=== PATIENT | female | born 1945 | race Caucasian/White ===

== ENCOUNTER 2017-01-19 21:33 | Inpatient (IN) | payer OTHER ==
[~2017-01-19] VITALS: Ht 152.4 cm; Wt 53.5 kg
[~2017-01-19 21:33] MED LIST: LISI40TA PO; METO50TA7 PO
[2017-01-19] MEDS ORDERED: SODIUM CHLORIDE 0.9% 250ML 250 ML IV STA (21:50)
[2017-01-19] MEDS ORDERED: SODIUM CHLORIDE 0.9% 1000ML 1,000 ML IV STA (21:50)
[2017-01-19] MEDS ORDERED: METOPROLOL TARTRATE 1 MG/ML VIAL IV STA (22:09)
--- NOTE | 2017-01-19 22:14 | EMERGENCY ROOM VISIT NOTE ---
ED Visit Note First contact with patient: 21:36 Patient seen by me at 2210. Patient reportedly under a lot of stress due to recent family issues did not take her medication this evening for high blood pressure may have had focal twitching and some confusion. Patient is tachycardic upon arrival as well as hypertensive. Patient has an NIH score of 0 on my examination at bedside. Current/Historical Medications Scheduled Lisinopril (Zestril), 40 MG PO noon Metoprolol Succ (Toprol Xl) (Toprol-Xl), 50 MG PO BID Allergies Coded Allergies: No Known Allergies (Verified , `, 12/07/11) Vital Signs Date Time Temp Pulse Resp B/P (MAP) Pulse Ox O2 Delivery O2 Flow Rate FiO2 01/19/17 22:01 89 Nasal Cannula 4.0 01/19/17 21:44 130 01/19/17 21:42 36.9 135 28 189/108 92 Room Air 01/19/17 21:42 92 Room Air Laboratory Results Test 01/19/17 21:50 01/19/17 21:57 Creatine Kinase MB Ratio (0-3.0) Medications Administered Medications (Trade) Dose Ordered Sig/Saul Route Start Time Stop Time Status Last Admin Dose Admin Sodium Chloride 250 ml @ 999 mls/hr Q16M STAT IV 01/19/17 21:50 01/19/17 22:05 DC 01/19/17 21:57 999 MLS/HR Sodium Chloride 1,000 ml @ 125 mls/hr Q8H STAT IV 01/19/17 21:50 01/20/17 05:49 01/19/17 21:59 125 MLS/HR Departure Information Referrals Laura Pate M.D. (PCP) Patient Instructions My [facility]
[2017-01-19 22:16] LABS: BASO % 0.1 %; BASO ABS # 0.02 K/uL (0-0.2); COMPLETE YES; EOS % 0.7 %; HEMATOCRIT 43.5 % (37-47); IG% 1.1 %; LYMPH ABS # 3.93 K/uL (1.2-3.4); MEAN CELL VOLUME 91.8 fL (80-100); MEAN CORPUSCULAR HEMOGLOBIN 33.1 pg (25-34); MEAN CORPUSCULAR HGB CONC 36.1 g/dl (32-36); MEAN PLATELET VOLUME 9.2 fL (7.4-10.4); MONO % 7.7 %; NEUT % 61.4 %; PLATELET COUNT 363 K/uL (130-400); RED BLOOD COUNT 4.74 M/uL (4.2-5.4); WHITE BLOOD COUNT 13.56 K/uL (4.8-10.8)
[2017-01-19] MEDS ORDERED: LORA-741 PO (22:29)
[2017-01-19] MEDS ORDERED: METO100T14 PO (22:29)
[2017-01-19] MEDS ORDERED: AMLO-110 PO (22:29)
[2017-01-19] MEDS ORDERED: CLR10 PO (22:29)
[2017-01-19 22:34] LABS: ALT/SGPT 27 U/L (12-78); BLOOD UREA NITROGEN 20 mg/dl (7-18); BUN/CREATININE RATIO 15.3 (10-20); CARBON DIOXIDE 22 mmol/L (21-32); CHLORIDE 88 mmol/L (98-107); GLUCOSE 188 mg/dl (70-99); MAGNESIUM 2.4 mg/dl (1.8-2.4); POTASSIUM 3.6 mmol/L (3.5-5.1); SODIUM 130 mmol/L (136-145)
[2017-01-19 22:44] LABS: ALKALINE PHOSPHATASE 76 U/L (45-117); AST/SGOT 23 U/L (15-37); CKMB/CK RATIO 5.2 (0-3.0)
--- NOTE | 2017-01-19 22:50 | DIAGNOSTIC IMAGING REPORT ---
CHEST ONE VIEW PORTABLE CLINICAL HISTORY: Altered mental status. COMPARISON STUDY: No previous studies for comparison. FINDINGS: Spinal fusion hardware is incidentally noted. A lucency projecting of the left lower hemithorax likely reflects gas within bowel. No pneumothorax or pleural effusion is present. Cardiac size is normal. Mediastinal contours are normal. A 1.3 cm nodular opacity within the left lower lung is noted. There is no lobar consolidation or evidence of pulmonary edema. There may be underlying emphysema. IMPRESSION: 1. No definite acute cardiopulmonary findings. 2. 1.3 cm nodular density projecting over the left lower lung. Nonemergent PA and shallow oblique radiographs of the chest are recommended to exclude a pulmonary nodule. 3. Lucency projecting over the left lower hemithorax/upper abdomen. This likely reflects bowel gas. Electronically signed by: Say Gary M.D. 01/19/2017 10:49 PM Dictated Date/Time: 01/19/2017 10:42 PM
--- NOTE | 2017-01-19 22:51 | DIAGNOSTIC IMAGING REPORT ---
ADDENDUM Addendum: Upon further review, note was made of an 1.7 cm sclerotic left frontal bone lesion shown on image 46 of 112. Differential considerations include a benign calvarial lesion or sclerotic metastasis. Electronically signed by: Say Gary M.D. 01/20/2017 12:07 PM Dictated Date/Time: 01/20/2017 12:[address] OF THE HEAD WITHOUT CONTRAST CLINICAL HISTORY: Altered mental status. Seizure. COMPARISON STUDY: No previous studies for comparison. CT DOSE: 537.48 mGy.cm TECHNIQUE: Helical axial images of the head were obtained without IV contrast. Automated exposure control was utilized for the study. FINDINGS: No acute intracranial hemorrhage, midline shift or mass effect is present. Brain volume is normal for age. Basilar cisterns are patent. There are no extra-axial collections. A lacunar infarct with the left caudate head is likely old. Mild white matter hypodensity suggests small vessel disease. There are no findings to suggest acute dural sinus thrombosis or acute territorial infarct. There is no calvarial fracture. IMPRESSION: No acute intracranial findings. Electronically signed by: Say Gary M.D. 01/19/2017 10:50 PM Dictated Date/Time: 01/19/2017 10:35 PM
[2017-01-19 23:04] LABS: VEN BLOOD GAS BASE EXCESS 5.2 mmol/L; VENOUS BLOOD GAS PCO2 51 mmHg (38.0-50.0); VENOUS BLOOD GAS PO2 30 mmHg
[2017-01-19 23:05] LABS: VEN BLD GAS O2 SATURATION < 60.0 %
[2017-01-19 23:12] LABS: CALCIUM 9.4 mg/dl (8.5-10.1)
--- NOTE | 2017-01-19 23:20 | EMERGENCY ROOM VISIT NOTE ---
History First contact with patient: 21:36 Chief Complaint: HYPERTENSION Stated Complaint: ALTERED MENTAL STATUS Nursing Triage Summary: ? seizure. ? 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 History of Present Illness The patient is a 71 year old female who presents to the Emergency Room with complaints of confusion episode today. Patient does not recall the events of tonight and earlier today and 2 weeks ago. Patient states she feels pale and fatigued and weak. She states she's not been eating or drinking much since her daughter was murdered 2 days ago. Patient states she also has not been sleeping. Patient denies chest pain, dyspnea, fever, chills, cough, congestion , abdominal pain, leg pain, headache or neck pain. She did not take her evening blood pressure medicines. I obtained history from the family who states today around 8:30 she stared off and was incoherent for more than 5 minutes and then was confused for 15-20 minutes. She had a similar episode earlier today at 1 PM. Both episodes were while she was sitting. No shaking episodes. 2 weeks ago she also had a similar episode. No known history of seizures. No known history of dementia. Patient does smoke heavily. No official diagnosis of COPD. EMS gave the patient a nebulizer in route to the hospital. Review of Systems See HPI for pertinent positives & negatives. A total of 10 systems reviewed and were otherwise negative. Past Medical/Surgical History Hypertension Social History Smoking Status: Heavy Tobacco Smoker Alcohol Use: none Drug Use: none Marital Status: Housing Status: lives with family Current/Historical Medications Scheduled Amlodipine (Norvasc), 5 MG PO DAILY Loratadine (Claritin), 10 MG PO DAILY Lorazepam (Ativan), 0.5 MG PO Q6H Metoprolol Tartrate (Lopressor) (Lopressor), 100 MG PO BID Allergies Coded Allergies: No Known Allergies (Verified , `, 01/19/17) Physical Exam Vital Signs Date Time Temp Pulse Resp B/P (MAP) Pulse Ox O2 Delivery O2 Flow Rate FiO2 01/19/17 22:51 100 4.0 01/19/17 22:33 104 20 173/77 92 Nasal Cannula 4.0 01/19/17 22:20 100 22 93 01/19/17 22:17 116 189/108 01/19/17 22:01 89 Nasal Cannula 4.0 01/19/17 21:44 130 01/19/17 21:42 36.9 135 28 189/108 92 Room Air 01/19/17 21:42 92 Room Air Physical Exam VITALS: Vitals are noted on the nurse's note and reviewed by myself. Vital signs hypertensive and tachycardic. GENERAL: Anxious appearing female, in no acute distress, nondiaphoretic, well- developed well-nourished. SKIN: The skin was without rashes, erythema, edema, or bruising. There is no tenting of the skin. Capillary reflex less than 2 seconds. HEAD: Normocephalic atraumatic. EARS: External auditory canals clear, tympanic membranes pearly zamora without erythema or effusion bilaterally. EYES: Pupils equal round and reactive to light and accommodation. Conjunctivae without injection, sclerae without icterus. Extraocular movements intact. NOSE: Patent, turbinates without inflammation or discharge. MOUTH: Mucous membranes are dry. Pharynx without erythema or exudate. Uvula midline. Airway patent. Tongue does not deviate. NECK: Supple without nuchal rigidity. No lymphadenopathy. No thyromegaly. Cervical spine is nontender. No JVD. HEART: Regular rate and rhythm LUNGS: Mild diffuse end expiratory wheezes, without rales or rhonchi. No dullness to percussion. No retractions or accessory muscle use. ABDOMEN: Positive bowel sounds x 4. Normal tympanic percussion. Soft, nontender, without masses or organomegaly. Teran sign negative. No guarding or rebound tenderness. MUSCULOSKELETAL: No muscle atrophy, erythema, or edema noted. NEURO: Patient was alert and oriented to person place and time. Normal sensation to light and sharp touch. No focal neurological deficits. Medical Decision & Procedures Laboratory Results 01/19/17 21:57 Red Blood Count 4.74, Mean Corpuscular Volume 91.8, Mean Corpuscular Hemoglobin 33.1, Mean Corpuscular Hemoglobin Concent 36.1, Mean Platelet Volume 9.2, Neutrophils (%) (Auto) 61.4, Lymphocytes (%) (Auto) 29.0, Monocytes (%) (Auto) 7.7, Eosinophils (%) (Auto) 0.7, Basophils (%) (Auto) 0.1, Neutrophils # (Auto) 8.31, Lymphocytes # (Auto) 3.93, Monocytes # (Auto) 1.05, Eosinophils # (Auto) 0.10, Basophils # (Auto) 0.02 01/19/17 21:57 Test 01/19/17 21:50 01/19/17 21:57 01/19/17 22:49 White Blood Count 13.56 K/uL (4.8-10.8) Red Blood Count 4.74 M/uL (4.2-5.4) Hemoglobin 15.7 g/dL (12.0-16.0) Hematocrit 43.5 % (37-47) Mean Corpuscular Volume 91.8 fL (80-100) Mean Corpuscular Hemoglobin 33.1 pg (25-34) Mean Corpuscular Hemoglobin Concent 36.1 g/dl (32-36) Platelet Count 363 K/uL (130-400) Mean Platelet Volume 9.2 fL (7.4-10.4) Neutrophils (%) (Auto) 61.4 % Lymphocytes (%) (Auto) 29.0 % Monocytes (%) (Auto) 7.7 % Eosinophils (%) (Auto) 0.7 % Basophils (%) (Auto) 0.1 % Neutrophils # (Auto) 8.31 K/uL (1.4-6.5) Lymphocytes # (Auto) 3.93 K/uL (1.2-3.4) Monocytes # (Auto) 1.05 K/uL (0.11-0.59) Eosinophils # (Auto) 0.10 K/uL (0-0.5) Basophils # (Auto) 0.02 K/uL (0-0.2) RDW Standard Deviation 43.1 fL (36.4-46.3) RDW Coefficient of Variation 12.7 % (11.5-14.5) Immature Granulocyte % (Auto) 1.1 % Immature Granulocyte # (Auto) 0.15 K/uL (0.00-0.02) Anion Gap 20.0 mmol/L (3-11) Est Creatinine Clear Calc Drug Dose 33.2 ml/min Estimated GFR () 48.1 Estimated GFR (Non- 41.5 BUN/Creatinine Ratio 15.3 (10-20) Calcium Level 9.4 mg/dl (8.5-10.1) Magnesium Level 2.4 mg/dl (1.8-2.4) Total Bilirubin 0.4 mg/dl (0.2-1) Direct Bilirubin < 0.1 mg/dl (0-0.2) Aspartate Amino Transf (AST/SGOT) 23 U/L (15-37) Alanine Aminotransferase (ALT/SGPT) 27 U/L (12-78) Alkaline Phosphatase 76 U/L (45-117) Total Creatine Kinase 95 U/L (26-192) Creatine Kinase MB 4.9 ng/ml (0.5-3.6) Creatine Kinase MB Ratio 5.2 (0-3.0) Troponin I 0.044 ng/ml (0-0.045) Total Protein 7.2 gm/dl (6.4-8.2) Albumin 3.6 gm/dl (3.4-5.0) Thyroid Stimulating Hormone (TSH) 2.280 uIu/ml (0.300-4.500) Venous Blood pH 7.40 (7.36-7.41) Venous Blood Partial Pressure CO2 51 mmHg (38.0-50.0) Venous Blood Partial Pressure O2 30 mmHg Venous Blood HCO3 31 mmol/L Venous Blood Oxygen Saturation < 60.0 % Venous Blood Base Excess 5.2 mmol/L Medications Administered Medications (Trade) Dose Ordered Sig/Saul Route Start Time Stop Time Status Last Admin Dose Admin Sodium Chloride 250 ml @ 999 mls/hr Q16M STAT IV 01/19/17 21:50 01/19/17 22:05 DC 01/19/17 21:57 999 MLS/HR Sodium Chloride 1,000 ml @ 125 mls/hr Q8H STAT IV 01/19/17 21:50 01/20/17 05:49 01/19/17 21:59 125 MLS/HR Metoprolol Tartrate (Lopressor Iv) 5 mg NOW STAT IV 01/19/17 22:09 01/19/17 22:11 DC 01/19/17 22:17 5 MG ED Course Prior records/ancillary studies reviewed and summarized above. Nursing notes reviewed. Additional history obtained from family. The patient's history was concerning for altered mental status. Differential diagnosis: Etiologies such as metabolic, infection, hypoglycemia, electrolyte abnormalities , cardiac sources, intracerebral event, toxicologic, neurologic, as well as others were entertained. Physical examination: As above. ER treatment provided: IV Lock Normal saline hydration at 125/hr with 2 50 mL bolus. Lopressor On reassessment the patients mental status improved. Diagnostics interpretation by me: ECG: Normal sinus, with sinus arrhythmia, no acute ST-T wave changes, poor baseline, rate of 116. Impression sinus tachycardia with sinus rhythm interpreted by myself repeat EKG was was done and patient had normal sinus rhythm with occasional sinus arrhythmia with no acute ST-T wave changes with rate of 95 interpreted by myself The labs revealed give troponin. Elevated anion gap. Leukocytosis Imaging studies: Head CT negative for intracranial bleed per radiology [~ rep ct add3]] CHEST ONE VIEW PORTABLE CLINICAL HISTORY: Altered mental status. COMPARISON STUDY: No previous studies for comparison. FINDINGS: Spinal fusion hardware is incidentally noted. A lucency projecting of the left lower hemithorax likely reflects gas within bowel. No pneumothorax or pleural effusion is present. Cardiac size is normal. Mediastinal contours are normal. A 1.3 cm nodular opacity within the left lower lung is noted. There is no lobar consolidation or evidence of pulmonary edema. There may be underlying emphysema. IMPRESSION: 1. No definite acute cardiopulmonary findings. 2. 1.3 cm nodular density projecting over the left lower lung. Nonemergent PA and shallow oblique radiographs of the chest are recommended to exclude a pulmonary nodule. 3. Lucency projecting over the left lower hemithorax/upper abdomen. This likely reflects bowel gas. Electronically signed by: Say Gary M.D. 01/19/2017 10:49 PM Given the above diagnostic work-up and treatment, this episode appears to be consistent with possible seizure-like activity versus acute depression from daughter being recently murdered. Further treatment will be required. Patient' s vital signs did improve after being medicated as above. She agrees to treatment plan of admission for further evaluation and workup. Case reviewed with my attending. Patient was neurovascularly and neurologically intact. Urinalysis was still pending. Patient was found to have elevated blood pressure and was referred to their family doctor for recheck and further treatment. Consultation: A consultation was placed with the [facility] hospitalist, Dr Rivera. The case was discussed and diagnostics were reviewed. The patient was evaluated in the ER for further treatment. Medical Decision as above Impression Primary Impression: Episode of confusion Additional Impression: Hypoxemia Departure Information Dispostion Being Evaluated By Hospitalist Condition FAIR Referrals Laura Pate M.D. (PCP) Patient Instructions My [facility] Problem Qualifiers
[2017-01-19] MEDS: SODIUM CHLORIDE 0.9% 1000ML 1,000 ML IV SCH (23:34)
[2017-01-19] MEDS ORDERED: LORAZEPAM 0.5 MG TAB PO STA (23:37)
[2017-01-19] MEDS ORDERED: LORAZEPAM 0.5 MG TAB PO PRN (23:45)
[2017-01-19] MEDS ORDERED: POLYETHYLENE (MIRALAX) 17 GM PACK PO PRN (23:45)
[2017-01-19] MEDS ORDERED: ONDANSETRON INJ 2 MG/ML 2 ML VIAL IV PRN (23:45)
[2017-01-19] MEDS ORDERED: MAGNESIUM HYDROXIDE SUSP 30 ML UDC PO PRN (23:45)
[2017-01-19] MEDS ORDERED: ACETAMINOPHEN 325 MG TAB PO PRN (23:45)
[2017-01-19] MEDS ORDERED: ALUMINUM/MAGNESIUM/SIMETH (MAALOX MAX) 30 ML UDC PO PRN (23:45)
[2017-01-20] VITALS (9 sets, daily range): BP systolic 156–177; BP diastolic 66–86; PULSE 68–105; TEMP 36.5–37; O2SAT 92–100; Ht 152.4 cm; Wt 53.5 kg
[2017-01-20] MEDS ORDERED: NICOTINE 21 MG/24 HR TDSY ONE (00:01)
[2017-01-20] MEDS ORDERED: IV FLUIDS COMPLETED PRN (00:30)
[2017-01-20] MEDS ORDERED: NICOTINE 21 MG/24 HR TDSY TD STA (00:31)
--- NOTE | 2017-01-20 01:08 | History and Physical ---
History & Physical Date & Time of Service: Jan 20, 2017 at 00:40 Chief Complaint: Altered Mental Status Primary Care Physician: Laura Pate M.D. History of Present Illness Source: patient, family, clinic records This is a 71 year old female with a PMH of tobacco use disorder, HTN, HLD, osteoporosis; brought in by family due to spacing out and difficulty grieving. Family states that patient's youngest daughter was recently murdered earlier this week. As per her other daughters, she has not been grieving properly, not crying or tearful; more subdued, smoking heavily and spacing out. Her family's concern is weight loss, lack of appetite and lack of emotion. Patient states she feels fine. Daughters also state that she had this spacing out episode around Mother's Day as well. Upon presentation to the ER, patient was noted to be hypoxic, with some improvement with supplemental oxygen. Social History Smoking Status: Heavy Tobacco Smoker Drug Use: none Marital Status: Immunizations History of Influenza Vaccine: Yes Influenza Vaccine Date: May 24, 2011 History of Tetanus Vaccine?: Unknown History of Pneumococcal: Yes Pneumococcal Date: May 05, 2010 History of Hepatitis B Vaccine: Unknown Allergies Coded Allergies: No Known Allergies (Verified , `, 01/19/17) Home Medications Scheduled Amlodipine (Norvasc), 5 MG PO DAILY Loratadine (Claritin), 10 MG PO DAILY Lorazepam (Ativan), 0.5 MG PO Q6H Metoprolol Tartrate (Lopressor) (Lopressor), 100 MG PO BID Review of Systems Constitutional: + weight loss, + weakness, No fever, No chills, No sweats, No fatigue Respiratory: + cough, + shortness of breath, No sputum, No wheezing, No dyspnea on exertion, No dyspnea at rest, No hemoptysis Cardiovascular: No chest pain, No orthopnea, No edema, No palpitations Abdomen: + pain (R flank pain), No nausea, No vomiting, No diarrhea, No constipation, No GI bleeding Genitourinary - Female: No dysuria, No urinary frequency, No urinary urgency, No urinary incontinence, No urinary retention, No hematuria Neurologic: + weakness, No numbness/tingling, No vertigo, No balance problems Psychiatric: + depression symptoms, + anxiety Endocrine: No fatigue, No excessive thirst, No excessive urination Hematologic / Lymphatic: No abnormal bleeding/bruising Integumentary: No rash Allergic / Immunologic: No environmental allergies, No seasonal allergies Physical Exam Vital Signs Date Time Temp Pulse Resp B/P (MAP) Pulse Ox O2 Delivery O2 Flow Rate FiO2 01/20/17 00:16 88 18 171/67 100 01/19/17 22:51 100 4.0 01/19/17 22:33 104 20 173/77 92 Nasal Cannula 4.0 01/19/17 22:20 100 22 93 01/19/17 22:17 116 189/108 01/19/17 22:01 89 Nasal Cannula 4.0 01/19/17 21:44 130 01/19/17 21:42 36.9 135 28 189/108 92 Room Air 01/19/17 21:42 92 Room Air General Appearance: no apparent distress Head: normocephalic, atraumatic Respiratory/Chest: chest non-tender, lungs clear, normal breath sounds, no respiratory distress, no accessory muscle use Cardiovascular: regular rate, rhythm, no edema, no gallop, no JVD, no murmur, normal peripheral pulses Abdomen/GI: normal bowel sounds, soft, + tenderness (tenderness at right CVA) Back: + right CVA tenderness Extremities/Musculoskelatal: normal inspection, no calf tenderness, normal capillary refill, no pedal edema, normal range of motion Neurologic/Psych: no motor/sensory deficits, alert, + pertinent finding (flat affect) Skin: normal color Diagnostics Laboratory Results Results Past 24 Hours Test 01/19/17 21:50 01/19/17 21:57 01/19/17 22:49 Range/Units White Blood Count 13.56 4.8-10.8 K/uL Red Blood Count 4.74 4.2-5.4 M/uL Hemoglobin 15.7 12.0-16.0 g/dL Hematocrit 43.5 37-47 % Mean Corpuscular Volume 91.8 80-100 fL Mean Corpuscular Hemoglobin 33.1 25-34 pg Mean Corpuscular Hemoglobin Concent 36.1 32-36 g/dl Platelet Count 363 130-400 K/uL Mean Platelet Volume 9.2 7.4-10.4 fL Neutrophils (%) (Auto) 61.4 % Lymphocytes (%) (Auto) 29.0 % Monocytes (%) (Auto) 7.7 % Eosinophils (%) (Auto) 0.7 % Basophils (%) (Auto) 0.1 % Neutrophils # (Auto) 8.31 1.4-6.5 K/uL Lymphocytes # (Auto) 3.93 1.2-3.4 K/uL Monocytes # (Auto) 1.05 0.11-0.59 K/uL Eosinophils # (Auto) 0.10 0-0.5 K/uL Basophils # (Auto) 0.02 0-0.2 K/uL RDW Standard Deviation 43.1 36.4-46.3 fL RDW Coefficient of Variation 12.7 11.5-14.5 % Immature Granulocyte % (Auto) 1.1 % Immature Granulocyte # (Auto) 0.15 0.00-0.02 K/uL Sodium Level 130 136-145 mmol/L Potassium Level 3.6 3.5-5.1 mmol/L Chloride Level 88 98-107 mmol/L Carbon Dioxide Level 22 21-32 mmol/L Anion Gap 20.0 3-11 mmol/L Blood Urea Nitrogen 20 7-18 mg/dl Creatinine 1.30 0.60-1.20 mg/dl Est Creatinine Clear Calc Drug Dose 33.2 ml/min Estimated GFR () 48.1 Estimated GFR (Non- 41.5 BUN/Creatinine Ratio 15.3 10-20 Random Glucose 188 70-99 mg/dl Calcium Level 9.4 8.5-10.1 mg/dl Magnesium Level 2.4 1.8-2.4 mg/dl Total Bilirubin 0.4 0.2-1 mg/dl Direct Bilirubin < 0.1 0-0.2 mg/dl Aspartate Amino Transf (AST/SGOT) 23 15-37 U/L Alanine Aminotransferase (ALT/SGPT) 27 12-78 U/L Alkaline Phosphatase 76 45-117 U/L Total Creatine Kinase 95 26-192 U/L Creatine Kinase MB 4.9 0.5-3.6 ng/ml Creatine Kinase MB Ratio 5.2 0-3.0 Troponin I 0.044 0-0.045 ng/ml Total Protein 7.2 6.4-8.2 gm/dl Albumin 3.6 3.4-5.0 gm/dl Thyroid Stimulating Hormone (TSH) 2.280 0.300-4.500 uIu/ml Venous Blood pH 7.40 7.36-7.41 Venous Blood Partial Pressure CO2 51 38.0-50.0 mmHg Venous Blood Partial Pressure O2 30 mmHg Venous Blood HCO3 31 mmol/L Venous Blood Oxygen Saturation < 60.0 % Venous Blood Base Excess 5.2 mmol/L Diagnostic Radiology CT OF THE HEAD WITHOUT CONTRAST CLINICAL HISTORY: Altered mental status. Seizure. COMPARISON STUDY: No previous studies for comparison. CT DOSE: 537.48 mGy.cm TECHNIQUE: Helical axial images of the head were obtained without IV contrast. Automated exposure control was utilized for the study. FINDINGS: No acute intracranial hemorrhage, midline shift or mass effect is present. Brain volume is normal for age. Basilar cisterns are patent. There are no extra-axial collections. A lacunar infarct with the left caudate head is likely old. Mild white matter hypodensity suggests small vessel disease. There are no findings to suggest acute dural sinus thrombosis or acute territorial infarct. There is no calvarial fracture. IMPRESSION: No acute intracranial findings. CHEST ONE VIEW PORTABLE CLINICAL HISTORY: Altered mental status. COMPARISON STUDY: No previous studies for comparison. FINDINGS: Spinal fusion hardware is incidentally noted. A lucency projecting of the left lower hemithorax likely reflects gas within bowel. No pneumothorax or pleural effusion is present. Cardiac size is normal. Mediastinal contours are normal. A 1.3 cm nodular opacity within the left lower lung is noted. There is no lobar consolidation or evidence of pulmonary edema. There may be underlying emphysema. IMPRESSION: 1. No definite acute cardiopulmonary findings. 2. 1.3 cm nodular density projecting over the left lower lung. Nonemergent PA and shallow oblique radiographs of the chest are recommended to exclude a pulmonary nodule. 3. Lucency projecting over the left lower hemithorax/upper abdomen. This likely reflects bowel gas. EKG NSR with PACs Impression Assessment and Plan This is a 71 year old female with a PMH of tobacco use disorder, HTN, HLD, osteoporosis presents with spacing out, and grief Grief patient presents a few days after her daughter was killed patient is having difficulty with grieving/adjusting with mood will try a trial of Ativan 0.5mg PO - titrate up as necessary as per family, she has been having "spacing out" episodes - and difficult snapping out of it will obtain EEG and monitor in tele for now, though this seems more like a mood disorder secondary to stress Head CT negative Weight Loss patient is having difficulty with weight, unintentional weight loss now she is not eating properly due to stressors will try Boost TID Acute Kidney Injury Hyponatremia likely secondary to dehydration and lack of appetite will add a regular diet as well as boost TID give IVFs and recheck labs in AM check UA and culture due to R flank tenderness and leukocytosis Left Lower Lung Nodule in the setting of Tobacco Use Disorder patient smokes about 1 PPD at baseline has been smoking excessively since the passing of her daughter CXR = 1.3 cm nodular density projecting over the left lower lung. Nonemergent PA and shallow oblique radiographs of the chest are recommended to exclude a pulmonary nodule. will repeat CXR PA/oblique in AM nicotine patch counseled on tobacco cessation HTN blood pressure elevated on admission; possibly due to missed b-ana dose continue amlodipine/metoprolol DVT ppx SCDs FULL CODE Level of Care Telemetry VTE Prophylaxis VTE Risk Assessment Done? Y/N: Yes Risk Level: Moderate
[2017-01-20 05:53] LABS: HEMATOCRIT 36.8 % (37-47); MEAN CELL VOLUME 91.8 fL (80-100); MEAN CORPUSCULAR HEMOGLOBIN 32.2 pg (25-34); MEAN CORPUSCULAR HGB CONC 35.1 g/dl (32-36); MEAN PLATELET VOLUME 8.9 fL (7.4-10.4); PLATELET COUNT 267 K/uL (130-400); RED BLOOD COUNT 4.01 M/uL (4.2-5.4); WHITE BLOOD COUNT 9.61 K/uL (4.8-10.8)
[2017-01-20 06:26] LABS: BUN/CREATININE RATIO 23.5 (10-20); CALCIUM 8.3 mg/dl (8.5-10.1); CREATININE 0.71 mg/dl (0.60-1.20)
[2017-01-20] MEDS: BOOST VANILLA PO SCH ×6 (08:00→15:54)
[2017-01-20] MEDS: METOPROLOL TARTRATE 100 MG TAB PO SCH ×2 (08:20→20:11)
[2017-01-20] MEDS: AMLODIPINE BESYLATE 5 MG TAB PO SCH (08:21)
[2017-01-20] MEDS: NICOTINE 21 MG/24 HR TDSY TD SCH (09:00)
--- NOTE | 2017-01-20 09:00 | DIAGNOSTIC IMAGING REPORT ---
PA chest including obliques(3 views) CLINICAL HISTORY: Left lower lobe pulmonary nodule COMPARISON STUDY: No previous studies for comparison. FINDINGS: The previously queried left lower lung zone pulmonary nodule was not confirmed on the current study. There is underlying pulmonary emphysema. There is subtle subpleural interstitial thickening/edema.. There are minimal right midlung zone airspace opacities, possibly inflammatory. IMPRESSION: 1. Additional images fail to confirm the presence of a left lower lobe pulmonary nodule 2. Emphysema with subtle subpleural interstitial thickening/edema 3. Subtle right midlung zone airspace opacities. This could represent a minimal pneumonia. Clinical and radiographic follow-up is recommended. Electronically signed by: Missael Finch M.D. 01/20/2017 8:59 AM Dictated Date/Time: 01/20/2017 8:51 AM
[2017-01-20] MEDS: SODIUM CHLORIDE 0.9% 1000ML 1,000 ML IV SCH (09:31)
--- NOTE | 2017-01-20 10:56 | Progress Note ---
Medicine Progress Note Date & Time of Visit: Jan 20, 2017 at 10:43. Subjective patient seen with at bedside who supplemented history per ER notes, patient was noted to have incoherent episodes yesterday, most pronounced during the evening while family was at the table per , he was awakened by family members as patient was unresponsive found the patient sitting but head was down, unresponsive to stimuli, with weak pulse after about 5 mins, patient opened her eyes, eyeballs upward, with some drooling no seizure like activity, incontinence patient then started to wake up when EMS personnel came but was confused as per , EMS got a strip which showed sinus tachycardia in the 140s patient was then brought to the ER this morning, patient is alert, oriented x 3 the last thing she remembers is her daughter offering her a banana last evening , no recollection of events since then calm, pleasant states she feels improved this morning, appetite is improved still feeling sad about her daughter's demise, but not tearful denies headache, dizziness, chest pain, dyspnea, palpitations, cough, abdominal pain , problems with urination or BM no similar episodes in the past, but admitting MD notes report that per children , patient was also having staring spells during Mothers' Day Objective Last 8 Hrs Date Time Temp Pulse Resp B/P (MAP) Pulse Ox O2 Delivery O2 Flow Rate FiO2 01/20/17 08:51 36.5 77 18 164/86 (112) 96 01/20/17 04:00 95 Nasal Cannula 2.0 01/20/17 04:00 36.7 69 21 173/83 (113) 98 Nasal Cannula 2.0 Physical Exam: General- oriented x 3, not in distress, speaks in sentences with no effort Head- atraumatic Eyes- PERRL, EOMI, anicteric ENT- oropharynx clear Neck- supple, no JVD, no adenopathy, no thyromegaly Lungs- clear to auscultation b/l Heart- regular rhythm; no murmur, normal rate Abdomen- normal bowel sounds, soft, nontender Extremities- no pretibial edema, no calf tenderness; peripheral pulses intact Neuro- alert, oriented x 3;no gross deficits Skin- warm & dry Psych- normal affect, denies suicidal ideations Laboratory Results: Last 24 Hours Test 01/19/17 21:57 01/19/17 22:49 01/20/17 05:15 White Blood Count 13.56 K/uL 9.61 K/uL Red Blood Count 4.74 M/uL 4.01 M/uL Hemoglobin 15.7 g/dL 12.9 g/dL Hematocrit 43.5 % 36.8 % Mean Corpuscular Volume 91.8 fL 91.8 fL Mean Corpuscular Hemoglobin 33.1 pg 32.2 pg Mean Corpuscular Hemoglobin Concent 36.1 g/dl 35.1 g/dl Platelet Count 363 K/uL 267 K/uL Mean Platelet Volume 9.2 fL 8.9 fL Neutrophils (%) (Auto) 61.4 % Lymphocytes (%) (Auto) 29.0 % Monocytes (%) (Auto) 7.7 % Eosinophils (%) (Auto) 0.7 % Basophils (%) (Auto) 0.1 % Neutrophils # (Auto) 8.31 K/uL Lymphocytes # (Auto) 3.93 K/uL Monocytes # (Auto) 1.05 K/uL Eosinophils # (Auto) 0.10 K/uL Basophils # (Auto) 0.02 K/uL RDW Standard Deviation 43.1 fL 43.4 fL RDW Coefficient of Variation 12.7 % 12.8 % Immature Granulocyte % (Auto) 1.1 % Immature Granulocyte # (Auto) 0.15 K/uL Sodium Level 130 mmol/L 133 mmol/L Potassium Level 3.6 mmol/L 4.0 mmol/L Chloride Level 88 mmol/L 95 mmol/L Carbon Dioxide Level 22 mmol/L 32 mmol/L Anion Gap 20.0 mmol/L 6.0 mmol/L Blood Urea Nitrogen 20 mg/dl 17 mg/dl Creatinine 1.30 mg/dl 0.71 mg/dl Est Creatinine Clear Calc Drug Dose 33.2 ml/min 53.0 ml/min Estimated GFR () 48.1 100.0 Estimated GFR (Non- 41.5 86.3 BUN/Creatinine Ratio 15.3 23.5 Random Glucose 188 mg/dl 91 mg/dl Calcium Level 9.4 mg/dl 8.3 mg/dl Magnesium Level 2.4 mg/dl Total Bilirubin 0.4 mg/dl Direct Bilirubin < 0.1 mg/dl Aspartate Amino Transf (AST/SGOT) 23 U/L Alanine Aminotransferase (ALT/SGPT) 27 U/L Alkaline Phosphatase 76 U/L Total Creatine Kinase 95 U/L Creatine Kinase MB 4.9 ng/ml Creatine Kinase MB Ratio 5.2 Troponin I 0.044 ng/ml Total Protein 7.2 gm/dl Albumin 3.6 gm/dl Thyroid Stimulating Hormone (TSH) 2.280 uIu/ml Venous Blood pH 7.40 Venous Blood Partial Pressure CO2 51 mmHg Venous Blood Partial Pressure O2 30 mmHg Venous Blood HCO3 31 mmol/L Venous Blood Oxygen Saturation < 60.0 % Venous Blood Base Excess 5.2 mmol/L Assessment & Plan This is a 71 year old female with a PMH of tobacco use disorder, HTN, HLD, osteoporosis presents with altered mental status. ALTERED MENTAL STATUS EPISODE - r/o Seizure EEG pending Neuro consulted - r/o CVA CT head: old lacunar infarct MRI Brain w/o contrast - possible component of Dehydration, Fatigue crea back to baseline, continue IV fluids - r/o Arrhythmia Telemetry monitoring GRIEF, R/O DEPRESSION - will consult Psych Weight Loss patient is having difficulty with weight, unintentional weight loss now she is not eating properly due to stressors -- Boost TID Acute Kidney Injury Hyponatremia likely secondary to dehydration and lack of appetite -- resolved -- gentle IV fluids check UA and culture due to R flank tenderness and leukocytosis Left Lower Lung Nodule in the setting of Tobacco Use Disorder r/o Pneumonia patient smokes about 1 PPD at baseline has been smoking excessively since the passing of her daughter CXR = 1.3 cm nodular density projecting over the left lower lung. Nonemergent PA and shallow oblique radiographs of the chest are recommended to exclude a pulmonary nodule. will repeat CXR PA/oblique in AM: no left lung nodule, possible RML infiltrate -- check CT chest -- nicotine patch counseled on tobacco cessation HTN blood pressure elevated on admission; possibly due to missed b-ana dose continue amlodipine/metoprolol monitor DVT ppx SCDs FULL CODE Disposition pending anticipate d/c home when medically stable Current Inpatient Medications: Current Inpatient Medications Medications (Trade) Dose Ordered Sig/Saul Route Start Time Stop Time Status Last Admin Dose Admin Sodium Chloride 1,000 ml @ 60 mls/hr [id number] IV 01/19/17 23:34 02/18/17 23:33 01/20/17 09:31 100 MLS/HR Acetaminophen (Tylenol Tab) 650 mg Q4H PRN PO 01/19/17 23:45 02/18/17 23:44 Al Hydrox/Mg Hydrox/Simethicone (Maalox Max Susp) 15 ml Q4H PRN PO 01/19/17 23:45 02/18/17 23:44 Magnesium Hydroxide (Milk Of Magnesia Susp) 30 ml Q12H PRN PO 01/19/17 23:45 02/18/17 23:44 Ondansetron HCl (Zofran Inj) 4 mg Q6H PRN IV 01/19/17 23:45 02/18/17 23:44 Polyethylene (Miralax Powder Packet) 17 gm DAILY PRN PO 01/19/17 23:45 02/18/17 23:44 Amlodipine Besylate (Norvasc Tab) 5 mg DAILY PO 01/20/17 09:00 02/19/17 08:59 01/20/17 08:21 5 MG Metoprolol Tartrate (Lopressor Tab) 100 mg BID PO 01/20/17 09:00 02/19/17 08:59 01/20/17 08:20 100 MG Lorazepam (Ativan Tab) 0.5 mg Q4 PRN PO 01/19/17 23:45 02/18/17 23:44 Nicotine (Nicoderm Cq 21MG Patch) 1 patch QAM TD 01/20/17 09:00 02/19/17 08:59 Miscellaneous (Remove Nicoderm Patch) 1 ea HS N/A 01/20/17 21:00 02/19/17 20:59 Miscellaneous (Iv Fluids Completed) 1 ea PRN PRN N/A 01/20/17 00:30 01/20/18 00:29 Enteral Nutritional Formula (Boost) 1 can TIDM PO 01/20/17 08:00 02/19/17 07:59
--- NOTE | 2017-01-20 11:41 | DIAGNOSTIC IMAGING REPORT ---
MRI OF THE BRAIN WITHOUT CONTRAST CLINICAL HISTORY: Seizure. Possible stroke. COMPARISON STUDY: Noncontrast head CT dated 01/19/2017 FINDINGS: Sagittal T1, axial diffusion, proton density and T2 weighted axial, coronal FLAIR, and axial T1-weighted images were acquired. No intra or extra-axial mass lesions are visualized Axial diffusion-weighted images reveal no evidence of acute or subacute infarction. There is no evidence of ventricular dilatation. Proton density T2-weighted and FLAIR images reveal scattered foci of increased T2 signal within the white matter, likely on a small vessel basis. There is a small lacunar infarct within the left basal ganglia. The hippocampal formations appear symmetric. There are no abnormal flow voids. IMPRESSION: 1. No acute intracranial findings 2. No evidence of acute or subacute infarction 3. No evidence of intracranial mass on this noncontrast study. Electronically signed by: Missael Finch M.D. 01/20/2017 11:39 AM Dictated Date/Time: 01/20/2017 11:37 AM
--- NOTE | 2017-01-20 12:02 | DIAGNOSTIC IMAGING REPORT ---
CT OF THE CHEST WITHOUT IV CONTRAST CLINICAL HISTORY: Confusion. Evaluate for pulmonary nodule or pneumonia. COMPARISON STUDY: Chest radiograph January 20, 2017 and January 19, 2017. CT DOSE: 263.61 mGy.cm TECHNIQUE: Axial images of the chest were obtained without IV contrast. Images were reviewed in the axial, sagittal, and coronal planes. IV contrast was not administered for this examination. FINDINGS: No enlarged axillary or mediastinal lymph nodes are present. Evaluation for hilar lymph nodes is suboptimal on this unenhanced exam but there is a possible mildly enlarged right hilar lymph node shown image 152 of 296 which measures approximately 1.7 cm. There is severe emphysema. Size of the heart is normal. There is no pericardial effusion. There is a 1.8 cm nodular opacity within the right lower lobe shown on image 163 with abrupt cut off of a segmental bronchus. There is a 3.2 x 2.3 cm irregular subpleural opacity within the right lower lobe which could reflect postobstructive pneumonia or tumor. There is no pneumothorax or pleural effusion. Minimal lingular opacity is noted with mild mucoid impaction. There are multiple old thoracic and lumbar spine compression fractures. Post surgical findings within the lumbar spine are partially imaged. Visualized portions of the upper abdomen are unremarkable on this unenhanced exam. IMPRESSION: 1. 3.2 x 2.3 cm irregular subpleural opacity within the right lower lobe which corresponds to the abnormality on prior chest radiograph. This could reflect postobstructive pneumonia although malignancy could appear similar. 1.8 cm right lower lobe nodular opacity with associated cut off of a segmental bronchus. This could reflect a central obstructing lesion and may reflect malignancy. Bronchoscopy or short-term follow-up chest CT following treatment is recommended for further evaluation. 2. Suspected mildly enlarged right hilar lymph node which may be neoplastic or reactive. 3. Severe emphysema. Electronically signed by: Say Gary M.D. 01/20/2017 12:01 PM Dictated Date/Time: 01/20/2017 11:39 AM
[2017-01-20 14:47] LABS: URINE APPEARANCE CLOUDY (CLEAR); URINE BILIRUBIN NEG (NEG); URINE COLOR YELLOW; URINE NITRITE NEG (NEG); URINE SPECIFIC GRAVITY 1.013 (1.000-1.030); UROBILINOGEN NEG (NEG)
[2017-01-20 14:49] LABS: MANUAL MICROSCOPIC REQUIRED? NO; REVIEW REQ? NO
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
[2017-01-20] MEDS ORDERED: ESCITALOPRAM OXALATE 10 MG TAB PO ONE (15:45)
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
[2017-01-20 16:31] LABS: BUN/CREATININE RATIO 16.7 (10-20); CALCIUM 8.2 mg/dl (8.5-10.1); CREATININE 0.71 mg/dl (0.60-1.20); POTASSIUM 4.1 mmol/L (3.5-5.1)
--- NOTE | 2017-01-20 18:33 | ELECTROENCEPHALOGRAPH REPORT ---
FOR: Dr. Rivera. CLINICAL DIAGNOSIS: Episodic confusion and "zoning out." ELECTROENCEPHALOGRAM DIAGNOSIS: Essentially normal during wakefulness and drowsiness. DESCRIPTION OF TRACING: This EEG was done as a bedside recording with simultaneous video analysis of patient movement and behavior. Photic stimulation was not performed. Hyperventilation was not obtained, but drowsiness is seen episodically. There were a number of muscle movement artifacts, but by enlarging, the tracing is quite interpretable and during wakefulness, there is evidence for what appears to be a background alpha rhythm in a normal range of up to 9-10 Hz in maximum frequency and of up to 30 microvolts of maximum amplitude. This is maximum in posterior head regions and bilaterally symmetrical. Polymorphic mid frequency theta activity is seen over all head regions without clear focal or regional predominance. Anterior head region maximum bilaterally symmetrical low voltage fast activity in the beta range is present. Episodically, the patient does appear drift into a drowsy state and the EEG becomes more synchronous, the background alpha rhythm slips into the theta range, there is a buildup of generalized slow wave activity but there is no focal build up, no associated spike and wave discharges or other potentially epileptogenic abnormalities seen in association with these runs of drowsiness. Fully developed stages of light sleep was never developed. At no time during the waking tracing or during a drowsy tracing is there evidence for potentially epileptogenic activity in the form of polyspike or spike wave bursts, focal sharp waves or focal spikes. INTERPRETATION: This electroencephalogram is essentially normal during wakefulness and drowsiness without evidence for focal or generalized encephalopathy and without evidence for potentially epileptogenic activity.
[2017-01-21] VITALS (9 sets, daily range): BP systolic 161–196; BP diastolic 75–92; PULSE 65–87; TEMP 36.4–37; O2SAT 73–100
[2017-01-21] MEDS: SODIUM CHLORIDE 0.9% 1000ML 1,000 ML IV SCH (03:38)
[2017-01-21] MEDS: BOOST VANILLA PO SCH ×6 (07:30→16:45)
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
[2017-01-21] MEDS: NICOTINE 21 MG/24 HR TDSY TD SCH (09:00)
[2017-01-21] MEDS ORDERED: ESCITALOPRAM OXALATE 10 MG TAB PO SCH (09:00)
[2017-01-21] MEDS: AMLODIPINE BESYLATE 5 MG TAB PO SCH (09:22)
[2017-01-21] MEDS: METOPROLOL TARTRATE 100 MG TAB PO SCH (09:22)
--- NOTE | 2017-01-21 09:39 | Progress Note ---
Medicine Progress Note Date & Time of Visit: Jan 21, 2017 at 09:27. Subjective patient seen resting in bed, at bedside states she feels improved this morning no recurrence of symptoms, although was very irritable, "nasty", yelling in her sleep, as per denies chest pain, dyspnea, palpitations, dizziness, headache, focal neuro symptoms noted to desaturate to the 70s when ambulating to the bathroom has occasional cough with white sputum denies other symptoms Objective Last 8 Hrs Date Time Temp Pulse Resp B/P (MAP) Pulse Ox O2 Delivery O2 Flow Rate FiO2 01/21/17 07:43 36.7 65 20 172/88 (116) 100 2.0 01/21/17 04:15 72 177/75 (109) 01/21/17 04:00 Nasal Cannula 2.0 01/21/17 03:18 36.4 87 20 () 97 Nasal Cannula 2.0 Physical Exam: General- oriented x 3, not in distress, speaks in sentences with no effort Eyes- EOMI, anicteric Neck- supple, no JVD Lungs- distant breath sounds but clear bilaterally, no rales/wheezes Heart- regular rhythm; no murmur, normal rate Abdomen- normal bowel sounds, soft, nontender Extremities- no pretibial edema, no calf tenderness; peripheral pulses intact Neuro- alert, oriented x 3;no gross deficits Skin- warm & dry Psych- normal affect, denies suicidal ideations Laboratory Results: Last 24 Hours Test 01/20/17 14:30 01/20/17 16:00 01/21/17 08:51 01/21/17 09:22 Urine Color YELLOW Urine Appearance CLOUDY Urine pH 8.0 Urine Specific [place] 1.013 Urine Protein NEG Urine Glucose (UA) NEG Urine Ketones NEG Urine Occult Blood NEG Urine Nitrite NEG Urine Bilirubin NEG Urine Urobilinogen NEG Urine Leukocyte Esterase TRACE Urine WBC (Auto) 1-5 /hpf Urine RBC (Auto) 0-4 /hpf Urine Hyaline Casts (Auto) 1-5 /lpf Urine Epithelial Cells (Auto) 10-20 /lpf Urine Bacteria (Auto) NEG Sodium Level 133 mmol/L Potassium Level 4.1 mmol/L Chloride Level 95 mmol/L Carbon Dioxide Level 30 mmol/L Anion Gap 8.0 mmol/L Blood Urea Nitrogen 12 mg/dl Creatinine 0.71 mg/dl Est Creatinine Clear Calc Drug Dose 53.0 ml/min Estimated GFR () 100.0 Estimated GFR (Non- 86.3 BUN/Creatinine Ratio 16.7 Random Glucose 100 mg/dl Calcium Level 8.2 mg/dl Assessment & Plan This is a 71 year old female with a PMH of tobacco use disorder, HTN, HLD, osteoporosis presents with altered mental status. ALTERED MENTAL STATUS EPISODE, POSSIBLE METABOLIC ENCEPHALOPATHY, PRESENT ON ADMISSION, Resolved - possible component of Dehydration, Fatigue crea back to baseline, given IV fluids - Seizure unlikely EEG unrevealing Neuro consulted, seizure felt to be unlikely - Acute CVA ruled out CT head and MRI brain: no new acute process; old lacunar infarct left basal ganglia Aspirin recommended per Neurology will also need Statin - r/o Arrhythmia Telemetry monitoring: unrevealing so far echo: * -- Conclusions -- * There is mild concentric left ventricular hypertrophy. * The left ventricular wall motion is normal. * The LV Ejection Fraction = 55-60%. * The right ventricle is normal in size and function. * Aortic valve sclerosis mild, without significant aortic valvular stenosis. * Mild aortic regurgitation. HYPOXIA POSSIBLE ASPIRATION PNEUMONIA CHRONIC SMOKING, POSSIBLE UNDERLYING COPD -- patient noted to be hypoxic on ambulation while admitted -- Ct chest: IMPRESSION: 1. 3.2 x 2.3 cm irregular subpleural opacity within the right lower lobe which corresponds to the abnormality on prior chest radiograph. This could reflect postobstructive pneumonia although malignancy could appear similar. 1.8 cm right lower lobe nodular opacity with associated cut off of a segmental bronchus. This Bronchoscopy or short-term follow-up chest CT following treatment is recommended for further evaluation. 2. Suspected mildly enlarged right hilar lymph node which may be neoplastic or reactive. 3. Severe emphysema. - Pulmonary consulted recommend Augmentin x 7 days for possible Aspiration Pneumonia, start Symbicort - d dimer: 690 Doppler US legs: no DVT Pulm consulted, CT angio to r/o PE not recommended at this time RIGHT LOWER LOBE NODULES in the setting of Tobacco Use Disorder patient smokes about 1 PPD at baseline has been smoking excessively since the passing of her daughter -- CT chest noted above -- will need close outpatient Pulm follow up with Dr. Caceres may need biopsy -- nicotine patch given counseled on tobacco cessation Acute Kidney Injury Hyponatremia -- likely secondary to dehydration and lack of appetite -- crea back to baseline Na 130-121 -- given IV fluids -- repeat PRP to check Na and crea on follow up with PCP GRIEF, R/O DEPRESSION - Psych consulted - Lexapro started but patient was exhibiting irritability, nightmares - Psych recommends to continue PRN Ativan for now Weight Loss patient is having difficulty with weight, unintentional weight loss now she is not eating properly due to stressors -- Boost TID ordered -- monitor as outpatient HTN BP not at goal systolic 170s increase Amlodipine to 10mg po philomena continue Metoprolol monitor as outpatient Old Lacunar Infarct, Left Basal Ganglia seen on Brain MRI start Aspirin, Statin monitor as outpatient DVT ppx SCDs Heparin SC FULL CODE Disposition d/c home today ff up with PCP next week ff up with Pulmonary Dr. Caceres in 1-2 weeks Current Inpatient Medications: Current Inpatient Medications Medications (Trade) Dose Ordered Sig/Saul Route Start Time Stop Time Status Last Admin Dose Admin Sodium Chloride 1,000 ml @ 60 mls/hr [id number] IV 01/19/17 23:34 02/18/17 23:33 01/21/17 03:38 60 MLS/HR Acetaminophen (Tylenol Tab) 650 mg Q4H PRN PO 01/19/17 23:45 02/18/17 23:44 Al Hydrox/Mg Hydrox/Simethicone (Maalox Max Susp) 15 ml Q4H PRN PO 01/19/17 23:45 02/18/17 23:44 Magnesium Hydroxide (Milk Of Magnesia Susp) 30 ml Q12H PRN PO 01/19/17 23:45 02/18/17 23:44 Ondansetron HCl (Zofran Inj) 4 mg Q6H PRN IV 01/19/17 23:45 02/18/17 23:44 Polyethylene (Miralax Powder Packet) 17 gm DAILY PRN PO 01/19/17 23:45 02/18/17 23:44 Amlodipine Besylate (Norvasc Tab) 5 mg DAILY PO 01/20/17 09:00 02/19/17 08:59 01/21/17 09:22 5 MG Metoprolol Tartrate (Lopressor Tab) 100 mg BID PO 01/20/17 09:00 02/19/17 08:59 01/21/17 09:22 100 MG Lorazepam (Ativan Tab) 0.5 mg Q4 PRN PO 01/19/17 23:45 02/18/17 23:44 Nicotine (Nicoderm Cq 21MG Patch) 1 patch QAM TD 01/20/17 09:00 02/19/17 08:59 Miscellaneous (Remove Nicoderm Patch) 1 ea HS N/A 01/20/17 21:00 02/19/17 20:59 Miscellaneous (Iv Fluids Completed) 1 ea PRN PRN N/A 01/20/17 00:30 01/20/18 00:29 Enteral Nutritional Formula (Boost) 1 can TIDM PO 01/20/17 08:00 02/19/17 07:59 Escitalopram Oxalate (Lexapro Tab) 10 mg QAM PO 01/21/17 09:00 02/20/17 08:59
[2017-01-21 10:08] LABS: CALCIUM 8.6 mg/dl (8.5-10.1)
[2017-01-21 10:11] LABS: BUN/CREATININE RATIO 19.3 (10-20); CREATININE 0.58 mg/dl (0.60-1.20)
[2017-01-21 11:24] LABS: PARTIAL THROMBOPLASTIN RATIO 1.2; PROTHROMBIN TIME (PATIENT) 10.8 SECONDS (9.0-12.0)
--- NOTE | 2017-01-21 11:26 | ECHOCARDIOGRAM REPORT ---
*NOTICE TO RECEIVING [employer] This information is strictly Confidential and protected under [place] law. [place] law prohibits you from making any further disclosure of this information unless further disclosure is expressly permitted by the written consent of the person to whom it pertains or is authorized by law. A general authorization for the release of medical or other information is not sufficient for this purpose. Hospital accepts no responsibility if the information is made available to any other person, INCLUDING THE PATIENT. Interpretation Summary * Name: FRANCI NAYLOR Study Date: 01/21/2017 09:29 AM BP: 172/88 mmHg * Patient Location: C.2T\S\E222\S\1 HR: 79 * : 1945 (M/d/yyyy) Gender: Female Height: 60 in * Age: 71 yrs Ethnicity: [place] Weight: 117 lb * Ordering Physician: Raymundo Lee * Referring Physician: Self, Referred * Performed By: Fabi Galloway RCS * * Reason For Study: ALTERED MENTAL STATUS * BSA: 1.5 m2 * -- Conclusions -- * There is mild concentric left ventricular hypertrophy. * The left ventricular wall motion is normal. * The LV Ejection Fraction = 55-60%. * The right ventricle is normal in size and function. * Aortic valve sclerosis mild, without significant aortic valvular stenosis. * Mild aortic regurgitation. Procedure Details * A complete two-dimensional transthoracic echocardiogram was performed (2D, M-mode, Doppler and color flow Doppler). Left Ventricle * The left ventricle is normal in size. * There is mild concentric left ventricular hypertrophy. * Left ventricular systolic function is normal. * Ejection Fraction = 55-60%. * The left ventricular wall motion is normal. Right Ventricle * The right ventricle is normal in size and function. * The right ventricular systolic function is normal as assessed by tricuspid annular plane systolic excursion (TAPSE) (normal >1.5 cm). Atria * The left atrial size is normal. * Right atrial size is normal. * There is no evidence of atrial septal defect, but resolution does not allow assessment for a patent foramen ovale. Mitral Valve * The mitral valve is normal. * There is no mitral valve stenosis. * Significant mitral regurgitation is absent. Tricuspid Valve * The tricuspid valve is normal. * There is no tricuspid stenosis. * Significant tricuspid regurgitation is absent. * Doppler findings do not suggest pulmonary hypertension. Aortic Valve * The aortic valve is trileaflet. * Aortic valve sclerosis mild, without significant aortic valvular stenosis. * Aortic stenosis is absent. * Mild aortic regurgitation. Pulmonic Valve * The pulmonary valve is not well seen, but the Doppler examination is normal without significant regurgitation or stenosis. Great Vessels * The aortic root and proximal ascending aorta are normal sized. Pericardium/Pleural * There is no pericardial effusion. Great Vessels * Normal inferior vena cava diameter and respiratory variation suggests normal central venous pressure. * Normal inferior vena cava size and collapsability with sniff indicates a normal right atrial pressure of 3 mmHg Left Ventricular Diastolic Function * Grade I diastolic dysfunction, (abnormal relaxation pattern). MMode 2D Measurements and Calculations IVSd 1.1 cm IVSs 1.6 cm LVIDd 3.8 cm LVIDs 2.2 cm LVPWd 1.0 cm LVPWs 1.5 cm IVS/LVPW 1.1 FS 40.8 % EDV(Teich) 61.9 ml ESV(Teich) 17.1 ml EF(Teich) 72.3 % EDV(cubed) 54.8 ml ESV(cubed) 11.4 ml EF(cubed) 79.2 % % IVS thick 41.0 % % LVPW thick 40.1 % LV mass(C)d 129.8 grams LV mass(C)dI 87.4 grams/m\S\2 LV mass(C)s 112.7 grams LV mass(C)sI 75.8 grams/m\S\2 SV(Teich) 44.7 ml SI(Teich) 30.1 ml/m\S\2 SV(cubed) 43.4 ml SI(cubed) 29.2 ml/m\S\2 Ao root diam 2.8 cm Ao root area 6.1 cm\S\2 LA dimension 3.4 cm LA/Ao 1.2 LVOT diam 2.0 cm LVOT area 3.1 cm\S\2 LVAd ap4 30.8 cm\S\2 LVLd ap4 7.9 cm EDV(MOD-sp4) 102.6 ml EDV(sp4-el) 101.8 ml LVAs ap4 17.0 cm\S\2 LVLs ap4 6.3 cm ESV(MOD-sp4) 38.9 ml ESV(sp4-el) 39.2 ml EF(MOD-sp4) 62.0 % EF(sp4-el) 61.5 % LVAd ap2 30.3 cm\S\2 LVLd ap2 7.7 cm EDV(MOD-sp2) 95.7 ml EDV(sp2-el) 100.3 ml LVAs ap2 19.3 cm\S\2 LVLs ap2 6.6 cm ESV(MOD-sp2) 47.8 ml ESV(sp2-el) 48.1 ml EF(MOD-sp2) 50.0 % EF(sp2-el) 52.0 % LVLd %diff -1.83 % EDV(MOD-bp) 99.3 ml LVLs %diff 4.9 % ESV(MOD-bp) 43.7 ml EF(MOD-bp) 56.0 % SV(MOD-sp4) 63.6 ml SI(MOD-sp4) 42.8 ml/m\S\2 SV(MOD-sp2) 47.9 ml SI(MOD-sp2) 32.2 ml/m\S\2 SV(MOD-bp) 55.6 ml SI(MOD-bp) 37.4 ml/m\S\2 SV(sp4-el) 62.6 ml SI(sp4-el) 42.1 ml/m\S\2 SV(sp2-el) 52.2 ml SI(sp2-el) 35.1 ml/m\S\2 Doppler Measurements and Calculations MV E max pao 96.0 cm/sec MV A max pao 125.6 cm/sec MV E/A 0.76 MV P1/2t max pao 98.9 cm/sec MV P1/2t 53.5 msec MVA(P1/2t) 4.1 cm\S\2 MV dec slope 541.1 cm/sec\S\2 MV dec time 0.17 sec Ao V2 max 268.4 cm/sec Ao max PG 28.8 mmHg Ao max PG (full) 26.9 mmHg Ao V2 mean 195.4 cm/sec Ao mean PG 16.6 mmHg Ao mean PG (full) 15.4 mmHg Ao V2 VTI 68.7 cm MULU(I,A) 0.71 cm\S\2 MULU(I,D) 0.71 cm\S\2 MULU(V,A) 0.79 cm\S\2 MULU(V,D) 0.79 cm\S\2 AI max pao 479.1 cm/sec AI max PG 91.8 mmHg AI dec slope 254.2 cm/sec\S\2 AI P1/2t 551.9 msec LV V1 max PG 2.0 mmHg LV V1 mean PG 1.2 mmHg LV V1 max 69.0 cm/sec LV V1 mean 53.3 cm/sec LV V1 VTI 15.9 cm SV(Ao) 416.4 ml SI(Ao) 280.1 ml/m\S\2 SV(LVOT) 48.7 ml SI(LVOT) 32.7 ml/m\S\2
[2017-01-21] MEDS ORDERED: HEPARIN SOD 5000 UNIT/0.5 ML CARP SQ SCH (14:00)
--- NOTE | 2017-01-21 14:33 | DIAGNOSTIC IMAGING REPORT ---
BILATERAL LOWER EXTREMITY VENOUS DOPPLER CLINICAL HISTORY: Elevated d-dimer. Confusion. COMPARISON STUDY: No previous studies for comparison. TECHNIQUE: Sonography of the deep venous system of the bilateral lower extremities was performed. Compression and augmentation were evaluated. FINDINGS: This exam was difficult due to suboptimal penetration. The bilateral common femoral, superficial femoral and popliteal veins were compressible. Augmentation was normal. Flow was shown within the deep calf vessels. IMPRESSION: No evidence of deep venous thrombus within the bilateral lower extremities. Electronically signed by: Say Gary M.D. 01/21/2017 2:31 PM Dictated Date/Time: 01/21/2017 2:31 PM
--- NOTE | 2017-01-21 14:38 | DIAGNOSTIC IMAGING REPORT ---
ULTRASOUND KIDNEYS AND BLADDER CLINICAL HISTORY: Right flank pain. COMPARISON STUDY: No priors. TECHNIQUE: Real-time, grayscale, and color flow sonography of the kidneys and bladder is performed. Images are reviewed in the transverse and longitudinal planes. FINDINGS: Kidneys: The kidneys demonstrate cortical atrophy and are normal in echotexture. The right kidney measures 9.2 x 3.6 x 3.2 cm and the left kidney measures 9.8 x 5.0 x 4.2 cm. There is no hydronephrosis. No shadowing renal calculi are identified. There is no sonographic evidence of contour deforming renal mass lesion. No perinephric fluid is identified. Bladder: The bladder is decompressed and grossly unremarkable. Ureteral jets were not seen. IMPRESSION: 1. The kidneys symmetric cortical atrophy and are without hydronephrosis. 2. The bladder was decompressed and grossly unremarkable. Electronically signed by: Nagi Aldana M.D. 01/21/2017 2:37 PM Dictated Date/Time: 01/21/2017 2:36 PM
--- NOTE | 2017-01-21 14:56 | Psychiatric Progress Notes ---
Psychiatric Progress Note Date of Service Jan 21, 2017. Notes ID: Patient reviewed with liaison nurse. Initial consult completed yesterday by ROSEANN Cantor, patient and had agreed to a trial of Lexapro at that time. CC: "she was yelling and nasty overnight" HPI: up and down a lot by her report with sleeping at bedside. They now do not want to proceed with SSRI trial. Reviewed that Ativan is for temporary symptom relief and that it is a controlled substance. Reviewed potential other factors that could have contributed to issues overnight like mild delirium. For example, this am she didn't believe that she was in a hospital. ROS: sleeplessness as above, denies SI/HI/cobb MSE: alert, cooperative, oriented at this time with reality based organized thoughts. Did not appear to be responding to internal stimuli. Imp: grief with baseline LUCERO Plan: d/c Lexapro, rescinding consent for trial agrees that she doesn't drive, particularly if takes Ativan family is comfortable helping to track/oversee use of Ativan and desire f/u with PCP.
[2017-01-21] MEDS ORDERED: NRV5 PO (17:43)
[2017-01-21] MEDS ORDERED: ASPEC81 PO (17:43)
[2017-01-21] MEDS ORDERED: Boost PO (17:43)
[2017-01-21] MEDS ORDERED: SYMIN INH (17:43)
[2017-01-21] MEDS ORDERED: ZCR20 PO (17:43)
[2017-01-21] MEDS ORDERED: LORA-741 PO (17:43)
[2017-01-21] MEDS ORDERED: AMOX1TAB43 PO (17:43)
[2017-01-21] MEDS ORDERED: AMLODIPINE BESYLATE 5 MG TAB PO ONE (17:45)
--- NOTE | 2017-01-21 17:49 | Discharge Instructions ---
Discharge Instructions Date of Service Jan 21, 2017. Admission Reason for Admission: Episode Of Confusion, Grieving Discharge Discharge Diagnosis / Problem: EPISODE OF ALTERED MENTAL STATUS Discharge Goals Goal(s): Diagnostic testing, Therapeutic intervention Activity Recommendations Activity Limitations: as noted below (NO HEAVY EXERTION UNTIL FOLLOW UP WITH PRIMARY CARE PHYSICIAN) Lifting Limitations: until after follow-up appointment Exercise/Sports Limitations: until after follow-up appointment Driving or Machine Use: NO DRIVING UNTIL FOLLOW UP WITH PRIMARY CARE PHYSICIAN . Instructions / Follow-Up Instructions / Follow-Up PLEASE REVIEW YOUR NEW MEDICATION LIST AND FOLLOW INSTRUCTIONS CAREFULLY. CALL PRIMARY CARE PHYSICIAN OR RETURN TO ER IMMEDIATELY IF WITH RECURRENCE OF SYMPTOMS, WEAKNESS, FEVER/CHILLS, COUGH, SHORTNESS OF BREATH, CONFUSION. ALWAYS USE OXYGEN AT 2 LITERS BY NASAL CANNULA WITH AMBULATION AND NEEDED FOR SHORTNESS OF BREATH. FOLLOW UP WITH PRIMARY CARE PHYSICIAN EARLY NEXT WEEK (OFFICE WILL CALL THE PATIENT FOR THE APPOINTMENT). FOLLOW UP WITH LUNG SPECIALIST DR. REDDING IN 1-2 WEEKS. PLEASE CALL HIS OFFICE FOR THE APPOINTMENT TEL. NO. . Current Hospital Diet Patient's current hospital diet: Regular Diet Discharge Diet Recommended Diet: AHA Diet (Heart Healthy) Pending Studies Studies pending at discharge: yes List of pending studies: REPEAT BLOOD WORK ON FOLLOW UP WITH PRIMARY CARE PHYSICIAN NEXT WEEK. Medical Emergencies . Who to Call and When: Medical Emergencies: If at any time you feel your situation is an emergency, please call 911 immediately. . Non-Emergent Contact Non-Emergency issues call your: Primary Care Provider Call Non-Emergent contact if: you have a fever, your pain is not controlled, your pain is worsening, you have any medication questions . . "Provider Documentation" section prepared by Raymundo Lee. . VTE Core Measure Inpt VTE Proph given/why not?: Unfractionated heparin SQ
--- NOTE | 2017-01-21 18:06 | Discharge Summary ---
Discharge Summary Date of Service Jan 21, 2017. Discharge Summary Admission Date: Jan 19, 2017 at 23:49 Discharge Date: Jan 21, 2017 Discharge Disposition: Home Principal Diagnosis: ALTERED MENTAL STATUS EPISODE, Resolved Secondary Diagnoses/Problems: Please refer to hospital course below. Procedures: CT OF THE CHEST WITHOUT IV CONTRAST CLINICAL HISTORY: Confusion. Evaluate for pulmonary nodule or pneumonia. COMPARISON STUDY: Chest radiograph January 20, 2017 and January 19, 2017. CT DOSE: 263.61 mGy.cm TECHNIQUE: Axial images of the chest were obtained without IV contrast. Images were reviewed in the axial, sagittal, and coronal planes. IV contrast was not administered for this examination. FINDINGS: No enlarged axillary or mediastinal lymph nodes are present. Evaluation for hilar lymph nodes is suboptimal on this unenhanced exam but there is a possible mildly enlarged right hilar lymph node shown image 152 of 296 which measures approximately 1.7 cm. There is severe emphysema. Size of the heart is normal. There is no pericardial effusion. There is a 1.8 cm nodular opacity within the right lower lobe shown on image 163 with abrupt cut off of a segmental bronchus. There is a 3.2 x 2.3 cm irregular subpleural opacity within the right lower lobe which could reflect postobstructive pneumonia or tumor. There is no pneumothorax or pleural effusion. Minimal lingular opacity is noted with mild mucoid impaction. There are multiple old thoracic and lumbar spine compression fractures. Post surgical findings within the lumbar spine are partially imaged. Visualized portions of the upper abdomen are unremarkable on this unenhanced exam. IMPRESSION: 1. 3.2 x 2.3 cm irregular subpleural opacity within the right lower lobe which corresponds to the abnormality on prior chest radiograph. This could reflect postobstructive pneumonia although malignancy could appear similar. 1.8 cm right lower lobe nodular opacity with associated cut off of a segmental bronchus. This could reflect a central obstructing lesion and may reflect malignancy. Bronchoscopy or short-term follow-up chest CT following treatment is recommended for further evaluation. 2. Suspected mildly enlarged right hilar lymph node which may be neoplastic or reactive. 3. Severe emphysema. BRAIN MRI MRI OF THE BRAIN WITHOUT CONTRAST CLINICAL HISTORY: Seizure. Possible stroke. COMPARISON STUDY: Noncontrast head CT dated 01/19/2017 FINDINGS: Sagittal T1, axial diffusion, proton density and T2 weighted axial, coronal FLAIR, and axial T1-weighted images were acquired. No intra or extra-axial mass lesions are visualized Axial diffusion-weighted images reveal no evidence of acute or subacute infarction. There is no evidence of ventricular dilatation. Proton density T2-weighted and FLAIR images reveal scattered foci of increased T2 signal within the white matter, likely on a small vessel basis. There is a small lacunar infarct within the left basal ganglia. The hippocampal formations appear symmetric. There are no abnormal flow voids. IMPRESSION: 1. No acute intracranial findings 2. No evidence of acute or subacute infarction 3. No evidence of intracranial mass on this noncontrast study. RENAL US: IMPRESSION: 1. The kidneys symmetric cortical atrophy and are without hydronephrosis. 2. The bladder was decompressed and grossly unremarkable. EEG INTERPRETATION: This electroencephalogram is essentially normal during wakefulness and drowsiness without evidence for focal or generalized encephalopathy and without evidence for potentially epileptogenic activity. Consultations: PULMONARY DR. REDDING, NEUROLOGY DR. GARZON, PSYCH DR. ARENAS Pending Studies/Follow-Up: REPEAT PRP ON FOLLOW UP WITH PCP STIVEN WEJosafat; NEEDS TO FOLLOW UP WITH PULMONARY DR. REDDING; PLEASE REFER TO HOSPITAL COURSE BELOW. Medication Reconciliation New Medications: Amlodipine Besylate (Amlodipine Besylate) 5 Mg Tab 10 MG PO DAILY for 30 Days, #60 TAB 2 Refills Amoxicillin & Pot Clavulanate (Amoxicillin/Clavulanate P) 1 Tab Tab 875 MG PO BIDM for 7 Days, #14 TAB 0 Refills Aspirin (Aspirin EC Low Dose) 81 Mg Ectab 81 MG PO QAM for 30 Days, #30 TABS 2 Refills with food Budesonide/Formoterol Fumarate (Symbicort 160-4.5 Mcg/Act) 60 Puffs/Inhaler Aero 2 PUFFS INH BID for 30 Days, #1 INHALER 2 Refills Simvastatin (Simvastatin) 20 Mg Tab 20 MG PO PM for 30 Days, #30 TAB 2 Refills [Boost] () 1 LIQD 1 CAN PO TIDM for 30 Days, #90 BTL Changed Medications: Lorazepam (Ativan) 0.5 Mg Tab 0.5 MG PO Q6H PRN for anxiety for 10 Days (Medication details modified) Continued Medications: Loratadine (Claritin) 10 Mg Tab 10 MG PO DAILY, TAB Metoprolol Tartrate (Lopressor) (Lopressor) 100 Mg Tab 100 MG PO BID, TAB Discontinued Medications: Amlodipine (Norvasc) 5 Mg Tab 5 MG PO DAILY, TAB Admission Information HPI (per Admitting provider): This is a 71 year old female with a PMH of tobacco use disorder, HTN, HLD, osteoporosis; brought in by family due to spacing out and difficulty grieving. Family states that patient's youngest daughter was recently murdered earlier this week. As per her other daughters, she has not been grieving properly, not crying or tearful; more subdued, smoking heavily and spacing out. Her family's concern is weight loss, lack of appetite and lack of emotion. Patient states she feels fine. Daughters also state that she had this spacing out episode around Mother's Day as well. Upon presentation to the ER, patient was noted to be hypoxic, with some improvement with supplemental oxygen. Physical Exam (per Admitting): General Appearance: no apparent distress Head: normocephalic, atraumatic Respiratory/Chest: chest non-tender, lungs clear, normal breath sounds, no respiratory distress, no accessory muscle use Cardiovascular: regular rate, rhythm, no edema, no gallop, no JVD, no murmur , normal peripheral pulses Abdomen/GI: normal bowel sounds, soft, + tenderness (tenderness at right CVA ) Back: + right CVA tenderness Extremities/Musculoskelatal: normal inspection, no calf tenderness, normal capillary refill, no pedal edema, normal range of motion Neurologic/Psych: no motor/sensory deficits, alert, + pertinent finding ( flat affect) Skin: normal color Hospital Course This is a 71 year old female with a PMH of tobacco use disorder, HTN, HLD, osteoporosis presents with altered mental status. ALTERED MENTAL STATUS EPISODE, POSSIBLE METABOLIC ENCEPHALOPATHY, PRESENT ON ADMISSION, Resolved - possible component of Dehydration, Fatigue crea back to baseline, given IV fluids - Seizure unlikely EEG unrevealing Neuro consulted, seizure felt to be unlikely - Acute CVA ruled out CT head and MRI brain: no new acute process; old lacunar infarct left basal ganglia Aspirin recommended per Neurology will also need Statin - r/o Arrhythmia Telemetry monitoring: unrevealing so far echo: * -- Conclusions -- * There is mild concentric left ventricular hypertrophy. * The left ventricular wall motion is normal. * The LV Ejection Fraction = 55-60%. * The right ventricle is normal in size and function. * Aortic valve sclerosis mild, without significant aortic valvular stenosis. * Mild aortic regurgitation. may need outpatient cardiac monitoring if symptoms recur HYPOXIA POSSIBLE ASPIRATION PNEUMONIA CHRONIC SMOKING, POSSIBLE UNDERLYING COPD -- patient noted to be hypoxic on ambulation while admitted -- Ct chest: IMPRESSION: 1. 3.2 x 2.3 cm irregular subpleural opacity within the right lower lobe which corresponds to the abnormality on prior chest radiograph. This could reflect postobstructive pneumonia although malignancy could appear similar. 1.8 cm right lower lobe nodular opacity with associated cut off of a segmental bronchus. This Bronchoscopy or short-term follow-up chest CT following treatment is recommended for further evaluation. 2. Suspected mildly enlarged right hilar lymph node which may be neoplastic or reactive. 3. Severe emphysema. - Pulmonary consulted- Dr. Redding recommend Augmentin x 7 days for possible Aspiration Pneumonia, started Symbicort - d dimer: 690 Doppler US legs: no DVT Pulm consulted, CT angio to r/o PE not recommended at this time RIGHT LOWER LOBE NODULES in the setting of Tobacco Use Disorder patient smokes about 1 PPD at baseline has been smoking excessively since the passing of her daughter -- CT chest noted above -- will need close outpatient Pulm follow up with Dr. Redding in 1-2 weeks may need biopsy -- nicotine patch given counseled on tobacco cessation Acute Kidney Injury Hyponatremia -- likely secondary to dehydration and lack of appetite -- crea back to baseline Na 130-121 -- given IV fluids -- repeat PRP to check Na and crea on follow up with PCP GRIEF - Psych consulted - Lexapro started but patient was exhibiting irritability, nightmares - Psych recommends to continue PRN Ativan for now Weight Loss patient is having difficulty with weight, unintentional weight loss now she is not eating properly due to stressors -- Boost TID ordered -- monitor as outpatient HTN BP not at goal systolic 170s increase Amlodipine to 10mg po philomena continue Metoprolol monitor as outpatient Old Lacunar Infarct, Left Basal Ganglia seen on Brain MRI start Aspirin, Statin monitor as outpatient ff up LFTs DVT ppx SCDs Heparin SC FULL CODE Disposition d/c home today ff up with PCP next week ff up with Pulmonary Dr. Redding in 1-2 weeks Total time spent on discharge = 60 minutes This includes examination of the patient, discharge planning, medication reconciliation, and communication with other providers. Discharge Instructions Discharge Instructions Date of Service Jan 21, 2017. Admission Reason for Admission: Episode Of Confusion, Grieving Discharge Discharge Diagnosis / Problem: EPISODE OF ALTERED MENTAL STATUS Discharge Goals Goal(s): Diagnostic testing, Therapeutic intervention Activity Recommendations Activity Limitations: as noted below (NO HEAVY EXERTION UNTIL FOLLOW UP WITH PRIMARY CARE PHYSICIAN) Lifting Limitations: until after follow-up appointment Exercise/Sports Limitations: until after follow-up appointment Driving or Machine Use: NO DRIVING UNTIL FOLLOW UP WITH PRIMARY CARE PHYSICIAN . Instructions / Follow-Up Instructions / Follow-Up PLEASE REVIEW YOUR NEW MEDICATION LIST AND FOLLOW INSTRUCTIONS CAREFULLY. CALL PRIMARY CARE PHYSICIAN OR RETURN TO ER IMMEDIATELY IF WITH RECURRENCE OF SYMPTOMS, WEAKNESS, FEVER/CHILLS, COUGH, SHORTNESS OF BREATH, CONFUSION. ALWAYS USE OXYGEN AT 2 LITERS BY NASAL CANNULA WITH AMBULATION AND NEEDED FOR SHORTNESS OF BREATH. FOLLOW UP WITH PRIMARY CARE PHYSICIAN EARLY NEXT WEEK (OFFICE WILL CALL THE PATIENT FOR THE APPOINTMENT). FOLLOW UP WITH LUNG SPECIALIST DR. REDDING IN 1-2 WEEKS. PLEASE CALL HIS OFFICE FOR THE APPOINTMENT TEL. NO. . Current Hospital Diet Patient's current hospital diet: Regular Diet Discharge Diet Recommended Diet: AHA Diet (Heart Healthy) Pending Studies Studies pending at discharge: yes List of pending studies: REPEAT BLOOD WORK ON FOLLOW UP WITH PRIMARY CARE PHYSICIAN NEXT WEEK. Medical Emergencies . Who to Call and When: Medical Emergencies: If at any time you feel your situation is an emergency, please call 911 immediately. . Non-Emergent Contact Non-Emergency issues call your: Primary Care Provider Call Non-Emergent contact if: you have a fever, your pain is not controlled, your pain is worsening, you have any medication questions . . "Provider Documentation" section prepared by Raymundo Lee. . VTE Core Measure Inpt VTE Proph given/why not?: Unfractionated heparin SQ
[2017-01-21] MEDS ORDERED: SIMVASTATIN 20 MG TAB PO SCH (21:00)
[2017-01-21] MEDS ORDERED: BUDESONIDE/FORMOTEROL FUMARATE 160/4.5 60 PUFFS/INHALER INH SCH (21:00)
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
[2017-01-22] MEDS ORDERED: AMOXICILLIN/CLAVULANATE TAB 875 MG TAB PO SCH (07:30)
[2017-01-22] MEDS ORDERED: ASPIRIN 81 MG ECTAB PO SCH (09:00)
[2017-04-15] MEDS ORDERED: NRV5 PO (09:44)
[2017-05-16] MEDS ORDERED: PANT40TA PO (13:06)
[2017-05-16] MEDS ORDERED: LORA-741 PO (13:06)
[2017-05-16] MEDS ORDERED: AMLO-110 PO (13:06)
[2017-05-16] MEDS ORDERED: NTRGSL/4 UT (13:06)
[2017-05-16] MEDS ORDERED: SYMIN160 INH (13:06)
[2017-05-16] MEDS ORDERED: FURO-85 PO (13:06)
[2017-05-16] MEDS ORDERED: TRAM-10 PO (13:06)
[2017-05-16] MEDS ORDERED: SIMV20TA2 PO (13:06)
[2017-05-16] MEDS ORDERED: ASPI81TA28 PO (13:06)
[2017-05-16] MEDS ORDERED: SERT25TA PO (13:06)
[2017-06-06] MEDS ORDERED: LCTX PO (13:22)
[2017-06-06] MEDS ORDERED: LVQ750 PO (13:22)
[2017-07-15] MEDS ORDERED: ONDA8TAB6 PO (14:46)
[2017-07-15] MEDS ORDERED: PROM25TA9 PO (14:46)
[2017-07-21] MEDS ORDERED: MIRT15TA2 PO (08:40)
[2017-07-21] MEDS ORDERED: MAGN400T6 PO (08:41)
[2017-07-21] MEDS ORDERED: [UNRECOGNIZED DRUG - CODE] (08:45)
[2017-07-21] MEDS ORDERED: POTA10CA28 PO (08:56)
== END 2017-01-21 19:11 | disposition home or self-care (01) | DRG 682 ==
LOC: EDBD 21:33 → C.EDB 21:34 → OBSVTOIN 23:36 → INTOOBSV 23:36 → C.2T 23:36 → UNDOADMOB 23:36 → OBSVTOIN 23:49 → C.2T 23:49 → ENRESERV 01-20 00:04
PROVIDERS: ADMIT Family Medicine; ATTEND Internal Medicine
DX: N17.9 Acute kidney failure, unspecified (principal); G93.41 Metabolic encephalopathy; E87.1 Hypo-osmolality and hyponatremia; J69.0 Pneumonitis due to inhalation of food and vomit; I10 Essential (primary) hypertension; F17.200 Nicotine dependence, unspecified, uncomplicated; F43.21 Adjustment disorder with depressed mood; Z63.4 Disappearance and death of family member; R09.02 Hypoxemia; E78.5 Hyperlipidemia, unspecified; M81.0 Age-related osteoporosis without current pathological fracture; E86.0 Dehydration; J44.9 Chronic obstructive pulmonary disease, unspecified; R59.9 Enlarged lymph nodes, unspecified; R91.8 Other nonspecific abnormal finding of lung field; R63.4 Abnormal weight loss; Z86.73 Personal history of transient ischemic attack (TIA), and cerebral infarction without residual deficits

== ENCOUNTER → 2017-03-09 | Outpatient (CLI) | payer OTHER ==
[~2017-03-09] MED LIST changes: +ALEN70TA2 PO; +AMLO-110 PO; +AMOX1TAB43 PO; +ASPEC81 PO; +ASPI81TA28 PO; +Boost PO; +CLR10 PO; +FLUT1INH; +FURO-85 PO; -LISI40TA PO; +LORA-741 PO; +LSN40 PO; +LSX20 PO; +METO100T14 PO; -METO50TA7 PO; +NRV5 PO; +NTRGSL/4 UT; +NTRSLP4 SL; +NUTR-238 PO; +OPTIRAY 320 IV PRN; +OXGN; +OXYC-57 PO; +PANT40TA PO; +PRT40 PO; +SERT25TA PO; +SIMV20TA2 PO; +SYMIN INH; +SYMIN160 INH; +TRAM-10 PO; +ZCR20 PO; +ZLF50 PO
--- NOTE | 2017-03-09 12:55 | DIAGNOSTIC IMAGING REPORT ---
(CHEST) THORAX WITH CT DOSE: 189.63 mGy.cm HISTORY: Abnormal CT exam R06.00 Dyspnea TECHNIQUE: Multiaxial CT images of the chest were performed following the intravenous administration of contrast. A dose lowering technique was utilized adhering to the principles of ALARA. COMPARISON: 01/20/2017 FINDINGS: Pleural-based mass lateral aspect right midlung. Current measurements are 3.1 x 2.8 cm. This is stable to slightly increased from the prior exam of the time interval is short. There is a 1.9 cm right hilar mass with additional subcarinal adenopathy. There is a tubular appearing process extending from the right hilar mass/node to a position immediately adjacent to the pleural based lesion. This measures 3.3 x 0.9 cm and again is potentially creating partial bronchial obstructive change. Pleural based nodules posterior aspect right lower lobe persists. These measure up to 1.1 cm Emphysematous changes noted bilaterally. Limited evaluation of the upper abdomen shows mild cortical scarring of the liver with mild fatty infiltration. There are postoperative changes of the thoracic spine consistent with prior laminectomy and fusion. IMPRESSION: 1. Persistent and perhaps subtle progression of a pleural-based nodular density right lower lobe . 2. This density has a soft tissue linear component extending to a potential mass lesion of the right infrahilar region currently measuring 1.9 cm. 3. Probable developing subcarinal adenopathy as well as posterior pleural-based nodularity. 4. Neoplastic processes is the diagnosis of exclusion. 5. Underlying Baseline emphysematous change. The above report was generated using voice recognition software. It may contain grammatical, syntax or spelling errors. Electronically signed by: Chandra Dorsey M.D. 03/09/2017 12:54 PM Dictated Date/Time: 03/09/2017 12:43 PM
== END | disposition home or self-care (01) ==
LOC: C.CTS 12:21
PROVIDERS: ATTEND Physician Assistant
DX: R06.00 Dyspnea, unspecified (principal)

== ENCOUNTER → 2017-03-09 | Outpatient (CLI) | payer OTHER ==
[~2017-03-09] MED LIST changes: -OPTIRAY 320 IV PRN
--- NOTE | 2017-03-10 16:20 | POLYSOMNOGRAPH REPORT ---
CLINICAL DATA: 71-year-old female with BMI of 21.3 referred by Jagdish Galloway PA-C for evaluation of possible sleep apnea. She has had witnessed apneic events and daytime somnolence. She has oxygen to wear at night. She has been depressed recently. On the evening of 03/09/2017, a home sleep apnea test was performed using a [employer] type 3 monitor. RECORDING RESULTS: Total recording time was 10 hours. The patient's monitoring time and estimated sleep time was 4.3 hours. RESPIRATORY DATA: There was no evidence of clinically significant sleep apnea seen. The EDISON was 0.7. There were 3 hypopneic episodes. The longest respiratory event was 30 seconds. OXIMETRY DATA: Transient nocturnal hypoxemia was seen. Oxygen troy was 86%. Mean saturation was 93%. Time below 89% was 1 minute. HEART RATE DATA: Heart rates ranged from 61-67 beats per minute. SNORING due: Snoring was recorded intermittently throughout the night. SPACE CONTROLLER'S COMMENTS: The patient's returned the equipment and stated that she did not really sleep at all and only kept the equipment on for just over 4 hours. IMPRESSION: No evidence of clinically significant sleep apnea/hypopnea or significant nocturnal hypoxemia on this very limited sleep study. It is unclear whether the patient slept this night. Since sleep is not monitored during a home sleep apnea test, if sleep apnea is still a consideration, an in- lab sleep study will need to be performed. RECOMMENDATIONS: Continue use of oxygen at night. Consider in-lab sleep study if clinically indicated. BENJAMIN
--- NOTE | 2017-03-16 11:21 | CODING QUERY MEDICAL NECESSITY ---
SUPPORTING DIAGNOSIS NEEDED Nilesh DALAL, A supporting diagnosis is required for the test/procedure performed on this patient in order for us to be reimbursed by the patient's insurance. Please provide a supporting diagnosis for the following test/procedure listed below next to the test name along with your signature. *If there is no additional diagnosis for this patient that would support the following test/procedure please document that below next to the test/procedure. Test(s)/Procedure(s) that require a supporting diagnosis: * ([id number]) UNATTEND SLEEP W/ RESP EFFORT DIAGNOSIS: DATE OF SERVICE: 03/09/17 Provider Signature: Date: Thank you Ebenezer Pringle Health Information Management Once completed, please kindly fax back to [phone] For questions please call [phone]
== END | disposition home or self-care (01) ==
LOC: C.NEUR 09:40
PROVIDERS: ATTEND Physician Assistant
DX: R06.00 Dyspnea, unspecified (principal); R09.02 Hypoxemia

== ENCOUNTER → 2017-03-14 | Outpatient (CLI) | payer OTHER ==
--- NOTE | 2017-03-14 13:06 | DIAGNOSTIC IMAGING REPORT ---
VIDEO SWALLOW HISTORY: Dysphagia dyspnea TECHNIQUE: Video fluoroscopic evaluation of swallowing was performed in the AP and lateral projections by the speech pathology staff. The patient is fed nectar-thick and thin liquid barium, a barium coated wafer, and barium pudding. FLUOROSCOPY TIME: 2.4 minutes. COMPARISON STUDY: None. FINDINGS: There is normal hyoid excursion and epiglottic deflection. Trace penetration with thin liquids. No evidence for maddie aspiration. Moderate esophageal dysmotility. Moderate reflux. IMPRESSION: 1. No aspiration identified. A trace amount of persistent penetration with thin liquids. Moderate esophageal dysmotility. 2. Please see the speech pathologist report for detailed findings and recommendations. The above report was generated using voice recognition software. It may contain grammatical, syntax or spelling errors. Electronically signed by: Chandra Dorsey M.D. 03/14/2017 1:04 PM Dictated Date/Time: 03/14/2017 1:03 PM
--- NOTE | 2017-03-14 13:28 | SWALLOWING EVALUATION ---
HISTORY: This 71 year old woman was referred for a video swallow study at [facility] in order to rule out aspiration and identify the safest consistencies for optimal oral intake. The patient reports she had a choking episode ~ 2 months ago when she was talking on the phone and eating a hamburger at the same time. She denies any other specific swallowing difficulties. Recent chest CT on 01/20/17 revealed a RLL lung nodule and severe emphysema. PMH is significant for heavy tobacco use, hypertension, hyperlipidemia, and osteoporosis. Current diet is regular. PROCEDURE: The patient was seen in the Radiology Department of [facility] for the [facility]. Cursory examination of the oral cavity revealed an upper denture that fit will. Missing lower dentition. Oral motor function was wnl. The patient was seated on a stool and was viewed in both the Anterior-Posterior (A-P) and Lateral planes. Volitional phonation exercises completed in the A-P plane revealed bilateral vocal fold movement and vocal intensity within functional limits. In the lateral plane, the patient was given the following boluses: 1 tsp. thin liquid barium x 2, single swallow thin liquid barium self-presented from a cup, sequential swallows of thin liquid barium self-presented from a cup, 1 tsp. nectar-thick liquid barium, single swallow nectar-thick liquid barium self-presented from a cup, 1 tsp. barium pudding, and 1 club cracker coated in barium pudding. The patient was then repositioned into the A-P plane and given the following boluses: 1 tsp. nectar thick barium and 1 tsp. barium pudding. RESULTS: Oral Stage: Lip closure was adequate. The patient was able to maintain a cohesive liquid bolus upon command without any lateral or posterior escape. Mastication was disorganized with chewing and mashing. Lingual motion for bolus transport was noted to be slow. There was retention lining the tongue and palate after the swallow. The initiation of the pharyngeal swallow was delayed and triggered when the bolus head reached the pyriforms. Pharyngeal Stage: Soft palate elevation was complete. Laryngeal elevation revealed partial superior movement of the thyroid cartilage and partial approximation of the arytenoids to the epiglottic base. Anterior hyoid excursion was partially reduced. Epiglottic deflection was complete. Laryngeal vestibular closure was incomplete, as evidenced by a narrow column of contrast being located in the vestibule at the height of the swallow. The pharyngeal stripping wave was present and complete. There was partial distention and duration of the opening to the pharyngoesophageal segment (PES). Tongue base retraction was reduced, with a trace column of contrast located between the tongue base and pharyngeal wall during the swallow. There was mild retention located along the tongue base and in the valleculae after the swallow. The patient presented with laryngeal penetration during the study. There was no aspiration of any consistency. Retention that remained in the pharynx after the swallow cleared with a second swallow that was independently generated. Esophageal stage: There was esophageal retention throughout the mid and distal esophagus with retrograde flow below the PES. A liquid wash assisted to clear some of this retention. These findings are suggestive of esophageal dysmotility and reflux. SUMMARY/RECOMMENDATIONS: This patient presents with mild jessica-pharyngeal dysphagia. She also has s/s of esophageal dysfunction. The following is recommended: 1. Regular diet and thin liquids. 2. Aspiration and GERD (reflux) precautions. Fully upright while eating and 30 minutes after meals. Head of the bed should be elevated to 30 degrees at all times to include while asleep. 3. Safe swallow strategies: Avoid foods that are dry, thick, pasty, or doughy. Rest breaks while eating. Alternate solids and liquids. 4. Follow up with PCP as needed. Consider medication management for s/s of reflux along with a consultation with a buttoner as needed with any increased discomfort while eating. A summary of the results and recommendations was discussed with the patient and immediately following the study with verbal understanding. The patient was also provided with verbal education regarding a "slippery" diet for improved comfort while eating (avoiding foods that are dry, thick, pasty, or doughy) as needed due to suspected esophageal dysfunction. She verbalized understanding to this as well. Thank you for referral of this patient. Please contact me at if any additional information is needed.
== END | disposition home or self-care (01) ==
LOC: C.RAD 10:44
PROVIDERS: ATTEND Physician Assistant
DX: R06.00 Dyspnea, unspecified (principal); R13.12 Dysphagia, oropharyngeal phase

== ENCOUNTER 2017-04-15 05:58 | Inpatient (IN) | payer OTHER ==
[~2017-04-15] VITALS: Ht 149.9 cm; Wt 47.4 kg
[2017-04-15] VITALS (13 sets, daily range): BP systolic 107–142; BP diastolic 59–88; PULSE 92–122; TEMP 36.5–36.8; O2SAT 96–99; Ht 149.9 cm; Wt 47.4 kg
[~2017-04-15 05:58] MED LIST changes: -ALEN70TA2 PO; -AMLO-110 PO; -ASPI81TA28 PO; -FLUT1INH; -FURO-85 PO; -LSN40 PO; -LSX20 PO; -NTRGSL/4 UT; -NTRSLP4 SL; -NUTR-238 PO; -OXGN; -OXYC-57 PO; -PANT40TA PO; -PRT40 PO; -SERT25TA PO; -SIMV20TA2 PO; -SYMIN160 INH; -TRAM-10 PO; -ZLF50 PO
[2017-04-15] MEDS ORDERED: NUTR-238 PO (06:16)
[2017-04-15] MEDS ORDERED: SODIUM CHLORIDE 0.9% 1000ML 1,000 ML IV STA (06:24)
[2017-04-15] MEDS ORDERED: SODIUM CHLORIDE 0.9% 500ML 500 ML IV STA (06:31)
--- NOTE | 2017-04-15 06:37 | DIAGNOSTIC IMAGING REPORT ---
CHEST ONE VIEW PORTABLE CLINICAL HISTORY: Acute change in mental status COMPARISON STUDY: 01/20/2017 FINDINGS: The cardiac and mediastinal contours remain stable. There are progressive peripheral right midlung zone opacities. There is mild right lung interstitial thickening. Underlying emphysema is suspected. There are no significant pleural effusions. Postsurgical changes are present within the spine.[ IMPRESSION: Progressive peripheral right midlung zone opacities. Mild right lung interstitial thickening. Electronically signed by: Missael Finch M.D. 04/15/2017 6:35 AM Dictated Date/Time: 04/15/2017 6:33 AM
[2017-04-15] MEDS ORDERED: VANCOMYCIN INJ 1,000 MG in SODIUM CHLORIDE 0.9% 250ML 250 ML IV STA (06:38)
[2017-04-15] MEDS ORDERED: PIPERACILLIN/TAZOBACTAM 4.5 GM/100ML D5W IV STA (06:38)
[2017-04-15 06:40] LABS: HEMATOCRIT 42.8 % (37-47); MEAN CELL VOLUME 91.5 fL (80-100); MEAN CORPUSCULAR HEMOGLOBIN 32.3 pg (25-34); MEAN CORPUSCULAR HGB CONC 35.3 g/dl (32-36); MEAN PLATELET VOLUME 9.6 fL (7.4-10.4); PLATELET COUNT 410 K/uL (130-400); RED BLOOD COUNT 4.68 M/uL (4.2-5.4); WHITE BLOOD COUNT 18.54 K/uL (4.8-10.8)
[2017-04-15] MEDS ORDERED: LEVAQUIN 750MG / 150ML D5W IV ONE (06:45)
--- NOTE | 2017-04-15 06:47 | EMERGENCY ROOM VISIT NOTE ---
History Report prepared by Jyoti: Rosa Maxwell Under the Supervision of: Dr. Mars Christine M.D. First contact with patient: 06:25 Chief Complaint: NEURO SYMPTOMS Stated Complaint: ALTERED MENTAL STATUS/NEURO SYMPTOMS History of Present Illness The patient is a 71 year old female who presents to the Emergency Room via ALS with a change in mental status that began around 1000 yesterday. Per nursing staff, the patient's noticed a change in mental status around 1000. Nursing staff reports that the patient was evaluated in the emergency department last week for the same thing. Nursing staff states that the around midnight last night the patient had seizure like activity and then had an episode of unresponsiveness. Nursing staff states that the patient has been confused. The history is limited secondary to the patient's altered mental status. Source of History: nursing staff History Limited By: AMS Onset: 1000 yesterday Position: other (global) Quality: other (change in mental status) Note: Associated Symptoms: confusion, seizure like activity Review of Systems The history is limited secondary to the patient's altered mental status. Past Medical & Surgical Medical Problems: (1) Altered mental status (2) Grieving (3) HLD (hyperlipidemia) (4) Hypertension (5) Osteoporosis (6) Pneumonia Family History No pertinent family history stated. Social History Smoking Status: Current Every Day Smoker Alcohol Use: none Drug Use: none Marital Status: Housing Status: lives with family Occupation Status: retired Current/Historical Medications Scheduled Alendronate Sodium (Fosamax), 1 TAB PO WK Amlodipine Besylate (Amlodipine Besylate), 5 MG PO DAILY Aspirin (Aspirin EC Low Dose), 81 MG PO QAM Budesonide/Formoterol Fumarate (Symbicort 160-4.5 Mcg/Act), 2 PUFFS INH BID Home O2 Therapy (Oxygen), 2 LITERS NA PRN Lisinopril (Lisinopril), 1 TAB PO DAILY Loratadine (Claritin), 10 MG PO DAILY Metoprolol Tartrate (Lopressor) (Lopressor), 100 MG PO BID Simvastatin (Simvastatin), 20 MG PO PM Scheduled PRN Lorazepam (Ativan), 0.5 MG PO Q6H PRN for anxiety Allergies Coded Allergies: No Known Allergies (Verified , `, 04/15/17) Physical Exam Vital Signs Date Time Temp Pulse Resp B/P (MAP) Pulse Ox O2 Delivery O2 Flow Rate FiO2 04/15/17 10:06 124 34 99 04/15/17 10:01 151/84 04/15/17 09:49 139 04/15/17 09:36 142 33 100 04/15/17 09:31 169/99 04/15/17 09:29 142 04/15/17 09:06 142 34 100 04/15/17 09:01 151/95 04/15/17 08:56 143 30 99 04/15/17 08:31 158/95 04/15/17 08:26 137 35 100 04/15/17 08:23 Nasal Cannula 2.5 04/15/17 08:21 174/92 04/15/17 08:07 143 30 95 Nasal Cannula 2.5 04/15/17 07:43 96 Room Air 04/15/17 07:37 136 32 93 04/15/17 07:32 174/85 04/15/17 07:25 138 23 96 04/15/17 07:03 132 24 96 04/15/17 07:02 163/93 04/15/17 06:33 128 24 179/90 98 Room Air 04/15/17 06:13 134 04/15/17 06:04 36.4 134 24 198/97 94 Room Air Physical Exam GENERAL: Patient is a healthy-appearing well-nourished female who is confused and does not appropriately answer questions. Hyperventilating HEAD: Normocephalic atraumatic EYES: Ocular movements intact pupils equal and react to light OROPHARYNX mucous membranes are moist no exudates present no erythema or edema present NECK: Supple no nuchal rigidity CHEST: Good equal expansion LUNGS: Clear and equal to auscultation CARDIAC: Normal S1 and S2 ABDOMEN: Soft nontender no guarding BACK: No CVA tenderness EXTREMITIES: No pain upon palpation normal muscle strength in all groups no clubbing cyanosis or edema NEURO: Patient is confused, does not appropriately answer questions. Medical Decision & Procedures ER Provider Diagnostic Interpretation: Radiology results as stated below per my review and radiologist interpretation: HEAD WITHOUT CONTRAST (CT) CLINICAL HISTORY: 71 years-old Female presenting with AMS. TECHNIQUE: Multidetector CT imaging of the head was performed without the use of intravenous contrast. IV contrast: None. A dose lowering technique was used consistent with the principles of ALARA (as low as reasonably achievable). COMPARISON: 01/19/2017. CT DOSE (mGy.cm): The estimated cumulative dose is 537.48 mGy.cm. 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 Ventricles and sulci normal in size. Periventricular and subcortical white matter hypoattenuation, nonspecific but likely indicative of chronic small vessel ischemic change. Old lacunar infarct in the left caudate head again noted. No mass effect or midline shift. No hemorrhage or acute territorial infarct. No extra-axial fluid collection. Paranasal sinuses and mastoid air cells clear. Calvarium intact. Sclerotic lesion in the frontal calvarium is unchanged. IMPRESSION: 1. No acute intracranial pathology. 2. Sclerotic frontal calvarial lesion unchanged from prior, possibly bone island in the absence of known malignancy. Electronically signed by: Andrews Pardo M.D. 04/15/2017 7:01 AM Dictated Date/Time: 04/15/2017 6:58 AM CHEST ONE VIEW PORTABLE CLINICAL HISTORY: Acute change in mental status COMPARISON STUDY: 01/20/2017 FINDINGS: The cardiac and mediastinal contours remain stable. There are progressive peripheral right midlung zone opacities. There is mild right lung interstitial thickening. Underlying emphysema is suspected. There are no significant pleural effusions. Postsurgical changes are present within the spine.[ IMPRESSION: Progressive peripheral right midlung zone opacities. Mild right lung interstitial thickening. Electronically signed by: Missael Finch M.D. 04/15/2017 6:35 AM Dictated Date/Time: 04/15/2017 6:33 AM Laboratory Results 04/15/17 06:23 Red Blood Count 4.68, Mean Corpuscular Volume 91.5, Mean Corpuscular Hemoglobin 32.3, Mean Corpuscular Hemoglobin Concent 35.3, Mean Platelet Volume 9.6, Neutrophils (%) (Auto) 85.2, Lymphocytes (%) (Auto) 9.2, Monocytes (%) (Auto) 5.1, Eosinophils (%) (Auto) 0.1, Basophils (%) (Auto) 0.1, Neutrophils # (Auto) 15.79, Lymphocytes # (Auto) 1.70, Monocytes # (Auto) 0.95, Eosinophils # (Auto) 0.02, Basophils # (Auto) 0.02 04/15/17 06:23 Test 04/15/17 00:00 04/15/17 06:23 04/15/17 06:29 04/15/17 06:46 Urine Color COLORLESS Urine Appearance CLEAR (CLEAR) Urine pH 7.0 (4.5-7.5) Urine Specific Williamson 1.010 (1.000-1.030) Urine Protein TRACE (NEG) Urine Glucose (UA) 1+ (NEG) Urine Ketones 1+ (NEG) Urine Occult Blood NEG (NEG) Urine Nitrite NEG (NEG) Urine Bilirubin NEG (NEG) Urine Urobilinogen NEG (NEG) Urine Leukocyte Esterase NEG (NEG) Urine RBC 0-4 /hpf (0-4) Urine WBC 1-5 /hpf (0-5) Urine Epithelial Cells 0-5 /lpf (0-5) Urine Renal Cells 0-5 /lpf (FEW) Urine Amorphous Sediment PRESENT (NONE PRSENT) Urine Bacteria 1+ (NEG) White Blood Count 18.54 K/uL (4.8-10.8) Red Blood Count 4.68 M/uL (4.2-5.4) Hemoglobin 15.1 g/dL (12.0-16.0) Hematocrit 42.8 % (37-47) Mean Corpuscular Volume 91.5 fL (80-100) Mean Corpuscular Hemoglobin 32.3 pg (25-34) Mean Corpuscular Hemoglobin Concent 35.3 g/dl (32-36) Platelet Count 410 K/uL (130-400) Mean Platelet Volume 9.6 fL (7.4-10.4) Neutrophils (%) (Auto) 85.2 % Lymphocytes (%) (Auto) 9.2 % Monocytes (%) (Auto) 5.1 % Eosinophils (%) (Auto) 0.1 % Basophils (%) (Auto) 0.1 % Neutrophils # (Auto) 15.79 K/uL (1.4-6.5) Lymphocytes # (Auto) 1.70 K/uL (1.2-3.4) Monocytes # (Auto) 0.95 K/uL (0.11-0.59) Eosinophils # (Auto) 0.02 K/uL (0-0.5) Basophils # (Auto) 0.02 K/uL (0-0.2) RDW Standard Deviation 42.9 fL (36.4-46.3) RDW Coefficient of Variation 12.9 % (11.5-14.5) Immature Granulocyte % (Auto) 0.3 % Immature Granulocyte # (Auto) 0.06 K/uL (0.00-0.02) Hypersegmented Polys 1+ Toxic Vacuolation 1+ Echinocytes 1+ Prothrombin Time 11.4 SECONDS (9.0-12.0) Prothromb Time International Ratio 1.1 (0.9-1.1) Activated Partial Thromboplast Time 23.1 SECONDS (21.0-31.0) Partial Thromboplastin Ratio 0.9 Anion Gap 17.0 mmol/L (3-11) Est Creatinine Clear Calc Drug Dose 27.5 ml/min Estimated GFR () 48.1 Estimated GFR (Non- 41.5 BUN/Creatinine Ratio 11.5 (10-20) Calcium Level 9.6 mg/dl (8.5-10.1) Total Bilirubin 0.8 mg/dl (0.2-1) Direct Bilirubin 0.2 mg/dl (0-0.2) Aspartate Amino Transf (AST/SGOT) 16 U/L (15-37) Alanine Aminotransferase (ALT/SGPT) 13 U/L (12-78) Alkaline Phosphatase 89 U/L (45-117) Total Creatine Kinase 64 U/L (26-192) Creatine Kinase MB 3.7 ng/ml (0.5-3.6) Creatine Kinase MB Ratio 5.8 (0-3.0) Troponin I 0.287 ng/ml (0-0.045) Total Protein 7.3 gm/dl (6.4-8.2) Albumin 3.7 gm/dl (3.4-5.0) Thyroid Stimulating Hormone (TSH) 1.050 uIu/ml (0.300-4.500) Free Thyroxine 1.56 ng/dl (0.80-1.60) Salicylates Level 6.6 mg/dl (2.8-20) Acetaminophen Level < 2 ug/ml (10-30) Bedside Lactic Acid Venous 9.40 mmol/L (0.90-1.70) Arterial Blood pH 7.38 (7.35-7.45) Arterial Blood Partial Pressure CO2 34 mmHg (35-46) Arterial Blood Partial Pressure O2 80 mm/Hg (80-95) Arterial Blood HCO3 19 mmol/L (19-24) Arterial Blood Oxygen Saturation 94.8 % (90-95) Arterial Blood Base Excess -5.0 mEq/L (-9-1.8) Arterial Blood Gas Delivery RA Ken Test POS (POS) Test 04/15/17 08:05 04/15/17 09:36 Bedside Glucose 191 mg/dl (70-90) Labs reviewed by ED physician. Medications Administered Medications (Trade) Dose Ordered Sig/Saul Route Start Time Stop Time Status Last Admin Dose Admin Sodium Chloride 1,000 ml @ 999 mls/hr Q1H1M STAT IV 04/15/17 06:24 04/15/17 07:24 DC 04/15/17 06:24 999 MLS/HR Sodium Chloride 500 ml @ 999 mls/hr Q31M STAT IV 04/15/17 06:31 04/15/17 07:01 DC 04/15/17 07:02 999 MLS/HR Piperacillin Sod/ Tazobactam Sod (Zosyn Iv) 4.5 gm NOW STAT IV 04/15/17 06:38 04/15/17 06:40 DC 04/15/17 07:01 4.5 GM Levofloxacin (Levaquin / D5W) 750 mg NOW ONCE IV 04/15/17 06:45 04/15/17 06:46 DC 04/15/17 07:01 750 MG Vancomycin HCl 1000 mg/Sodium Chloride 270 ml @ 125 mls/hr NOW STAT IV 04/15/17 06:38 04/15/17 08:47 DC 04/15/17 07:52 125 MLS/HR Potassium Chloride (Kcl 10 Meq / Wtr) 10 meq NOW STAT IV 04/15/17 07:08 04/15/17 07:10 DC 04/15/17 08:34 10 MEQ Potassium Chloride (Kcl 10 Meq / Wtr) 10 meq NOW STAT IV 04/15/17 07:08 04/15/17 07:10 DC 04/15/17 09:49 10 MEQ Insulin Human Regular (novoLIN-R U-100 PER UNIT) 10 units NOW STAT IV 04/15/17 08:07 04/15/17 08:08 DC 04/15/17 08:32 10 UNITS Metoprolol Tartrate (Lopressor Iv) 5 mg 0923 ONCE IV 04/15/17 09:23 04/15/17 09:42 DC 04/15/17 09:49 5 MG Sodium Chloride 1,000 ml @ 125 mls/hr Q8H IV 04/15/17 09:30 05/15/17 09:29 04/15/17 09:49 100 MLS/HR Lorazepam (Ativan Inj) 0.5 mg ONE ONCE IV 04/15/17 09:45 04/15/17 10:45 DC 04/15/17 10:49 0.5 MG ECG Indication: altered mental status Rate (beats per minute): 137 Rhythm: sinus tachycardia Findings: no acute ischemic change, no ectopy ED Course 0624: Ordered Sodium Chloride 1000 ml @ 999 mls/hr IV. 0631: Ordered Sodium Chloride 500 ml @ 999 mls/hr IV. 0634: Past medical records reviewed. The patient was evaluated in room B9. A complete history and physical examination was performed. 0638: Ordered Vancomycin HCl 1000 mg/Sodium Chloride 270 ml @ 125 mls/hr IV, Zosyn IV 4.5 gm IV. 0645: Ordered Levofloxacin 750 mg IV. 0708: Ordered potassium Chloride 10 meq IV, Potassium Chloride 10 meq IV, Potassium Chloride 40 meq PO. 0711: I discussed the patients case with [facility] Lerma. The [facility] team will evaluate the patient for further treatment. Medical Decision Differential diagnosis: Etiologies such as sepsis, UTI, pneumonia, metabolic, electrolyte abnormalities , cardiac sources, intracerebral event, toxicologic, neurologic, as well as others were entertained. This is a 71-year-old female who presents emergency department complaining of altered mental status. The patient only mumbles in response and does not make any sense. She was found to have an elevation in her lactate at 9. His sepsis workup was initiated on her and the patient was given 3 mL's per kilogram of fluid. She was started on broad-spectrum antibiotics for what appears to be pneumonia. I did discuss the case with the hospitalist service who agreed to admit the patient. The patient's potassium was repleted in the emergency department and she was given insulin. Medication Reconcilliation Current Medication List: was personally reviewed by me Blood Pressure Screening Patient's blood pressure: Elevated blood pressure Blood pressure disposition: Referred to PCP Consults Time Called: 706 Consulting Physician: Caridad Lerma Returned Call: 07 I discussed the patients case with Caridad Lerma. The [facility] team will evaluate the patient for further treatment. Impression Primary Impression: Sepsis Additional Impression: Pneumonia Critical Care I have personally spent greater than 90 minutes of critical care time in the direct management of this patient. This includes bedside care, interpretation of diagnostic studies, and testing, discussion with consultants, patient, and family members, and other required patient management activities. This 90 minutes is in excess of all separately billable procedures. Scribe Attestation The scribe's documentation has been prepared under my direction and personally reviewed by me in its entirety. I confirm that the note above accurately reflects all work, treatment, procedures, and medical decision making performed by me. Departure Information Dispostion Being Evaluated By Hospitalist Prescriptions Amlodipine Besylate (Amlodipine Besylate) 5 Mg Tab 5 MG PO DAILY for 30 Days, #30 TAB 2 Refills Prov: Belkis Jimenez M.D. 04/15/17 Referrals Laura Pate M.D. (PCP) Problem Qualifiers Primary Impression: Sepsis Sepsis type: sepsis due to unspecified organism Qualified Codes: A41.9 - Sepsis, unspecified organism Additional Impression: Pneumonia Pneumonia type: due to unspecified organism Laterality: unspecified laterality Lung location: unspecified part of lung Qualified Codes: J18.9 - Pneumonia, unspecified organism
[2017-04-15 06:54] LABS: ALLEN TEST POS (POS); ARTERIAL BLD GAS O2 SATURATION 94.8 % (90-95); ARTERIAL BLOOD GAS HCO3 19 mmol/L (19-24); ARTERIAL BLOOD GAS PO2 80 mm/Hg (80-95); ARTERIAL BLOOD GAS pH 7.38 (7.35-7.45); O2 ADMINISTRATION RA
[2017-04-15 06:54] LABS: INR 1.1 (0.9-1.1); PARTIAL THROMBOPLASTIN RATIO 0.9; PROTHROMBIN TIME (PATIENT) 11.4 SECONDS (9.0-12.0)
[2017-04-15 06:56] LABS: BUN/CREATININE RATIO 11.5 (10-20); CALCIUM 9.6 mg/dl (8.5-10.1); CREATININE 1.3 mg/dl (0.60-1.20); POTASSIUM 3.2 mmol/L (3.5-5.1)
--- NOTE | 2017-04-15 07:02 | DIAGNOSTIC IMAGING REPORT ---
HEAD WITHOUT CONTRAST (CT) CLINICAL HISTORY: 71 years-old Female presenting with AMS. TECHNIQUE: Multidetector CT imaging of the head was performed without the use of intravenous contrast. IV contrast: None. A dose lowering technique was used consistent with the principles of ALARA (as low as reasonably achievable). COMPARISON: 01/19/2017. CT DOSE (mGy.cm): The estimated cumulative dose is 537.48 mGy.cm. 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 Ventricles and sulci normal in size. Periventricular and subcortical white matter hypoattenuation, nonspecific but likely indicative of chronic small vessel ischemic change. Old lacunar infarct in the left caudate head again noted. No mass effect or midline shift. No hemorrhage or acute territorial infarct. No extra-axial fluid collection. Paranasal sinuses and mastoid air cells clear. Calvarium intact. Sclerotic lesion in the frontal calvarium is unchanged. IMPRESSION: 1. No acute intracranial pathology. 2. Sclerotic frontal calvarial lesion unchanged from prior, possibly bone island in the absence of known malignancy. Electronically signed by: Andrews Pardo M.D. 04/15/2017 7:01 AM Dictated Date/Time: 04/15/2017 6:58 AM
[2017-04-15 07:03] LABS: MANUAL MICROSCOPIC REQUIRED? YES; URINE APPEARANCE CLEAR (CLEAR); URINE BILIRUBIN NEG (NEG); URINE COLOR COLORLESS; URINE NITRITE NEG (NEG); UROBILINOGEN NEG (NEG)
[2017-04-15 07:07] LABS: REVIEW REQ? NO
[2017-04-15] MEDS ORDERED: POTASSIUM CHLORIDE 10 MEQ / 100ML WTR IV STA ×2 (07:08)
[2017-04-15] MEDS ORDERED: POTASSIUM CHLORIDE 20 MEQ/15 ML UDC PO STA (07:09)
[2017-04-15 07:22] LABS: URINE BACTERIA 1+ (NEG); URINE RBC 0-4 /hpf (0-4)
[2017-04-15 07:24] LABS: THYROID STIMULATING HORMONE 1.05 uIu/ml (0.300-4.500)
[2017-04-15 07:28] LABS: ACETAMINOPHEN < 2 ug/ml (10-30)
[2017-04-15 07:30] LABS: URINE AMORPHOUS SEDIMENT PRESENT (NONE PRSENT)
[2017-04-15 07:31] LABS: ZZURINE CULT IF INDIC CATH YES
[2017-04-15 07:43] LABS: BASO % 0.1 %; BASO ABS # 0.02 K/uL (0-0.2); COMPLETE YES; ECHINOCYTES 1+; EOS % 0.1 %; HYPERSEGMENTED POLYS 1+; IG% 0.3 %; LYMPH % 9.2 %; MONO % 5.1 %; NEUT % 85.2 %; VACUOLIZATION 1+
[2017-04-15] MEDS ORDERED: NovoLIN-R INSULIN PER UNIT CHARGE IV STA (08:07)
[2017-04-15 08:10] LABS: CKMB/CK RATIO 5.8 (0-3.0)
[2017-04-15] MEDS ORDERED: NITROGLYCERIN 0.4 MG SL PER TAB CHARGE SL PRN (09:15)
[2017-04-15] MEDS ORDERED: METOPROLOL TARTRATE 1 MG/ML VIAL IV ONE ×2 (09:23→16:16)
[2017-04-15] MEDS ORDERED: GLUCOSE 10 TABS/TUBE PO PRN (09:30)
[2017-04-15] MEDS ORDERED: GLUCOSE 40% GEL 15 GM TUBE PO PRN (09:30)
[2017-04-15] MEDS ORDERED: GLUCAGON FOR INJ 1 MG VIAL SQ PRN (09:30)
[2017-04-15] MEDS ORDERED: DEXTROSE 50% 50 ML SYR IV PRN (09:30)
[2017-04-15] MEDS ORDERED: OXGN (09:38)
[2017-04-15] MEDS ORDERED: LSN40 PO (09:42)
[2017-04-15] MEDS ORDERED: ALEN70TA2 PO (09:42)
[2017-04-15] MEDS ORDERED: NRV5 PO (09:44)
[2017-04-15] MEDS ORDERED: LORAZEPAM 2 MG/ML 1 ML VIAL IV PRN (09:45)
[2017-04-15] MEDS ORDERED: LORAZEPAM 2 MG/ML 1 ML VIAL IV ONE (09:45)
[2017-04-15] MEDS ORDERED: POTASSIUM CHLORIDE 10 MEQ / 100ML WTR IV ONE (09:47)
[2017-04-15] MEDS ORDERED: PHARMACY GLYCEMIC MGMT CONSULT PRN (09:47)
[2017-04-15] MEDS: SODIUM CHLORIDE 0.9% 1000ML 1,000 ML IV SCH ×3 (09:49→22:12)
--- NOTE | 2017-04-15 09:51 | History and Physical ---
History & Physical Date & Time of Service: Apr 15, 2017 at 09:51 Chief Complaint: Altered Mental Status/Neuro Symptoms Primary Care Physician: Laura Pate M.D. History of Present Illness Source: family (daughter), spouse, clinic records, hospital records 71 year old female with PMH of tobacco use disorder, HTN, HLD, osteoporosis, depression presents to the Emergency Room via ALS with a change in mental status that began around 1000 yesterday. Patient's youngest daughter was recently murdered back in January by the daughter . She was hospitalized at [facility] back in January for AMS, weight loss and poor appetite due to the grief for her daughter. History obtained from the and her daughter. As per them since after her daughter pt has been declined. she is very depressed, not eating, does not take her meds properly. said that about 10pm last night, pt became very confused and became unresponsive. said her pupils was dilated and she was drooling on his shirt. said that he was on the floor with her for about 45 minutes before EMS came. said that she urinated on herself. did not noticed any jerking movement. said that since after the episode last night she has been confused. said back in January she had the similar problem but after 1 hr she was back to her baseline. As per ER notes she came in the ER last week for change in mental status. Daughter said that in the last few weeks her mother has been experienced some confusion where in one occasion she tried to use the TV remote control to make a phone. Daughter said that yesterday, pt grand daughter said that pt said that she would kill herself. said that she does not know if pt is taking her medications, because pt goes to the bathroom and lock the bathroom door when taking her meds. Currently she is in the ER, and we cannot understand anything that she is saying and does not follow simple command. Past Medical/Surgical History Medical Problems: (1) HLD (hyperlipidemia) Status: Chronic (2) Hypertension Status: Chronic (3) Osteoporosis Status: Chronic Social History Smoking Status: Current Every Day Smoker Drug Use: none Marital Status: Occupational Status: retired Immunizations History of Influenza Vaccine: Yes Influenza Vaccine Date: May 24, 2011 History of Tetanus Vaccine?: Unknown History of Pneumococcal: Yes Pneumococcal Date: May 05, 2010 History of Hepatitis B Vaccine: Unknown Allergies Coded Allergies: No Known Allergies (Verified , `, 04/15/17) Home Medications Scheduled Alendronate Sodium (Fosamax), 1 TAB PO WK Amlodipine Besylate (Amlodipine Besylate), 5 MG PO DAILY Aspirin (Aspirin EC Low Dose), 81 MG PO QAM Budesonide/Formoterol Fumarate (Symbicort 160-4.5 Mcg/Act), 2 PUFFS INH BID Home O2 Therapy (Oxygen), 2 LITERS NA PRN Lisinopril (Lisinopril), 1 TAB PO DAILY Loratadine (Claritin), 10 MG PO DAILY Metoprolol Tartrate (Lopressor) (Lopressor), 100 MG PO BID Simvastatin (Simvastatin), 20 MG PO PM Scheduled PRN Lorazepam (Ativan), 0.5 MG PO Q6H PRN for anxiety Review of Systems unable to obtain complete review of system due to confusion Physical Exam Vital Signs Date Time Temp Pulse Resp B/P (MAP) Pulse Ox O2 Delivery O2 Flow Rate FiO2 04/15/17 08:23 Nasal Cannula 2.5 04/15/17 08:21 174/92 04/15/17 08:07 143 30 95 Nasal Cannula 2.5 04/15/17 07:43 96 Room Air 04/15/17 07:37 136 32 93 04/15/17 07:32 174/85 04/15/17 07:25 138 23 96 04/15/17 07:03 132 24 96 04/15/17 07:02 163/93 04/15/17 06:33 128 24 179/90 98 Room Air 04/15/17 06:13 134 04/15/17 06:04 36.4 134 24 198/97 94 Room Air General Appearance: + severe distress Head: normocephalic, atraumatic Eyes: PERRL ENT: normal ENT inspection Neck: no JVD Respiratory/Chest: normal breath sounds Cardiovascular: no JVD, + tachycardia Abdomen/GI: normal bowel sounds Back: normal inspection Extremities/Musculoskelatal: no pedal edema Neurologic/Psych: + pertinent finding (confusion, move all extremities) Skin: warm/dry, no rash Diagnostics Laboratory Results Results Past 24 Hours Test 04/15/17 00:00 04/15/17 06:15 04/15/17 06:23 04/15/17 06:29 Range/Units Urine Color COLORLESS Urine Appearance CLEAR CLEAR Urine pH 7.0 4.5-7.5 Urine Specific [place] 1.010 1.000-1.030 Urine Protein TRACE NEG Urine Glucose (UA) 1+ NEG Urine Ketones 1+ NEG Urine Occult Blood NEG NEG Urine Nitrite NEG NEG Urine Bilirubin NEG NEG Urine Urobilinogen NEG NEG Urine Leukocyte Esterase NEG NEG Urine RBC 0-4 0-4 /hpf Urine WBC 1-5 0-5 /hpf Urine Epithelial Cells 0-5 0-5 /lpf Urine Renal Cells 0-5 FEW /lpf Urine Amorphous Sediment PRESENT NONE PRSENT Urine Bacteria 1+ NEG Bedside Lactic Acid Venous 9.30 9.40 0.90-1.70 mmol/L White Blood Count 18.54 4.8-10.8 K/uL Red Blood Count 4.68 4.2-5.4 M/uL Hemoglobin 15.1 12.0-16.0 g/dL Hematocrit 42.8 37-47 % Mean Corpuscular Volume 91.5 80-100 fL Mean Corpuscular Hemoglobin 32.3 25-34 pg Mean Corpuscular Hemoglobin Concent 35.3 32-36 g/dl Platelet Count 410 130-400 K/uL Mean Platelet Volume 9.6 7.4-10.4 fL Neutrophils (%) (Auto) 85.2 % Lymphocytes (%) (Auto) 9.2 % Monocytes (%) (Auto) 5.1 % Eosinophils (%) (Auto) 0.1 % Basophils (%) (Auto) 0.1 % Neutrophils # (Auto) 15.79 1.4-6.5 K/uL Lymphocytes # (Auto) 1.70 1.2-3.4 K/uL Monocytes # (Auto) 0.95 0.11-0.59 K/uL Eosinophils # (Auto) 0.02 0-0.5 K/uL Basophils # (Auto) 0.02 0-0.2 K/uL RDW Standard Deviation 42.9 36.4-46.3 fL RDW Coefficient of Variation 12.9 11.5-14.5 % Immature Granulocyte % (Auto) 0.3 % Immature Granulocyte # (Auto) 0.06 0.00-0.02 K/uL Hypersegmented Polys 1+ Toxic Vacuolation 1+ Echinocytes 1+ Prothrombin Time 11.4 9.0-12.0 SECONDS Prothromb Time International Ratio 1.1 0.9-1.1 Activated Partial Thromboplast Time 23.1 21.0-31.0 SECONDS Partial Thromboplastin Ratio 0.9 Sodium Level 124 136-145 mmol/L Potassium Level 3.2 3.5-5.1 mmol/L Chloride Level 83 98-107 mmol/L Carbon Dioxide Level 24 21-32 mmol/L Anion Gap 17.0 3-11 mmol/L Blood Urea Nitrogen 15 7-18 mg/dl Creatinine 1.30 0.60-1.20 mg/dl Est Creatinine Clear Calc Drug Dose 27.5 ml/min Estimated GFR () 48.1 Estimated GFR (Non- 41.5 BUN/Creatinine Ratio 11.5 10-20 Random Glucose 290 70-99 mg/dl Calcium Level 9.6 8.5-10.1 mg/dl Total Bilirubin 0.8 0.2-1 mg/dl Direct Bilirubin 0.2 0-0.2 mg/dl Aspartate Amino Transf (AST/SGOT) 16 15-37 U/L Alanine Aminotransferase (ALT/SGPT) 13 12-78 U/L Alkaline Phosphatase 89 45-117 U/L Total Creatine Kinase 64 26-192 U/L Creatine Kinase MB 3.7 0.5-3.6 ng/ml Creatine Kinase MB Ratio 5.8 0-3.0 Troponin I 0.287 0-0.045 ng/ml Total Protein 7.3 6.4-8.2 gm/dl Albumin 3.7 3.4-5.0 gm/dl Thyroid Stimulating Hormone (TSH) 1.050 0.300-4.500 uIu/ml Free Thyroxine 1.56 0.80-1.60 ng/dl Salicylates Level 6.6 2.8-20 mg/dl Acetaminophen Level < 2 10-30 ug/ml Test 04/15/17 06:39 04/15/17 06:46 04/15/17 08:05 04/15/17 08:35 Range/Units Bedside Glucose 276 305 70-90 mg/dl Arterial Blood pH 7.38 7.35-7.45 Arterial Blood Partial Pressure CO2 34 35-46 mmHg Arterial Blood Partial Pressure O2 80 80-95 mm/Hg Arterial Blood HCO3 19 19-24 mmol/L Arterial Blood Oxygen Saturation 94.8 90-95 % Arterial Blood Base Excess -5.0 -9-1.8 mEq/L Arterial Blood Gas Delivery RA Ken Test POS POS Test 04/15/17 08:51 04/15/17 09:08 04/15/17 09:21 04/15/17 09:36 Range/Units Bedside Glucose 272 230 227 191 70-90 mg/dl Microbiology Results 04/15/17 Blood Culture, Received Pending 04/15/17 Blood Culture, Received Pending 04/15/17 Urine Culture, Received Pending 04/15/17 Urine Culture, Received Pending Diagnostic Radiology HEAD WITHOUT CONTRAST (CT) CLINICAL HISTORY: 71 years-old Female presenting with AMS. TECHNIQUE: Multidetector CT imaging of the head was performed without the use of intravenous contrast. IV contrast: None. A dose lowering technique was used consistent with the principles of ALARA (as low as reasonably achievable). COMPARISON: 01/19/2017. CT DOSE (mGy.cm): The estimated cumulative dose is 537.48 mGy.cm. 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 Ventricles and sulci normal in size. Periventricular and subcortical white matter hypoattenuation, nonspecific but likely indicative of chronic small vessel ischemic change. Old lacunar infarct in the left caudate head again noted. No mass effect or midline shift. No hemorrhage or acute territorial infarct. No extra-axial fluid collection. Paranasal sinuses and mastoid air cells clear. Calvarium intact. Sclerotic lesion in the frontal calvarium is unchanged. IMPRESSION: 1. No acute intracranial pathology. 2. Sclerotic frontal calvarial lesion unchanged from prior, possibly bone island in the absence of known malignancy. Electronically signed by: Andrews Pardo M.D. 04/15/2017 7:01 AM Dictated Date/Time: 04/15/2017 6:58 AM [~ rep ct add3]] CHEST ONE VIEW PORTABLE CLINICAL HISTORY: Acute change in mental status COMPARISON STUDY: 01/20/2017 FINDINGS: The cardiac and mediastinal contours remain stable. There are progressive peripheral right midlung zone opacities. There is mild right lung interstitial thickening. Underlying emphysema is suspected. There are no significant pleural effusions. Postsurgical changes are present within the spine.[ IMPRESSION: Progressive peripheral right midlung zone opacities. Mild right lung interstitial thickening. Electronically signed by: Missael Finch M.D. 04/15/2017 6:35 AM Dictated Date/Time: 04/15/2017 6:33 AM Impression Assessment and Plan Sepsis Meet sepsis criteria Present on admission with tachycardia, elevated WBC, Elevated lactate, tachypneic and altered mental status WBC on admission 18.5, POC Lactate 9.4 Received Levaquin, Zosyn and vanco in the ER Blood cx and urine cx collected in the ER Continue Vanco and Zosyn IV Continue IVF Follow lactic acid level Monitor CBC Altered Mental Status Possible related to post ictal due to Seizure vs sepsis Need to R/O CVA CT head showed No acute intracranial pathology Will get a start MRI Check EEG consult neurology Neuro check Fall and seizure precaution Elevated troponin possible related to sepsis Need to r/o ACS 1st troponin mildly elevated Repeat EKG in am will follow up 2 more set Cannot get any history of CP Will get a resting ECHO Will monitor to telemetry Elevated AG Possible related to dehydration Continue IVF monitor BMP Hyponatremia Secondary to dehydration and poor oral intake Continue IVF monitor BMP q6hr Pneumonia CXR showed Progressive peripheral right midlung zone opacities Elevated wbc and lactic acid Received IV Zosyn, Vanco and Levaquin in the ER Continue IV Zosyn and Vanco Depression Never follow with psych after discharging from the hospital back in January Suicidal thought as pper daughter Will consult psych 1 to 1 observation AGUSTIN Mostly related to dehydration Creatine 1.3 on admission Continue IVF Avoid nephrotoxic agents Monitor BMP Hypokalemia K replaced Continue monitor BMP Hyperglycemia Mostly related to sepsis Received 10 unit regular insulin Check Hba1c Started on Insulin coverage Monitor BS DVT px on heparin drip CODE STATUS FULL CODE Level of Care Telemetry Advanced Directives Existing Living Will: No Existing Power of Generation Mechanic Helper: No Resuscitation Status FULL RESUSCITATION VTE Prophylaxis VTE Risk Assessment Done? Y/N: Yes Risk Level: Moderate Given or contraindicated: Unfractionated heparin SQ
[2017-04-15] MEDS: INSULIN ASPART 100 UNITS/ML 3 ML PEN SC SCH ×3 (12:00→23:09)
[2017-04-15] MEDS ORDERED: SIMVASTATIN 20 MG TAB PO ONE (12:15)
[2017-04-15] MEDS ORDERED: LISINOPRIL 40 MG TAB PO ONE (12:15)
[2017-04-15] MEDS ORDERED: ASPIRIN 81 MG ECTAB PO ONE (12:15)
[2017-04-15] MEDS ORDERED: AMLODIPINE BESYLATE 5 MG TAB PO ONE (12:15)
[2017-04-15] MEDS ORDERED: METOPROLOL TARTRATE 100 MG TAB PO ONE (12:15)
--- NOTE | 2017-04-15 12:19 | Pharmacy Progress Note ---
Glycemic Control Intl Consult Date of Service Apr 15, 2017. Scope Glycemic Pharmacist consulted by Dr Jimenez on 04/15/17 for glycemic control and to write orders per [facility] inpatient glycemic control protocol Objective Weight (Kilograms): 50.000 Accuchecks BSG (last 24hrs): Test 04/15/17 06:23 04/15/17 06:39 04/15/17 08:35 04/15/17 08:51 Random Glucose 290 mg/dl (70-99) Bedside Glucose 276 mg/dl (70-90) 305 mg/dl (70-90) 272 mg/dl (70-90) Test 04/15/17 09:08 04/15/17 09:21 04/15/17 09:36 04/15/17 12:03 Bedside Glucose 230 mg/dl (70-90) 227 mg/dl (70-90) 191 mg/dl (70-90) Laboratory Data (last 24hrs) Test 04/15/17 06:23 04/15/17 12:03 Anion Gap 17.0 mmol/L BUN/Creatinine Ratio 11.5 Blood Urea Nitrogen 15 mg/dl Creatinine 1.30 mg/dl Potassium Level 3.2 mmol/L Sodium Level 124 mmol/L White Blood Count 18.54 K/uL Red Blood Count 4.68 M/uL Hemoglobin 15.1 g/dL Hematocrit 42.8 % Mean Corpuscular Volume 91.5 fL Mean Corpuscular Hemoglobin 32.3 pg Mean Corpuscular Hemoglobin Concent 35.3 g/dl Platelet Count 410 K/uL Mean Platelet Volume 9.6 fL Neutrophils (%) (Auto) 85.2 % Lymphocytes (%) (Auto) 9.2 % Monocytes (%) (Auto) 5.1 % Eosinophils (%) (Auto) 0.1 % Basophils (%) (Auto) 0.1 % Neutrophils # (Auto) 15.79 K/uL Lymphocytes # (Auto) 1.70 K/uL Monocytes # (Auto) 0.95 K/uL Eosinophils # (Auto) 0.02 K/uL Basophils # (Auto) 0.02 K/uL HbA1c Test 04/15/17 12:03 Recent Pertinent Medications Outpatient Anti-diabetic Regimen: * none Risk Factors for Insulin Resistance: * Infection: Empiric antibiotic therapy with Vancomycin and Zosyn Assessment & Plan ASSESSMENT: * 71 yr old female admitted to [facility] with altered mental status. Patient was hyperglycemic on admission with BSG greater than 300 mg/dL in the ER. BSG improved to 191 mg/dL after administration of 10 units regular IV insulin. * No h/o of DM. Unknown A1c - ordered for 04/16. * Insulin needs uncertain at this time. * Initiate Novolog SSI insulin with CF only since patient is NPO * Pending order for basal insulin if BSG is 180 mg/dL or greater * Pending order to start IV insulin infusion if BSG is 250 mg/dL or more x 1. * ADA & AACE recommend a goal blood sugar range 140-180 mg/dl for the majority of critically ill & non-critically ill patients. However, more stringent targets may be selected in individual cases. PLAN FOR INPATIENT GLYCEMIC CONTROL: * If BSG is 250 mg/dL or greater x 1 * Start IV insulin infusion per moderate stress protocol * In the critical care setting, continuous IV insulin infusion has been shown to be the best method for achieving glycemic targets. * Goal Range 140 - 200 mg/dl * If BSG is 180 mg/dL or greater x 1 * Initiate Lantus 10 units (0.2 unit/kg) x 1 * Correctional Insulin with NOVOLOG per scale ACHS or Q6hrs while NPO * Goal Range: Low 140 mg/dL - High 180 mg/dL * Correction Factor: 30 mg/dL/unit * Nutritional / Prandial insulin per carb ratio of 1 unit per __ grams CHO consumed * Please note that the plan above was derived based on current level of insulin resistance and hospital stress. These recommendations are appropriate for inpatient admission only. Plan of care upon discharge will need to be reassessed to avoid potential outpatient hypo/hyperglycemia. Thank you.
--- NOTE | 2017-04-15 12:20 | DIAGNOSTIC IMAGING REPORT ---
MRI OF THE BRAIN WITHOUT CONTRAST CLINICAL HISTORY: Seizure and altered mental status. COMPARISON STUDY: Head CT April 15, 2017 and MRI of the brain January 20, 2017. TECHNIQUE: Utilizing a 1.5 Dayanna magnet and dedicated coil, multiplanar, multiecho imaging of the brain was performed without IV contrast. FINDINGS: There are multiple foci of increased signal intensity within the left frontal, temporal and parietal lobes on the diffusion-weighted sequence. The majority of these are hyperintense on the ADC map and therefore likely reflect T2 shinethrough. A few foci may reflect true restricted diffusion. The coronal T2 sequences demonstrate increased multifocal cortical and subcortical edema within the left cerebral hemisphere. There is no significant mass effect. There is no hemorrhage. Ventricular system is normal. Basilar cisterns are patent. No extra-axial collections are identified. No intracranial masses identified on this unenhanced examination. IMPRESSION: Extensive multifocal cortical and subcortical signal abnormality consistent with edema within the left cerebral hemisphere. At most, minimal restricted diffusion. No significant mass effect or hemorrhage. The findings are nonspecific. Subacute infarcts could have this imaging appearance however given the clinical history, the possibility of encephalitis should be considered. Although the appearance is not classic, herpes encephalitis is within the differential. Consideration might be given to further evaluation with CSF sampling. A short-term follow-up MRI could also be obtained. Discussed with Dr. Jimenez at time of dictation. Electronically signed by: Say Gary M.D. 04/15/2017 12:18 PM Dictated Date/Time: 04/15/2017 11:47 AM
[2017-04-15 12:39] LABS: BUN/CREATININE RATIO 15.9 (10-20); CREATININE 0.95 mg/dl (0.60-1.20); ESTIMATED AVERAGE GLUCOSE 105 mg/dl; HA1C FLAG Normal (Normal); POTASSIUM 3.6 mmol/L (3.5-5.1)
[2017-04-15 12:40] LABS: CALCIUM 9.2 mg/dl (8.5-10.1)
[2017-04-15 12:42] LABS: BENZODIAZEPINE, URINE NEG (NEG); COCAINE,URINE NEG (NEG); PHENCYCLIDINE, URINE NEG (NEG)
[2017-04-15] MEDS ORDERED: PIPERACILL/TAZOBAC CONSULT ACTIVE PRN (12:45)
[2017-04-15] MEDS ORDERED: VANCOMYCIN CONSULT ACTIVE PRN (12:45)
[2017-04-15 12:46] LABS: CKMB/CK RATIO 9.2 (0-3.0)
[2017-04-15] MEDS ORDERED: HEPARIN SOD 5000 UNIT/0.5 ML CARP SQ SCH (14:00)
--- NOTE | 2017-04-15 14:39 | Pharmacy Progress Note ---
Pharmacy Abx Initial Consult Date of Service Apr 15, 2017. Pharmacy Dosing Scope Date of Consult: 04/15/17 Consultation requested by: Dr. Jimenez Pharmacy is consulted to initiate VANCOMYCIN and ZOSYN IV therapy, order appropriate labs and adjust drug dose/frequency. Subjective The patient is a 71 year old female admitted on Apr 15, 2017 at 09:10 for mental status changes, sepsis possibly from pulmonary source however encephalitis has not yet been r/o. Objective Height (Feet): 4 Height (Inches): 11.00 Weight (Kilograms): 50.000 Vital Signs (Past 12Hrs) Vital Signs Past 12 Hours Date Time Temp Pulse Resp B/P (MAP) Pulse Ox O2 Delivery O2 Flow Rate FiO2 04/15/17 12:10 36.5 120 27 134/88 (103) 99 Nasal Cannula 2.0 04/15/17 12:00 99 Nasal Cannula 2.0 04/15/17 12:00 Nasal Cannula 2.0 04/15/17 11:00 132 32 156/96 100 04/15/17 10:06 124 34 99 04/15/17 10:01 151/84 04/15/17 09:49 139 04/15/17 09:36 142 33 100 04/15/17 09:31 169/99 04/15/17 09:29 142 04/15/17 09:06 142 34 100 04/15/17 09:01 151/95 04/15/17 08:56 143 30 99 04/15/17 08:31 158/95 04/15/17 08:26 137 35 100 04/15/17 08:23 Nasal Cannula 2.5 04/15/17 08:21 174/92 04/15/17 08:07 143 30 95 Nasal Cannula 2.5 04/15/17 07:43 96 Room Air 04/15/17 07:37 136 32 93 04/15/17 07:32 174/85 04/15/17 07:25 138 23 96 04/15/17 07:03 132 24 96 04/15/17 07:02 163/93 04/15/17 06:33 128 24 179/90 98 Room Air 04/15/17 06:13 134 04/15/17 06:04 36.4 134 24 198/97 94 Room Air Lab Results (24Hrs) Laboratory Tests (24 Hours) Test 04/15/17 06:23 04/15/17 12:03 04/15/17 14:14 White Blood Count 18.54 K/uL (4.8-10.8) H Red Blood Count 4.68 M/uL (4.2-5.4) Hemoglobin 15.1 g/dL (12.0-16.0) Hematocrit 42.8 % (37-47) Mean Corpuscular Volume 91.5 fL (80-100) Mean Corpuscular Hemoglobin 32.3 pg (25-34) Mean Corpuscular Hemoglobin Concent 35.3 g/dl (32-36) Platelet Count 410 K/uL (130-400) H Mean Platelet Volume 9.6 fL (7.4-10.4) Neutrophils (%) (Auto) 85.2 % Lymphocytes (%) (Auto) 9.2 % Monocytes (%) (Auto) 5.1 % Eosinophils (%) (Auto) 0.1 % Basophils (%) (Auto) 0.1 % Neutrophils # (Auto) 15.79 K/uL (1.4-6.5) H Lymphocytes # (Auto) 1.70 K/uL (1.2-3.4) Monocytes # (Auto) 0.95 K/uL (0.11-0.59) H Eosinophils # (Auto) 0.02 K/uL (0-0.5) Basophils # (Auto) 0.02 K/uL (0-0.2) Lactic Acid Level 4.6 mmol/L (0.4-2.0) *H Total Creatine Kinase 223 U/L (26-192) H Micro Results Date/Time Source Procedure Growth Status 04/15/17 06:23 Blood Blood Culture Pending Received 04/15/17 06:15 Blood Blood Culture Pending Received 04/15/17 13:55 Cerebral Spinal Fluid Acid Fast Stain Pending Jillian Batch 04/15/17 13:55 Cerebral Spinal Fluid Mycobacterial Culture Pending Jillian Batch 04/15/17 13:55 Cerebral Spinal Fluid Fungal Culture Pending Ordered 04/15/17 13:55 Cerebral Spinal Fluid Gram Stain Pending Ordered 04/15/17 13:55 Cerebral Spinal Fluid CSF Culture Pending Ordered 04/15/17 11:50 Nasal MRSA DNA Surveillance Screen Pending Received 04/15/17 08:05 Urine,Catheterized Urine Culture Pending Received 04/15/17 00:00 Urine,Catheterized Urine Culture Pending Received Risk Factors for Resistance * Hospitalization for 48 hours or more within the past 90 days * Antimicrobial use within the last 90 days: Augmentin prescribed 01/2017 Assessment & Plan Assessment * 71 year old female admitted today with mental status changes, questionable seizure activity, sepsis from possible PNX (CAP), possible encephalitis * Patient is a current smoker * CXR report: R mid-lung opacities, mild interstitial thickening * Brain MRI report: extensive multifocal cortical and subcortical signal abnormality consistent w/ edema in L cerebral hemisphere; nonspecific finding that may represent sub-acute infarct vs encephalitis * CSF was obtained: awaiting cell counts, analysis, and culture. No HSV studies ordered yet. * Blood and Urine Cx's also obtained * Urine Legionella Ag ordered * Lactate elevated, 4.6 on last check but is trending down. Received 1500mL crystalloid in ED (30cc/kg). BP's stable. Currently sat well on 2L NC although RR's in 30's and patient is tachycardic. * Patient may have some element of AGUSTIN, SCr today 0.95, SCr was 0.71 ~2-3 months ago * MRSA nasal swab and procalcitonin also ordered as they may help with abx deescalation in the future * If CSF cell counts suggestive of bacterial meningitis rec d/c Zosyn and add Rocephin + Ampicillin IV; If herpes encephalitis suspected Acyclovir IV should be considered Plan Vancomycin IV * Loading dose: 1000 mg (20 mg/kg) IV x 1 given in ER * Maintenance dose: 750 mg IV (15 mg/kg) every 18 hours * Goal trough level for sepsis, CAP, meningitis? : 15 to 20 mcg/mL * Trough level ordered for 04/17/17 * P'kinetic estimates: half-life ~18-19 hours; Vd 0.7L/kg, Etienne 0.036 hr-1 Piperacillin/tazobactam * 4.5 g bolus administered over 30 minutes, then 4.5 g IV extended infusion every 8 hours for CrCl greater than 20 mL/min * Aggressive dosing selected due to critically ill status/BMI 35 or more/ history of cystic fibrosis. Pharmacy will continue to follow and will adjust dose/frequency as necessary. Thank you.
--- NOTE | 2017-04-15 14:48 | Progress Note ---
Progress Note Date of Service Apr 15, 2017. Progress Note ID Consult Dictated #[id number] A/P: 1. Meningoencephalitis -Continue abx, add acyclovir -Add hsv pcr -Lp pending, would place in droplet isolation -thank you
--- NOTE | 2017-04-15 15:05 | ECHOCARDIOGRAM REPORT ---
*NOTICE TO RECEIVING [employer] This information is strictly Confidential and protected under [place] law. [place] law prohibits you from making any further disclosure of this information unless further disclosure is expressly permitted by the written consent of the person to whom it pertains or is authorized by law. A general authorization for the release of medical or other information is not sufficient for this purpose. Hospital accepts no responsibility if the information is made available to any other person, INCLUDING THE PATIENT. Interpretation Summary * Name: FRANCI NAYLOR Study Date: 04/15/2017 01:39 PM BP: 156/96 mmHg * Patient Location: .MSICU\S\E108\S\1 HR: 134 * : 1945 (M/d/yyyy) Gender: Female Height: 59 in * Age: 71 yrs Ethnicity: CA Weight: 110 lb * Ordering Physician: Belkis Jimenez * Referring Physician: Self, Referred * Performed By: Diaz Ferraro RCS * * Reason For Study: Palpitations, Elevated Troponins * BSA: 1.4 m2 * -- Conclusions -- * Sinus tachycardia is present * The left ventricle is normal in size. * There is normal left ventricular wall thickness. * There is severe hypokinesis to akinesis of the mid and apical wall segment with mild expansion. The basilar segments contract normally. 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 * Ejection Fraction = 25-30%. * The aortidc valve leaflets are moderately calcified. * Moderate valvular aortic stenosis. * Mild aortic regurgitation. * There is mild to moderate mitral regurgitation. * There is moderate to severe tricuspid regurgitation. * Right ventricular systolic pressure is elevated at >60mmHg. * Normal inferior vena cava diameter and respiratory variation suggests normal central venous pressure. Procedure Details * A complete two-dimensional transthoracic echocardiogram was performed (2D, M-mode, Doppler and color flow Doppler). Left Ventricle * The left ventricle is normal in size. * There is normal left ventricular wall thickness. * Ejection Fraction = 25-30%. * There is severe hypokinesis to akinesis of the mid and apical wall segment with mild expansion. The basilar segments contract normally. 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 Right Ventricle * The right ventricle is normal in size and function. Atria * The left atrium is mildly dilated. * Right atrial size is normal. * No ASD detected; PFO is not assessed. Mitral Valve * The mitral valve leaflets appear thickened, but open well. * There is no mitral valve stenosis. * There is mild to moderate mitral regurgitation. Tricuspid Valve * The tricuspid valve anatomy is normal. * There is no tricuspid stenosis. * There is moderate to severe tricuspid regurgitation. * Right ventricular systolic pressure is elevated at >60mmHg. Aortic Valve * The aortic valve is trileaflet. * The aortidc valve leaflets are moderately calcified. * Moderate valvular aortic stenosis. * Mild aortic regurgitation. Pulmonic Valve * The pulmonic valve is not well visualized. Great Vessels * The aortic root is normal size. Pericardium/Pleural * There is no pericardial effusion. Great Vessels * Normal inferior vena cava diameter and respiratory variation suggests normal central venous pressure. Left Ventricular Diastolic Function * Diastolic dysfunction, Grade III (restrictive pattern), consistent with markedly increased left atrial pressure. MMode 2D Measurements and Calculations IVSd 0.87 cm IVSs 1.2 cm LVIDd 3.3 cm LVIDs 3.0 cm LVPWd 0.95 cm LVPWs 1.2 cm IVS/LVPW 0.91 FS 10.5 % EDV(Teich) 44.6 ml ESV(Teich) 34.1 ml EF(Teich) 23.6 % EDV(cubed) 36.4 ml ESV(cubed) 26.1 ml EF(cubed) 28.2 % % IVS thick 38.2 % % LVPW thick 27.0 % LV mass(C)d 82.8 grams LV mass(C)dI 57.9 grams/m\S\2 LV mass(C)s 108.0 grams LV mass(C)sI 75.5 grams/m\S\2 CO(Teich) 1.3 l/min CI(Teich) 0.93 l/min/m\S\2 SV(Teich) 10.5 ml SI(Teich) 7.3 ml/m\S\2 CO(cubed) 1.3 l/min CI(cubed) 0.90 l/min/m\S\2 SV(cubed) 10.3 ml SI(cubed) 7.2 ml/m\S\2 Ao root diam 2.3 cm Ao root area 4.3 cm\S\2 LA dimension 2.7 cm asc Aorta Diam 2.6 cm LA/Ao 1.2 LVOT diam 1.9 cm LVOT area 2.8 cm\S\2 LVAd ap4 27.9 cm\S\2 LVLd ap4 7.8 cm EDV(MOD-sp4) 81.0 ml LVAs ap4 22.9 cm\S\2 LVLs ap4 7.4 cm ESV(MOD-sp4) 57.0 ml EF(MOD-sp4) 29.6 % LVAd ap2 30.4 cm\S\2 LVLd ap2 8.0 cm EDV(MOD-sp2) 93.0 ml LVAs ap2 24.1 cm\S\2 LVLs ap2 7.6 cm ESV(MOD-sp2) 60.0 ml EF(MOD-sp2) 35.5 % CO(MOD-sp4) 3.0 l/min CI(MOD-sp4) 2.1 l/min/m\S\2 SV(MOD-sp4) 24.0 ml SI(MOD-sp4) 16.8 ml/m\S\2 CO(MOD-sp2) 4.2 l/min CI(MOD-sp2) 2.9 l/min/m\S\2 SV(MOD-sp2) 33.0 ml SI(MOD-sp2) 23.1 ml/m\S\2 Doppler Measurements and Calculations MV E max pao 148.8 cm/sec MV P1/2t max pao 161.1 cm/sec MV P1/2t 36.2 msec MVA(P1/2t) 6.1 cm\S\2 MV dec slope 1302.2 cm/sec\S\2 MV dec time 0.10 sec Ao V2 max 249.2 cm/sec Ao max PG 24.9 mmHg Ao max PG (full) 23.2 mmHg Ao V2 mean 172.4 cm/sec Ao mean PG 13.3 mmHg Ao mean PG (full) 12.4 mmHg Ao V2 VTI 37.9 cm MULU(I,A) 0.77 cm\S\2 MULU(I,D) 0.77 cm\S\2 MULU(V,A) 0.73 cm\S\2 MULU(V,D) 0.73 cm\S\2 AI max pao 442.3 cm/sec AI max PG 78.3 mmHg AI dec slope 622.1 cm/sec\S\2 AI P1/2t 208.2 msec LV V1 max PG 1.7 mmHg LV V1 mean PG 0.96 mmHg LV V1 max 65.6 cm/sec LV V1 mean 45.9 cm/sec LV V1 VTI 10.5 cm SV(Ao) 164.3 ml SI(Ao) 114.9 ml/m\S\2 SV(LVOT) 29.2 ml SI(LVOT) 20.4 ml/m\S\2 PA V2 max 85.5 cm/sec PA max PG 3.0 mmHg PI max pao 233.5 cm/sec PI max PG 21.8 mmHg PI dec slope 143.7 cm/sec\S\2 PI P1/2t 475.7 msec TR max pao 366.7 cm/sec
--- NOTE | 2017-04-15 15:37 | NEUROLOGY CONSULTATION ---
DATE OF CONSULTATION: 04/15/2017 DATE OF CONSULTATION: 04/15/2017 REQUESTED BY: Dr. Belkis Jimenez. HISTORY OF PRESENT ILLNESS: Radha is 71 years old, is right handed, regularly follows with [facility] in [place], has a history of tobacco use, hypertension, hyperlipidemia, osteoporosis, chronic depression and presented to the Emergency Room last night with a 48-hour history of altered mental status, culminating in the event that may or may not have been a tonic seizure. All of this has emerged in an accelerated fashion since January when the patient's daughter was murdered and may have actually started back in the fall when a grandson had any significant injury and has been characterized by progressive depression, weight loss, poor appetite. There has been no recent febrile illnesses, although the states she was on amoxicillin for a pneumonitis, but that is about the only medication she has been on recently. The event in question was preceded by some confusional episodes and the did not notice a sudden tonic posturing of both upper extremities followed by urinary incontinence but tonic clonic activity was not noted. There was no particular arching of the neck. There was no cyanosis and if anything the patient appeared to be pale and slightly diaphoretic. The EMS was called. She was found to be hypertensive. She was brought to the hospital and is now in the unit. MRI shows some possible new areas of subcortical edema in the left hemisphere, which may reflect subacute infarct, could reflect some encephalitis, but could also be the variant on a PRES picture. Lumbar puncture has been suggested and is now being ordered and infectious disease is being consulted. Other issues include elevated CPK with a high troponin, a mild hyponatremia and an elevated white count with a left shift. It appears that she may well have an underlying sepsis. At this point, her home medications include nothing that might have precipitated this. She is on Fosamax, amlodipine, aspirin, Symbicort. She is on home oxygen as needed, lisinopril, loratadine, metoprolol, simvastatin, and according to the was on some lorazepam but she has not taken this for some time. ALLERGIES: She has allergies to no known medications. PAST MEDICAL HISTORY: Pretty much as described above. PHYSICAL EXAMINATION: VITAL SIGNS: Temperature 36.4, blood pressure 198/97, pulse was 134, respirations were 24, O2 saturation 94% on room air. She was thin, poorly responsive, would make some eye contact. There were no cranial deformities. There was a mild degree of generalized rigidity. LUNGS: Described as clear. HEART: There were no cardiac murmurs. ABDOMEN: Soft. EXTREMITIES: There was no peripheral edema. Peripheral pulses were good. NEUROLOGIC: Today neurologically she is lying in bed. She will open her eyes. She seems to follow her around the room but will not cooperate with the examination other than do a light squeezing of my hand when requested and this took repeated comments. There is a little stiffness of the neck, but nothing marked. Her tone is a little up. I do not see any repetitive eye movements or motor movements of the extremities which might indicate subclinical seizure activity and again she does follow her 's movements around the room with her eyes and they appear to be conjugate. She seems to have intact visual threat. Reflexes are very difficult to evaluate as she is a little hypertonic and not cooperative but there is certainly no briskness to them. The toe signs were flexor. No Andreia's signs are seen. Strength testing could not be adequately evaluated as cooperation level is too low and I really cannot test sensation other than the fact that she seems to withdraw to noxious stimuli. I reviewed the imaging studies and laboratory studies and discussed the case with Dr. Jimenez. She is scheduled to have a lumbar puncture under fluoroscopy with the standard laboratory studies, etc. being performed. Infectious disease is seeing her now, the may have some suggestions as to what studies to order beyond the routine. She is also on multiple antibiotics and I will leave it up to infectious disease to decide whether or not they want to add acyclovir at this point. They may well, although the MRI appearance is very unusual for herpes encephalitis. In terms of the seizure activity, I am disinclined to empirically treat her with Keppra unless we see something that looks like overt seizure activity and I agree with Dr. Jimenez's philosophy to try this on as needed Ativan treatment protocol. We can always add some Keppra IV later. I will order an EEG, I do not know if it is going to get done today as we are on a holiday weekend and the photonics engineering technician may not be available. We may have to go on our clinical assumption on this one. If a question arises as to have ongoing continuous EEG abnormalities we may have to have the photonics engineering technician do a long-term monitoring hookup and Dr. Santana is on this weekend and she would be able to interpret the study. I will be back tomorrow, I will be looking on the chart by computer to see if the spinal fluid shows anything of significance. Addendum eeg mildy slow no clear cut seizure pattern no aeds at this time unless she has clear cut seizures clinically Diagnosis remains that of a nonspecific encephalopathy with an mri showing changes in the left hemisphere of uncertain significance with the differential as above ie PRES, suabacute cva encephalitis etc She is clearly septic and may even have an endocarditis LP and echo pending and ID is on board HOpefully the picture will become clearer with more time and with more diagnostic information MTDD
--- NOTE | 2017-04-15 15:44 | DIAGNOSTIC IMAGING REPORT ---
FLUOROSCOPICALLY GUIDED LUMBAR PUNCTURE CLINICAL HISTORY: Altered mental status. Possible encephalitis. PROCEDURE: The procedure, risks and benefits were discussed with the patient's given altered mental status of the patient, including the risk of spinal headache, bleeding and infection. He agreed to the procedure and informed written consent was obtained. The procedure was performed by Dr. Gary following a timeout. The right right L5-S1 interlaminar space was targeted. Skin overlying the space was prepped and draped in sterile fashion and local anesthesia was achieved with 1% lidocaine. Under intermittent fluoroscopic guidance, a 3 1/2 inch 22-gauge spinal needle was directed into the thecal sac with immediate return of cerebrospinal fluid. Fluid was initially blood-tinged but quickly cleared. Opening pressure of 25 cm of water. 8 cc of CSF was collected in 4 vials and sent to laboratory as ordered. The needle was removed. The patient tolerated the procedure well and no immediate complications were evident. IMPRESSION: 1. Fluoroscopically guided lumbar puncture with collection of 8 cc of cerebrospinal fluid sent to the laboratory for analysis. Fluid initially blood-tinged but quickly cleared. 2. Elevated opening pressure of 25 cm of water. Electronically signed by: Say Gary M.D. 04/15/2017 3:42 PM Dictated Date/Time: 04/15/2017 3:41 PM
[2017-04-15 15:54] LABS: CSF CHEMISTRY TUBE # 1
[2017-04-15 15:59] LABS: CSF TOTAL PROTEIN 75.6 mg/dl (15.0-45.0)
[2017-04-15] MEDS ORDERED: PIPERACILL/TAZOBAC IV 3.375 GM in DEXTROSE 5% 100ML 100 ML IV SCH (16:00)
[2017-04-15] MEDS ORDERED: PIPERACILL/TAZOBAC IV 4.5 GM in DEXTROSE 5% 100ML 100 ML IV SCH (16:00)
[2017-04-15 16:06] LABS: CSF LACTATE** 4.8 mmol/L (0.6-2.2)
[2017-04-15 16:36] LABS: CSF APPEARANCE CLEAR; CSF COLOR COLORLESS; CSF XANTHOCHROMIC NO XANTHOCHROMIA
[2017-04-15] MEDS: ACYCLOVIR SOD INJ 500 MG in DEXTROSE 5% 100ML 100 ML IV SCH ×2 (17:45→23:05)
[2017-04-15] MEDS: CEFTRIAXONE SOD INJ 2,000 MG in DEXTROSE 5% 50ML 50 ML IV SCH (17:45)
[2017-04-15] MEDS ORDERED: METOPROLOL TARTRATE 1 MG/ML VIAL IV SCH (18:00)
[2017-04-15] MEDS ORDERED: ASPIRIN 300 MG SUPP PR ONE (18:13)
[2017-04-15 18:25] LABS: CKMB/CK RATIO 9.1 (0-3.0)
[2017-04-15] MEDS ORDERED: HEPARIN IV LOW DOSE NO BOLUS SCH (19:45)
[2017-04-15] MEDS: METOPROLOL TARTRATE 1 MG/ML VIAL IV SCH ×2 (19:50→23:05)
[2017-04-15] MEDS: METOPROLOL TARTRATE 100 MG TAB PO SCH (20:41)
[2017-04-15] MEDS: BUDESONIDE/FORMOTEROL FUMARATE 160/4.5 60 PUFFS/INHALER INH SCH (20:45)
--- NOTE | 2017-04-15 23:04 | INFECT. DISEASE CONSULTATION ---
DATE OF CONSULTATION: 04/15/2017 REQUESTING PHYSICIAN: Dr. Jimenez. HISTORY OF PRESENT ILLNESS: This is a 71-year-old female who was admitted earlier today after she had worsening change of mental status noticed by her . He states that yesterday she was fine; however, throughout the day she became increasingly confused and began talking about her mother who has been for a number of years. She also was complaining of severe headaches. There were no fevers or chills reported at home. He awoke last night to her moaning in bed and tried to awaken her. She was nonverbal and otherwise unresponsive. He did elicit moaning with painful stimuli. He did call 911 and she was subsequently brought to the hospital. He states she was increasingly combative throughout that time. On my examination, she is unresponsive and nonverbal. However, she does appear comfortable. Her vital signs have been stable. She has been afebrile since arrival to the hospital. She did undergo a CAT scan of the head which was unremarkable; however, an MRI of the brain showed nonspecific encephalitis. She is also being followed by neurology. Lumbar puncture is pending. Blood cultures are pending. Her urine drug screen was positive for opiates. Her urinalysis was negative. Her troponins are elevated. Her white blood cell count is 18,000. She has had no recent fever or blisters. No bug bites, tick bites or rashes are known by the and son who are at the bedside and provide her history. There were no fevers or chills. Earlier this week, she was in her normal state of health. The family has been going through some emotional stress as their daughter was murdered 1 year ago. Their son who is also at the bedside was recently shot and required significant treatment for this as well. The is increasingly tearful at the bedside. She appears to be tolerating antibiotics well. I am unable to obtain any review of systems from the patient. MEDICAL HISTORY: Significant for hyperlipidemia, hypertension and osteoporosis. SOCIAL HISTORY: Significant for daily tobacco use. There is no reported history of drug or alcohol abuse; however, her urine drug screen was positive for opiates. ALLERGIES: There are no known drug allergies. FAMILY HISTORY: Noncontributory. MEDICATIONS: Include Zocor, Norvasc, Ecotrin, lisinopril, vancomycin, Symbicort, Lopressor, metoprolol, Zosyn, subcu heparin, insulin, Ativan. PHYSICAL EXAMINATION: VITAL SIGNS: She is afebrile, pulse 120, respiratory rate 27, blood pressure 134/80, oxygen saturation is 99% on 2 liters nasal cannula. GENERAL: She is unresponsive and sedated. HEART: Regular and tachycardic. I do not hear a murmur. LUNGS: Decreased bilaterally. ABDOMEN: Nondistended. There is no edema. SKIN: Without rash. There is some neck stiffness, but no moaning to tactile stimuli. LABORATORY STUDIES: CBC today reveals a white blood cell count of 18.5, hemoglobin 15.1 and platelets 410. Chemistry panel reveals sodium of 128, potassium 3.6, chloride 93, bicarbonate 23, BUN 15, creatinine is 0.9, glucose is 123. There is a gap of 13. Her lactic acid is elevated at 4.6. Troponin is positive at 1.6. CK is elevated at 223, this is increased from admission. Procalcitonin is pending. Urinalysis is unremarkable. Urine drug screen is negative except for opiates positive, acetaminophen is negative. CSF panel is pending. Legionella antigen is pending. Lyme screen is pending. Blood cultures are pending. Brain MRI done today shows multifocal signal abnormalities with edema, which are nonspecific with consideration to encephalitis. ASSESSMENT AND PLAN: Meningoencephalitis. 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 Acyclovir will be added. Herpes simplex PCR will be added to CSF. Lumbar puncture is pending at this time and we will follow the results of this. Thank you for this consultation.
--- NOTE | 2017-04-15 23:30 | Progress Note ---
Progress Note Date of Service Apr 15, 2017. Progress Note Called from Radiology that MRI showed Extensive multifocal cortical and subcortical signal abnormality consistent with edema within the left cerebral hemisphere. Need to R/O encephalitis. Radiologist agreed to get a Lumbar puncture. case also discussed with Neurology Dr. Ribeiro. ID consulted for the encephalitis started on acyclovir, rocephin and Vanco. Troponin increased to 1.6. case discussed with Cardiology Dr. Thomas. Plan to start heparin drip to start 8 hrs after there lumbar puncture. Also Lopressor to be changed to 2.5 mg IV q4hr. ECHO finding showed for stress-induced cardiomyopathy. Neurology was informed about the heparin drip and agreed to wait 8 hrs after the LP to start it. ECHO done: * Sinus tachycardia is present * The left ventricle is normal in size. * There is normal left ventricular wall thickness. * There is severe hypokinesis to akinesis of the mid and apical wall segment with mild expansion. The basilar segments contract normally. 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 * Ejection Fraction = 25-30%. * The aortidc valve leaflets are moderately calcified. * Moderate valvular aortic stenosis. * Mild aortic regurgitation. * There is mild to moderate mitral regurgitation. * There is moderate to severe tricuspid regurgitation. * Right ventricular systolic pressure is elevated at >60mmHg. * Normal inferior vena cava diameter and respiratory variation suggests normal central venous pressure. Belkis Jimenez MD
[2017-04-15] MEDS: HEPARIN 25,000 UNIT/500ML D5W 500 ML IV PRN (23:50)
[2017-04-16] VITALS (8 sets, daily range): BP systolic 106–148; BP diastolic 52–70; PULSE 72–104; TEMP 36.4–36.9; O2SAT 92–99
[2017-04-16 00:08] LABS: BLOOD UREA NITROGEN 17 mg/dl (7-18); BUN/CREATININE RATIO 22.6 (10-20); CALCIUM 8.7 mg/dl (8.5-10.1); CARBON DIOXIDE 25 mmol/L (21-32); CHLORIDE 95 mmol/L (98-107); CREATININE 0.74 mg/dl (0.60-1.20); GLUCOSE 118 mg/dl (70-99); POTASSIUM 3.8 mmol/L (3.5-5.1); SODIUM 130 mmol/L (136-145)
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
[2017-04-16] MEDS: VANCOMYCIN INJ 750 MG in SODIUM CHLORIDE 0.9% 250ML 250 ML IV SCH ×2 (02:06→20:23)
[2017-04-16 04:45] LABS: HEMATOCRIT 34.4 % (37-47); MEAN CELL VOLUME 89.8 fL (80-100); MEAN CORPUSCULAR HEMOGLOBIN 32.6 pg (25-34); MEAN CORPUSCULAR HGB CONC 36.3 g/dl (32-36); MEAN PLATELET VOLUME 9.2 fL (7.4-10.4); PLATELET COUNT 279 K/uL (130-400); RED BLOOD COUNT 3.83 M/uL (4.2-5.4)
[2017-04-16 05:02] LABS: BUN/CREATININE RATIO 21.7 (10-20); CALCIUM 8.1 mg/dl (8.5-10.1); CREATININE 0.7 mg/dl (0.60-1.20); PARTIAL THROMBOPLASTIN RATIO 1.2; POTASSIUM 3.3 mmol/L (3.5-5.1)
[2017-04-16] MEDS: METOPROLOL TARTRATE 1 MG/ML VIAL IV SCH ×6 (05:10→23:53)
[2017-04-16] MEDS: CEFTRIAXONE SOD INJ 2,000 MG in DEXTROSE 5% 50ML 50 ML IV SCH ×2 (05:11→16:06)
[2017-04-16] MEDS: INSULIN ASPART 100 UNITS/ML 3 ML PEN SC SCH ×4 (05:54→20:35)
[2017-04-16] MEDS ORDERED: HEPARIN IV BOLUS 3,000 UNIT in SYRINGE 0 ML IV ONE (06:00)
[2017-04-16] MEDS ORDERED: POTASSIUM CHLR 20 MEQ / WTR 20 MEQ in PREMIXED WATER 100 ML IV ONE (07:45)
[2017-04-16] MEDS ORDERED: ASPIRIN 300 MG SUPP PR SCH (09:00)
[2017-04-16] MEDS ORDERED: ASPIRIN 81 MG ECTAB PO SCH (09:00)
[2017-04-16] MEDS: ACYCLOVIR SOD INJ 500 MG in DEXTROSE 5% 100ML 100 ML IV SCH ×2 (09:36→16:56)
[2017-04-16] MEDS: POTASSIUM CHLR 10MEQ / WTR IV SCH ×2 (09:51→11:16)
[2017-04-16] MEDS: BUDESONIDE/FORMOTEROL FUMARATE 160/4.5 60 PUFFS/INHALER INH SCH ×2 (10:13→20:23)
[2017-04-16] MEDS: METOPROLOL TARTRATE 100 MG TAB PO SCH ×2 (10:22→20:24)
[2017-04-16] MEDS: AMLODIPINE BESYLATE 5 MG TAB PO SCH (10:22)
[2017-04-16] MEDS: LISINOPRIL 40 MG TAB PO SCH (10:22)
--- NOTE | 2017-04-16 10:52 | Progress Note ---
Medicine Progress Note Date & Time of Visit: Apr 16, 2017 at 09:57. Subjective Pt was seen and examined Lying in bed comfortable with no distress with daughter at bedside Pt feels much better today Her confusion completely resolved her mental status is back to normal she denies any symptoms such as chest pain, palpitation, dizziness, headache, abdominal pain and SOB Objective Last 8 Hrs Date Time Temp Pulse Resp B/P (MAP) Pulse Ox O2 Delivery O2 Flow Rate FiO2 04/16/17 09:53 102 137/68 (91) 04/16/17 06:58 36.8 104 16 148/70 (96) 95 Room Air 04/16/17 05:10 94 137/69 04/16/17 04:00 36.6 94 17 137/69 (91) 96 Room Air 04/16/17 04:00 Room Air 04/16/17 02:06 36.9 104 22 130/70 (90) 99 Room Air Physical Exam: General- No acute distress Head- atraumatic Eyes- PERRL, EOMI ENT- oropharynx clear Neck- supple, no JVD Lungs- Poor air entry, No wheezing Heart- Tachycardia Abdomen- normal bowel sounds, soft Extremities- no calf tenderness Neuro- alert, oriented x 3; PERRL, EOMI; no facial palsy, follow commands Skin- warm & dry Laboratory Results: Last 24 Hours Test 04/15/17 11:50 04/15/17 12:03 04/15/17 12:17 04/15/17 14:43 Urine Opiates Screen POS Urine Methadone, Qualitative NEG Urine Barbiturates NEG Urine Phencyclidine (PCP) Level NEG Ur Amphetamine/Methamphetamine NEG MDMA (Ecstasy) Screen NEG Urine Benzodiazepines Screen NEG Urine Cocaine Metabolite NEG Urine Marijuana (THC) NEG Sodium Level 128 mmol/L Potassium Level 3.6 mmol/L Chloride Level 93 mmol/L Carbon Dioxide Level 22 mmol/L Anion Gap 13.0 mmol/L Blood Urea Nitrogen 15 mg/dl Creatinine 0.95 mg/dl Est Creatinine Clear Calc Drug Dose 37.6 ml/min Estimated GFR () 70.3 Estimated GFR (Non- 60.7 BUN/Creatinine Ratio 15.9 Random Glucose 131 mg/dl Estimated Average Glucose 105 mg/dl Hemoglobin A1c 5.3 % Lactic Acid Level 4.6 mmol/L Calcium Level 9.2 mg/dl Total Creatine Kinase 223 U/L Creatine Kinase MB 20.5 ng/ml Creatine Kinase MB Ratio 9.2 Troponin I 1.690 ng/ml Bedside Glucose 123 mg/dl Procalcitonin 0.86 ng/ml Test 04/15/17 15:15 04/15/17 16:26 04/15/17 17:51 04/15/17 20:27 CSF Color COLORLESS CSF Appearance CLEAR CSF WBC 2 /uL CSF RBC 8 /uL CSF Xanthrochromic NO XANTHOCHROMIA CSF Cell Count Tube # 3 CSF Chemistry Tube # 1 CSF Glucose 100 mg/dl CSF Lactic Acid 4.8 mmol/L CSF Total Protein 75.6 mg/dl Bedside Glucose 168 mg/dl 126 mg/dl 124 mg/dl Lactic Acid Level 1.6 mmol/L Total Creatine Kinase 266 U/L Creatine Kinase MB 24.3 ng/ml Creatine Kinase MB Ratio 9.1 Troponin I 2.610 ng/ml Test 04/15/17 23:08 04/15/17 23:14 04/16/17 04:28 04/16/17 04:39 Bedside Glucose 114 mg/dl 100 mg/dl Sodium Level 130 mmol/L 129 mmol/L Potassium Level 3.8 mmol/L 3.3 mmol/L Chloride Level 95 mmol/L 97 mmol/L Carbon Dioxide Level 25 mmol/L 27 mmol/L Anion Gap 10.0 mmol/L 5.0 mmol/L Blood Urea Nitrogen 17 mg/dl 15 mg/dl Creatinine 0.74 mg/dl 0.70 mg/dl Est Creatinine Clear Calc Drug Dose 48.2 ml/min 51.0 ml/min Estimated GFR () 95.1 101.7 Estimated GFR (Non- 82.1 87.8 BUN/Creatinine Ratio 22.6 21.7 Random Glucose 118 mg/dl 109 mg/dl Calcium Level 8.7 mg/dl 8.1 mg/dl Creatine Kinase MB 24.8 ng/ml Creatine Kinase MB Ratio Troponin I 3.140 ng/ml White Blood Count 15.20 K/uL Red Blood Count 3.83 M/uL Hemoglobin 12.5 g/dL Hematocrit 34.4 % Mean Corpuscular Volume 89.8 fL Mean Corpuscular Hemoglobin 32.6 pg Mean Corpuscular Hemoglobin Concent 36.3 g/dl RDW Standard Deviation 44.2 fL RDW Coefficient of Variation 13.3 % Platelet Count 279 K/uL Mean Platelet Volume 9.2 fL Activated Partial Thromboplast Time 31.7 SECONDS Partial Thromboplastin Ratio 1.2 Total Creatine Kinase 309 U/L Date/Time Source Procedure Growth Status 04/15/17 15:15 Cerebral Spinal Fluid Acid Fast Stain Pending Received 04/15/17 15:15 Cerebral Spinal Fluid Mycobacterial Culture Pending Received 04/15/17 15:15 Cerebral Spinal Fluid Fungal Culture Pending Received 04/15/17 15:15 Cerebral Spinal Fluid Gram Stain - Final Resulted 04/15/17 15:15 Cerebral Spinal Fluid CSF Culture Pending Resulted 04/15/17 11:50 Nasal MRSA DNA Surveillance Screen - Final Specimen Negative for MRSA by DNA Probe Complete Assessment & Plan Sepsis Meet sepsis criteria Present on admission with tachycardia, elevated WBC, Elevated lactate, tachypneic and altered mental status WBC on admission 18.5, POC Lactate 9.4 Received Levaquin, Zosyn and vanco in the ER Abx changed by ID to Vanco, Rocephin And Acyclovir added to cover for encephalitis Blood cx and urine cx Pending WBC trending down procalcitonin was mildly elevated lactic acid normal Will d/c IVF Continue monitor CBC Altered Mental Status Possible related to post ictal due to Seizure vs sepsis Need to R/O CVA CT head showed No acute intracranial pathology MRI of the head showed Extensive multifocal cortical and subcortical signal abnormality consistent with edema within the left cerebral hemisphere. MRI finding showed suspicious for encephalitis case discussed yesterday with Radiology and LP done Elevated protein and glucose on CSF Doubt about bacteria etiology Waiting for CSF result to r/o Lyme, Herpes Check EEG Case discussed yesterday with neuro For now we will hold to start her on any seizure med because we don't have any clear evidence for seizure Ativan IV prn if develops any seizure Neuro check Fall and seizure precaution Elevated troponin possible related to sepsis Need to r/o ACS Troponin trending up to 3.14 started on heparin drip OK with neuro neurology to start on heparin drip case discussed with cardiology to continue medical management for now will restart her PO med since she is able to swallow now. Echo done showed: * Sinus tachycardia is present * The left ventricle is normal in size. * There is normal left ventricular wall thickness. * There is severe hypokinesis to akinesis of the mid and apical wall segment with mild expansion. The basilar segments contract normally. 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 * Ejection Fraction = 25-30%. * The aortic valve leaflets are moderately calcified. * Moderate valvular aortic stenosis. * Mild aortic regurgitation. * There is mild to moderate mitral regurgitation. * There is moderate to severe tricuspid regurgitation. * Right ventricular systolic pressure is elevated at >60mmHg. * Normal inferior vena cava diameter and respiratory variation suggests normal central venous pressure. Stress induced cardiomyopathy Has been very depressed since her daughter was murder by the On metoprolol IV Will change to PO metoprolol Will add on SSRI Psych consulted Depression she never follows with psych after she was discharged back back in January Has been having suicidal thought as per daughter continue 1 to observation Psych consulted Elevated AG Possible related to dehydration Received IVF AG closed now monitor BMP Hyponatremia Secondary to dehydration and poor oral intake Na 129 today On IVF Monitor BMP Pneumonia CXR showed Progressive peripheral right midlung zone opacities Elevated WBC and lactic acid WBC trending down, lactic acid wnl Received IV Zosyn, Vanco and Levaquin in the ER On Rocephin, Vanco Afebrile AGUSTIN Mostly related to dehydration Creatine 1.3 on admission Creatine wnl today On IVF Avoid nephrotoxic agents Monitor BMP Hypokalemia K replaced Continue monitor BMP Hyperglycemia Mostly related to sepsis Received 10 unit regular insulin in the ER Hba1c 5.3 on 04/15/17 Continue monitor BS DVT px on heparin drip CODE STATUS FULL CODE Consultants: Cardio Psych ID Neuro Current Inpatient Medications: Current Inpatient Medications Medications (Trade) Dose Ordered Sig/Saul Route Start Time Stop Time Status Last Admin Dose Admin Nitroglycerin (Nitrostat Tab) 0.4 mg UD PRN SL 04/15/17 09:15 05/15/17 09:14 Sodium Chloride 1,000 ml @ 75 mls/hr [id number] IV 04/15/17 09:30 05/15/17 09:29 04/15/17 22:12 75 MLS/HR Insulin Aspart (novoLOG ASPART) SLIDING SCALE If C... Q6 SC 04/15/17 12:00 05/15/17 11:59 Glucose (Glucose 40% Gel) 15-30 GRAMS 15 GRAMS... UD PRN PO 04/15/17 09:30 05/15/17 09:29 Glucose (Glucose Chew Tab) 4-8 Tablets 4 Tabl... UD PRN PO 04/15/17 09:30 05/15/17 09:29 Dextrose (Dextrose 50% 50ML Syringe) 25-50ML OF 50% DW IV FOR... UD PRN IV 04/15/17 09:30 05/15/17 09:29 Glucagon (Glucagon Inj) 1 mg UD PRN SQ 04/15/17 09:30 05/15/17 09:29 Miscellaneous Information (Consult Glycemic Management Pharmacy) 1 ea UD PRN N/A 04/15/17 09:47 05/15/17 09:46 Lorazepam (Ativan Inj) 2 mg ONE PRN IV 04/15/17 09:45 05/15/17 09:44 Vancomycin HCl 750 mg/Sodium Chloride 265 ml @ 125 mls/hr Q18H IV 04/16/17 02:00 04/23/17 01:59 04/16/17 02:06 125 MLS/HR Heparin Sodium (Porcine) (Heparin Sq 5000 Unit/0.5ml) 5,000 unit Q8 SQ 04/15/17 14:00 05/15/17 13:59 Future Hold Amlodipine Besylate (Norvasc Tab) 5 mg DAILY PO 04/16/17 09:00 05/16/17 08:59 Budesonide/ Formoterol Fumarate (Symbicort 160/ 4.5 Inh) 2 puffs BID INH 04/15/17 21:00 05/15/17 20:59 04/15/17 20:45 2 PUFFS Lisinopril (Zestril Tab) 40 mg DAILY PO 04/16/17 09:00 05/16/17 08:59 Metoprolol Tartrate (Lopressor Tab) 100 mg BID PO 04/15/17 21:00 05/15/17 20:59 Simvastatin (Zocor Tab) 20 mg PM PO 04/16/17 21:00 05/16/17 20:59 Miscellaneous Information (Pending Order) 1 ea Q4H N/A 04/15/17 12:00 05/15/17 11:59 Vancomycin HCl (Consult) 1 ea UD PRN N/A 04/15/17 12:45 05/15/17 12:44 Acyclovir Sodium 500 mg/Dextrose 110 ml @ 110 mls/hr Q8H IV 04/15/17 16:00 04/25/17 15:59 04/16/17 09:36 110 MLS/HR Ceftriaxone Sodium 2000 mg/ Dextrose 70 ml @ 100 mls/hr Q12H IV 04/15/17 16:00 04/25/17 15:59 04/16/17 05:11 100 MLS/HR Metoprolol Tartrate (Lopressor Iv) 2.5 mg Q4 IV 04/15/17 20:00 05/15/17 17:59 04/16/17 05:10 2.5 MG Aspirin (Aspirin Supp) 300 mg DAILY TX 04/16/17 09:00 05/16/17 08:59 Heparin Sodium/ Dextrose 500 ml @ 13 mls/hr Q24H PRN IV 04/15/17 20:15 05/15/17 20:14 04/15/17 23:50 11 MLS/HR Potassium Chloride 10 meq/ Prmx 100 ml @ 100 mls/hr Q1H IV 04/16/17 09:00 04/16/17 10:59 04/16/17 09:51 100 MLS/HR
--- NOTE | 2017-04-16 11:17 | Cardiology Follow-Up ---
Subjective Subjective Date of Service: Apr 16, 2017. Pt evaluation today including: conversation w/ patient, physical exam, chart review, lab review, review of studies, review of inpatient medication list Additional Details: Pt seen and examined, lethargic but arousable, family at bedside. Once again, family reiterated that they are not sure what meds she's been taking for the last 3 weeks. does note though that he was missing 60 tabs of lorazepam. Pt denies cp, sob, palpitations, lightheadedness or dizziness. Tele reviewed: sinus rhythm/tach with short run of SVT this AM and possible PAT. Problem List Medical Problems: (1) Episode of confusion Status: Acute (2) Hypoxemia Status: Acute (3) Pneumonia Status: Acute (4) Sepsis Status: Acute Review of Systems Respiratory: No see HPI, No cough, No sputum, No wheezing, No shortness of breath, No dyspnea on exertion, No dyspnea at rest, No hemoptysis, No problem reported Cardiac: No see HPI, No chest pain, No orthopnea, No PND, No edema, No claudication, No palpitations, No problem reported Objective Vital Signs Last Vital Signs Documentation Date Time Temp Pulse Resp B/P (MAP) Pulse Ox O2 Delivery O2 Flow Rate FiO2 04/16/17 09:53 102 137/68 (91) 04/16/17 06:58 36.8 16 95 Room Air 04/15/17 20:01 2.0 Physical Exam: General Appearance: WD/WN, no apparent distress Eyes: bilateral eyes normal inspection, bilateral eyes PERRL, bilateral eyes EOMI ENT: normal ENT inspection, hearing grossly normal, pharynx normal Neck: supple, no adenopathy, thyroid normal, no JVD, no carotid bruits, trachea midline Respiratory/Chest: chest non-tender, lungs clear, normal breath sounds, no respiratory distress, no accessory muscle use Cardiovascular: regular rate, rhythm, no edema, no JVD, + tachycardia, + gallop /S4 Abdomen: normal bowel sounds, non tender, soft, no organomegaly, no pulsatile mass Extremities: normal inspection, no pedal edema, no calf tenderness 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
[2017-04-16 12:26] LABS: PARTIAL THROMBOPLASTIN RATIO 3.3
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
[2017-04-16] MEDS: HEPARIN 25,000 UNIT/500ML D5W 500 ML IV PRN (13:15)
[2017-04-16] MEDS ORDERED: NURSING VERBAL MED ORDER ONE (15:45)
--- NOTE | 2017-04-16 16:51 | ELECTROENCEPHALOGRAPH REPORT ---
ELECTROENCEPHALOGRAM REQUESTING PHYSICIAN: Dr. Ambrose Ribeiro. CLINICAL DIAGNOSIS: Encephalopathy of uncertain cause with history suggestive of potential recent seizure of generalized type. ELECTROENCEPHALOGRAM DIAGNOSIS: Mildly diffusely abnormal EEG during apparent clinical wakefulness. DESCRIPTION OF TRACING: This EEG was done as a bedside recording in the ICU and is of reasonable technical quality. There were quite a number of movement artifacts seen, captured by video analysis of patient movements and behavior that very few of these are reflected actually on the EEG itself other than some head rolling and eye movement artifacts. There is a single burst of high amplitude activity that seems to correlate with eye blinking towards determination of the recording. No photic stimulation or hyperventilation was performed and drowsiness and light sleep are not clearly recorded. Under these conditions, there is evidence for what appears to be a normal background rhythm in the alpha range of about 9-10 Hz and of about 30 microvolts of maximum amplitude. This is maximum posterior head regions bilaterally symmetrical. Polymorphic mid to slightly lower frequency theta activity is seen over all head regions without clear focal or regional predominance. There is a tendency for some bifrontal moderate amplitude delta activity occurring throughout the recording. This is symmetrical and does not demonstrate any lateralizing features and is not associated with any clearcut, potentially epileptogenic discharges. INTERPRETATION: This electroencephalogram reveals evidence for most a mild nonspecific generalized encephalopathy with some bifrontal slowing, symmetrical type and one burst of what appears to be myelogenous activity reflective of eye blinking and eye contractures. No clear cut electroencephalographic potentially epileptogenic activity is recorded and the video analysis of patient movement and behavior does not suggest any ongoing clinical seizure activity either. The pattern is nonspecific, correlates with an encephalopathy but beyond this is of value in eliminating a lateralized process or ongoing nonconvulsive seizure activity. [facility] [place] [facility]
[2017-04-16 19:48] LABS: PARTIAL THROMBOPLASTIN RATIO 1.7
[2017-04-16] MEDS ORDERED: HEPARIN IV BOLUS 2,000 UNIT in SYRINGE 0 ML IV ONE (20:00)
[2017-04-16] MEDS: SIMVASTATIN 20 MG TAB PO SCH (20:22)
--- NOTE | 2017-04-16 21:51 | PROGRESS NOTE ---
DATE: 04/16/2017 SUBJECTIVE: Radha looks remarkably better today. She is awake, alert, oriented with the exception of the month and she misses this by one. She misses the date by 1, knows she is in [facility], knows this is 2016, but has no recall of yesterday. Her speech is clear, its contents seems to be normal. I do not picker tender on any word substitutions, ____ or issues with word finding. One can argue there is a slight right upper motor neuron facial paresis of very subtle degree. There are no field cuts, ocular movements are normal. Facial sensation is intact. There is no real drift or pronation of the right arm or left arm. Facility is actually pretty good and strength allowing for her acute illness is symmetrical and there are no significant sensory findings on cursory exam today. I reviewed the MRI films. There are some bright signals on diffusion weighted imaging in the left parietal area. Radiology felt that these may have reflected T2 shine through i.e., old lesions that are now appearing to be false positive on diffusion and there is some subcortical edema in the left hemisphere that might be due to subacute infarctions. Her CSF analysis is normal with the exception of an elevated protein, which is nonspecific, could have any one of the number of causes in this particular setting. She is on multiple antibiotics now including acyclovir for possible herpes encephalitis, although in light of her remarkable improvement and the absence of CSF pleocytosis and the atypical features on MRI, I would doubt this is a viable diagnosis and I suspect the acyclovir will be stopped by infectious disease. She has been found more importantly to have a very profound cardiomyopathy and certainly could have been throwing some emboli to her brain from this problem and is now I believe on heparin and is being followed by cardiology carefully. A repeat echo in a few days is planned. At this point, neurology is not going to recommend any anticonvulsant therapy. If she did have a seizure, it may have been due to anyone of a number of acute toxic factors including an infection, perhaps an embolic infarction and EEG is only mildly and nonspeciically normal, she has had no recurrent events and adding another medication here without need, would make a little or no sense to me. I am going to check back with her late tomorrow afternoon. The cause of all of this remains unclear. The pattern looks like a nonspecific encephalopathy, I cannot exclude an acute embolic shower to the left hemisphere, which she has emerged from with very few if any findings and certainly the concern about an infectious process directly involving a nervous system seems to be put to rest at this point, based on the CSF analysis. Obviously cultures will need to be reviewed completely to make this final exclusion. I will check [facility] tomorrow afternoon but for now have no further neurologic diagnostic or therapeutic suggestions MTDD
[2017-04-17] MEDS: ACYCLOVIR SOD INJ 500 MG in DEXTROSE 5% 100ML 100 ML IV SCH ×4 (00:01→23:46)
[2017-04-17 02:15] VITALS: BP 121/56; PULSE 78; TEMP 36.6; O2SAT 95
[2017-04-17 02:24] LABS: HEMATOCRIT 32.6 % (37-47); MEAN CELL VOLUME 90.3 fL (80-100); MEAN CORPUSCULAR HEMOGLOBIN 33.2 pg (25-34); MEAN PLATELET VOLUME 8.9 fL (7.4-10.4); PLATELET COUNT 254 K/uL (130-400); RED BLOOD COUNT 3.61 M/uL (4.2-5.4); WHITE BLOOD COUNT 10.04 K/uL (4.8-10.8)
[2017-04-17 03:08] LABS: MEAN CORPUSCULAR HGB CONC 36.8 g/dl (32-36)
[2017-04-17 03:15] LABS: BUN/CREATININE RATIO 25.1 (10-20); CALCIUM 7.9 mg/dl (8.5-10.1); CREATININE 0.63 mg/dl (0.60-1.20); MAGNESIUM 1.5 mg/dl (1.8-2.4); POTASSIUM 3.6 mmol/L (3.5-5.1)
[2017-04-17] MEDS: METOPROLOL TARTRATE 1 MG/ML VIAL IV SCH ×4 (04:00→15:41)
[2017-04-17] MEDS: CEFTRIAXONE SOD INJ 2,000 MG in DEXTROSE 5% 50ML 50 ML IV SCH ×2 (04:41→15:44)
--- NOTE | 2017-04-17 07:00 | Progress Note ---
Subjective Date of Service: Apr 17, 2017. Subjective transferred from ICU, mental state improved. csf with only 2 wbc and negative culture to date. all micro negative to date. hsv pcr pending. afebrile. wbc improved. no overnight events. Problem List Medical Problems: (1) Episode of confusion Status: Acute (2) Hypoxemia Status: Acute (3) Pneumonia Status: Acute (4) Sepsis Status: Acute Objective Vital Signs Date Time Temp Pulse Resp B/P (MAP) Pulse Ox O2 Delivery O2 Flow Rate FiO2 04/17/17 04:00 Room Air 04/17/17 04:00 90 04/17/17 02:15 36.6 78 20 121/56 (77) 95 Room Air 04/16/17 23:59 Room Air 04/16/17 23:53 77 04/16/17 22:55 36.9 77 18 141/67 (91) 98 Room Air 04/16/17 20:00 Room Air 04/16/17 20:00 83 04/16/17 19:27 36.4 78 18 122/59 (80) 92 Room Air 04/16/17 16:00 Room Air 04/16/17 15:11 36.4 83 18 107/55 (72) 94 Room Air 04/16/17 12:13 72 16 106/52 (70) 97 Room Air 04/16/17 12:00 Room Air 04/16/17 09:53 102 137/68 (91) 04/16/17 08:00 Room Air Laboratory Results Item Value Date Time Urine Culture - Preliminary Resulted 04/15/17 0805 Urine,Catheterized NO GROWTH - LESS THAN 1,000 COLONIES/... Gram Stain - Final Resulted 04/15/17 1515 Cerebral Spinal Fluid Last 24 Hours Test 04/16/17 10:12 04/16/17 11:50 04/16/17 16:35 04/16/17 19:06 Bedside Glucose 111 mg/dl 133 mg/dl Activated Partial Thromboplast Time 86.7 SECONDS 43.5 SECONDS Partial Thromboplastin Ratio 3.3 1.7 Test 04/16/17 20:30 04/17/17 02:14 Bedside Glucose 112 mg/dl White Blood Count 10.04 K/uL Red Blood Count 3.61 M/uL Hemoglobin 12.0 g/dL Hematocrit 32.6 % Mean Corpuscular Volume 90.3 fL Mean Corpuscular Hemoglobin 33.2 pg Mean Corpuscular Hemoglobin Concent 36.8 g/dl RDW Standard Deviation 45.3 fL RDW Coefficient of Variation 13.5 % Platelet Count 254 K/uL Mean Platelet Volume 8.9 fL Activated Partial Thromboplast Time 77.7 SECONDS Partial Thromboplastin Ratio 3.0 Sodium Level 127 mmol/L Potassium Level 3.6 mmol/L Chloride Level 94 mmol/L Carbon Dioxide Level 25 mmol/L Anion Gap 8.0 mmol/L Blood Urea Nitrogen 16 mg/dl Creatinine 0.63 mg/dl Est Creatinine Clear Calc Drug Dose 56.7 ml/min Estimated GFR () 105.3 Estimated GFR (Non- 90.9 BUN/Creatinine Ratio 25.1 Random Glucose 124 mg/dl Calcium Level 7.9 mg/dl Magnesium Level 1.5 mg/dl Total Creatine Kinase 133 U/L Troponin I 1.110 ng/ml Assessment and Plan (1) Altered mental status Assessment & Plan: unclear if cardiac source. meningitis appears less likely with only 2 wbc on gram stain, however, cultures pending, would continue abx for now and follow final results. cardiac workup ongoing.
[2017-04-17] MEDS: INSULIN ASPART 100 UNITS/ML 3 ML PEN SC SCH ×4 (08:07→20:35)
[2017-04-17 08:08] VITALS: BP 121/56; PULSE 93; TEMP 36.7; O2SAT 92
[2017-04-17] MEDS: ASPIRIN 81 MG ECTAB PO SCH (08:11)
[2017-04-17] MEDS: LISINOPRIL 40 MG TAB PO SCH (08:11)
[2017-04-17] MEDS: BUDESONIDE/FORMOTEROL FUMARATE 160/4.5 60 PUFFS/INHALER INH SCH ×2 (08:11→21:58)
[2017-04-17] MEDS: METOPROLOL TARTRATE 100 MG TAB PO SCH ×2 (08:11→21:58)
[2017-04-17] MEDS: AMLODIPINE BESYLATE 5 MG TAB PO SCH (08:12)
[2017-04-17] MEDS: SODIUM CHLORIDE 0.9% 1000ML 1,000 ML IV SCH (08:29)
[2017-04-17] MEDS: MAGNESIUM SULFATE 1GM / D5W 1 GM in PREMIXED IN D5W 100 ML IV SCH ×2 (09:15→10:30)
[2017-04-17 09:53] LABS: PARTIAL THROMBOPLASTIN RATIO 1.7
[2017-04-17] MEDS ORDERED: HEPARIN IV BOLUS 2,000 UNIT in SYRINGE 0 ML IV ONE (10:30)
[2017-04-17] MEDS: SERTRALINE HCL 50 MG TAB PO SCH (10:32)
[2017-04-17] MEDS: HEPARIN 25,000 UNIT/500ML D5W 500 ML IV PRN ×2 (10:33→17:46)
--- NOTE | 2017-04-17 11:34 | Cardiology Follow-Up ---
Subjective Subjective Date of Service: Apr 17, 2017. Pt evaluation today including: conversation w/ patient, physical exam, chart review, lab review, review of studies, review of inpatient medication list Additional Details: Pt seen and examined, states that she feels well. Denies cp, sob, palpitations, lightheadedness or dizziness. Confused though: unable to answer correctly the year (1915), her current location or the president of the [place] (Flako Womack). tele reviewed: sinus rhythm with occasional PVC's, no sustained arrhythmias. Problem List Medical Problems: (1) Episode of confusion Status: Acute (2) Hypoxemia Status: Acute (3) Pneumonia Status: Acute (4) Sepsis Status: Acute Review of Systems Respiratory: No see HPI, No cough, No sputum, No wheezing, No shortness of breath, No dyspnea on exertion, No dyspnea at rest, No hemoptysis, No problem reported Cardiac: No see HPI, No chest pain, No orthopnea, No PND, No edema, No claudication, No palpitations, No problem reported Objective Vital Signs Last Vital Signs Documentation Date Time Temp Pulse Resp B/P (MAP) Pulse Ox O2 Delivery O2 Flow Rate FiO2 04/17/17 08:08 36.7 93 16 121/56 (77) 92 Room Air 04/15/17 20:01 2.0 Physical Exam: General Appearance: WD/WN, no apparent distress Eyes: bilateral eyes normal inspection, bilateral eyes PERRL, bilateral eyes EOMI ENT: normal ENT inspection, hearing grossly normal, pharynx normal Neck: supple, no adenopathy, thyroid normal, no JVD, no carotid bruits, trachea midline Respiratory/Chest: chest non-tender, lungs clear, normal breath sounds, no respiratory distress, no accessory muscle use Cardiovascular: regular rate, rhythm, no edema, no JVD, + tachycardia, + gallop /S4 Abdomen: normal bowel sounds, non tender, soft, no organomegaly, no pulsatile mass Extremities: normal inspection, no pedal edema, no calf tenderness Neurologic/Psychiatric: health policy manager II-XII nml as tested, no motor/sensory deficits, alert, normal mood/affect Skin: normal color, warm/dry, no rash Lymphatic: no adenopathy Assessment and Plan 1. 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
[2017-04-17 12:06] VITALS: BP 104/51; PULSE 69; TEMP 36.6; O2SAT 94
--- NOTE | 2017-04-17 13:09 | Progress Note ---
Medicine Progress Note Date & Time of Visit: Apr 17, 2017 at 12:41. Subjective Pt was seen and examined Sitting in chair comfortable with sitter Pt said that she feels fine She did good during physical exam This morning she feels a little confused She did not know the year (1905), the president (Vu) and place ( rehab) Yesterday I spoke to her daughter and the daughter called pt on her cell and was on speaker phone They all agreed to start pt on the SSRI said that he wants to start her on any med that we feel that necessary to get her better wants to be notified if we plan to have any procedure She denies any chest pain, palpitation, dizziness and SOB Objective Last 8 Hrs Date Time Temp Pulse Resp B/P (MAP) Pulse Ox O2 Delivery O2 Flow Rate FiO2 04/17/17 12:06 36.6 69 16 104/51 (68) 94 Room Air 04/17/17 12:00 Room Air 04/17/17 08:08 36.7 93 16 121/56 (77) 92 Room Air 04/17/17 08:00 Room Air Physical Exam: General- No acute distress Head- atraumatic Eyes- PERRL, EOMI ENT- oropharynx clear Neck- supple, no JVD Lungs- Poor air entry, No wheezing Heart- Tachycardia Abdomen- normal bowel sounds, soft Extremities- no calf tenderness Neuro- alert, awake, not oriented to time (thinks 1906), place (rehab) and president ([place]); PERRL, EOMI; no facial palsy, follow commands, normal strength Skin- warm & dry Laboratory Results: Last 24 Hours Test 04/16/17 16:35 04/16/17 19:06 04/16/17 20:30 04/17/17 02:14 Bedside Glucose 133 mg/dl 112 mg/dl Activated Partial Thromboplast Time 43.5 SECONDS 77.7 SECONDS Partial Thromboplastin Ratio 1.7 3.0 White Blood Count 10.04 K/uL Red Blood Count 3.61 M/uL Hemoglobin 12.0 g/dL Hematocrit 32.6 % Mean Corpuscular Volume 90.3 fL Mean Corpuscular Hemoglobin 33.2 pg Mean Corpuscular Hemoglobin Concent 36.8 g/dl RDW Standard Deviation 45.3 fL RDW Coefficient of Variation 13.5 % Platelet Count 254 K/uL Mean Platelet Volume 8.9 fL Sodium Level 127 mmol/L Potassium Level 3.6 mmol/L Chloride Level 94 mmol/L Carbon Dioxide Level 25 mmol/L Anion Gap 8.0 mmol/L Blood Urea Nitrogen 16 mg/dl Creatinine 0.63 mg/dl Est Creatinine Clear Calc Drug Dose 56.7 ml/min Estimated GFR () 105.3 Estimated GFR (Non- 90.9 BUN/Creatinine Ratio 25.1 Random Glucose 124 mg/dl Calcium Level 7.9 mg/dl Magnesium Level 1.5 mg/dl Total Creatine Kinase 133 U/L Troponin I 1.110 ng/ml Test 04/17/17 07:30 04/17/17 09:23 04/17/17 09:53 04/17/17 10:30 Bedside Glucose 104 mg/dl Activated Partial Thromboplast Time 43.5 SECONDS Partial Thromboplastin Ratio 1.7 Urine Osmolality 753 mOms/kg Urine Random Sodium 16 mEq/L Assessment & Plan Sepsis Meet sepsis criteria Present on admission with tachycardia, elevated WBC, Elevated lactate, tachypneic and altered mental status WBC on admission 18.5, POC Lactate 9.4 Received Levaquin, Zosyn and vanco in the ER Abx changed by ID to Vanco, Rocephin And Acyclovir added to cover for encephalitis Blood cx and urine cx Pending WBC trending down procalcitonin was mildly elevated lactic acid normal Will d/c IVF Continue monitor CBC 04/17 Clinically improved Blood cx, urine cx and csf cx no growth WBC trending down to normal ID recommended to continue current abx treatment continue monitor Altered Mental Status Possible related to post ictal due to Seizure vs sepsis Need to R/O CVA CT head showed No acute intracranial pathology MRI of the head showed Extensive multifocal cortical and subcortical signal abnormality consistent with edema within the left cerebral hemisphere. MRI finding showed suspicious for encephalitis case discussed yesterday with Radiology and LP done Elevated protein and glucose on CSF Doubt about bacteria etiology Waiting for CSF result to r/o Lyme, Herpes Check EEG Case discussed yesterday with neuro For now we will hold to start her on any seizure med because we don't have any clear evidence for seizure Ativan IV prn if develops any seizure Neuro check Fall and seizure precaution 04/17 Mental status improved significantly Participate in PT/OT today and did good No seizure activity noted No focal neuro deficit Elevated troponin possible related to sepsis Need to r/o ACS Troponin trending up to 3.14 started on heparin drip OK with neuro neurology to start on heparin drip case discussed with cardiology to continue medical management for now will restart her PO med since she is able to swallow now. 04/17 Troponin trending down Asymptomatic Will d/c heparin drip in am continue aspirin PO metoprolol restarted Echo done showed: * Sinus tachycardia is present * The left ventricle is normal in size. * There is normal left ventricular wall thickness. * There is severe hypokinesis to akinesis of the mid and apical wall segment with mild expansion. The basilar segments contract normally. 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 * Ejection Fraction = 25-30%. * The aortic valve leaflets are moderately calcified. * Moderate valvular aortic stenosis. * Mild aortic regurgitation. * There is mild to moderate mitral regurgitation. * There is moderate to severe tricuspid regurgitation. * Right ventricular systolic pressure is elevated at >60mmHg. * Normal inferior vena cava diameter and respiratory variation suggests normal central venous pressure. Stress induced cardiomyopathy (Takotsubo) Has been very depressed since her daughter was murder by the On metoprolol IV Will change to PO metoprolol Will add on SSRI Psych consulted 04/17 Continue metoprolol 100mg BID Zoloft 12.5 mg given today, will increase to 25mg in am Cardiology plan to repeat the 2echo tomorrow asymptomatic Depression she never follows with psych after she was discharged back back in January Has been having suicidal thought as per daughter continue 1 to 1 observation Psych consulted 04/17 Yesterday I spoke to her daughter and the daughter called pt on her cell and was on speaker phone They all agreed to start pt on the SSRI case discussed with the psych physician contract mail carrier does not meet inpatient psych treatment Zoloft 12.5 mg started today Will need outpatient follow up with psych Elevated AG Possible related to dehydration Received IVF AG closed now monitor BMP Hyponatremia Secondary to dehydration and poor oral intake Na 127 today Restarted IVF check urine Na, osmolarity, check serum osmolarity Nephrology consul Case discussed with nephrology Dr. Woo recommended continue IVF with NS, will give lasix 20mg x1 Will monitor for sign of overload Continue Monitor BMP Pneumonia CXR showed Progressive peripheral right midlung zone opacities Elevated WBC and lactic acid WBC trending down, lactic acid wnl Received IV Zosyn, Vanco and Levaquin in the ER On Rocephin, Vanco Afebrile AGUSTIN Mostly related to dehydration Creatine 1.3 on admission Creatine wnl today On IVF Avoid nephrotoxic agents Monitor BMP Resolved Electrolytes Imbalance Mg replaced Continue monitor BMP and mg Hyperglycemia Mostly related to sepsis Received 10 unit regular insulin in the ER Hba1c 5.3 on 04/15/17 Continue monitor BS resolved DVT px on heparin drip CODE STATUS FULL CODE Consultants: Cardio Psych ID Neuro Current Inpatient Medications: Current Inpatient Medications Medications (Trade) Dose Ordered Sig/Saul Route Start Time Stop Time Status Last Admin Dose Admin Nitroglycerin (Nitrostat Tab) 0.4 mg UD PRN SL 04/15/17 09:15 05/15/17 09:14 Glucose (Glucose 40% Gel) 15-30 GRAMS 15 GRAMS... UD PRN PO 04/15/17 09:30 05/15/17 09:29 Glucose (Glucose Chew Tab) 4-8 Tablets 4 Tabl... UD PRN PO 04/15/17 09:30 05/15/17 09:29 Dextrose (Dextrose 50% 50ML Syringe) 25-50ML OF 50% DW IV FOR... UD PRN IV 04/15/17 09:30 05/15/17 09:29 Glucagon (Glucagon Inj) 1 mg UD PRN SQ 04/15/17 09:30 05/15/17 09:29 Miscellaneous Information (Consult Glycemic Management Pharmacy) 1 ea UD PRN N/A 04/15/17 09:47 05/15/17 09:46 Lorazepam (Ativan Inj) 2 mg ONE PRN IV 04/15/17 09:45 05/15/17 09:44 Vancomycin HCl 750 mg/Sodium Chloride 265 ml @ 125 mls/hr Q18H IV 04/16/17 02:00 04/23/17 01:59 04/16/17 20:23 125 MLS/HR Heparin Sodium (Porcine) (Heparin Sq 5000 Unit/0.5ml) 5,000 unit Q8 SQ 04/15/17 14:00 05/15/17 13:59 Future Hold Budesonide/ Formoterol Fumarate (Symbicort 160/ 4.5 Inh) 2 puffs BID INH 04/15/17 21:00 05/15/17 20:59 04/17/17 08:11 2 PUFFS Lisinopril (Zestril Tab) 40 mg DAILY PO 04/16/17 09:00 05/16/17 08:59 04/17/17 08:11 40 MG Metoprolol Tartrate (Lopressor Tab) 100 mg BID PO 04/15/17 21:00 05/15/17 20:59 04/17/17 08:11 100 MG Simvastatin (Zocor Tab) 20 mg PM PO 04/16/17 21:00 05/16/17 20:59 04/16/17 20:22 20 MG Vancomycin HCl (Consult) 1 ea UD PRN N/A 04/15/17 12:45 05/15/17 12:44 Acyclovir Sodium 500 mg/Dextrose 110 ml @ 110 mls/hr Q8H IV 04/15/17 16:00 04/25/17 15:59 04/17/17 08:10 110 MLS/HR Ceftriaxone Sodium 2000 mg/ Dextrose 70 ml @ 100 mls/hr Q12H IV 04/15/17 16:00 04/25/17 15:59 04/17/17 04:41 100 MLS/HR Metoprolol Tartrate (Lopressor Iv) 2.5 mg Q4 IV 04/15/17 20:00 05/15/17 17:59 04/16/17 05:10 2.5 MG Heparin Sodium/ Dextrose 500 ml @ 11 mls/hr Q24H PRN IV 04/15/17 20:15 05/15/17 20:14 04/17/17 10:33 11 MLS/HR Insulin Aspart (novoLOG ASPART) SLIDING SCALE If C... ACHS SC 04/16/17 16:15 05/16/17 16:14 Aspirin (Ecotrin Tab) 81 mg QAM PO 04/17/17 09:00 05/17/17 08:59 04/17/17 08:11 81 MG Sodium Chloride 1,000 ml @ 70 mls/hr [id number] IV 04/17/17 08:00 05/17/17 07:59 04/17/17 08:29 70 MLS/HR Sertraline HCl (Zoloft Tab) 12.5 mg QAM PO 04/17/17 09:10 05/17/17 09:09 04/17/17 10:32 12.5 MG
[2017-04-17] MEDS ORDERED: VANCOMYCIN TROUGH ONE (13:30)
[2017-04-17] MEDS: VANCOMYCIN INJ 750 MG in SODIUM CHLORIDE 0.9% 250ML 250 ML IV SCH ×2 (14:09→21:58)
[2017-04-17 14:27] LABS: BUN/CREATININE RATIO 21.4 (10-20); CALCIUM 8.2 mg/dl (8.5-10.1); CREATININE 0.71 mg/dl (0.60-1.20); POTASSIUM 3.7 mmol/L (3.5-5.1)
--- NOTE | 2017-04-17 15:34 | Psychiatric Progress Notes ---
Psychiatric Progress Note Date of Service Apr 17, 2017. Notes patient was sleeping soundly with 1-on-1 at bedside during my rounds on the med floor. Interim care reviewed and case discussed with liaison. Case discussed with Dr. Jimenez, main diagnosis at this time is stress induced cardiomyopathy and recommended treatment is an SSRI. He relates that family receptive to this indication following additional discussion last pm and was looking for recs given ?adverse reaction to 1 dose of Lexapro. Discussed trial of Zoloft 12.5 mg to start, increase in 12.5 mg increments as tolerated per medical team. Reviewed that patient would benefit from outpatient therapy and liaison would facilitate if family agrees.
--- NOTE | 2017-04-17 15:39 | Pharmacy Progress Note ---
Glycemic: Assessment & Plan Date of Service Apr 17, 2017. Assessment & Plan ASSESSMENT: * No h/o of DM. A1c of 5.3%. * The patient is currently receiving 0 units of insulin per day. BSGs ranging 104 - 133 mg/dl over the past 24hrs. * Basal insulin: None * Correctional Insulin: Novolog Correction per scale ACHS Goal Range: Low 140 mg/dL - High 180 mg/dL Correction Factor: 30 mg/dL/unit PLAN: All BSGs in range the past 48 hours with no insulin. No changes needed to inpatient regimen at this time. Pharmacy will continue to monitor patient daily and write orders per [facility] inpatient glycemic control protocol. Thanks. * Please note that the plan above was derived based on current level of insulin resistance and hospital stress. These recommendations are appropriate for inpatient admission only. Plan of care upon discharge will need to be reassessed to avoid potential outpatient hypo/hyperglycemia.
[2017-04-17 16:09] VITALS: BP 126/52; PULSE 76; TEMP 36.7; O2SAT 95
[2017-04-17 16:48] LABS: PARTIAL THROMBOPLASTIN RATIO 2.3
[2017-04-17 16:54] LABS: BUN/CREATININE RATIO 24.1 (10-20); CALCIUM 8.1 mg/dl (8.5-10.1); CREATININE 0.61 mg/dl (0.60-1.20); POTASSIUM 3.6 mmol/L (3.5-5.1)
[2017-04-17] MEDS ORDERED: NURSING VERBAL MED ORDER ONE (18:00)
[2017-04-17] MEDS ORDERED: FUROSEMIDE INJ 20 MG in SYRINGE 0 ML IV ONE ×2 (18:30→19:00)
[2017-04-17 19:55] VITALS: BP 118/50; PULSE 86; TEMP 36.7; O2SAT 96
[2017-04-17 20:15] LABS: CREATININE RANDOM URINE < 13.0 mg/dl
--- NOTE | 2017-04-17 20:36 | PROGRESS NOTE ---
DATE: 04/17/2017 SUBJECTIVE: Radha looks great today. She is more oriented. She knows she is in the hospital. She knows the year. She knows Labor Day is coming up tomorrow. She is a little off on the date and still has issues between March and April in terms of identifying the month correctly. Exam ye, there may be a very subtle right facial asymmetry, but this is a very minor. Her gait is normal. Her speech is clear. There is no aphasic tendencies. Thus far, cultures of the spinal fluid, blood, etc. are all negative. The white count is coming down. She does have the cardiomyopathy by echo. She is on heparin and I assume plans are to swing her over to Coumadin or a novel anticoagulant acting on the assumption that the event causing admission may have been due to an embolic shower from her cardiomyopathy For now, I do not think we have a diagnosis. She presented as if she was septic. The story suggests that she might have had a seizure. I am not anxious to treat her empirically with anticonvulsants as she may have had a seizure related to toxic encephalopathy of acute type and I hate to commit her fci. She does have the cardiomyopathy, has evidence that she has had some ischemic events in the [employer], some of which may have been subacute, some of which may have been more recent, some of which may well have been embolic. So, I think we will have to yield to cardiology on this one and their decision regarding Coumadin or a novel anticoagulant. I will check back with her tomorrow, but for now, I do not think that neurology is going to back out of this case unless of course she would have an unequivocally observed seizure at which point, we will have to start her on some Keppra. BENJAMIN
--- NOTE | 2017-04-17 21:56 | NEPHROLOGY CONSULTATION ---
DATE OF CONSULTATION: 04/17/2017 REASON FOR CONSULT: Hyponatremia. HISTORY OF PRESENT ILLNESS: The patient is a 71-year-old female with a past medical history of hypertension, hyperlipidemia, osteoporosis and severe depression which has been very worse for the last few months after her daughter was murdered by her son-in-law. The patient was brought to the hospital 2 days ago because of increasing confusion and at the time of admission, almost unresponsive. According to the , she was on the floor for almost 45 minutes before the EMS came in. She did have urinary incontinence, but did not notice any seizure like activity. Her oral intake of food has been very low and she has lost about 30 pounds in the last few months. Her serum sodium at the time of admission was 124 with a potassium of 3.2 and creatinine was 1.3 and BUN was 15. Since admission, she got IV fluid until yesterday and after the serum sodium went to 130. Normal saline was stopped. She had an echocardiogram which showed takotsubo cardiomyopathy with an ejection fraction of 25%. She does not appear to be in congestive heart failure at this time and in fact she is not getting any diuretics and even with that, her respiratory status is completely normal. She has had a spinal tap done as well as brain MRI done and as of now, I do not think we are seeing anything clear cut. After the IV fluid was stopped, sodium started to go down again from 130 yesterday to 127 this morning. After that, normal saline has been restarted and she is getting that at 70 mL per hour. At this time, she does not have a Hawkins catheter. Blood pressure and oxygen status is within acceptable range. PAST MEDICAL AND SURGICAL HISTORY: Hyperlipidemia, hypertension, osteoporosis. SOCIAL HISTORY: Current every day smoker. No drug use. , retired. ALLERGIES: No known drug allergies. HOME MEDICATIONS: Included Fosamax, amlodipine, aspirin, Symbicort, lisinopril, oxygen, Claritin, Lopressor, and simvastatin. REVIEW OF SYSTEMS: Obtained from the family is already listed in HPI unless stated otherwise, 14 systems reviewed and negative. PHYSICAL EXAMINATION: GENERAL: Elderly white female who appears very comfortable at the time of my examination. VITAL SIGNS: Blood pressure 104/51, 94% on room air, pulse rate 69, temperature 36.6. HEENT: Mucous membrane is moist. NECK: Supple. No jugular venous distention. ____ CARDIOVASCULAR: Regular rate and rhythm, no edema, no jugular venous distension noted. ABDOMEN: Soft, nontender. EXTREMITIES: Shows no pedal edema. LABORATORY TESTS: Reviewed in detail. Most recent lab from this morning shows a serum sodium of 127, potassium 3.6, BUN 16, creatinine 0.6. Troponin 1.10. Magnesium 1.5, calcium 7.9. Urine osmolality was 753, urine sodium 16. IMAGING DATA: Chest x-ray done 2 days ago showed some peripheral right mid lung opacities. Echocardiogram shows ejection fraction of 25% with possible takotsubo cardiomyopathy. ASSESSMENT AND PLAN: A 71-year-old female with new onset cardiomyopathy, likely related to takotsubo secondary to extreme emotional status. I have been called for hyponatremia management. 1. Hyponatremia. This is complicated and multifactorial type hyponatremia, this is not a pure case of hypovolemic hyponatremia. Her oral intake has been low, so there is definitely a significant component of the lack of solid intake causing hyponatremia. And with her ejection fraction being low her Brain natriuretic peptide level gets high and this cases natriuresis. Her urine osmolality was very elevated at 753, which is somewhat suggestive of syndrome of inappropriate antidiuretic hormone secretion, so I do not think we can categorically pin this hyponatremia as one of the clear cut causes. There is no denying serum sodium did go up with the use of normal saline and did go down after it was stopped, so I have no problem continuing the normal saline at 70 mL per hour. We do need to check the serum sodium again now and go from there. At this time, she does not appear to have any degree of congestive heart failure, so hopefully she can tolerate the IV fluid, but we do have to be careful. Depending on her serum sodium, we use even use Lasix. Lasix would counter BNP by causing free water diuresis, so combination of normal saline drip and Lasix should be able to increase the serum sodium even faster, but at 127, I do not see any major complications related with hyponatremia. Case was discussed with Dr. Jimenez, hospitalist. BENJAMIN
[2017-04-17 21:58] LABS: BUN/CREATININE RATIO 19.2 (10-20); CALCIUM 8.1 mg/dl (8.5-10.1); CREATININE 0.65 mg/dl (0.60-1.20); POTASSIUM 3.3 mmol/L (3.5-5.1)
[2017-04-17] MEDS: SIMVASTATIN 20 MG TAB PO SCH (21:58)
[2017-04-17] MEDS ORDERED: POTASSIUM CHLORIDE 10 MEQ TABCR PO STA (22:27)
[2017-04-17 22:54] LABS: MAGNESIUM 1.8 mg/dl (1.8-2.4)
[2017-04-17 23:20] VITALS: BP 118/57; PULSE 72; TEMP 36.5; O2SAT 94
[2017-04-18] VITALS (7 sets, daily range): BP systolic 118–145; BP diastolic 57–73; PULSE 76–92; TEMP 36.5–36.7; O2SAT 93–97
[2017-04-18 00:22] LABS: COD UR NEGATIVE NG/ML (CUTOFF=50); HYDROCOD UR NEGATIVE NG/ML (CUTOFF=50); HYDROMOR UR NEGATIVE NG/ML (CUTOFF=50); MORPHINE UR NEGATIVE NG/ML (CUTOFF=50); NORHYDROCODONE CONF UR NEGATIVE NG/ML (CUTOFF=50); OXYMORPH UR NEGATIVE NG/ML (CUTOFF=50)
[2017-04-18] MEDS: SODIUM CHLORIDE 0.9% 1000ML 1,000 ML IV SCH ×2 (03:52→16:24)
[2017-04-18] MEDS: CEFTRIAXONE SOD INJ 2,000 MG in DEXTROSE 5% 50ML 50 ML IV SCH ×2 (03:53→16:24)
[2017-04-18 04:37] LABS: HEMATOCRIT 32.8 % (37-47); MEAN CELL VOLUME 90.6 fL (80-100); MEAN CORPUSCULAR HEMOGLOBIN 33.1 pg (25-34); MEAN CORPUSCULAR HGB CONC 36.6 g/dl (32-36); MEAN PLATELET VOLUME 9.3 fL (7.4-10.4); PLATELET COUNT 275 K/uL (130-400); RED BLOOD COUNT 3.62 M/uL (4.2-5.4); WHITE BLOOD COUNT 8.59 K/uL (4.8-10.8)
[2017-04-18 04:45] LABS: PARTIAL THROMBOPLASTIN RATIO 1.6
[2017-04-18 05:01] LABS: CALCIUM 7.9 mg/dl (8.5-10.1); CREATININE 0.61 mg/dl (0.60-1.20); MAGNESIUM 1.8 mg/dl (1.8-2.4); POTASSIUM 3.5 mmol/L (3.5-5.1)
[2017-04-18] MEDS ORDERED: HEPARIN IV BOLUS 2,000 UNIT in SYRINGE 0 ML IV ONE (05:30)
[2017-04-18] MEDS: INSULIN ASPART 100 UNITS/ML 3 ML PEN SC SCH ×4 (07:30→20:53)
[2017-04-18] MEDS: ACYCLOVIR SOD INJ 500 MG in DEXTROSE 5% 100ML 100 ML IV SCH ×2 (08:48→16:25)
[2017-04-18] MEDS: BUDESONIDE/FORMOTEROL FUMARATE 160/4.5 60 PUFFS/INHALER INH SCH ×2 (08:49→19:46)
[2017-04-18] MEDS: ASPIRIN 81 MG ECTAB PO SCH (08:49)
[2017-04-18] MEDS: METOPROLOL TARTRATE 100 MG TAB PO SCH (08:49)
[2017-04-18] MEDS: LISINOPRIL 40 MG TAB PO SCH (08:49)
[2017-04-18] MEDS: SERTRALINE HCL 50 MG TAB PO SCH (08:50)
[2017-04-18] MEDS: VANCOMYCIN INJ 750 MG in SODIUM CHLORIDE 0.9% 250ML 250 ML IV SCH ×2 (09:52→21:39)
[2017-04-18] MEDS: FUROSEMIDE INJ 40 MG in SYRINGE 0 ML IV SCH ×2 (09:53→18:26)
[2017-04-18] MEDS ORDERED: SERTRALINE HCL 50 MG TAB PO ONE (10:00)
[2017-04-18] MEDS ORDERED: POTASSIUM CHLORIDE 10 MEQ TABCR PO STA ×2 (10:50→23:30)
--- NOTE | 2017-04-18 11:45 | PROGRESS NOTE ---
DATE: 04/18/2017 The patient seen and examined. Chart, medications, telemetry reviewed. SUBJECTIVE: The patient is awake and conversant this morning though with moderate confusion. Denies any chest pain or cardiac complaints. Telemetry reveals no arrhythmias other than sinus tachycardia. OBJECTIVE: VITAL SIGNS: Heart rate is 90, blood pressure is 131/60. NECK: Thin. There is no jugular venous distention. There is no carotid bruit. LUNGS: Clear with good aeration to both bases. CARDIOVASCULAR: Regular. There is no S3 gallop. ABDOMEN: Soft, nontender. There is no palpable hepatosplenomegaly. There is no hepatojugular reflux. EXTREMITIES: Without cyanosis or clubbing. There is no peripheral edema. LABORATORY DATA: White cell count is 8.5, hemoglobin is 12.0. Sodium is 126, potassium is 3.5, chloride is 93, bicarb is 26, BUN is 10, creatinine 0.6. IMPRESSION: A 71-year-old female presented with acute obtundation. Echocardiographic findings are consistent with Takotsubo cardiomyopathy. The patient has demonstrated improvement in mentation though still not oriented. PLAN: From cardiac standpoint, continue on telemetry. We will change metoprolol to extended release metoprolol, given LV dysfunction. Repeat echocardiogram will be ordered for a.m. to assess LV function and exclude apical thrombus. If no apical thrombus observed, anticoagulation with heparin will be discontinued. Potassium will be supplemented today.
[2017-04-18 11:50] LABS: PARTIAL THROMBOPLASTIN RATIO 2.2
--- NOTE | 2017-04-18 12:51 | PROGRESS NOTE ---
DATE: 04/18/2017 SUBJECTIVE: No new issues overnight. The patient is still eating somewhat low, but she is still drinking. She is on a fluid restriction. PHYSICAL EXAMINATION: VITAL SIGNS: Blood pressure is 138/63, sats 93% on room air, pulse rate 76, and temperature 36.6. HEENT: Mucous membranes moist. NECK: Supple. No jugular venous distention. CHEST: Bilateral clear to auscultation. CARDIOVASCULAR: Regular rate and rhythm. No JVD noted. ABDOMEN: Soft and nontender. EXTREMITIES: Trace edema. LABORATORY TESTS: From this morning show a hemoglobin of 12, platelet count of 275,000, and WBC count 8.59. Sodium 126, potassium 3.5, BUN 10, creatinine 0.6, and calcium 7.9. BNP was 20,924. ASSESSMENT AND PLAN: Hyponatremia. This is multifactorial secondary to elevated BNP in the setting of low ejection fraction causing natriuresis as well as significantly low p.o. intake of solid foods. RECOMMENDATIONS: I will check the serum sodium again around 01:00 p.m. and we will go from there. For now, I would continue with Lasix 40 mg IV b.i.d. and normal saline at 100 mL per hour. Further changes will be done depending on the labs. She will continue to have some low serum sodium because of her underlying low ejection fraction and an elevated BNP. Case was discussed with Dr. Jimenez, hospitalist. BENJAMIN
[2017-04-18 13:50] LABS: BUN/CREATININE RATIO 10.6 (10-20); CALCIUM 8.3 mg/dl (8.5-10.1); CREATININE 0.82 mg/dl (0.60-1.20); POTASSIUM 3.5 mmol/L (3.5-5.1)
--- NOTE | 2017-04-18 13:55 | Progress Note ---
Medicine Progress Note Date & Time of Visit: Apr 18, 2017 at 13:31. Subjective Pt was seen and examined Siting in chair comfortable with no distress with sitter Denies any complaints she said that she slept late last night because she was watching TV Her memory is slightly improved she still think that she is in rehab Denies any chest pain, palpitation, dizziness and SOB Objective Last 8 Hrs Date Time Temp Pulse Resp B/P (MAP) Pulse Ox O2 Delivery O2 Flow Rate FiO2 04/18/17 11:58 36.6 76 17 138/63 (88) 93 Room Air 04/18/17 08:17 36.7 92 19 131/60 (83) 93 Room Air Physical Exam: General- No acute distress Head- atraumatic Eyes- PERRL, EOMI ENT- oropharynx clear Neck- supple, no JVD Lungs- No wheezing, no crackles Heart- regular Abdomen- normal bowel sounds, soft Extremities- no calf tenderness Neuro- alert, awake, oriented to time (month and date), place (rehab) and president ([place]); PERRL, EOMI; no facial palsy, follow commands, normal strength Skin- warm & dry Laboratory Results: Last 24 Hours Test 04/17/17 13:54 04/17/17 16:20 04/17/17 16:32 04/17/17 19:39 Sodium Level 125 mmol/L 125 mmol/L Potassium Level 3.7 mmol/L 3.6 mmol/L Chloride Level 92 mmol/L 93 mmol/L Carbon Dioxide Level 26 mmol/L 25 mmol/L Anion Gap 7.0 mmol/L 7.0 mmol/L Blood Urea Nitrogen 15 mg/dl 15 mg/dl Creatinine 0.71 mg/dl 0.61 mg/dl Est Creatinine Clear Calc Drug Dose 50.3 ml/min 58.5 ml/min Estimated GFR () 100.0 106.5 Estimated GFR (Non- 86.3 91.9 BUN/Creatinine Ratio 21.4 24.1 Random Glucose 130 mg/dl 148 mg/dl Calcium Level 8.2 mg/dl 8.1 mg/dl Pro-B-Type Natriuretic Peptide 96697 pg/ml Activated Partial Thromboplast Time 61.0 SECONDS Partial Thromboplastin Ratio 2.3 Bedside Glucose 132 mg/dl Urine Osmolality 273 mOms/kg Urine Random Creatinine < 13.0 mg/dl Urine Random Sodium 102 mEq/L Test 04/17/17 20:33 04/17/17 21:21 04/18/17 04:25 04/18/17 06:26 Bedside Glucose 122 mg/dl 130 mg/dl Sodium Level 126 mmol/L 126 mmol/L Potassium Level 3.3 mmol/L 3.5 mmol/L Chloride Level 91 mmol/L 93 mmol/L Carbon Dioxide Level 27 mmol/L 26 mmol/L Anion Gap 8.0 mmol/L 7.0 mmol/L Blood Urea Nitrogen 13 mg/dl 10 mg/dl Creatinine 0.65 mg/dl 0.61 mg/dl Est Creatinine Clear Calc Drug Dose 54.9 ml/min 58.5 ml/min Estimated GFR () 104.3 106.5 Estimated GFR (Non- 90.0 91.9 BUN/Creatinine Ratio 19.2 17.0 Random Glucose 125 mg/dl 127 mg/dl Calcium Level 8.1 mg/dl 7.9 mg/dl Magnesium Level 1.8 mg/dl 1.8 mg/dl White Blood Count 8.59 K/uL Red Blood Count 3.62 M/uL Hemoglobin 12.0 g/dL Hematocrit 32.8 % Mean Corpuscular Volume 90.6 fL Mean Corpuscular Hemoglobin 33.1 pg Mean Corpuscular Hemoglobin Concent 36.6 g/dl RDW Standard Deviation 44.2 fL RDW Coefficient of Variation 13.3 % Platelet Count 275 K/uL Mean Platelet Volume 9.3 fL Activated Partial Thromboplast Time 42.6 SECONDS Partial Thromboplastin Ratio 1.6 Test 04/18/17 11:11 04/18/17 11:24 04/18/17 13:04 Bedside Glucose 141 mg/dl Activated Partial Thromboplast Time 57.4 SECONDS Partial Thromboplastin Ratio 2.2 Assessment & Plan Sepsis Meet sepsis criteria Present on admission with tachycardia, elevated WBC, Elevated lactate, tachypneic and altered mental status WBC on admission 18.5, POC Lactate 9.4 Received Levaquin, Zosyn and vanco in the ER Abx changed by ID to Vanco, Rocephin And Acyclovir added to cover for encephalitis Blood cx and urine cx Pending WBC trending down procalcitonin was mildly elevated lactic acid normal Will d/c IVF Continue monitor CBC 04/18 Blood cx, urine cx and csf cx no growth WBC trending down to normal, afebrile Will discuss to ID to deescalate abx since no growth on cx continue monitor Clinically improved significantly Altered Mental Status Possible related to post ictal due to Seizure vs sepsis Need to R/O CVA CT head showed No acute intracranial pathology MRI of the head showed Extensive multifocal cortical and subcortical signal abnormality consistent with edema within the left cerebral hemisphere. MRI finding showed suspicious for encephalitis case discussed yesterday with Radiology and LP done Elevated protein and glucose on CSF Doubt about bacteria etiology Waiting for CSF result to r/o Lyme, Herpes Check EEG Case discussed yesterday with neuro For now we will hold to start her on any seizure med because we don't have any clear evidence for seizure Ativan IV prn if develops any seizure Neuro check Fall and seizure precaution 04/18 Mental status improved significantly Continue PT/OT Continue with seizure precaution No seizure activity noted No focal neuro deficit Elevated troponin possible related to sepsis Need to r/o ACS Troponin trending up to 3.14 started on heparin drip OK with neuro neurology to start on heparin drip case discussed with cardiology to continue medical management for now will restart her PO med since she is able to swallow now. 04/18 Troponin trending down Asymptomatic continue aspirin Metoprolol changed to Toprol xl case discussed with on site coordinator Dr. Thomas that recommended to continue the heparin drip Repeat Echo tomorrow and if no thrombus seen on echo, heparin drip can be d/c Echo done showed: * Sinus tachycardia is present * The left ventricle is normal in size. * There is normal left ventricular wall thickness. * There is severe hypokinesis to akinesis of the mid and apical wall segment with mild expansion. The basilar segments contract normally. 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 * Ejection Fraction = 25-30%. * The aortic valve leaflets are moderately calcified. * Moderate valvular aortic stenosis. * Mild aortic regurgitation. * There is mild to moderate mitral regurgitation. * There is moderate to severe tricuspid regurgitation. * Right ventricular systolic pressure is elevated at >60mmHg. * Normal inferior vena cava diameter and respiratory variation suggests normal central venous pressure. Stress induced cardiomyopathy (Takotsubo) Has been very depressed since her daughter was murder by the On metoprolol IV Will change to PO metoprolol Will add on SSRI Psych consulted 04/18 metoprolol 100mg BID change to toprol xl 100mg BID Tolerated zoloft 12.5 mg that was given yesterday Zoloft increase to 25 mg daily Repeat ECHO tomorrow asymptomatic Depression she never follows with psych after she was discharged back back in January Has been having suicidal thought as per daughter continue to observation Psych consulted 04/18 Spoke to her daughter and the daughter called pt on her cell and was on speaker phone They all agreed to start pt on the SSRI case discussed with the psych physician maxillofacial prosthodontist does not meet inpatient psych treatment Zoloft 12.5 mg started yesterday Increase to 25mg today psych on board Will need outpatient follow up with psych Elevated AG Possible related to dehydration Received IVF AG closed now monitor BMP Hyponatremia Secondary to dehydration and poor oral intake Na 127 today Restarted IVF check urine Na, osmolarity, check serum osmolarity Nephrology consul Case discussed with nephrology Dr. Woo recommended continue IVF with NS, will give lasix 20mg x1 Will monitor for sign of overload Continue Monitor BMP 04/18 Na 126 today Case discussed with nephrology Dr. Woo Recommended to increase IVF with NS to 100ml/hr Lasix 40mg BID daily will monitor for sign of overload continue monitor BMP Pneumonia CXR showed Progressive peripheral right midlung zone opacities Elevated WBC and lactic acid WBC trending down, lactic acid wnl Received IV Zosyn, Vanco and Levaquin in the ER On Rocephin, Vanco Afebrile AGUSTIN Mostly related to dehydration Creatine 1.3 on admission Creatine wnl today On IVF Avoid nephrotoxic agents Monitor BMP Resolved Electrolytes Imbalance K replaced Continue monitor BMP and mg Hyperglycemia Mostly related to sepsis Received 10 unit regular insulin in the ER Hba1c 5.3 on 04/15/17 Continue monitor BS resolved DVT px on heparin drip CODE STATUS FULL CODE Consultants: Cardio Psych ID Neuro Current Inpatient Medications: Current Inpatient Medications Medications (Trade) Dose Ordered Sig/Saul Route Start Time Stop Time Status Last Admin Dose Admin Nitroglycerin (Nitrostat Tab) 0.4 mg UD PRN SL 04/15/17 09:15 05/15/17 09:14 Glucose (Glucose 40% Gel) 15-30 GRAMS 15 GRAMS... UD PRN PO 04/15/17 09:30 05/15/17 09:29 Glucose (Glucose Chew Tab) 4-8 Tablets 4 Tabl... UD PRN PO 04/15/17 09:30 05/15/17 09:29 Dextrose (Dextrose 50% 50ML Syringe) 25-50ML OF 50% DW IV FOR... UD PRN IV 04/15/17 09:30 05/15/17 09:29 Glucagon (Glucagon Inj) 1 mg UD PRN SQ 04/15/17 09:30 05/15/17 09:29 Miscellaneous Information (Consult Glycemic Management Pharmacy) 1 ea UD PRN N/A 04/15/17 09:47 05/15/17 09:46 Lorazepam (Ativan Inj) 2 mg ONE PRN IV 04/15/17 09:45 05/15/17 09:44 Heparin Sodium (Porcine) (Heparin Sq 5000 Unit/0.5ml) 5,000 unit Q8 SQ 04/15/17 14:00 05/15/17 13:59 Future Hold Budesonide/ Formoterol Fumarate (Symbicort 160/ 4.5 Inh) 2 puffs BID INH 04/15/17 21:00 05/15/17 20:59 04/18/17 08:49 2 PUFFS Lisinopril (Zestril Tab) 40 mg DAILY PO 04/16/17 09:00 05/16/17 08:59 04/18/17 08:49 40 MG Simvastatin (Zocor Tab) 20 mg PM PO 04/16/17 21:00 05/16/17 20:59 04/17/17 21:58 20 MG Vancomycin HCl (Consult) 1 ea UD PRN N/A 04/15/17 12:45 05/15/17 12:44 Acyclovir Sodium 500 mg/Dextrose 110 ml @ 110 mls/hr Q8H IV 04/15/17 16:00 04/25/17 15:59 04/18/17 08:48 110 MLS/HR Ceftriaxone Sodium 2000 mg/ Dextrose 70 ml @ 100 mls/hr Q12H IV 04/15/17 16:00 04/25/17 15:59 04/18/17 03:53 100 MLS/HR Heparin Sodium/ Dextrose 500 ml @ 12 mls/hr Q24H PRN IV 04/15/17 20:15 05/15/17 20:14 04/17/17 17:46 11 MLS/HR Insulin Aspart (novoLOG ASPART) SLIDING SCALE If C... ACHS SC 04/16/17 16:15 05/16/17 16:14 Aspirin (Ecotrin Tab) 81 mg QAM PO 04/17/17 09:00 05/17/17 08:59 04/18/17 08:49 81 MG Sodium Chloride 1,000 ml @ 70 mls/hr [id number] IV 04/17/17 08:00 05/17/17 07:59 04/18/17 03:52 70 MLS/HR Vancomycin HCl 750 mg/Sodium Chloride 265 ml @ 125 mls/hr Q12H IV 04/17/17 22:00 04/23/17 01:59 04/18/17 09:52 125 MLS/HR Furosemide 40 mg/ Syringe 4 ml @ 4 mls/min [id number] IV 04/18/17 09:00 05/18/17 08:59 04/18/17 09:53 4 MLS/MIN Sertraline HCl (Zoloft Tab) 25 mg QAM PO 04/19/17 09:00 05/19/17 08:59 Metoprolol Succinate (Toprol Xl Tab) 100 mg BID PO 04/18/17 21:00 05/18/17 20:59
--- NOTE | 2017-04-18 14:11 | Pharmacy Progress Note ---
Pharmacy Glycemic Sign Off Nt Date of Service Apr 18, 2017. Assessment & Plan ASSESSMENT: * Pharmacy was consulted by Dr Jimenez on 04/15/17 for glycemic control and to write orders per [facility] inpatient glycemic control protocol. * Patient has been requiring no insulin for adequate glycemic control * BSGs ranging 104 - 155 mg/dl * Last dose of insulin was 04/15/17 (10 units IV) administered in the ER * no h/o DM * Do not anticipate further changes in patient status that would quickly deteriorate glycemic control (i.e. patient to be NPO for upcoming procedure, steroids tapering, starting tube feedings, etc). * Please see recommendations for outpatient antidiabetic regimen below. PLAN FOR INPATIENT GLYCEMIC CONTROL: No changes needed to current regimen. * Continue NovoLog per scale ACHS/Q6hrs while NPO * Goal range = 140 180 mg/dl * CF = 30 mg/dl/unit * CR = none * A1c added to discharge instructions to be communicated to PCP. * Pharmacy is signing off of glycemic consult and will no longer be making adjustments to inpatient regimen. Please feel free to re-consult if needed. Thank you. DISCHARGE RECOMMENDATIONS: * A1c 5.3 % on 04/15/17 * No h/o of DM - therapy not needed
--- NOTE | 2017-04-18 17:22 | PROGRESS NOTE ---
DATE: 04/18/2017 SUBJECTIVE: Radha was seen today. When her is not in the room and he was not today, she is more confused and more easily distracted and according to the nursing staff will start pulling out her IVs, so there is clearly evidence for residual encephalopathy but this is less evident when the family is around to support her. No seizure like activity has been seen and the laboratory studies thus far show no evidence for an active infection at least on cultures, either in the brain or elsewhere. The clinical picture looked like sepsis, but for now we really do not have an organism to blame it on. In terms of the cardiac workup, she does have an abnormal echocardiogram with a markedly reduced ejection fraction, but cardiology is wondering if this is not a part of a stress cardiomyopathy related to her chronic reactive depression which has not been treated or followed up by psychiatry very effectively at her choice. An echo is pending tomorrow and if a laminated mural clot is seen or if there is significantresidual hypokinesis, then she will probably go on to a novel anticoagulant or Coumadin, but if no clot is seen and the hypokinesis is improved the the plan to stop the heparin and watch her. It is never going to be sure what went on here. She certainly neurologically is back to normal at least in terms of showing no significant motor or sensory deficits, but she still is confused, a little tangential and impulsive and she does have abnormal findings on the MRI suggestive of probable subacute infarctions likely due to cardiogenic source. I do not think she had a seizure, but again elements of the history suggests this. At this point, then I am going to recommend we do another EEG. I did talk to Dr. Jimenez, her attending physician about this and he has ordered it. I will check back with her tomorrow along with the results of the study. BENJAMIN
[2017-04-18] MEDS: METOPROLOL SUCC 50MG EXT REL TAB PO SCH (19:45)
[2017-04-18] MEDS: SIMVASTATIN 20 MG TAB PO SCH (19:45)
[2017-04-18] MEDS ORDERED: FUROSEMIDE INJ 40 MG in SYRINGE 0 ML IV STA (22:20)
[2017-04-18] MEDS ORDERED: SODIUM CHLORIDE 1 GM TAB PO STA (22:21)
[2017-04-18 22:54] LABS: BUN/CREATININE RATIO 11.1 (10-20); CALCIUM 8.3 mg/dl (8.5-10.1); CREATININE 0.7 mg/dl (0.60-1.20); POTASSIUM 3.3 mmol/L (3.5-5.1)
[2017-04-18] MEDS ORDERED: NURSING VERBAL MED ORDER ONE (23:30)
[2017-04-18] MEDS ORDERED: POTASSIUM CHLORIDE 10 MEQ TABCR PO SCH (23:30)
[2017-04-19] VITALS (10 sets, daily range): BP systolic 110–146; BP diastolic 51–70; PULSE 78–88; TEMP 36.4–36.7; O2SAT 95–98
[2017-04-19] MEDS: ACYCLOVIR SOD INJ 500 MG in DEXTROSE 5% 100ML 100 ML IV SCH ×2 (00:33→09:33)
[2017-04-19 02:36] LABS: BASO % 0.1 %; BASO ABS # 0.01 K/uL (0-0.2); COMPLETE YES; EOS % 0.3 %; HEMATOCRIT 33.8 % (37-47); IG% 0.2 %; LYMPH % 16.3 %; LYMPH ABS # 1.53 K/uL (1.2-3.4); MEAN CELL VOLUME 89.4 fL (80-100); MEAN CORPUSCULAR HEMOGLOBIN 31.2 pg (25-34); MEAN CORPUSCULAR HGB CONC 34.9 g/dl (32-36); MEAN PLATELET VOLUME 9.3 fL (7.4-10.4); MONO % 10.2 %; NEUT % 72.9 %; PLATELET COUNT 312 K/uL (130-400); RED BLOOD COUNT 3.78 M/uL (4.2-5.4); WHITE BLOOD COUNT 9.37 K/uL (4.8-10.8)
[2017-04-19 02:54] LABS: BUN/CREATININE RATIO 8.4 (10-20); CALCIUM 8.2 mg/dl (8.5-10.1); CREATININE 0.67 mg/dl (0.60-1.20); MAGNESIUM 1.3 mg/dl (1.8-2.4); POTASSIUM 3.4 mmol/L (3.5-5.1)
[2017-04-19 03:16] LABS: PARTIAL THROMBOPLASTIN RATIO 1.7
[2017-04-19] MEDS ORDERED: POTASSIUM CHLORIDE 10 MEQ TABCR PO STA (03:44)
[2017-04-19] MEDS: CEFTRIAXONE SOD INJ 2,000 MG in DEXTROSE 5% 50ML 50 ML IV SCH (04:03)
[2017-04-19] MEDS: MAGNESIUM SULFATE 1GM / D5W 1 GM in PREMIXED IN D5W 100 ML IV SCH ×3 (04:04→05:53)
[2017-04-19] MEDS ORDERED: HEPARIN IV BOLUS 2,000 UNIT in SYRINGE 0 ML IV STA (04:06)
[2017-04-19] MEDS ORDERED: POTASSIUM CHLORIDE 10 MEQ TABCR PO ONE (06:00)
[2017-04-19] MEDS: HEPARIN 25,000 UNIT/500ML D5W 500 ML IV PRN (06:20)
[2017-04-19] MEDS ORDERED: PERFLUTREN LIPID MICROSPHERE (DEFINITY) IV ONE (07:10)
[2017-04-19] MEDS: INSULIN ASPART 100 UNITS/ML 3 ML PEN SC SCH (07:41)
[2017-04-19] MEDS ORDERED: ACETAMINOPHEN 325 MG TAB ONE (07:46)
[2017-04-19] MEDS: ASPIRIN 81 MG ECTAB PO SCH ×2 (09:00→09:32)
[2017-04-19] MEDS ORDERED: NURSING VERBAL MED ORDER ONE (09:15)
[2017-04-19] MEDS: METOPROLOL SUCC 50MG EXT REL TAB PO SCH ×2 (09:29→20:13)
[2017-04-19] MEDS: FUROSEMIDE INJ 40 MG in SYRINGE 0 ML IV SCH ×3 (09:30→20:14)
[2017-04-19] MEDS ORDERED: ACETAMINOPHEN 325 MG TAB PO PRN ×2 (09:30→09:45)
[2017-04-19] MEDS ORDERED: VANCOMYCIN TROUGH SCH (09:30)
--- NOTE | 2017-04-19 09:30 | Nephrology Progress Note ---
Nephrology Progress Note Date of Service: Apr 19, 2017. Subjective c/o LEWIS; eating better but per still small amounts; had transient N ON; no angelo currently and up much of night Objective Date Time Temp Pulse Resp B/P (MAP) Pulse Ox O2 Delivery O2 Flow Rate FiO2 04/19/17 04:00 97 Room Air 04/19/17 03:11 36.7 87 18 132/69 (90) 95 Room Air 04/19/17 02:12 87 16 126/51 (76) 04/18/17 23:59 97 Room Air 04/18/17 22:50 36.6 92 14 145/73 (97) 97 Room Air 04/18/17 20:00 Room Air 04/18/17 18:53 36.6 92 16 143/63 (89) 97 Room Air 04/18/17 16:00 Room Air 04/18/17 15:02 36.6 77 18 130/60 (83) 95 Room Air 04/18/17 12:00 Room Air 04/18/17 11:58 36.6 76 17 138/63 (88) 93 Room Air 04/18/17 08:17 36.7 92 19 131/60 (83) 93 Room Air 04/18/17 08:00 Room Air Physical Exam: GEN: Elderly female, NAD, on RA, HEENT: Mucous membranes moist. NECK: Supple. CARDIOVASCULAR: Regular rate and rhythm PULM: kyphotic spine diminished air entry BL ABDOMEN: Soft, nontender. +BS EXTREMITIES: no edema; no c/c NEURO: oriented x 3, aburto; slight confusion at end of our interview Current Inpatient Medications Medications (Trade) Dose Ordered Sig/Saul Route Start Time Stop Time Status Last Admin Dose Admin Nitroglycerin (Nitrostat Tab) 0.4 mg UD PRN SL 04/15/17 09:15 05/15/17 09:14 Glucose (Glucose 40% Gel) 15-30 GRAMS 15 GRAMS... UD PRN PO 04/15/17 09:30 05/15/17 09:29 Glucose (Glucose Chew Tab) 4-8 Tablets 4 Tabl... UD PRN PO 04/15/17 09:30 05/15/17 09:29 Dextrose (Dextrose 50% 50ML Syringe) 25-50ML OF 50% DW IV FOR... UD PRN IV 04/15/17 09:30 101/17 09:29 Glucagon (Glucagon Inj) 1 mg UD PRN SQ 04/15/17 09:30 05/15/17 09:29 Lorazepam (Ativan Inj) 2 mg ONE PRN IV 04/15/17 09:45 05/15/17 09:44 Heparin Sodium (Porcine) (Heparin Sq 5000 Unit/0.5ml) 5,000 unit Q8 SQ 04/15/17 14:00 05/15/17 13:59 Future Hold Budesonide/ Formoterol Fumarate (Symbicort 160/ 4.5 Inh) 2 puffs BID INH 04/15/17 21:00 05/15/17 20:59 04/18/17 19:46 2 PUFFS Lisinopril (Zestril Tab) 40 mg DAILY PO 04/16/17 09:00 05/16/17 08:59 04/18/17 08:49 40 MG Simvastatin (Zocor Tab) 20 mg PM PO 04/16/17 21:00 05/16/17 20:59 04/18/17 19:45 20 MG Vancomycin HCl (Consult) 1 ea UD PRN N/A 04/15/17 12:45 05/15/17 12:44 Acyclovir Sodium 500 mg/Dextrose 110 ml @ 110 mls/hr Q8H IV 04/15/17 16:00 04/25/17 15:59 04/19/17 00:33 110 MLS/HR Ceftriaxone Sodium 2000 mg/ Dextrose 70 ml @ 100 mls/hr Q12H IV 04/15/17 16:00 04/25/17 15:59 04/19/17 04:03 100 MLS/HR Heparin Sodium/ Dextrose 500 ml @ 13 mls/hr Q24H PRN IV 04/15/17 20:15 05/15/17 20:14 04/19/17 06:20 13 MLS/HR Insulin Aspart (novoLOG ASPART) SLIDING SCALE If C... ACHS SC 04/16/17 16:15 05/16/17 16:14 Aspirin (Ecotrin Tab) 81 mg QAM PO 04/17/17 09:00 05/17/17 08:59 04/18/17 08:49 81 MG Vancomycin HCl 750 mg/Sodium Chloride 265 ml @ 125 mls/hr Q12H IV 04/17/17 22:00 04/23/17 01:59 04/18/17 21:39 125 MLS/HR Furosemide 40 mg/ Syringe 4 ml @ 4 mls/min BID17 IV 04/18/17 09:00 05/18/17 08:59 04/18/17 18:26 4 MLS/MIN Sertraline HCl (Zoloft Tab) 25 mg QAM PO 04/19/17 09:00 05/19/17 08:59 Metoprolol Succinate (Toprol Xl Tab) 100 mg BID PO 04/18/17 21:00 05/18/17 20:59 04/18/17 19:45 100 MG Last 24 Hours Test 04/18/17 11:11 04/18/17 11:24 04/18/17 13:04 04/18/17 16:11 Bedside Glucose 141 mg/dl 125 mg/dl Activated Partial Thromboplast Time 57.4 SECONDS Partial Thromboplastin Ratio 2.2 Sodium Level 124 mmol/L Potassium Level 3.5 mmol/L Chloride Level 91 mmol/L Carbon Dioxide Level 26 mmol/L Anion Gap 7.0 mmol/L Blood Urea Nitrogen 9 mg/dl Creatinine 0.82 mg/dl Est Creatinine Clear Calc Drug Dose 43.5 ml/min Estimated GFR () 84.0 Estimated GFR (Non- 72.5 BUN/Creatinine Ratio 10.6 Random Glucose 140 mg/dl Calcium Level 8.3 mg/dl Test 04/18/17 19:43 04/18/17 22:22 04/19/17 02:24 Bedside Glucose 145 mg/dl Sodium Level 126 mmol/L 126 mmol/L Potassium Level 3.3 mmol/L 3.4 mmol/L Chloride Level 89 mmol/L 89 mmol/L Carbon Dioxide Level 28 mmol/L 30 mmol/L Anion Gap 9.0 mmol/L 7.0 mmol/L Blood Urea Nitrogen 8 mg/dl 6 mg/dl Creatinine 0.70 mg/dl 0.67 mg/dl Est Creatinine Clear Calc Drug Dose 51.0 ml/min 53.3 ml/min Estimated GFR () 101.7 103.2 Estimated GFR (Non- 87.8 89.1 BUN/Creatinine Ratio 11.1 8.4 Random Glucose 129 mg/dl 127 mg/dl Calcium Level 8.3 mg/dl 8.2 mg/dl White Blood Count 9.37 K/uL Red Blood Count 3.78 M/uL Hemoglobin 11.8 g/dL Hematocrit 33.8 % Mean Corpuscular Volume 89.4 fL Mean Corpuscular Hemoglobin 31.2 pg Mean Corpuscular Hemoglobin Concent 34.9 g/dl Platelet Count 312 K/uL Mean Platelet Volume 9.3 fL Neutrophils (%) (Auto) 72.9 % Lymphocytes (%) (Auto) 16.3 % Monocytes (%) (Auto) 10.2 % Eosinophils (%) (Auto) 0.3 % Basophils (%) (Auto) 0.1 % Neutrophils # (Auto) 6.82 K/uL Lymphocytes # (Auto) 1.53 K/uL Monocytes # (Auto) 0.96 K/uL Eosinophils # (Auto) 0.03 K/uL Basophils # (Auto) 0.01 K/uL RDW Standard Deviation 42.6 fL RDW Coefficient of Variation 13.0 % Immature Granulocyte % (Auto) 0.2 % Immature Granulocyte # (Auto) 0.02 K/uL Activated Partial Thromboplast Time 44.6 SECONDS Partial Thromboplastin Ratio 1.7 Magnesium Level 1.3 mg/dl Albumin 3.1 gm/dl Assessment & Plan 71-year-old female with new onset cardiomyopathy, 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 -chronic asymptomatic hyponatremia hypotonic in setting of hypokalemia, hypomagnesemia. complicated and multifactorial, not a pure case of hypovolemic hyponatremia. Her oral intake has been low, so there is definitely a significant component of the low solute diet causing hyponatremia. Also though w / low ejection fraction and encephalopathy; unclear if also an intracranial infectious process at work >cont lasix 40 mg IV bid for now -ordered bmp for today and repeat urine studies to help guide therapy >> will f/ u -goal sNa for AM is 131 -cont strict I/O -replete mag and K po where possible > ordered standing doses -offer protein supplements which should not count toward fluid limit if taking poor po Appreciate consult; will follow with you.
[2017-04-19] MEDS: SERTRALINE HCL 50 MG TAB PO SCH (09:31)
[2017-04-19] MEDS: BUDESONIDE/FORMOTEROL FUMARATE 160/4.5 60 PUFFS/INHALER INH SCH ×2 (09:32→20:13)
[2017-04-19] MEDS: LISINOPRIL 40 MG TAB PO SCH (09:34)
[2017-04-19] MEDS ORDERED: MAGNESIUM CHLORIDE 64MG DELAYED REL TAB PO ONE (10:00)
--- NOTE | 2017-04-19 10:00 | ECHOCARDIOGRAM REPORT ---
*NOTICE TO RECEIVING [employer] This information is strictly Confidential and protected under [place] law. [place] law prohibits you from making any further disclosure of this information unless further disclosure is expressly permitted by the written consent of the person to whom it pertains or is authorized by law. A general authorization for the release of medical or other information is not sufficient for this purpose. Hospital accepts no responsibility if the information is made available to any other person, INCLUDING THE PATIENT. Interpretation Summary * Name: FRANCI NAYLOR Study Date: 04/19/2017 07:10 AM BP: 132/69 mmHg * Patient Location: C.2E\S\E206\S\1 HR: 87 * : 1945 (M/d/yyyy) Gender: Female Height: 59 in * Age: 71 yrs Ethnicity: CA Weight: 112 lb * Ordering Physician: Gene Thomas * Referring Physician: Self, Referred * Performed By: Diaz Ferraro RCS * * Reason For Study: Assess left ventricular function, Assess for Apical Thrombus * BSA: 1.4 m2 * -- Conclusions -- * Improved function at mid level of all segments. EF improved to 35-40%. Procedure Details * A two-dimensional transthoracic echocardiogram was performed. * A contrast injection of Definity was performed to improve assessment of LV function. * A contrast injection of Definity was performed to improve assessment for apical thrombus. * Contrast was injected into an intravenous site in the left arm. * One vial of Definity ultrasound contrast was diluted in normal saline to a total volume of 10 ml. A total of '2' ml of solution was administered during imaging. * Lot # [id number] of Definity utilized for procedure. * Expiration date . * The attending nurse who injected the contrast agent was Adela Hoyt RN. Left Ventricle * Ejection Fraction = 35-40%. MMode 2D Measurements and Calculations IVSd 0.90 cm IVSs 1.1 cm LVIDd 4.0 cm LVIDs 3.2 cm LVPWd 0.96 cm LVPWs 1.1 cm IVS/LVPW 0.94 FS 19.7 % EDV(Teich) 71.9 ml ESV(Teich) 42.4 ml EF(Teich) 41.0 % EDV(cubed) 66.2 ml ESV(cubed) 34.2 ml EF(cubed) 48.3 % % IVS thick 18.5 % % LVPW thick 16.2 % LV mass(C)d 116.6 grams LV mass(C)dI 80.9 grams/m\S\2 LV mass(C)s 105.0 grams LV mass(C)sI 72.9 grams/m\S\2 CO(Teich) 2.7 l/min CI(Teich) 1.8 l/min/m\S\2 SV(Teich) 29.5 ml SI(Teich) 20.4 ml/m\S\2 CO(cubed) 2.9 l/min CI(cubed) 2.0 l/min/m\S\2 SV(cubed) 32.0 ml SI(cubed) 22.2 ml/m\S\2 LVAd ap4 32.5 cm\S\2 LVLd ap4 8.3 cm EDV(MOD-sp4) 103.0 ml LVAs ap4 24.0 cm\S\2 LVLs ap4 7.6 cm ESV(MOD-sp4) 61.0 ml EF(MOD-sp4) 40.8 % LVAd ap2 31.2 cm\S\2 LVLd ap2 8.6 cm EDV(MOD-sp2) 94.0 ml LVAs ap2 25.0 cm\S\2 LVLs ap2 7.9 cm ESV(MOD-sp2) 64.0 ml EF(MOD-sp2) 31.9 % CO(MOD-sp4) 3.8 l/min CI(MOD-sp4) 2.6 l/min/m\S\2 SV(MOD-sp4) 42.0 ml SI(MOD-sp4) 29.1 ml/m\S\2 CO(MOD-sp2) 2.7 l/min CI(MOD-sp2) 1.9 l/min/m\S\2 SV(MOD-sp2) 30.0 ml SI(MOD-sp2) 20.8 ml/m\S\2
[2017-04-19 10:09] LABS: PARTIAL THROMBOPLASTIN RATIO 2.1
[2017-04-19 10:17] LABS: BUN/CREATININE RATIO 6.9 (10-20); CREATININE 0.74 mg/dl (0.60-1.20); POTASSIUM 3.9 mmol/L (3.5-5.1)
--- NOTE | 2017-04-19 10:47 | Pharmacy Progress Note ---
Pharmacy Abx Dose Short Note Date of Service Apr 19, 2017. Assessment & Plan Assessment 71 year old female receiving vancomycin/acyclovir, rocephin for treatment of sepsis/CAP/?meningitis Day # 5 of antimicrobial therapy. BC NGTD, MRSA swab negative. ID to evaluate patient. Plan Vancomycin * Trough level of 18.7 mcg/mL is therapeutic * Continue dose of 750 mg q12H * Goal trough level 15-20 mcg/mL * Trough level ordered for 04/21 @ 0930 Pharmacy will continue to follow and will adjust dose/frequency as necessary. Thank you.
[2017-04-19] MEDS: VANCOMYCIN INJ 750 MG in SODIUM CHLORIDE 0.9% 250ML 250 ML IV SCH (10:55)
[2017-04-19] MEDS ORDERED: SODIUM CHLORIDE 0.9% 1000ML 1,000 ML IV ONE (12:00)
[2017-04-19 12:12] LABS: LEGIONELLA ANTIGEN NOT DETECTED (NOT DETECTED)
--- NOTE | 2017-04-19 13:06 | Cardiology Follow-Up ---
Subjective Subjective Date of Service: Apr 19, 2017. Pt evaluation today including: conversation w/ patient, conversation w/ family , physical exam, chart review, lab review, review of studies, review of inpatient medication list Additional Details: Pt seen and examined, with family at bedside, states that she feels well. Denies cp, sob, palpitations, lightheadedness or dizziness. Tele reviewed: sinus rhythm without arrhythmia or significant ectopy. Problem List Medical Problems: (1) Episode of confusion Status: Acute (2) Hypoxemia Status: Acute (3) Pneumonia Status: Acute (4) Sepsis Status: Acute Review of Systems Respiratory: No see HPI, No cough, No sputum, No wheezing, No shortness of breath, No dyspnea on exertion, No dyspnea at rest, No hemoptysis, No problem reported Cardiac: No see HPI, No chest pain, No orthopnea, No PND, No edema, No claudication, No palpitations, No problem reported Objective Vital Signs Last Vital Signs Documentation Date Time Temp Pulse Resp B/P (MAP) Pulse Ox O2 Delivery O2 Flow Rate FiO2 04/19/17 11:10 36.4 78 137/52 (80) 95 Room Air 04/19/17 09:09 16 04/15/17 20:01 2.0 Physical Exam: General Appearance: WD/WN, no apparent distress Eyes: bilateral eyes normal inspection, bilateral eyes PERRL, bilateral eyes EOMI ENT: normal ENT inspection, hearing grossly normal, pharynx normal Neck: supple, no adenopathy, thyroid normal, no JVD, no carotid bruits, trachea midline Respiratory/Chest: chest non-tender, lungs clear, normal breath sounds, no respiratory distress, no accessory muscle use Cardiovascular: regular rate, rhythm, no edema, no JVD, + tachycardia, + gallop /S4 Abdomen: normal bowel sounds, non tender, soft, no organomegaly, no pulsatile mass Extremities: normal inspection, no pedal edema, no calf tenderness 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
--- NOTE | 2017-04-19 14:59 | Progress Note ---
Subjective Date of Service: Apr 19, 2017. Subjective Pt evaluation today including: conversation w/ patient, physical exam, chart review, lab review pt on 1:1. doing well. remains on abx, had diarrhea, c diff negative. all cultures negative, undergoing cardiac workup. no f/c. no kahn, no neck pain. csf with only 2 wbc. legionella pending. no n/v/abd pain. denies cp, sob, cough, all remaining negative. Problem List Medical Problems: (1) Episode of confusion Status: Acute (2) Hypoxemia Status: Acute (3) Pneumonia Status: Acute (4) Sepsis Status: Acute Objective Vital Signs Date Time Temp Pulse Resp B/P (MAP) Pulse Ox O2 Delivery O2 Flow Rate FiO2 04/19/17 13:26 98 Room Air 04/19/17 11:10 36.4 78 137/52 (80) 95 Room Air 04/19/17 09:09 36.7 88 16 110/62 (78) 96 Room Air 04/19/17 08:00 97 Room Air 04/19/17 04:00 97 Room Air 04/19/17 03:11 36.7 87 18 132/69 (90) 95 Room Air 04/19/17 02:12 87 16 126/51 (76) 04/18/17 23:59 97 Room Air 04/18/17 22:50 36.6 92 14 145/73 (97) 97 Room Air 04/18/17 20:00 Room Air 04/18/17 18:53 36.6 92 16 143/63 (89) 97 Room Air 04/18/17 16:00 Room Air 04/18/17 15:02 36.6 77 18 130/60 (83) 95 Room Air Physical Exam General Appearance: WD/WN, no apparent distress Eyes: normal inspection, EOMI Neck: supple Respiratory/Chest: normal breath sounds, no respiratory distress Cardiovascular: regular rate, rhythm, no edema Abdomen: non tender, soft Extremities: non-tender, no pedal edema Neurologic/Psychiatric: alert, oriented x 3 Skin: normal color, no rash Laboratory Results Item Value Date Time Blood Culture - Preliminary Resulted 04/15/17 0615 Blood NO GROWTH TO DATE. Blood Culture - Preliminary Resulted 04/15/17 0623 Blood NO GROWTH TO DATE. Gram Stain - Final Complete 04/15/17 1515 Cerebral Spinal Fluid Fungal Culture - Preliminary Resulted 04/15/17 1515 Cerebral Spinal Fluid NO YEAST OR FUNGUS ISOLATED - REPORT ... Acid Fast Stain - Final Resulted 04/15/17 1515 Cerebral Spinal Fluid C.difficile Toxin B Gene (PCR) - Final Complete 04/19/17 1249 Stool No C. difficile toxin B gene detected Urine Culture - Final Complete 04/15/17 08 Urine,Catheterized NO GROWTH - LESS THAN 1,000 COLONIES/ML Urine Legionella Antigen NOT DETECTED 04/15/17 08 Last 24 Hours Test 04/18/17 16:11 04/18/17 19:43 04/18/17 22:22 04/19/17 02:24 Bedside Glucose 125 mg/dl 145 mg/dl Sodium Level 126 mmol/L 126 mmol/L Potassium Level 3.3 mmol/L 3.4 mmol/L Chloride Level 89 mmol/L 89 mmol/L Carbon Dioxide Level 28 mmol/L 30 mmol/L Anion Gap 9.0 mmol/L 7.0 mmol/L Blood Urea Nitrogen 8 mg/dl 6 mg/dl Creatinine 0.70 mg/dl 0.67 mg/dl Est Creatinine Clear Calc Drug Dose 51.0 ml/min 53.3 ml/min Estimated GFR () 101.7 103.2 Estimated GFR (Non- 87.8 89.1 BUN/Creatinine Ratio 11.1 8.4 Random Glucose 129 mg/dl 127 mg/dl Calcium Level 8.3 mg/dl 8.2 mg/dl White Blood Count 9.37 K/uL Red Blood Count 3.78 M/uL Hemoglobin 11.8 g/dL Hematocrit 33.8 % Mean Corpuscular Volume 89.4 fL Mean Corpuscular Hemoglobin 31.2 pg Mean Corpuscular Hemoglobin Concent 34.9 g/dl Platelet Count 312 K/uL Mean Platelet Volume 9.3 fL Neutrophils (%) (Auto) 72.9 % Lymphocytes (%) (Auto) 16.3 % Monocytes (%) (Auto) 10.2 % Eosinophils (%) (Auto) 0.3 % Basophils (%) (Auto) 0.1 % Neutrophils # (Auto) 6.82 K/uL Lymphocytes # (Auto) 1.53 K/uL Monocytes # (Auto) 0.96 K/uL Eosinophils # (Auto) 0.03 K/uL Basophils # (Auto) 0.01 K/uL RDW Standard Deviation 42.6 fL RDW Coefficient of Variation 13.0 % Immature Granulocyte % (Auto) 0.2 % Immature Granulocyte # (Auto) 0.02 K/uL Activated Partial Thromboplast Time 44.6 SECONDS Partial Thromboplastin Ratio 1.7 Magnesium Level 1.3 mg/dl Albumin 3.1 gm/dl Test 04/19/17 07:26 04/19/17 09:34 04/19/17 10:50 04/19/17 11:26 Bedside Glucose 138 mg/dl 127 mg/dl Activated Partial Thromboplast Time 55.3 SECONDS Partial Thromboplastin Ratio 2.1 Sodium Level 124 mmol/L Potassium Level 3.9 mmol/L Chloride Level 87 mmol/L Carbon Dioxide Level 30 mmol/L Anion Gap 7.0 mmol/L Blood Urea Nitrogen 5 mg/dl Creatinine 0.74 mg/dl Est Creatinine Clear Calc Drug Dose 48.2 ml/min Estimated GFR () 95.1 Estimated GFR (Non- 82.1 BUN/Creatinine Ratio 6.9 Random Glucose 127 mg/dl Calcium Level 8.0 mg/dl Vancomycin Level Trough 18.7 mcg/ml Urine Osmolality 285 mOms/kg Urine Random Sodium 106 mEq/L Test 04/19/17 14:00 Assessment and Plan (1) Altered mental status Assessment & Plan: no evidence of meningitis, cultures negative, will stop abx. no new ID recs at this time
[2017-04-19 15:56] LABS: BUN/CREATININE RATIO 8.3 (10-20); CALCIUM 8.3 mg/dl (8.5-10.1); CREATININE 0.65 mg/dl (0.60-1.20); MAGNESIUM 2.1 mg/dl (1.8-2.4); POTASSIUM 3.7 mmol/L (3.5-5.1)
[2017-04-19 16:29] LABS: HSV TYPE 1 DNA Not Detected (Not Detected); HSV TYPE 1&2 DNA SOURCE CSF; HSV TYPE 2 DNA Not Detected (Not Detected); LYME DNA PCR CSF OR SYNOVIAL Not detected (Not Detected); LYME DNA SOURCE CSF
--- NOTE | 2017-04-19 16:42 | PROGRESS NOTE ---
DATE: 04/19/2017 DATE: 04/19/2017 Radha looks about the same. She still requires one-on-one, is a little tangential and digressive and has some word finding deficits today that I think have been present all along and are still fairly subtle. She knows where she is after some prompting. She knows the month. She does not know the date. She does know Labor Day was yesterday. She knows Dr. Ness came and talked to her today and knew his name and she knows that she has been diagnosed with a "broken heart" and that heparin has been stopped. Otherwise, the exam is pretty nonfocal. I do not see any facial asymmetry. There is no drift or pronation sign, tremor, tics, choreiform activity. Reflexes are generally symmetrical and toes are downgoing. Another EEG today is actually normal allowing for some muscle movement artifact early on and thee is certainly nothing to suggest potentially epileptogenic activity or significant generalized encephalopathy. Last tracing was mildly abnormal. I am going to check another MRI with and without contrast just to see if the changes described on the admission MRI have gone through some evolutionary process and now are more clearly consistent with embolic strokes or areas that could be equivalent to a reversible encephalopathy syndrome much like PRES. I will check with her tomorrow. Discharge planning is not clear. She might need some time at [facility]. I am certainly not going to treat her with anticonvulsants at this point unless we see clear evidence for clinical or electroencephalograph seizure activity and thus the latter has not been evident.
--- NOTE | 2017-04-19 16:56 | ELECTROENCEPHALOGRAPH REPORT ---
REQUESTING PHYSICIAN: Ambrose Ribeiro MD CLINICAL DIAGNOSIS: Persistent encephalopathy with a prior syncopal/seizure like event and sepsis. ELECTROENCEPHALOGRAM DIAGNOSIS: Essentially normal during wakefulness. DESCRIPTION OF TRACING: This EEG was done as a bedside recording with photic stimulation and a simultaneous video analysis of patient movement and behavior. Initially there is a lot of electrode muscle movement artifact but as the tracing proceeds, this disappears and is replaced by a normal background rhythm in the alpha range of up to 9-10 Hz of maximum frequency and 30 microvolts of maximum amplitude which is maximum in posterior head regions and bilaterally symmetrical. Polymorphic mid to lower frequency theta activity of modest voltage is seen over all head regions without clear focal or regional predominance. Anterior head region maximum bilaterally symmetrical low voltage fast activity in the beta range is present. Photic stimulation provoked some modest driving response without a photomyogenic or photoparoxysmal component. Episodically there is some buildup of slow wave activity in the bifrontal regions and in a more generalized fashion, likely corresponding to brief episodes of drowsiness. These are never sustained and light sleep is never sustained. At no time during the tracing is there evidence for a clearcut potentially epileptogenic activity in the form of polyspike or spike wave bursts, focal sharp waves or focal spikes. INTERPRETATION: This EEG is essentially normal during wakefulness without evidence for focal or generalized encephalopathy and without evidence for potentially epileptogenic activity.
--- NOTE | 2017-04-19 18:53 | Progress Note ---
Medicine Progress Note Date & Time of Visit: Apr 19, 2017 at 11:03. (Didi David PA-C) Subjective Patient seen with at bedside. Was admitted 04/15 for sepsis and AMS with possible encephalitis, elevated troponin, Takotsubo cardiomyopathy, hyponatremia , possible pneumonia. Pt reports headache this morning which resolved.Pt reports chronic cough for 2+ years attributed to lisinopril. Has minimal clear sputum production. PO intake is chronically low. Ate minimal breakfast this morning. Reports diarrhea after meals since being on antibiotics. She reports voiding a lot while on Lasix. Has struggled with depression and anxiety since the of her daughter. Was taking PRN lorazepam at home. Denies ever having suicidal ideations. Denies fever, chills, seizure like activity, numbness, weakness, speech difficulty, chest pain, abdominal pain, SOB, N/V, dysuria. noted mild confusion for past 1 month which increased with this illness. states mental status improved since admission but she she is still more confused than baseline. (Didi David PA-C) Objective Last 8 Hrs Date Time Temp Pulse Resp B/P (MAP) Pulse Ox O2 Delivery O2 Flow Rate FiO2 04/19/17 09:09 36.7 88 16 110/62 (78) 96 Room Air 04/19/17 08:00 97 Room Air 04/19/17 04:00 97 Room Air 04/19/17 03:11 36.7 87 18 132/69 (90) 95 Room Air Physical Exam: General-alert 71 year old female, sitting up in bed, at bedside Eyes-anicteric, EOMI, UMBERTO ENT-pharynx normal Neck-trachea midline Lungs-CTA bilaterally, no wheezes, crackles, rhonchi Heart-regular rate and rhythm, no murmur Abdomen-soft, nontender, normal bowel sounds Extremities- no deformity, no edema, no calf tenderness Neuro-alert, oriented to person (names correctly), off to date (states November 2016), off on location ([facility], but cannot name [facility] or [place]), knows president is temi. no focal deficit on gross examination. no facial droop. moves all extremities. gait normal when ambulating across the room. Laboratory Results: Last 24 Hours Test 04/18/17 11:11 04/18/17 11:24 04/18/17 13:04 04/18/17 16:11 Bedside Glucose 141 mg/dl 125 mg/dl Activated Partial Thromboplast Time 57.4 SECONDS Partial Thromboplastin Ratio 2.2 Sodium Level 124 mmol/L Potassium Level 3.5 mmol/L Chloride Level 91 mmol/L Carbon Dioxide Level 26 mmol/L Anion Gap 7.0 mmol/L Blood Urea Nitrogen 9 mg/dl Creatinine 0.82 mg/dl Est Creatinine Clear Calc Drug Dose 43.5 ml/min Estimated GFR () 84.0 Estimated GFR (Non- 72.5 BUN/Creatinine Ratio 10.6 Random Glucose 140 mg/dl Calcium Level 8.3 mg/dl Test 04/18/17 19:43 04/18/17 22:22 04/19/17 02:24 04/19/17 07:26 Bedside Glucose 145 mg/dl 138 mg/dl Sodium Level 126 mmol/L 126 mmol/L Potassium Level 3.3 mmol/L 3.4 mmol/L Chloride Level 89 mmol/L 89 mmol/L Carbon Dioxide Level 28 mmol/L 30 mmol/L Anion Gap 9.0 mmol/L 7.0 mmol/L Blood Urea Nitrogen 8 mg/dl 6 mg/dl Creatinine 0.70 mg/dl 0.67 mg/dl Est Creatinine Clear Calc Drug Dose 51.0 ml/min 53.3 ml/min Estimated GFR () 101.7 103.2 Estimated GFR (Non- 87.8 89.1 BUN/Creatinine Ratio 11.1 8.4 Random Glucose 129 mg/dl 127 mg/dl Calcium Level 8.3 mg/dl 8.2 mg/dl White Blood Count 9.37 K/uL Red Blood Count 3.78 M/uL Hemoglobin 11.8 g/dL Hematocrit 33.8 % Mean Corpuscular Volume 89.4 fL Mean Corpuscular Hemoglobin 31.2 pg Mean Corpuscular Hemoglobin Concent 34.9 g/dl Platelet Count 312 K/uL Mean Platelet Volume 9.3 fL Neutrophils (%) (Auto) 72.9 % Lymphocytes (%) (Auto) 16.3 % Monocytes (%) (Auto) 10.2 % Eosinophils (%) (Auto) 0.3 % Basophils (%) (Auto) 0.1 % Neutrophils # (Auto) 6.82 K/uL Lymphocytes # (Auto) 1.53 K/uL Monocytes # (Auto) 0.96 K/uL Eosinophils # (Auto) 0.03 K/uL Basophils # (Auto) 0.01 K/uL RDW Standard Deviation 42.6 fL RDW Coefficient of Variation 13.0 % Immature Granulocyte % (Auto) 0.2 % Immature Granulocyte # (Auto) 0.02 K/uL Activated Partial Thromboplast Time 44.6 SECONDS Partial Thromboplastin Ratio 1.7 Magnesium Level 1.3 mg/dl Albumin 3.1 gm/dl Test 04/19/17 09:34 Activated Partial Thromboplast Time 55.3 SECONDS Partial Thromboplastin Ratio 2.1 Sodium Level 124 mmol/L Potassium Level 3.9 mmol/L Chloride Level 87 mmol/L Carbon Dioxide Level 30 mmol/L Anion Gap 7.0 mmol/L Blood Urea Nitrogen 5 mg/dl Creatinine 0.74 mg/dl Est Creatinine Clear Calc Drug Dose 48.2 ml/min Estimated GFR () 95.1 Estimated GFR (Non- 82.1 BUN/Creatinine Ratio 6.9 Random Glucose 127 mg/dl Calcium Level 8.0 mg/dl Vancomycin Level Trough 18.7 mcg/ml (Didi David PA-C) Assessment & Plan SEPSIS- resolved Met sepsis criteria on admission (tachycardia, leukocytosis, elevated lactate, tachypnea, AMS), vitals now stable, WBC and lactate normalized, AMS still present but improved Received Levaquin, Zosyn, vancomycin in ER Possible pulmonary source? CXR showed Progressive peripheral right midlung zone opacities ID consulted, abx changed to vancomycin and Rocephin, plus acyclovir to cover for encephalitis- blood cultures- no growth to date, CSF cx negative, HSV PCR negative, urine cx negative, abx and acyclovir d/c'd by ID AMS Unclear etiology, question of post-ictal due to seizure vs. metabolic encephalopathy from sepsis, worked up for CVA CT head- no acute intracranial pathology MRI brain- Extensive multifocal cortical and subcortical signal abnormality consistent with edema within the left cerebral hemisphere MRI findings suspicious for encephalitis S/p LP- elevated protein and glucose on CSF, CSF lyme and HSV negative, CSF culture negative EEG showed mild nonspecific generalized encephalopathy, repeat EEG WNL Neurology consulted, Dr. Ribeiro ordered repeat MRI No seizure medication indicated at this time Neuro checks, fall and seizure precautions, 1:1 sitter, PT, OT ELEVATED TROPONIN, TAKOTSUBO CARDIOMYOPATHY Troponin trended up to 3.1 then down to 1.1, was on heparin drip- d/c'd today as per cardiology On aspirin and Toprol XL Echo done- Sinus tachycardia is present The left ventricle is normal in size. There is normal left ventricular wall thickness. There is severe hypokinesis to akinesis of the mid and apical wall segment with mild expansion. The basilar segments contract normally. 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 Ejection Fraction = 25-30%. The aortic valve leaflets are moderately calcified. Moderate valvular aortic stenosis. Mild aortic regurgitation. There is mild to moderate mitral regurgitation. There is moderate to severe tricuspid regurgitation. Right ventricular systolic pressure is elevated at >60mmHg. Normal inferior vena cava diameter and respiratory variation suggests normal central venous pressure. Repeat echo was limited, showed improved function at mid level of all segments, EF to 35-40% Appreciate cardiology input DEPRESSION/ ANXIETY Reports depression/ anxiety 2/2 daughter's , denies ever having suicidal ideation Psych consulted Zoloft started and titrated up to 25 mg HYPONATREMIA Multifactorial, poor PO intake, low EF contributing Na trended down today (126 yesterday ->124 today -> repeat 125) Nephrology on board, appreciate input Hawkins placed, monitor I/O's On NSS and IV Lasix as dosed by nephro Monitor PRP POOR PO INTAKE Boost supplement ordered PNEUMONIA CXR showed Progressive peripheral right midlung zone opacities Presented with sepsis with elevated WBC and lactic acid- normalized; afebrile; has chronic cough with minimal clear sputum Received IV Zosyn, Vanco and Levaquin in the ER, abx changed to Rocephin, Vanco -> abx discontinued by ID AGUSTIN Creatinine elevated to 1.3 on admission, possibly from dehydration Creat normalized Monitor renal function ELECTROLYTE IMBALANCE Resolved Continue potassium and magnesium replacement Monitor DM TYPE 2 New dx- presented with >2 BSG >200, A1c 5.3 Blood sugar may have been increased 2/2 infection Received 10 unit regular insulin in the ER BSG's normal, no further insulin required- will d/c BSG monitoring and ISS DVT PROPHYLAXIS Heparin SQ FULL CODE DISPOSITION Telemetry for tonight, likely transfer to med/ surg tomorrow Patient seen in collaboration with Dr. Norman. Please see her addendum. Consultants: Cardio Psych ID Neuro Current Inpatient Medications: Current Inpatient Medications Medications (Trade) Dose Ordered Sig/Saul Route Start Time Stop Time Status Last Admin Dose Admin Nitroglycerin (Nitrostat Tab) 0.4 mg UD PRN SL 04/15/17 09:15 05/15/17 09:14 Glucose (Glucose 40% Gel) 15-30 GRAMS 15 GRAMS... UD PRN PO 04/15/17 09:30 05/15/17 09:29 Glucose (Glucose Chew Tab) 4-8 Tablets 4 Tabl... UD PRN PO 04/15/17 09:30 05/15/17 09:29 Dextrose (Dextrose 50% 50ML Syringe) 25-50ML OF 50% DW IV FOR... UD PRN IV 04/15/17 09:30 05/15/17 09:29 Glucagon (Glucagon Inj) 1 mg UD PRN SQ 04/15/17 09:30 05/15/17 09:29 Lorazepam (Ativan Inj) 2 mg ONE PRN IV 04/15/17 09:45 05/15/17 09:44 Heparin Sodium (Porcine) (Heparin Sq 5000 Unit/0.5ml) 5,000 unit Q8 SQ 04/15/17 14:00 05/15/17 13:59 Future Hold Budesonide/ Formoterol Fumarate (Symbicort 160/ 4.5 Inh) 2 puffs BID INH 04/15/17 21:00 05/15/17 20:59 04/19/17 09:32 2 PUFFS Lisinopril (Zestril Tab) 40 mg DAILY PO 04/16/17 09:00 05/16/17 08:59 04/19/17 09:34 40 MG Simvastatin (Zocor Tab) 20 mg PM PO 04/16/17 21:00 05/16/17 20:59 04/18/17 19:45 20 MG Vancomycin HCl (Consult) 1 ea UD PRN N/A 04/15/17 12:45 05/15/17 12:44 Acyclovir Sodium 500 mg/Dextrose 110 ml @ 110 mls/hr Q8H IV 04/15/17 16:00 04/25/17 15:59 04/19/17 09:33 110 MLS/HR Ceftriaxone Sodium 2000 mg/ Dextrose 70 ml @ 100 mls/hr Q12H IV 04/15/17 16:00 04/25/17 15:59 04/19/17 04:03 100 MLS/HR Heparin Sodium/ Dextrose 500 ml @ 13 mls/hr Q24H PRN IV 04/15/17 20:15 05/15/17 20:14 04/19/17 06:20 13 MLS/HR Insulin Aspart (novoLOG ASPART) SLIDING SCALE If C... ACHS SC 04/16/17 16:15 05/16/17 16:14 Aspirin (Ecotrin Tab) 81 mg QAM PO 04/17/17 09:00 05/17/17 08:59 04/18/17 08:49 81 MG Vancomycin HCl 750 mg/Sodium Chloride 265 ml @ 125 mls/hr Q12H IV 04/17/17 22:00 04/23/17 01:59 04/18/17 21:39 125 MLS/HR Furosemide 40 mg/ Syringe 4 ml @ 4 mls/min BID17 IV 04/18/17 09:00 05/18/17 08:59 04/19/17 09:30 4 MLS/MIN Sertraline HCl (Zoloft Tab) 25 mg QAM PO 04/19/17 09:00 05/19/17 08:59 04/19/17 09:31 25 MG Metoprolol Succinate (Toprol Xl Tab) 100 mg BID PO 04/18/17 21:00 05/18/17 20:59 04/19/17 09:29 100 MG Acetaminophen (Tylenol Tab) 325 mg Q4H PRN PO 04/19/17 09:30 05/19/17 09:29 04/19/17 09:30 325 MG Potassium Chloride (Klor-Con Tab) 40 meq DAILY PO 04/20/17 09:00 05/20/17 08:59 Magnesium Chloride (Slow-Mag Tab) 64 mg BID PO 04/19/17 21:00 05/19/17 20:59 Acetaminophen (Tylenol Tab) 650 mg Q6H PRN PO 04/19/17 09:45 05/19/17 09:44 (Didi David PA-C) Ms. Mathur appears to be clinically improved today. CSF studies are negative for infection and there have been no reports of an acute cough, fevers or chills or hypoxia to suggest pneumonia so antibiotics and acyclovir have been stopped per ID team. She is intermittently disoriented to either time or place based on the provider evaluating her and demonstrates more subtle changes in cognition mention by Dr. Ribeiro. To date, seizures have not been considered the cause of her AMS. Her underlying metabolic issue, the Takotsobu's CM, is improved and the patient is able to reasonably speak about her grief over the loss of her child and the need to try to move forward. To reiterate, there have been no suicidal or homicidal ideations expressed this admission, and we greatly appreciate the mental health team's input. She is being appropriately medically managed for both her heart failure and her hyponatremia at this time. Will plan to transfer off telemetry tomorrow so as not to further disorient her overnight by moving locations. Cont to encourage PO intake and monitor mental state. Dispo uncertain at this time. DO Emerson (Mana Norman, DO)
[2017-04-19] MEDS: HEPARIN SOD 5000 UNIT/0.5 ML CARP SQ SCH (20:17)
[2017-04-19] MEDS: BOOST VANILLA PO SCH ×2 (20:22)
[2017-04-19] MEDS: SIMVASTATIN 20 MG TAB PO SCH (21:12)
[2017-04-19] MEDS: MAGNESIUM CHLORIDE 64MG DELAYED REL TAB PO SCH (21:12)
[2017-04-19 22:17] LABS: BUN/CREATININE RATIO 5.7 (10-20); CALCIUM 9.1 mg/dl (8.5-10.1); CREATININE 0.94 mg/dl (0.60-1.20); POTASSIUM 4.1 mmol/L (3.5-5.1)
--- NOTE | 2017-04-19 22:46 | DIAGNOSTIC IMAGING REPORT ---
ORBITS FOR MRI HISTORY: Pre-MRI pre-MRI screening. COMPARISON: None. FINDINGS: There are no radiopaque foreign bodies identified within the orbits. IMPRESSION: No radiopaque foreign bodies identified within the orbits. Note is made of a linear metallic foreign body possibly on the skin surface inferior/or posterior to the left ear The above report was generated using voice recognition software. It may contain grammatical, syntax or spelling errors. Electronically signed by: Chandra Dorsey M.D. 04/19/2017 10:45 PM Dictated Date/Time: 04/19/2017 10:42 PM
[2017-04-20] VITALS (8 sets, daily range): BP systolic 112–163; BP diastolic 46–76; PULSE 72–95; TEMP 36.7–37; O2SAT 93–97
[2017-04-20] MEDS: FUROSEMIDE INJ 40 MG in SYRINGE 0 ML IV SCH ×4 (00:42→13:38)
[2017-04-20 06:50] LABS: BUN/CREATININE RATIO 5.5 (10-20); CALCIUM 8.5 mg/dl (8.5-10.1); CREATININE 0.76 mg/dl (0.60-1.20); MAGNESIUM 1.8 mg/dl (1.8-2.4); POTASSIUM 2.8 mmol/L (3.5-5.1)
[2017-04-20] MEDS ORDERED: NURSING VERBAL MED ORDER ONE (08:30)
[2017-04-20] MEDS ORDERED: POTASSIUM CHLORIDE 20 MEQ TABCR PO ONE ×2 (08:30→22:15)
[2017-04-20] MEDS: BOOST VANILLA PO SCH ×4 (09:00→20:36)
[2017-04-20] MEDS: BUDESONIDE/FORMOTEROL FUMARATE 160/4.5 60 PUFFS/INHALER INH SCH ×2 (09:14→20:02)
[2017-04-20] MEDS: ASPIRIN 81 MG ECTAB PO SCH (09:16)
[2017-04-20] MEDS: METOPROLOL SUCC 50MG EXT REL TAB PO SCH ×2 (09:17→20:01)
[2017-04-20] MEDS: LISINOPRIL 40 MG TAB PO SCH (09:18)
[2017-04-20] MEDS: SERTRALINE HCL 50 MG TAB PO SCH (09:19)
[2017-04-20] MEDS: HEPARIN SOD 5000 UNIT/0.5 ML CARP SQ SCH ×2 (09:21→20:09)
[2017-04-20] MEDS: POTASSIUM CHLORIDE 20 MEQ TABCR PO SCH (09:51)
[2017-04-20] MEDS: MAGNESIUM CHLORIDE 64MG DELAYED REL TAB PO SCH ×2 (11:12→20:03)
[2017-04-20] MEDS ORDERED: GADAVIST IV PRN (11:15)
--- NOTE | 2017-04-20 12:03 | DIAGNOSTIC IMAGING REPORT ---
Brain MRI WITH AND WITHOUT CONTRAST HISTORY: encephalopathy possible embolic stroke. Altered mental status. Right-sided weakness. TECHNIQUE: Multiplanar multisequence MRI of the brain was performed both before and after the intravenous administration of contrast. COMPARISON STUDY: Brain MRI 04/15/2017. FINDINGS: Interval improvement in the scattered patchy areas of increased T2 signal within the left frontal, temporal, and parietal lobes compared to the prior study. A few punctate foci of restricted diffusion within the left precentral gyrus have also improved. The area of T2 signal abnormality primarily involving the subcortical white matter but appear to extend to the cortex. No significant mass effect or hemorrhage. 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 No new areas of signal abnormality identified within brain. No hematoma or midline shift. No abnormal enhancement. IMPRESSION: Interval improvement in the scattered patchy areas of T2 signal abnormality/edema within the left frontal, temporal, and parietal lobes compared the prior study. A few punctate foci of restricted diffusion within the left precentral gyrus have also improved. This could represent resolving subacute infarcts or encephalitis. Electronically signed by: Tashi Olivares M.D. 04/20/2017 12:01 PM Dictated Date/Time: 04/20/2017 11:53 AM
[2017-04-20 14:21] LABS: BUN/CREATININE RATIO 6.1 (10-20); CALCIUM 8.4 mg/dl (8.5-10.1); CREATININE 0.74 mg/dl (0.60-1.20); POTASSIUM 3.8 mmol/L (3.5-5.1)
[2017-04-20] MEDS ORDERED: SODIUM CHLORIDE 0.9% 500ML 500 ML IV SCH (14:45)
--- NOTE | 2017-04-20 15:10 | Progress Note ---
Subjective Date of Service: Apr 20, 2017. Subjective pt remains stable off of abx. repeat mri done today, improving. EEG negative for seizures. Cultures remain negative, afebrile. hsv pcr negative, vdrl negative, lyme csf negative. Problem List Medical Problems: (1) Episode of confusion Status: Acute (2) Hypoxemia Status: Acute (3) Pneumonia Status: Acute (4) Sepsis Status: Acute Objective Vital Signs Date Time Temp Pulse Resp B/P (MAP) Pulse Ox O2 Delivery O2 Flow Rate FiO2 04/20/17 12:00 Room Air 04/20/17 11:22 37.0 72 18 121/49 (73) 97 Room Air 04/20/17 10:30 Room Air 04/20/17 08:00 36.9 82 20 129/55 (79) 94 Room Air 04/20/17 08:00 Room Air 04/20/17 05:59 36.9 95 18 163/76 (105) 95 Room Air 04/20/17 04:00 Room Air 04/19/17 23:59 Room Air 04/19/17 23:41 36.6 85 18 124/70 (88) 97 Room Air 04/19/17 20:00 Room Air 04/19/17 19:56 36.6 84 20 146/69 (94) 96 Room Air 04/19/17 16:00 Room Air 04/19/17 15:34 36.6 85 20 115/52 (73) 95 Room Air Laboratory Results Item Value Date Time Herpes Simplex Virus I DNA (PCR) Not Detected 04/15/17 1515 Herpes Simplex Virus II DNA (PCR) Not Detected 04/15/17 1515 Body Fluid Lyme Disease DNA (PCR) Not detected 04/15/17 1515 CSF VDRL Nonreactive 04/15/17 1515 Gram Stain - Final Complete 04/15/17 1515 Cerebral Spinal Fluid Blood Culture - Preliminary Resulted 04/15/17 0623 Blood NO GROWTH TO DATE. Blood Culture - Preliminary Resulted 04/15/17 0615 Blood NO GROWTH TO DATE. C.difficile Toxin B Gene (PCR) - Final Complete 04/19/17 1249 Stool No C. difficile toxin B gene detected Last 24 Hours Test 04/19/17 20:49 04/20/17 06:11 04/20/17 06:51 04/20/17 11:14 Sodium Level 125 mmol/L 124 mmol/L Potassium Level 4.1 mmol/L 2.8 mmol/L Chloride Level 86 mmol/L 82 mmol/L Carbon Dioxide Level 31 mmol/L 33 mmol/L Anion Gap 8.0 mmol/L 9.0 mmol/L Blood Urea Nitrogen 5 mg/dl 4 mg/dl Creatinine 0.94 mg/dl 0.76 mg/dl Est Creatinine Clear Calc Drug Dose 38.0 ml/min 47.0 ml/min Estimated GFR () 71.2 92.1 Estimated GFR (Non- 61.5 79.5 BUN/Creatinine Ratio 5.7 5.5 Random Glucose 132 mg/dl 110 mg/dl Calcium Level 9.1 mg/dl 8.5 mg/dl Magnesium Level 1.8 mg/dl Bedside Glucose 126 mg/dl 111 mg/dl Test 04/20/17 13:45 Sodium Level 125 mmol/L Potassium Level 3.8 mmol/L Chloride Level 82 mmol/L Carbon Dioxide Level 35 mmol/L Anion Gap 8.0 mmol/L Blood Urea Nitrogen 5 mg/dl Creatinine 0.74 mg/dl Est Creatinine Clear Calc Drug Dose 48.2 ml/min Estimated GFR () 95.1 Estimated GFR (Non- 82.1 BUN/Creatinine Ratio 6.1 Random Glucose 117 mg/dl Calcium Level 8.4 mg/dl Assessment and Plan (1) Altered mental status Assessment & Plan: no evidence of meningitis, cultures negative, remains stable off of abx.
--- NOTE | 2017-04-20 16:48 | PROGRESS NOTE ---
DATE: 04/20/2017 DATE: 04/20/2017 Radha is going through periods of agitation and low grade confusion, is requiring 1-on-1 sitters again. Her is here and she is having some unpleasant interactions with him. He is pretty stressed out. Medically she still has some hyponatremia and this is not helping her cerebral function. 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 She also has a cardiomyopathy that is improving and is felt to be due to a "broken heart" type phenomenon, but still could have been a source of embolization even though no laminated thrombus was seen. She had some seizure like events at least described by the but the EEGs have not shown anything. There has been no recurrence and I am really reluctant to recommend any anticonvulsive therapy on her. At this junction then neurology is going to recommend at least some form of antiplatelet therapy probably dual treatment with Plavix and aspirin for several months and we can see her in followup in 6-8 weeks' time. She is going to need followed by cardiology as well and another echo but they are going to have to determine the schedule and frankly I would get psych involved to see if they have any suggestions regarding medications that could be administered here in the hospital to limit the confusional activity and the agitation. At this point I do not think we have a lot more to offer other than the suggestions above, i.e. dual antiplatelet therapy acting on the assumption that some of these events were vascular mediated and strokes for 3 months at which point then return to single aspirin therapy. She was taking 1 aspirin every 3 days on an outpatient basis. She was hardly on any antiplatelet agents anyway. BENJAMIN
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
[2017-04-20] MEDS: SIMVASTATIN 20 MG TAB PO SCH (20:05)
[2017-04-20 20:23] LABS: BUN/CREATININE RATIO 7.6 (10-20); CALCIUM 8.7 mg/dl (8.5-10.1); CREATININE 0.74 mg/dl (0.60-1.20); POTASSIUM 3.5 mmol/L (3.5-5.1)
[2017-04-21] VITALS (9 sets, daily range): BP systolic 108–140; BP diastolic 39–70; PULSE 75–83; TEMP 36.6–37.3; O2SAT 93–96
[2017-04-21 05:02] LABS: HEMATOCRIT 33.4 % (37-47); MEAN CELL VOLUME 91.5 fL (80-100); MEAN CORPUSCULAR HEMOGLOBIN 32.1 pg (25-34); MEAN PLATELET VOLUME 9.4 fL (7.4-10.4); PLATELET COUNT 289 K/uL (130-400); RED BLOOD COUNT 3.65 M/uL (4.2-5.4); WHITE BLOOD COUNT 9.27 K/uL (4.8-10.8)
[2017-04-21 05:25] LABS: BUN/CREATININE RATIO 10.9 (10-20); CALCIUM 8.3 mg/dl (8.5-10.1); CREATININE 0.69 mg/dl (0.60-1.20); MAGNESIUM 1.7 mg/dl (1.8-2.4)
[2017-04-21] MEDS ORDERED: MAGNESIUM SULFATE 1GM / D5W 1 GM in PREMIXED IN D5W 100 ML IV SCH ×2 (08:45→15:30)
[2017-04-21] MEDS: BOOST VANILLA PO SCH ×4 (09:00→20:00)
[2017-04-21] MEDS ORDERED: VANCOMYCIN TROUGH ONE (09:30)
[2017-04-21] MEDS: BUDESONIDE/FORMOTEROL FUMARATE 160/4.5 60 PUFFS/INHALER INH SCH ×2 (10:14→20:08)
[2017-04-21] MEDS: ASPIRIN 81 MG ECTAB PO SCH (10:15)
[2017-04-21] MEDS: MAGNESIUM CHLORIDE 64MG DELAYED REL TAB PO SCH ×2 (10:16→20:09)
[2017-04-21] MEDS: METOPROLOL SUCC 50MG EXT REL TAB PO SCH ×2 (10:16→20:10)
[2017-04-21] MEDS: POTASSIUM CHLORIDE 20 MEQ TABCR PO SCH (10:16)
[2017-04-21] MEDS: CLOPIDOGREL BISULFATE 75 MG TAB PO SCH (10:16)
[2017-04-21] MEDS: LISINOPRIL 40 MG TAB PO SCH (10:17)
[2017-04-21] MEDS: SERTRALINE HCL 50 MG TAB PO SCH (10:17)
[2017-04-21] MEDS: HEPARIN SOD 5000 UNIT/0.5 ML CARP SQ SCH ×2 (10:19→20:07)
[2017-04-21] MEDS ORDERED: FUROSEMIDE 40 MG TAB PO ONE (13:30)
--- NOTE | 2017-04-21 13:57 | Progress Note ---
Medicine Progress Note Date & Time of Visit: Apr 21, 2017 at 13:39. (Didi David PA-C) Subjective states her mentation is improving, but continues with intermittent confusion and agitation. She is oriented at time of my exam. States she is now coughing up white sputum instead of clear. She ate a crabcake last night but unfortunately slept through breakfast this morning. States she will eat lunch. Had 3 small loose stools yesterday but none today. Still feels anxious. She is ambulating in the room with a walker. Denies headache, weakness, numbness, CP, SOB, abdominal pain, N/V. (Didi David PA-C) Objective Last 8 Hrs Date Time Temp Pulse Resp B/P (MAP) Pulse Ox O2 Delivery O2 Flow Rate FiO2 04/21/17 12:14 36.6 80 16 108/39 (62) 95 Room Air 04/21/17 08:15 95 Room Air 04/21/17 07:03 36.8 75 16 136/60 (85) 93 Room Air Physical Exam: General-alert 71 year old female, sitting up in bed, anxious but cooperative, at bedside Eyes-anicteric, EOMI, UMBERTO ENT-hearing grossly intact, pharynx normal Neck-trachea midline Lungs-CTA bilaterally, no wheezes, crackles, rhonchi Heart-regular rate and rhythm, no murmur Extremities- no deformity, no edema, no calf tenderness Neuro-alert, anxious, oriented x 3, knows president is trump. no focal motor or sensory deficit. no facial droop or dysarthria. Laboratory Results: Last 24 Hours Test 04/20/17 13:45 04/20/17 19:44 04/21/17 04:49 04/21/17 06:53 Sodium Level 125 mmol/L 125 mmol/L 124 mmol/L Potassium Level 3.8 mmol/L 3.5 mmol/L 4.0 mmol/L Chloride Level 82 mmol/L 84 mmol/L 86 mmol/L Carbon Dioxide Level 35 mmol/L 34 mmol/L 33 mmol/L Anion Gap 8.0 mmol/L 7.0 mmol/L 5.0 mmol/L Blood Urea Nitrogen 5 mg/dl 6 mg/dl 8 mg/dl Creatinine 0.74 mg/dl 0.74 mg/dl 0.69 mg/dl Est Creatinine Clear Calc Drug Dose 48.2 ml/min 48.2 ml/min 51.7 ml/min Estimated GFR () 95.1 95.1 102.2 Estimated GFR (Non- 82.1 82.1 88.2 BUN/Creatinine Ratio 6.1 7.6 10.9 Random Glucose 117 mg/dl 116 mg/dl 100 mg/dl Calcium Level 8.4 mg/dl 8.7 mg/dl 8.3 mg/dl White Blood Count 9.27 K/uL Red Blood Count 3.65 M/uL Hemoglobin 11.7 g/dL Hematocrit 33.4 % Mean Corpuscular Volume 91.5 fL Mean Corpuscular Hemoglobin 32.1 pg Mean Corpuscular Hemoglobin Concent 35.0 g/dl RDW Standard Deviation 44.9 fL RDW Coefficient of Variation 13.5 % Platelet Count 289 K/uL Mean Platelet Volume 9.4 fL Magnesium Level 1.7 mg/dl Bedside Glucose 98 mg/dl Test 04/21/17 11:06 Bedside Glucose 151 mg/dl (Didi Davdi PA-C) Assessment & Plan SEPSIS- resolved Met sepsis criteria on admission (tachycardia, leukocytosis, elevated lactate, tachypnea, AMS), vitals now stable, WBC and lactate normalized, AMS still present but improved Received Levaquin, Zosyn, vancomycin in ER Possible pulmonary source? CXR showed Progressive peripheral right midlung zone opacities, however clinical picture not consistent with PNA (no fever, chills, productive cough) ID consulted, abx changed to vancomycin and Rocephin, plus acyclovir to cover for encephalitis- blood cultures- no growth to date, CSF cx negative, HSV PCR negative, urine cx negative, abx and acyclovir d/c'd by ID AMS Unclear etiology, ddx includes metabolic encephalopathy, PRES syndrome ( hypertensive on presentation), embolism 2/2 Takotsubo cardiomyopathy, ? seizure activity CT head- no acute intracranial pathology MRI brain- Extensive multifocal cortical and subcortical signal abnormality consistent with edema within the left cerebral hemisphere MRI findings suspicious for encephalitis, s/p LP- elevated protein and glucose on CSF, CSF lyme and HSV negative, CSF culture negative, so infectious encephalitis considered unlikely EEG showed mild nonspecific generalized encephalopathy, repeat EEG WNL Repeat MRI showed improvement in subcortical white matter areas ascribed to edema or subacute infarct Neurology consulted, Dr. Ribeiro on board, appreciate input Dual antiplatelet therapy for 3 months recommended by neuro in case events were 2/2 strokes; Plavix added No seizure medication indicated at this time Neuro checks, fall and seizure precautions, 1:1 sitter, PT, OT ELEVATED TROPONIN, TAKOTSUBO CARDIOMYOPATHY Troponin trended up to 3.1 then down to 1.1, was on heparin drip- d/c'd today as per cardiology On aspirin and Toprol XL Echo done- Sinus tachycardia is present The left ventricle is normal in size. There is normal left ventricular wall thickness. There is severe hypokinesis to akinesis of the mid and apical wall segment with mild expansion. The basilar segments contract normally. 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 Ejection Fraction = 25-30%. The aortic valve leaflets are moderately calcified. Moderate valvular aortic stenosis. Mild aortic regurgitation. There is mild to moderate mitral regurgitation. There is moderate to severe tricuspid regurgitation. Right ventricular systolic pressure is elevated at >60mmHg. Normal inferior vena cava diameter and respiratory variation suggests normal central venous pressure. Repeat echo was limited, showed improved function at mid level of all segments, EF to 35-40% Appreciate cardiology input DEPRESSION/ ANXIETY Reports depression/ anxiety 2/2 daughter's , denies ever having suicidal ideation Psych consulted Zoloft started and titrated up to 25 mg HYPONATREMIA Multifactorial, poor PO intake, low EF contributing Na 124 today Nephrology on board, appreciate input- discussed with Dr. Villanueva, will add NSS 100 mL and Lasix 40 mg PO BID (1st dose now), repeat PRP at 1800 Hawkins placed, monitor I/O's POOR PO INTAKE Improving Boost supplement ordered ? PNEUMONIA CXR showed Progressive peripheral right midlung zone opacities Presented with sepsis with elevated WBC and lactic acid- normalized; afebrile; chronic cough with minimal clear sputum, as of 04/21 now reporting white sputum Received IV Zosyn, Vanco and Levaquin in the ER, abx changed to Rocephin, Vanco -> abx discontinued by ID PULMONARY NODULES Nodules seen on CT chest 01/2017, repeat CT chest 02/2016- "1. Persistent and perhaps subtle progression of a pleural-based nodular density right lower lobe . 2. This density has a soft tissue linear component extending to a potential mass lesion of the right infrahilar region currently measuring 1.9 cm. 3. Probable developing subcarinal adenopathy as well as posterior pleural-based nodularity. 4. Neoplastic processes is the diagnosis of exclusion. 5. Underlying Baseline emphysematous change." History of smoking, if there is a neoplastic process going on it could be contributing to hyponatremia Check CT chest Consult pulmonology AGUSTIN Creatinine elevated to 1.3 on admission, possibly from dehydration Creat normalized Monitor renal function ELECTROLYTE IMBALANCES Continue potassium and magnesium replacement Monitor DM TYPE 2 New dx- presented with >2 BSG >200, A1c 5.3 Blood sugar may have been increased 2/2 infection Received 10 unit regular insulin in the ER BSG's normal, no further insulin required- will d/c BSG monitoring and ISS DVT PROPHYLAXIS Heparin SQ FULL CODE DISPOSITION Continue telemetry monitoring given ongoing electrolyte imbalances Patient seen in collaboration with Dr. Norman. Please see her addendum. Consultants: Cardio Psych ID Neuro Current Inpatient Medications: Current Inpatient Medications Medications (Trade) Dose Ordered Sig/Saul Route Start Time Stop Time Status Last Admin Dose Admin Nitroglycerin (Nitrostat Tab) 0.4 mg UD PRN SL 04/15/17 09:15 05/15/17 09:14 Glucose (Glucose 40% Gel) 15-30 GRAMS 15 GRAMS... UD PRN PO 04/15/17 09:30 05/15/17 09:29 Glucose (Glucose Chew Tab) 4-8 Tablets 4 Tabl... UD PRN PO 04/15/17 09:30 05/15/17 09:29 Dextrose (Dextrose 50% 50ML Syringe) 25-50ML OF 50% DW IV FOR... UD PRN IV 04/15/17 09:30 05/15/17 09:29 Glucagon (Glucagon Inj) 1 mg UD PRN SQ 04/15/17 09:30 05/15/17 09:29 Lorazepam (Ativan Inj) 2 mg ONE PRN IV 04/15/17 09:45 05/15/17 09:44 Budesonide/ Formoterol Fumarate (Symbicort 160/ 4.5 Inh) 2 puffs BID INH 04/15/17 21:00 05/15/17 20:59 04/21/17 10:14 2 PUFFS Simvastatin (Zocor Tab) 20 mg PM PO 04/16/17 21:00 05/16/17 20:59 04/20/17 20:05 20 MG Aspirin (Ecotrin Tab) 81 mg QAM PO 04/17/17 09:00 05/17/17 08:59 04/21/17 10:15 81 MG Sertraline HCl (Zoloft Tab) 25 mg QAM PO 04/19/17 09:00 05/19/17 08:59 04/21/17 10:17 25 MG Metoprolol Succinate (Toprol Xl Tab) 100 mg BID PO 04/18/17 21:00 05/18/17 20:59 04/21/17 10:16 100 MG Acetaminophen (Tylenol Tab) 325 mg Q4H PRN PO 04/19/17 09:30 05/19/17 09:29 04/19/17 09:30 325 MG Potassium Chloride (Klor-Con Tab) 40 meq DAILY PO 04/20/17 09:00 05/20/17 08:59 04/21/17 10:16 40 MEQ Magnesium Chloride (Slow-Mag Tab) 64 mg BID PO 04/19/17 21:00 05/19/17 20:59 04/21/17 10:16 64 MG Acetaminophen (Tylenol Tab) 650 mg Q6H PRN PO 04/19/17 09:45 05/19/17 09:44 Enteral Nutritional Formula (Boost) 1 can BID PO 04/19/17 21:00 05/19/17 20:59 Heparin Sodium (Porcine) (Heparin Sq 5000 Unit/0.5ml) 5,000 unit Q12 SQ 04/19/17 21:00 05/19/17 20:59 04/21/17 10:19 5,000 UNIT Gadobutrol (Gadavist) 5 mmol UD PRN IV 04/20/17 11:15 04/24/17 11:14 Clopidogrel Bisulfate (plAVix TAB) 75 mg QAM PO 04/21/17 09:00 05/21/17 08:59 04/21/17 10:16 75 MG Magnesium Sulfate 1 gm/Prmx 100 ml @ 200 mls/hr 0845 IV 04/21/17 08:45 04/22/17 09:14 04/21/17 10:14 200 MLS/HR Losartan Potassium (coZAAR TAB) 100 mg QAM PO 04/22/17 09:00 05/22/17 08:59 UNV Sodium Chloride 1,000 ml @ 100 mls/hr Q10H IV 04/21/17 13:30 05/21/17 13:29 UNV Furosemide (Lasix Tab) 40 mg BID PO 04/21/17 21:00 05/21/17 20:59 UNV Furosemide (Lasix Tab) 40 mg NOW ONCE PO 04/21/17 13:30 04/21/17 13:31 UNV (Didi David PA-C) ADDENDUM: Sepsis and altered mental status have resolved. Pt with acute hyponatremia and Takotsobus CM as active issues. Medically managed at this time. Appreciate Nephro assistance with Na management. Lisinopril was changed to Losartan today in light of chronic cough. Also has recent concerning pulmonary nodules for which repeat CT scan was ordered without major changes. Pulm was consulted to help with disposition on the lung nodule. Otherwise I have seen and examined the patient and agree with the assessment and plan above. DO Emerson (Mana Norman, DO)
--- NOTE | 2017-04-21 15:03 | DIAGNOSTIC IMAGING REPORT ---
(CHEST) THORAX WITHOUT CT DOSE: 237.43 mGycm HISTORY: Lung mass h/o pulmonary nodule in setting of smoking and hyponatremia TECHNIQUE: Multiaxial CT images of the chest were performed without contrast. A dose lowering technique was utilized adhering to the principles of ALARA. COMPARISON: 03/09/2017 FINDINGS: Unchanging pleural base mass mid aspect right lung. Linear soft tissue extension to the right hilar/infrahilar region appearing similar. Right hilar component measures 2.0 cm essentially unchanged in volume from the prior study. Interval development of a moderate right pleural effusion. Interval small left pleural effusion. Baseline underlying emphysematous change throughout both hemithoraces. Probable unchanging subcarinal adenopathy. Pretracheal nodes appear similar. IMPRESSION: 1. Unchanging right midlung mass with linear soft tissue extension from the right hilum laterally to the pleural based component. 2. Interval development of a right to lesser extent small left effusion. 3. Pleural-based density posteriorly on the right hemithorax is obscured in part due to the presence of the effusion on the current study. 4. A neoplastic process remains the diagnosis of exclusion. 5. Unchanging postoperative changes to the low thoracic spine. The above report was generated using voice recognition software. It may contain grammatical, syntax or spelling errors. Electronically signed by: Chandra Dorsey M.D. 04/21/2017 3:01 PM Dictated Date/Time: 04/21/2017 2:56 PM
--- NOTE | 2017-04-21 16:58 | Nephrology Progress Note ---
Nephrology Progress Note Date of Service: Apr 21, 2017. Subjective 71 yo female with siadh with sodium of 124. to start normal saline and lasix combination. last urine osm under 300. pt appears more alert however has waxing and waning mental status. no complaints at this time. pt also with broken heart syndrome with depressed ef. Objective Date Time Temp Pulse Resp B/P (MAP) Pulse Ox O2 Delivery O2 Flow Rate FiO2 04/21/17 15:13 37.3 76 20 126/58 (80) 96 Room Air 04/21/17 14:09 Room Air 04/21/17 12:14 36.6 80 16 108/39 (62) 95 Room Air 04/21/17 08:15 95 Room Air 04/21/17 07:03 36.8 75 16 136/60 (85) 93 Room Air 04/21/17 04:00 94 Room Air 2.0 04/21/17 04:00 94 Room Air 2.0 04/21/17 03:15 36.7 83 17 140/53 (82) 94 Room Air 04/20/17 23:59 94 Room Air 2.0 04/20/17 23:18 37.0 85 18 139/64 (89) 93 Room Air 04/20/17 20:00 Room Air 04/20/17 20:00 94 Room Air 2.0 04/20/17 19:17 36.7 75 18 112/46 (68) 94 Room Air Physical Exam: General-awake and follows commands, appears alert, mental status waxes and wanes Eyes-no scleral icterus ENT-mmm Neck-supple Lungs-cta Heart-rrr Abdomen-bs+ s/nt/nd Extremities-no c/c/e Neuro-waxing and waning mental status, more alert Current Inpatient Medications Medications (Trade) Dose Ordered Sig/Saul Route Start Time Stop Time Status Last Admin Dose Admin Nitroglycerin (Nitrostat Tab) 0.4 mg UD PRN SL 04/15/17 09:15 05/15/17 09:14 Glucose (Glucose 40% Gel) 15-30 GRAMS 15 GRAMS... UD PRN PO 04/15/17 09:30 05/15/17 09:29 Glucose (Glucose Chew Tab) 4-8 Tablets 4 Tabl... UD PRN PO 04/15/17 09:30 05/15/17 09:29 Dextrose (Dextrose 50% 50ML Syringe) 25-50ML OF 50% DW IV FOR... UD PRN IV 04/15/17 09:30 05/15/17 09:29 Glucagon (Glucagon Inj) 1 mg UD PRN SQ 04/15/17 09:30 05/15/17 09:29 Lorazepam (Ativan Inj) 2 mg ONE PRN IV 04/15/17 09:45 05/15/17 09:44 Budesonide/ Formoterol Fumarate (Symbicort 160/ 4.5 Inh) 2 puffs BID INH 04/15/17 21:00 05/15/17 20:59 04/21/17 10:14 2 PUFFS Simvastatin (Zocor Tab) 20 mg PM PO 04/16/17 21:00 05/16/17 20:59 04/20/17 20:05 20 MG Aspirin (Ecotrin Tab) 81 mg QAM PO 04/17/17 09:00 05/17/17 08:59 04/21/17 10:15 81 MG Sertraline HCl (Zoloft Tab) 25 mg QAM PO 04/19/17 09:00 05/19/17 08:59 04/21/17 10:17 25 MG Metoprolol Succinate (Toprol Xl Tab) 100 mg BID PO 04/18/17 21:00 05/18/17 20:59 04/21/17 10:16 100 MG Acetaminophen (Tylenol Tab) 325 mg Q4H PRN PO 04/19/17 09:30 05/19/17 09:29 04/19/17 09:30 325 MG Potassium Chloride (Klor-Con Tab) 40 meq DAILY PO 04/20/17 09:00 05/20/17 08:59 04/21/17 10:16 40 MEQ Magnesium Chloride (Slow-Mag Tab) 64 mg BID PO 04/19/17 21:00 05/19/17 20:59 04/21/17 10:16 64 MG Acetaminophen (Tylenol Tab) 650 mg Q6H PRN PO 04/19/17 09:45 05/19/17 09:44 Enteral Nutritional Formula (Boost) 1 can BID PO 04/19/17 21:00 05/19/17 20:59 Heparin Sodium (Porcine) (Heparin Sq 5000 Unit/0.5ml) 5,000 unit Q12 SQ 04/19/17 21:00 05/19/17 20:59 04/21/17 10:19 5,000 UNIT Gadobutrol (Gadavist) 5 mmol UD PRN IV 04/20/17 11:15 04/24/17 11:14 Clopidogrel Bisulfate (plAVix TAB) 75 mg QAM PO 04/21/17 09:00 05/21/17 08:59 04/21/17 10:16 75 MG Losartan Potassium (coZAAR TAB) 100 mg QAM PO 04/22/17 09:00 05/22/17 08:59 Sodium Chloride 1,000 ml @ 100 mls/hr Q10H IV 04/21/17 14:00 05/21/17 13:29 Furosemide (Lasix Tab) 40 mg BID17 PO 04/21/17 17:00 05/21/17 16:59 Last 24 Hours Test 04/20/17 19:44 04/21/17 04:49 04/21/17 06:53 04/21/17 11:06 Sodium Level 125 mmol/L 124 mmol/L Potassium Level 3.5 mmol/L 4.0 mmol/L Chloride Level 84 mmol/L 86 mmol/L Carbon Dioxide Level 34 mmol/L 33 mmol/L Anion Gap 7.0 mmol/L 5.0 mmol/L Blood Urea Nitrogen 6 mg/dl 8 mg/dl Creatinine 0.74 mg/dl 0.69 mg/dl Est Creatinine Clear Calc Drug Dose 48.2 ml/min 51.7 ml/min Estimated GFR () 95.1 102.2 Estimated GFR (Non- 82.1 88.2 BUN/Creatinine Ratio 7.6 10.9 Random Glucose 116 mg/dl 100 mg/dl Calcium Level 8.7 mg/dl 8.3 mg/dl White Blood Count 9.27 K/uL Red Blood Count 3.65 M/uL Hemoglobin 11.7 g/dL Hematocrit 33.4 % Mean Corpuscular Volume 91.5 fL Mean Corpuscular Hemoglobin 32.1 pg Mean Corpuscular Hemoglobin Concent 35.0 g/dl RDW Standard Deviation 44.9 fL RDW Coefficient of Variation 13.5 % Platelet Count 289 K/uL Mean Platelet Volume 9.4 fL Magnesium Level 1.7 mg/dl Bedside Glucose 98 mg/dl 151 mg/dl Assessment & Plan SIADH-having difficulty improving sodium levels. for now, fluid restriction, lasix, and normal saline. urine osm at last check was under 300 so should improve with current therapy. to repeat bmp at 6 pm. pt currently getting magnesium which is mixed in d5w so sodium may temporarily decrease. to start normal saline after the magnesium administration.
--- NOTE | 2017-04-21 17:03 | PROGRESS NOTE ---
DATE: 04/21/2017 SUBJECTIVE: Radha Mathur actually looks pretty good today. She is still requiring one on one supervision, but apparently has been less impulsive, and has been no unpleasant rashes reported. I don't know psychiatry has gotten by to reassess her, but they probably should before she is discharged and discharge plans are still little up in the air. She could go home. I do not think she really needs any rehabilitation and she is ambulating and has no overt hemiparesis, only has a mild speech impediment which could be partial aphasia and her orientation questions were passed with flying colors today with the exception of the actual date. At this point, the diagnosis remains unclear. I tend to favor a posterior reversible encephalopathy type pattern over emboli, but she certainly had on echocardiogram clear evidence for a significant cardiomyopathy and this could have resulted in a series of embolic events. She was also hypertensive on presentation. 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 My only suggestion would be that we treat her with dual antiplatelet therapy for about 3 months and I believe I should take a look at her in the clinic in about 6-8 weeks. I discussed these options with Annie Farr or inpatient coordinator today and I think she is goingto try to put them in place. For now, however, neurology neurologist isgoing to sign off the case with recommendations that psychiatry see her on aregular basis to help her deal with her grief reaction and a cardiology followup is planned, that she see her primary care physician obviously and then neurology see her in 6 weeks at which point we will make a judgment about how long to maintain the dual antiplatelet treatment. BENJAMIN
[2017-04-21] MEDS: SODIUM CHLORIDE 0.9% 1000ML 1,000 ML IV SCH ×2 (17:53→23:53)
[2017-04-21] MEDS: FUROSEMIDE 40 MG TAB PO SCH (18:21)
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
[2017-04-21 18:39] LABS: CALCIUM 8.4 mg/dl (8.5-10.1); CREATININE 0.85 mg/dl (0.60-1.20); MAGNESIUM 2.8 mg/dl (1.8-2.4); POTASSIUM 4.1 mmol/L (3.5-5.1)
[2017-04-21] MEDS: ACETAMINOPHEN 500 MG TAB PO SCH ×2 (18:48→23:56)
[2017-04-21] MEDS: SIMVASTATIN 20 MG TAB PO SCH (20:11)
[2017-04-22] VITALS (7 sets, daily range): BP systolic 105–209; BP diastolic 61–100; PULSE 74–118; TEMP 36.7–36.8; O2SAT 92–100
[2017-04-22] MEDS: ACETAMINOPHEN 500 MG TAB PO SCH ×4 (05:43→23:53)
[2017-04-22 07:20] LABS: BUN/CREATININE RATIO 16.9 (10-20); CALCIUM 8.1 mg/dl (8.5-10.1); CREATININE 0.7 mg/dl (0.60-1.20); MAGNESIUM 2.2 mg/dl (1.8-2.4); POTASSIUM 4.6 mmol/L (3.5-5.1)
[2017-04-22] MEDS: MAGNESIUM CHLORIDE 64MG DELAYED REL TAB PO SCH ×2 (07:56→21:00)
[2017-04-22] MEDS: BUDESONIDE/FORMOTEROL FUMARATE 160/4.5 60 PUFFS/INHALER INH SCH ×2 (07:56→20:59)
[2017-04-22] MEDS: BOOST VANILLA PO SCH ×4 (07:56→20:56)
[2017-04-22] MEDS: POTASSIUM CHLORIDE 20 MEQ TABCR PO SCH (07:57)
[2017-04-22] MEDS: SERTRALINE HCL 50 MG TAB PO SCH (07:58)
[2017-04-22] MEDS: ASPIRIN 81 MG ECTAB PO SCH (07:59)
[2017-04-22] MEDS: METOPROLOL SUCC 50MG EXT REL TAB PO SCH ×2 (07:59→21:01)
[2017-04-22] MEDS: CLOPIDOGREL BISULFATE 75 MG TAB PO SCH (07:59)
[2017-04-22] MEDS: FUROSEMIDE 40 MG TAB PO SCH (07:59)
[2017-04-22] MEDS: HEPARIN SOD 5000 UNIT/0.5 ML CARP SQ SCH ×2 (08:05→21:04)
--- NOTE | 2017-04-22 08:09 | Nephrology Progress Note ---
Nephrology Progress Note Date of Service: Apr 22, 2017. Subjective 71 yo female with siadh with sodium of 125 this morning currently on normal saline and lasix. this morning pt had episode of sob and diaphoresis, pt currently feels better and she thought it was an anxiety attack. pt on 1 liter nasal cannula for comfort. pt continues to improve mentally and is very alert today. tolerating the fluid restriction. Objective Date Time Temp Pulse Resp B/P (MAP) Pulse Ox O2 Delivery O2 Flow Rate FiO2 04/22/17 07:01 36.8 118 20 209/100 (136) 92 Room Air 184/98 (126) 04/22/17 00:00 Room Air 04/21/17 23:10 37.0 80 18 108/70 (83) 95 Room Air 04/21/17 22:00 96 Room Air 04/21/17 20:02 36.7 77 20 126/67 (86) 96 Room Air 04/21/17 17:38 Room Air 04/21/17 15:13 37.3 76 20 126/58 (80) 96 Room Air 04/21/17 14:09 Room Air 04/21/17 12:14 36.6 80 16 108/39 (62) 95 Room Air 04/21/17 08:15 95 Room Air Physical Exam: General-aaox3 Eyes-no scleral icterus ENT-mmm Neck-supple Lungs-clear Heart-regular Abdomen-bs+ s/nt/nd Extremities-no c/c/e Neuro-nonfocal except for some mild speech issues Current Inpatient Medications Medications (Trade) Dose Ordered Sig/Saul Route Start Time Stop Time Status Last Admin Dose Admin Nitroglycerin (Nitrostat Tab) 0.4 mg UD PRN SL 04/15/17 09:15 05/15/17 09:14 Glucose (Glucose 40% Gel) 15-30 GRAMS 15 GRAMS... UD PRN PO 04/15/17 09:30 05/15/17 09:29 Glucose (Glucose Chew Tab) 4-8 Tablets 4 Tabl... UD PRN PO 04/15/17 09:30 05/15/17 09:29 Dextrose (Dextrose 50% 50ML Syringe) 25-50ML OF 50% DW IV FOR... UD PRN IV 04/15/17 09:30 05/15/17 09:29 Glucagon (Glucagon Inj) 1 mg UD PRN SQ 04/15/17 09:30 05/15/17 09:29 Lorazepam (Ativan Inj) 2 mg ONE PRN IV 04/15/17 09:45 05/15/17 09:44 Budesonide/ Formoterol Fumarate (Symbicort 160/ 4.5 Inh) 2 puffs BID INH 04/15/17 21:00 05/15/17 20:59 04/21/17 20:08 2 PUFFS Simvastatin (Zocor Tab) 20 mg PM PO 04/16/17 21:00 05/16/17 20:59 04/21/17 20:11 20 MG Aspirin (Ecotrin Tab) 81 mg QAM PO 04/17/17 09:00 05/17/17 08:59 04/21/17 10:15 81 MG Sertraline HCl (Zoloft Tab) 25 mg QAM PO 04/19/17 09:00 05/19/17 08:59 04/21/17 10:17 25 MG Metoprolol Succinate (Toprol Xl Tab) 100 mg BID PO 04/18/17 21:00 05/18/17 20:59 04/21/17 20:10 100 MG Potassium Chloride (Klor-Con Tab) 40 meq DAILY PO 04/20/17 09:00 05/20/17 08:59 04/21/17 10:16 40 MEQ Magnesium Chloride (Slow-Mag Tab) 64 mg BID PO 04/19/17 21:00 05/19/17 20:59 04/21/17 20:09 64 MG Enteral Nutritional Formula (Boost) 1 can BID PO 04/19/17 21:00 05/19/17 20:59 Heparin Sodium (Porcine) (Heparin Sq 5000 Unit/0.5ml) 5,000 unit Q12 SQ 04/19/17 21:00 05/19/17 20:59 04/21/17 20:07 5,000 UNIT Gadobutrol (Gadavist) 5 mmol UD PRN IV 04/20/17 11:15 04/24/17 11:14 Clopidogrel Bisulfate (plAVix TAB) 75 mg QAM PO 04/21/17 09:00 05/21/17 08:59 04/21/17 10:16 75 MG Losartan Potassium (coZAAR TAB) 100 mg QAM PO 04/22/17 08:00 05/22/17 08:59 Sodium Chloride 1,000 ml @ 100 mls/hr Q10H IV 04/21/17 14:00 05/21/17 13:29 04/21/17 23:53 100 MLS/HR Furosemide (Lasix Tab) 40 mg BID17 PO 04/21/17 17:00 05/21/17 16:59 04/21/17 18:21 40 MG Acetaminophen (Tylenol Tab) 500 mg Q6 PO 04/21/17 18:30 05/21/17 18:29 04/21/17 18:48 500 MG Last 24 Hours Test 04/21/17 11:06 04/21/17 17:58 04/21/17 22:15 04/22/17 06:28 Bedside Glucose 151 mg/dl 119 mg/dl Sodium Level 123 mmol/L 125 mmol/L Potassium Level 4.1 mmol/L 4.6 mmol/L Chloride Level 84 mmol/L 89 mmol/L Carbon Dioxide Level 33 mmol/L 31 mmol/L Anion Gap 6.0 mmol/L 5.0 mmol/L Blood Urea Nitrogen 10 mg/dl 12 mg/dl Creatinine 0.85 mg/dl 0.70 mg/dl Est Creatinine Clear Calc Drug Dose 42.0 ml/min 51.0 ml/min Estimated GFR () 80.5 101.7 Estimated GFR (Non- 69.4 87.8 BUN/Creatinine Ratio 12.0 16.9 Random Glucose 139 mg/dl 106 mg/dl Calcium Level 8.4 mg/dl 8.1 mg/dl Magnesium Level 2.8 mg/dl 2.2 mg/dl Assessment & Plan SIADH-started on normal saline and lasix last night. sodium went from 123 to 125 this morning. would like to have a goal of a liter negative today so will increase her lasix dose today. repeat bmp again around 2pm. would like sodium levels of 130 prior to sending home although has been difficult to correct her sodium during this admission.
[2017-04-22] MEDS: LOSARTAN POTASSIUM 50 MG TAB PO SCH (08:25)
[2017-04-22] MEDS: SODIUM CHLORIDE 0.9% 1000ML 1,000 ML IV SCH ×2 (08:26→21:03)
[2017-04-22] MEDS ORDERED: FUROSEMIDE 40 MG TAB PO ONE (09:00)
--- NOTE | 2017-04-22 12:51 | Psychiatric Progress Notes ---
Psychiatric Progress Note Date of Service Apr 22, 2017. Notes ID: Patient reviewed with liaison nurse. Interim progress reviewed. Is now on 25 mg Zoloft by primary team for stress induced cardiomyopathy. CC: "I'm going day by day, I have a lot of family to support me" HPI: much improved, animated in conversation, no acute issues over night, primary team still has 1-on-1 assigned for periods of confusion ROS: patient is without complaints MSE: alert, animated, thoughts organized, denies SI/HI/cobb. Mood "better each day, we've been through alot", speech clear Imp: grief reaction, same as initial consult Plan: no indication for inpatient psychiatric admission patient still declining therapy referral but agreed to be provided a list of providers for convenience if changes mind SSRI titration per medical/PCP .
--- NOTE | 2017-04-22 13:54 | Procedure Note ---
Procedure Note Date of Service Apr 22, 2017. Procedure Note Procedures: Right sided Thoracentesis Consent: obtained via the patient and placed into the chart Pre-Procedural Dx: Right-sided pleural effusion Post-Procedural Dx: Right-sided pleural effusion Analgesia: 8cc of 1% Liquid Lidocaine Procedure: The patient was placed in an upright position and thoracic US was used to select a spot for the procedure. A spot along the posterior axillary line was marked in the 7th intercostal space. The patient was then draped and prepped in a sterile fashion. A modified Seldinger technique was then used for catheter placement. Flowing this approximately 600cc of light orange pleural fluid was removed. The patient was then cleaned and placed at a 60 degree angle in the bed were the US was used to evaluate for possible pneumothorax. The US showed a poor lung sliding but good starry night sign. EBL: none Complications: none
--- NOTE | 2017-04-22 14:26 | DIAGNOSTIC IMAGING REPORT ---
CHEST ONE VIEW PORTABLE CLINICAL HISTORY: S/P Thoracentesis COMPARISON STUDY: 04/15/2017 FINDINGS: The heart is mildly enlarged. There are line shadows paralleling the right chest wall, likely represent skinfolds. There is no definite pneumothorax.[ There is a small right pleural effusion. There are postsurgical changes present within the lumbar spine. There are improving peripheral right midlung zone airspace opacities IMPRESSION: 1. Improving peripheral right lung airspace opacities 2. Small right pleural effusion 3. No definite pneumothorax Electronically signed by: Missael Finch M.D. 04/22/2017 2:25 PM Dictated Date/Time: 04/22/2017 2:21 PM
[2017-04-22 14:42] LABS: PLEURAL FLUID TOTAL PROTEIN 1.2 g/dl
[2017-04-22 14:52] LABS: BUN/CREATININE RATIO 15.8 (10-20); CALCIUM 8.2 mg/dl (8.5-10.1); CREATININE 0.79 mg/dl (0.60-1.20); POTASSIUM 4.1 mmol/L (3.5-5.1)
[2017-04-22 16:15] LABS: PLEURAL FLUID APPEARANCE HAZY; PLEURAL FLUID COLOR YELLOW; PLEURAL FLUID MONONUC RELAT 84.9 %; PLEURAL FLUID POLYNUC 15.1 %; PLEURAL FLUID SOURCE RIGHT LUNG; PLEURAL FLUID WBC (A) 198 /uL
[2017-04-22] MEDS: FUROSEMIDE 80 MG TAB PO SCH (16:55)
--- NOTE | 2017-04-22 18:37 | Progress Note ---
Medicine Progress Note Date & Time of Visit: Apr 22, 2017 at 12:49. (Didi David PA-C) Subjective Patient seen this morning. States early this AM she had an episode of SOB with "full panic". Reports associated diaphoresis and BP in 200's systolic. States she was placed on O2 NC at her request. Her BP normalized on recheck at time AM meds were being given. States SOB and anxiety are resolved, just feels tired. There was no associated CP, LEWIS, dizziness, weakness, numbness, N/V. Ate soup last evening and a small breakfast this AM. States diarrhea resolved, last BM was formed. Reports Ross is uncomfortable. She refused PT today due to feeling tired. (Didi David PA-C) Objective Last 8 Hrs Date Time Temp Pulse Resp B/P (MAP) Pulse Ox O2 Delivery O2 Flow Rate FiO2 04/22/17 08:44 80 119/71 (87) 04/22/17 08:00 92 Nasal Cannula 1.0 04/22/17 07:58 83 120/66 (84) 04/22/17 07:01 36.8 118 20 209/100 (136) 92 Room Air 184/98 (126) Physical Exam: General-alert 71 year old female, lying in bed, no distress Eyes-anicteric, EOMI ENT-hearing grossly intact, pharynx normal Neck-trachea midline Lungs-CTA bilaterally, no wheezes, crackles, rhonchi Heart-regular rate and rhythm, no murmur Extremities- no deformity, no edema, no calf tenderness Neuro-alert, mildly anxious, oriented to person, place, month/year but not date , no focal motor or sensory deficit. no facial droop or dysarthria. Laboratory Results: Last 24 Hours Test 04/21/17 17:58 04/21/17 22:15 04/22/17 06:28 Sodium Level 123 mmol/L 125 mmol/L Potassium Level 4.1 mmol/L 4.6 mmol/L Chloride Level 84 mmol/L 89 mmol/L Carbon Dioxide Level 33 mmol/L 31 mmol/L Anion Gap 6.0 mmol/L 5.0 mmol/L Blood Urea Nitrogen 10 mg/dl 12 mg/dl Creatinine 0.85 mg/dl 0.70 mg/dl Est Creatinine Clear Calc Drug Dose 42.0 ml/min 51.0 ml/min Estimated GFR () 80.5 101.7 Estimated GFR (Non- 69.4 87.8 BUN/Creatinine Ratio 12.0 16.9 Random Glucose 139 mg/dl 106 mg/dl Calcium Level 8.4 mg/dl 8.1 mg/dl Magnesium Level 2.8 mg/dl 2.2 mg/dl Bedside Glucose 119 mg/dl (Didi David PA-C) Assessment & Plan HYPONATREMIA Multifactorial, poor PO intake, low EF contributing Na 124 today Nephro on board, appreciate assistance Lasix and NSS as dosed by nephro Hawkins placed, monitor I/O's Monitor PRP PULMONARY NODULES Nodules seen on CT chest 01/2017, repeat CT chest 02/2016- "1. Persistent and perhaps subtle progression of a pleural-based nodular density right lower lobe . 2. This density has a soft tissue linear component extending to a potential mass lesion of the right infrahilar region currently measuring 1.9 cm. 3. Probable developing subcarinal adenopathy as well as posterior pleural-based nodularity. 4. Neoplastic processes is the diagnosis of exclusion. 5. Underlying Baseline emphysematous change." History of smoking, if there is a neoplastic process going on it could be contributing to hyponatremia Check CT chest- no significant change Consult pulmonology; appreciate input S/p R thoracentesis, f/u pleural fluid pathology AMS- improving Ddx includes PRES syndrome (hypertensive on presentation), embolism 2/2 Takotsubo cardiomyopathy, metabolic encephalopathy, seizures less likely CT head- no acute intracranial pathology MRI brain- Extensive multifocal cortical and subcortical signal abnormality consistent with edema within the left cerebral hemisphere MRI findings suspicious for encephalitis, s/p LP- elevated protein and glucose on CSF, CSF lyme and HSV negative, CSF culture negative, so infectious encephalitis considered unlikely EEG showed mild nonspecific generalized encephalopathy, repeat EEG WNL Repeat MRI showed improvement in subcortical white matter areas ascribed to edema or subacute infarct Neurology consulted, appreciate input from Dr. Ribeiro Dual antiplatelet therapy for 3 months recommended by neuro in case events were 2/2 strokes; Plavix added No seizure medication indicated at this time Neuro checks, fall and seizure precautions, 1:1 sitter, PT, OT SEPSIS- resolved Met sepsis criteria on admission (tachycardia, leukocytosis, elevated lactate, tachypnea, AMS), vitals now stable, WBC and lactate normalized, AMS still present but improved Received Levaquin, Zosyn, vancomycin in ER Possible pulmonary source? CXR showed Progressive peripheral right midlung zone opacities, however clinical picture not consistent with PNA (no fever, chills, productive cough) ID consulted, abx changed to vancomycin and Rocephin, plus acyclovir to cover for encephalitis- blood cultures- no growth to date, CSF cx negative, HSV PCR negative, urine cx negative, abx and acyclovir d/c'd by ID TAKOTSUBO CARDIOMYOPATHY- stable Troponin trended up to 3.1 then down to 1.1, was on heparin drip- d/c'd by cardiology On aspirin and Toprol XL Echo done- Sinus tachycardia is present The left ventricle is normal in size. There is normal left ventricular wall thickness. There is severe hypokinesis to akinesis of the mid and apical wall segment with mild expansion. The basilar segments contract normally. 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 Ejection Fraction = 25-30%. The aortic valve leaflets are moderately calcified. Moderate valvular aortic stenosis. Mild aortic regurgitation. There is mild to moderate mitral regurgitation. There is moderate to severe tricuspid regurgitation. Right ventricular systolic pressure is elevated at >60mmHg. Normal inferior vena cava diameter and respiratory variation suggests normal central venous pressure. Repeat echo was limited, showed improved function at mid level of all segments, EF to 35-40% Appreciate cardiology input DEPRESSION/ ANXIETY Reports depression/ anxiety 2/2 daughter's , denies ever having suicidal ideation Psych consulted Zoloft started and titrated up to 25 mg POOR PO INTAKE Improving Boost supplement ordered AGUSTIN- resolved Creatinine elevated to 1.3 on admission, possibly from dehydration Monitor renal function ELECTROLYTE IMBALANCES Continue potassium and magnesium replacement Monitor DM TYPE 2 New dx- presented with >2 BSG >200, A1c 5.3 Blood sugar may have been increased 2/2 infection Received 10 unit regular insulin in the ER BSG's normal, no further insulin required- will d/c BSG monitoring and ISS DVT PROPHYLAXIS Heparin SQ FULL CODE DISPOSITION On med/ surg Needs rehab Patient seen in collaboration with Dr. Norman. Please see her addendum. Consultants: Cardio Psych ID Neuro Current Inpatient Medications: Current Inpatient Medications Medications (Trade) Dose Ordered Sig/Saul Route Start Time Stop Time Status Last Admin Dose Admin Nitroglycerin (Nitrostat Tab) 0.4 mg UD PRN SL 04/15/17 09:15 05/15/17 09:14 Glucose (Glucose 40% Gel) 15-30 GRAMS 15 GRAMS... UD PRN PO 04/15/17 09:30 05/15/17 09:29 Glucose (Glucose Chew Tab) 4-8 Tablets 4 Tabl... UD PRN PO 04/15/17 09:30 05/15/17 09:29 Dextrose (Dextrose 50% 50ML Syringe) 25-50ML OF 50% DW IV FOR... UD PRN IV 04/15/17 09:30 05/15/17 09:29 Glucagon (Glucagon Inj) 1 mg UD PRN SQ 04/15/17 09:30 05/15/17 09:29 Lorazepam (Ativan Inj) 2 mg ONE PRN IV 04/15/17 09:45 05/15/17 09:44 Budesonide/ Formoterol Fumarate (Symbicort 160/ 4.5 Inh) 2 puffs BID INH 04/15/17 21:00 05/15/17 20:59 04/22/17 07:56 2 PUFFS Simvastatin (Zocor Tab) 20 mg PM PO 04/16/17 21:00 05/16/17 20:59 04/21/17 20:11 20 MG Aspirin (Ecotrin Tab) 81 mg QAM PO 04/17/17 09:00 05/17/17 08:59 04/22/17 07:59 81 MG Sertraline HCl (Zoloft Tab) 25 mg QAM PO 04/19/17 09:00 05/19/17 08:59 04/22/17 07:58 25 MG Metoprolol Succinate (Toprol Xl Tab) 100 mg BID PO 04/18/17 21:00 05/18/17 20:59 04/22/17 07:59 100 MG Potassium Chloride (Klor-Con Tab) 40 meq DAILY PO 04/20/17 09:00 05/20/17 08:59 04/22/17 07:57 40 MEQ Magnesium Chloride (Slow-Mag Tab) 64 mg BID PO 04/19/17 21:00 05/19/17 20:59 04/22/17 07:56 64 MG Enteral Nutritional Formula (Boost) 1 can BID PO 04/19/17 21:00 05/19/17 20:59 04/22/17 07:56 1 CAN Heparin Sodium (Porcine) (Heparin Sq 5000 Unit/0.5ml) 5,000 unit Q12 SQ 04/19/17 21:00 05/19/17 20:59 04/22/17 08:05 5,000 UNIT Gadobutrol (Gadavist) 5 mmol UD PRN IV 04/20/17 11:15 04/24/17 11:14 Clopidogrel Bisulfate (plAVix TAB) 75 mg QAM PO 04/21/17 09:00 05/21/17 08:59 04/22/17 07:59 75 MG Losartan Potassium (coZAAR TAB) 100 mg QAM PO 04/22/17 08:00 05/22/17 08:59 04/22/17 08:25 100 MG Sodium Chloride 1,000 ml @ 100 mls/hr Q10H IV 04/21/17 14:00 05/21/17 13:29 04/22/17 08:26 100 MLS/HR Acetaminophen (Tylenol Tab) 500 mg Q6 PO 04/21/17 18:30 05/21/17 18:29 04/21/17 18:48 500 MG Furosemide (Lasix Tab) 80 mg BID17 PO 04/22/17 17:00 05/21/17 16:59 (Didi David, JOSEPHC) I have seen and examined the patient and agree with the assessment and plan as stated. The patient and her are now agreeable for short term rehab. Will get CM involved early tomorrow morning to place referral. Pt is clinically improved. Still working on the sodium with Lasix/IVF per Nephro recs. DO Emerson (Mana Norman, )
[2017-04-22] MEDS: SIMVASTATIN 20 MG TAB PO SCH (21:40)
[2017-04-23] VITALS (8 sets, daily range): BP systolic 83–145; BP diastolic 45–75; PULSE 68–86; TEMP 36.8–37; O2SAT 95–100
[2017-04-23] MEDS: SODIUM CHLORIDE 0.9% 1000ML 1,000 ML IV SCH ×2 (04:15→14:55)
[2017-04-23 04:35] LABS: HEMATOCRIT 30.3 % (37-47); MEAN CELL VOLUME 94.1 fL (80-100); MEAN CORPUSCULAR HEMOGLOBIN 33.5 pg (25-34); MEAN PLATELET VOLUME 9.5 fL (7.4-10.4); PLATELET COUNT 282 K/uL (130-400); RED BLOOD COUNT 3.22 M/uL (4.2-5.4); WHITE BLOOD COUNT 9.08 K/uL (4.8-10.8)
[2017-04-23 04:41] LABS: MEAN CORPUSCULAR HGB CONC 35.6 g/dl (32-36)
[2017-04-23 04:54] LABS: BUN/CREATININE RATIO 17.3 (10-20); CALCIUM 8.5 mg/dl (8.5-10.1); CREATININE 0.71 mg/dl (0.60-1.20); MAGNESIUM 1.8 mg/dl (1.8-2.4)
[2017-04-23] MEDS: ACETAMINOPHEN 500 MG TAB PO SCH ×3 (06:00→17:25)
[2017-04-23] MEDS: BOOST VANILLA PO SCH ×2 (08:00)
[2017-04-23] MEDS: BUDESONIDE/FORMOTEROL FUMARATE 160/4.5 60 PUFFS/INHALER INH SCH ×2 (08:12→21:47)
[2017-04-23] MEDS: MAGNESIUM CHLORIDE 64MG DELAYED REL TAB PO SCH (08:13)
[2017-04-23] MEDS: POTASSIUM CHLORIDE 20 MEQ TABCR PO SCH (08:13)
[2017-04-23] MEDS: SERTRALINE HCL 50 MG TAB PO SCH (08:13)
[2017-04-23] MEDS: METOPROLOL SUCC 50MG EXT REL TAB PO SCH (08:45)
[2017-04-23] MEDS: CLOPIDOGREL BISULFATE 75 MG TAB PO SCH (08:45)
[2017-04-23] MEDS: ASPIRIN 81 MG ECTAB PO SCH (08:46)
[2017-04-23] MEDS: FUROSEMIDE 80 MG TAB PO SCH ×2 (08:46→16:47)
[2017-04-23] MEDS: LOSARTAN POTASSIUM 50 MG TAB PO SCH (08:47)
[2017-04-23] MEDS: HEPARIN SOD 5000 UNIT/0.5 ML CARP SQ SCH (08:50)
--- NOTE | 2017-04-23 11:01 | Nephrology Progress Note ---
Nephrology Progress Note Date of Service: Apr 23, 2017. Subjective 71 yo female with siadh with sodium of 127 this morning currently on normal saline and lasix. pt doing well. very alert. comfortable. no sob. no complaints. despite being positive fluid balance, no indication of fluid overload. Objective Date Time Temp Pulse Resp B/P (MAP) Pulse Ox O2 Delivery O2 Flow Rate FiO2 04/23/17 08:00 96 Room Air 04/23/17 07:23 36.9 77 16 120/70 (87) 96 Room Air 04/23/17 00:16 37.0 86 18 145/75 (98) 100 2.0 04/23/17 00:00 Nasal Cannula 1.0 04/22/17 20:57 80 124/70 (88) 04/22/17 16:00 100 Nasal Cannula 1.0 04/22/17 14:47 36.7 74 18 105/61 (76) 95 2.0 Physical Exam: General-aaox3 Eyes-no scleral icterus ENT-mmm Neck-supple Lungs-cta Heart-rrr Abdomen-bs+ s/nt/nd Extremities-no c/c/e Neuro-nonfocal Current Inpatient Medications Medications (Trade) Dose Ordered Sig/Saul Route Start Time Stop Time Status Last Admin Dose Admin Nitroglycerin (Nitrostat Tab) 0.4 mg UD PRN SL 04/15/17 09:15 05/15/17 09:14 Glucose (Glucose 40% Gel) 15-30 GRAMS 15 GRAMS... UD PRN PO 04/15/17 09:30 05/15/17 09:29 Glucose (Glucose Chew Tab) 4-8 Tablets 4 Tabl... UD PRN PO 04/15/17 09:30 05/15/17 09:29 Dextrose (Dextrose 50% 50ML Syringe) 25-50ML OF 50% DW IV FOR... UD PRN IV 04/15/17 09:30 05/15/17 09:29 Glucagon (Glucagon Inj) 1 mg UD PRN SQ 04/15/17 09:30 05/15/17 09:29 Lorazepam (Ativan Inj) 2 mg ONE PRN IV 04/15/17 09:45 05/15/17 09:44 Budesonide/ Formoterol Fumarate (Symbicort 160/ 4.5 Inh) 2 puffs BID INH 04/15/17 21:00 10/1/17 20:59 04/23/17 08:12 2 PUFFS Simvastatin (Zocor Tab) 20 mg PM PO 04/16/17 21:00 05/16/17 20:59 04/22/17 21:40 20 MG Aspirin (Ecotrin Tab) 81 mg QAM PO 04/17/17 09:00 05/17/17 08:59 04/23/17 08:46 81 MG Sertraline HCl (Zoloft Tab) 25 mg QAM PO 04/19/17 09:00 05/19/17 08:59 04/23/17 08:13 25 MG Metoprolol Succinate (Toprol Xl Tab) 100 mg BID PO 04/18/17 21:00 05/18/17 20:59 04/23/17 08:45 100 MG Potassium Chloride (Klor-Con Tab) 40 meq DAILY PO 04/20/17 09:00 05/20/17 08:59 04/23/17 08:13 40 MEQ Magnesium Chloride (Slow-Mag Tab) 64 mg BID PO 04/19/17 21:00 05/19/17 20:59 04/23/17 08:13 64 MG Enteral Nutritional Formula (Boost) 1 can BID PO 04/19/17 21:00 05/19/17 20:59 04/22/17 20:56 1 CAN Heparin Sodium (Porcine) (Heparin Sq 5000 Unit/0.5ml) 5,000 unit Q12 SQ 04/19/17 21:00 05/19/17 20:59 04/23/17 08:50 5,000 UNIT Gadobutrol (Gadavist) 5 mmol UD PRN IV 04/20/17 11:15 04/24/17 11:14 Clopidogrel Bisulfate (plAVix TAB) 75 mg QAM PO 04/21/17 09:00 05/21/17 08:59 04/23/17 08:45 75 MG Losartan Potassium (coZAAR TAB) 100 mg QAM PO 04/22/17 08:00 05/22/17 08:59 04/23/17 08:47 100 MG Sodium Chloride 1,000 ml @ 100 mls/hr Q10H IV 04/21/17 14:00 05/21/17 13:29 04/23/17 04:15 100 MLS/HR Acetaminophen (Tylenol Tab) 500 mg Q6 PO 04/21/17 18:30 05/21/17 18:29 04/22/17 21:02 500 MG Furosemide (Lasix Tab) 80 mg BID17 PO 04/22/17 17:00 05/21/17 16:59 04/23/17 08:46 80 MG Last 24 Hours Test 04/22/17 14:24 04/23/17 04:19 Sodium Level 125 mmol/L 127 mmol/L Potassium Level 4.1 mmol/L 4.0 mmol/L Chloride Level 89 mmol/L 89 mmol/L Carbon Dioxide Level 30 mmol/L 33 mmol/L Anion Gap 6.0 mmol/L 5.0 mmol/L Blood Urea Nitrogen 13 mg/dl 12 mg/dl Creatinine 0.79 mg/dl 0.71 mg/dl Est Creatinine Clear Calc Drug Dose 45.2 ml/min 50.3 ml/min Estimated GFR () 87.9 100.0 Estimated GFR (Non- 75.8 86.3 BUN/Creatinine Ratio 15.8 17.3 Random Glucose 129 mg/dl 90 mg/dl Calcium Level 8.2 mg/dl 8.5 mg/dl White Blood Count 9.08 K/uL Red Blood Count 3.22 M/uL Hemoglobin 10.8 g/dL Hematocrit 30.3 % Mean Corpuscular Volume 94.1 fL Mean Corpuscular Hemoglobin 33.5 pg Mean Corpuscular Hemoglobin Concent 35.6 g/dl RDW Standard Deviation 47.7 fL RDW Coefficient of Variation 14.4 % Platelet Count 282 K/uL Mean Platelet Volume 9.5 fL Magnesium Level 1.8 mg/dl Assessment & Plan 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 pt has a positive fluid balance and trying to keep even or ideally 500 to a liter negative. pts lasix dose was appropriately increased last night. will follow sodium levels. would prefer sodium of 130 prior to sending home but clinically improving and looks good. monitor for fluid overload.
--- NOTE | 2017-04-23 12:48 | Pulmonology Progress Note ---
Pulmonary Progress Note Date of Service Apr 23, 2017. Attending Dr. Caceres Subjective Patient doing well today with no acute pulmonary complaints Objective Patient is able to sit up in bed no signs of respiratory insufficiency is not using secondary muscles for breathing origin tachypneic during conversation Vitals: I/O: +3.5 L RR: 16-18 HR: 77-86 SaO2: 96-100% FiO2: 1-2Lnc RESP: Decreased breath sounds bilaterally ABD: Soft nontender CARD: S1-S2 distant heart sounds EXT: 1+ pitting dependent edema LABS: WBC: 9K HCT: 11 PLT: 282K Na: 127 GLU: 21523 CR: 1.30---0.71 TSH: 1.050 T4: 1.56 BNP: 20,924 (04/17/17) TroponinI: 1.110--3.140--2.610---1.690---0.287 Urine: Osm: 391237 Na: 980586 Pleural fluid: PH: 7.44 LDH: 67 TPro: 1.2 GLU: 134 Amylase: 8 Cholesterol: Pending Microbiology Pleural fluid: No growth to date Stool: C diff PCR negative CSF: No growth to date Urine: No growth to date Blood: No growth to date Pathology: CSF: No malignant cells noted Pleural fluid: Results pending Echocardiogram: 04/19/2017 LV: EF= 35-40% Medications: 1. Lasix 2. Cozaar 3. Plavix 75 mg q.day 4. Heparin subcu 5000 units Q 12 5. Toprol 6. Aspirin 81 mg 7. Symbicort 160/4.52 puffs b.i.d. Assessment & Plan 71-year-old female admitted with altered mental status, hyponatremia, stress- induced cardiomyopathy and pulmonary nodules/pleural effusion: 1. Pulmonary nodules/pleural effusion: Patient is at high risk for primary lung carcinoma by her clinical history and current SIADH, CT thorax findings with pulmonary nodules as well as pleural effusions are highly suggestive of a primary lung carcinoma. We performed right-sided thoracentesis yesterday for pleural fluid evaluation if this comes back positive the patient would be considered stage IV possibly diffuse cytology is positive for small cell lung carcinoma. At this time I would continue to wait for pleural fluid cytology. If negative patient will require further evaluation with EBUS/ENB for more definitive lobe. 2. COPD: The patient does not have pulmonary function tests which would define her COPD but her clinical history suggest possible underlying COPD. Will continue Symbicort at this time. 3. Hyponatremia: The patient's serum osmolality as well as urine sodium suggest SIADH. Currently monitored in care for by Nephrology but appears to be difficult to control as patient continues to be volume positive. 4. Cardiomyopathy: Appears the patient had a stress-induced cardiomyopathy currently treated with Cozaar and metoprolol. 5. Altered mental status: Exact etiology of altered mental status is tough to determine as she had multiple comorbidities at the time of her arrival including SIADH and possible CVA/TIA. At this time the patient's mental status is improving as well as her MRI findings. The CSF fluid showed no definitive findings. The patient is being treated by Neurology with Plavix/Aspirin for possible thrombotic event. Will have to discontinue the Plavix and aspirin if we are to proceed forward with EBUS/ENB evaluation in the future. Data Medications: Current Inpatient Medications Medications (Trade) Dose Ordered Sig/Saul Route Start Time Stop Time Status Last Admin Dose Admin Nitroglycerin (Nitrostat Tab) 0.4 mg UD PRN SL 04/15/17 09:15 05/15/17 09:14 Glucose (Glucose 40% Gel) 15-30 GRAMS 15 GRAMS... UD PRN PO 04/15/17 09:30 05/15/17 09:29 Glucose (Glucose Chew Tab) 4-8 Tablets 4 Tabl... UD PRN PO 04/15/17 09:30 05/15/17 09:29 Dextrose (Dextrose 50% 50ML Syringe) 25-50ML OF 50% DW IV FOR... UD PRN IV 04/15/17 09:30 05/15/17 09:29 Glucagon (Glucagon Inj) 1 mg UD PRN SQ 04/15/17 09:30 05/15/17 09:29 Lorazepam (Ativan Inj) 2 mg ONE PRN IV 04/15/17 09:45 05/15/17 09:44 Budesonide/ Formoterol Fumarate (Symbicort 160/ 4.5 Inh) 2 puffs BID INH 04/15/17 21:00 05/15/17 20:59 04/23/17 08:12 2 PUFFS Simvastatin (Zocor Tab) 20 mg PM PO 04/16/17 21:00 05/16/17 20:59 04/22/17 21:40 20 MG Aspirin (Ecotrin Tab) 81 mg QAM PO 04/17/17 09:00 05/17/17 08:59 04/23/17 08:46 81 MG Sertraline HCl (Zoloft Tab) 25 mg QAM PO 04/19/17 09:00 05/19/17 08:59 04/23/17 08:13 25 MG Metoprolol Succinate (Toprol Xl Tab) 100 mg BID PO 04/18/17 21:00 05/18/17 20:59 04/23/17 08:45 100 MG Potassium Chloride (Klor-Con Tab) 40 meq DAILY PO 04/20/17 09:00 05/20/17 08:59 04/23/17 08:13 40 MEQ Magnesium Chloride (Slow-Mag Tab) 64 mg BID PO 04/19/17 21:00 05/19/17 20:59 04/23/17 08:13 64 MG Enteral Nutritional Formula (Boost) 1 can BID PO 04/19/17 21:00 05/19/17 20:59 04/22/17 20:56 1 CAN Heparin Sodium (Porcine) (Heparin Sq 5000 Unit/0.5ml) 5,000 unit Q12 SQ 04/19/17 21:00 05/19/17 20:59 04/23/17 08:50 5,000 UNIT Gadobutrol (Gadavist) 5 mmol UD PRN IV 04/20/17 11:15 04/24/17 11:14 Clopidogrel Bisulfate (plAVix TAB) 75 mg QAM PO 04/21/17 09:00 05/21/17 08:59 04/23/17 08:45 75 MG Losartan Potassium (coZAAR TAB) 100 mg QAM PO 04/22/17 08:00 05/22/17 08:59 04/23/17 08:47 100 MG Sodium Chloride 1,000 ml @ 100 mls/hr Q10H IV 04/21/17 14:00 05/21/17 13:29 04/23/17 04:15 100 MLS/HR Acetaminophen (Tylenol Tab) 500 mg Q6 PO 04/21/17 18:30 05/21/17 18:29 04/22/17 21:02 500 MG Furosemide (Lasix Tab) 80 mg BID17 PO 04/22/17 17:00 05/21/17 16:59 04/23/17 08:46 80 MG Vital Signs: Date Time Temp Pulse Resp B/P (MAP) Pulse Ox O2 Delivery O2 Flow Rate FiO2 04/23/17 08:00 96 Room Air 04/23/17 07:23 36.9 77 16 120/70 (87) 96 Room Air 04/23/17 00:16 37.0 86 18 145/75 (98) 100 2.0 04/23/17 00:00 Nasal Cannula 1.0 04/22/17 20:57 80 124/70 (88) 04/22/17 16:00 100 Nasal Cannula 1.0 04/22/17 14:47 36.7 74 18 105/61 (76) 95 2.0 Laboratory Results: Last 24 Hours Test 04/22/17 14:24 04/23/17 04:19 Sodium Level 125 mmol/L 127 mmol/L Potassium Level 4.1 mmol/L 4.0 mmol/L Chloride Level 89 mmol/L 89 mmol/L Carbon Dioxide Level 30 mmol/L 33 mmol/L Anion Gap 6.0 mmol/L 5.0 mmol/L Blood Urea Nitrogen 13 mg/dl 12 mg/dl Creatinine 0.79 mg/dl 0.71 mg/dl Est Creatinine Clear Calc Drug Dose 45.2 ml/min 50.3 ml/min Estimated GFR () 87.9 100.0 Estimated GFR (Non- 75.8 86.3 BUN/Creatinine Ratio 15.8 17.3 Random Glucose 129 mg/dl 90 mg/dl Calcium Level 8.2 mg/dl 8.5 mg/dl White Blood Count 9.08 K/uL Red Blood Count 3.22 M/uL Hemoglobin 10.8 g/dL Hematocrit 30.3 % Mean Corpuscular Volume 94.1 fL Mean Corpuscular Hemoglobin 33.5 pg Mean Corpuscular Hemoglobin Concent 35.6 g/dl RDW Standard Deviation 47.7 fL RDW Coefficient of Variation 14.4 % Platelet Count 282 K/uL Mean Platelet Volume 9.5 fL Magnesium Level 1.8 mg/dl
[2017-04-23] MEDS ORDERED: SODIUM CHLORIDE 0.9% 500ML 500 ML IV SCH (19:00)
[2017-04-23 19:45] LABS: HEMATOCRIT 22.2 % (37-47)
[2017-04-23] MEDS ORDERED: PANTOprazole INJ 80 MG in DEXTROSE 5% 100ML IV SCH (19:45)
[2017-04-23] MEDS ORDERED: ACETAMINOPHEN 325 MG TAB PO ONE (19:45)
--- NOTE | 2017-04-23 20:02 | Progress Note ---
Medicine Progress Note Date & Time of Visit: Apr 23, 2017 at 1100. Subjective tolerating PO doing well from a mental status standpoint no confusion overnight denies panic attack, chest pain or SOB. Objective Last 8 Hrs Date Time Temp Pulse Resp B/P (MAP) Pulse Ox O2 Delivery O2 Flow Rate FiO2 04/23/17 16:00 96 Room Air 04/23/17 15:05 36.9 68 16 83/45 (58) 95 Room Air 91/57 (68) Physical Exam: GEN: WNWD, in no acute distress, alert and appropriate, Angelo in place HEENT: NC/AT,normal sclerae, MMM CARDIO: reg rate, S1/2 heard without m/g/r LUNGS: CTA bilaterally, no crackles, rales or wheezes, good diaphragmatic excursion ABD: soft, non-tender, non-distended, no rebound or guarding, +BS EXTREMITY: RP and DP palpable 2+ bilat, no LE swelling or edema, extremities are warm and well-perfused NEURO: CN 2-12 grossly intact, mentating appropriately, no delirium MUSC: 5/5 strength throughout, no focal deficits SKIN: warm and dry Laboratory Results: 04/23/17 04:19 04/23/17 19:26 04/23/17 04:19 Test 04/15/17 00:00 04/15/17 06:23 04/15/17 06:29 04/15/17 06:46 Urine Color COLORLESS Urine Appearance CLEAR (CLEAR) Urine pH 7.0 (4.5-7.5) Urine Specific [place]ow 1.010 (1.000-1.030) Urine Protein TRACE (NEG) Urine Glucose (UA) 1+ (NEG) Urine Ketones 1+ (NEG) Urine Occult Blood NEG (NEG) Urine Nitrite NEG (NEG) Urine Bilirubin NEG (NEG) Urine Urobilinogen NEG (NEG) Urine Leukocyte Esterase NEG (NEG) Urine RBC 0-4 /hpf (0-4) Urine WBC 1-5 /hpf (0-5) Urine Epithelial Cells 0-5 /lpf (0-5) Urine Renal Cells 0-5 /lpf (FEW) Urine Amorphous Sediment PRESENT (NONE PRSENT) Urine Bacteria 1+ (NEG) Hypersegmented Polys 1+ Toxic Vacuolation 1+ Echinocytes 1+ Prothrombin Time 11.4 SECONDS (9.0-12.0) Prothromb Time International Ratio 1.1 (0.9-1.1) Total Bilirubin 0.8 mg/dl (0.2-1) Direct Bilirubin 0.2 mg/dl (0-0.2) Aspartate Amino Transf (AST/SGOT) 16 U/L (15-37) Alanine Aminotransferase (ALT/SGPT) 13 U/L (12-78) Alkaline Phosphatase 89 U/L (45-117) Total Protein 7.3 gm/dl (6.4-8.2) Thyroid Stimulating Hormone (TSH) 1.050 uIu/ml (0.300-4.500) Free Thyroxine 1.56 ng/dl (0.80-1.60) Salicylates Level 6.6 mg/dl (2.8-20) Acetaminophen Level < 2 ug/ml (10-30) Bedside Lactic Acid Venous 9.40 mmol/L (0.90-1.70) Arterial Blood pH 7.38 (7.35-7.45) Arterial Blood Partial Pressure CO2 34 mmHg (35-46) Arterial Blood Partial Pressure O2 80 mm/Hg (80-95) Arterial Blood HCO3 19 mmol/L (19-24) Arterial Blood Oxygen Saturation 94.8 % (90-95) Arterial Blood Base Excess -5.0 mEq/L (-9-1.8) Arterial Blood Gas Delivery RA Ken Test POS (POS) Test 04/15/17 08:05 04/15/17 09:10 04/15/17 11:50 04/15/17 12:03 Urine Legionella Antigen NOT DETECTED (NOT DETECTED) Lab Scanned Report Lab Referral [id number] Urine Opiates Screen POS (NEG) Urine Codeine Confirmation (GC/MS) NEGATIVE NG/ML (CUTOFF=50) Urine Morphine Confirm (GC/MS) NEGATIVE NG/ML (CUTOFF=50) Urine Hydrocodone Confirm (GC/MS) NEGATIVE NG/ML (CUTOFF=50) Urine Norhydrocodone NEGATIVE NG/ML (CUTOFF=50) Urine Noroxycodone NEGATIVE NG/ML (CUTOFF=50) Urine Oxycodone Confirm (GC/MS) NEGATIVE NG/ML (CUTOFF=50) Urine Oxymorphone Confirm (GC/MS) NEGATIVE NG/ML (CUTOFF=50) Urine Methadone, Qualitative NEG (NEG) Urine Hydromorphone Confirm (GC/MS) NEGATIVE NG/ML (CUTOFF=50) Urine Barbiturates NEG (NEG) Urine Phencyclidine (PCP) Level NEG (NEG) Ur Amphetamine/Methamphetamine NEG (NEG) MDMA (Ecstasy) Screen NEG (NEG) Urine Benzodiazepines Screen NEG (NEG) Urine Cocaine Metabolite NEG (NEG) Urine Marijuana (THC) NEG (NEG) Estimated Average Glucose 105 mg/dl Hemoglobin A1c 5.3 % (4.5-5.6) Test 04/15/17 14:43 04/15/17 15:15 04/15/17 17:51 04/15/17 23:14 Procalcitonin 0.86 ng/ml (0-0.5) Body Fluid Lyme Disease DNA (PCR) Not detected (Not Detected) CSF Color COLORLESS CSF Appearance CLEAR CSF WBC 2 /uL (0-5) CSF RBC 8 /uL (0) CSF Xanthrochromic NO XANTHOCHROMIA CSF Cell Count Tube # 3 CSF Chemistry Tube # 1 CSF Glucose 100 mg/dl (40-70) CSF Lactate Dehydrogenase 23 U/L (<=25) CSF Lactic Acid 4.8 mmol/L (0.6-2.2) CSF Total Protein 75.6 mg/dl (15.0-45.0) CSF VDRL Nonreactive (Nonreactive) Lyme Disease Specimen Source CSF Herpes Virus Source CSF Herpes Simplex Virus I DNA (PCR) Not Detected (Not Detected) Herpes Simplex Virus II DNA (PCR) Not Detected (Not Detected) Lactic Acid Level 1.6 mmol/L (0.4-2.0) Creatine Kinase MB 24.8 ng/ml (0.5-3.6) Creatine Kinase MB Ratio (0-3.0) Test 04/17/17 02:14 04/17/17 13:15 04/17/17 13:54 04/17/17 19:39 Total Creatine Kinase 133 U/L (26-192) Troponin I 1.110 ng/ml (0-0.045) Osmolality 259 mOsm/kg (280-300) Pro-B-Type Natriuretic Peptide 73441 pg/ml (0-900) Urine Random Creatinine < 13.0 mg/dl Test 04/19/17 02:24 04/19/17 09:34 04/19/17 10:50 04/21/17 22:15 Immature Granulocyte % (Auto) 0.2 % White Blood Count 9.37 K/uL (4.8-10.8) Red Blood Count 3.78 M/uL (4.2-5.4) Hemoglobin 11.8 g/dL (12.0-16.0) Hematocrit 33.8 % (37-47) Mean Corpuscular Volume 89.4 fL (80-100) Mean Corpuscular Hemoglobin 31.2 pg (25-34) Mean Corpuscular Hemoglobin Concent 34.9 g/dl (32-36) Platelet Count 312 K/uL (130-400) Mean Platelet Volume 9.3 fL (7.4-10.4) Neutrophils (%) (Auto) 72.9 % Lymphocytes (%) (Auto) 16.3 % Monocytes (%) (Auto) 10.2 % Eosinophils (%) (Auto) 0.3 % Basophils (%) (Auto) 0.1 % Neutrophils # (Auto) 6.82 K/uL (1.4-6.5) Lymphocytes # (Auto) 1.53 K/uL (1.2-3.4) Monocytes # (Auto) 0.96 K/uL (0.11-0.59) Eosinophils # (Auto) 0.03 K/uL (0-0.5) Basophils # (Auto) 0.01 K/uL (0-0.2) Immature Granulocyte # (Auto) 0.02 K/uL (0.00-0.02) Albumin 3.1 gm/dl (3.4-5.0) Activated Partial Thromboplast Time 55.3 SECONDS (21.0-31.0) Partial Thromboplastin Ratio 2.1 Vancomycin Level Trough 18.7 mcg/ml (SEE COMMENT) Urine Osmolality 285 mOms/kg (500-800) Urine Random Sodium 106 mEq/L Bedside Glucose 119 mg/dl (70-90) Test 04/22/17 00:00 04/23/17 04:19 Pleural Fluid Source RIGHT LUNG Pleural Fluid Color YELLOW Pleural Fluid Appearance HAZY Pleural Fluid WBC 198 /uL Pleural Fluid RBC < 3000 /uL Pleural Fluid pH 7.44 (7.3-7.4) Pleural Fluid Polynuclear WBCs % 15.1 % Pleural Fluid Mononuclear WBCs % 84.9 % Pleural Fluid Total Protein 1.2 g/dl Pleural Fluid LDH 67 IU Pleural Fluid Glucose 134 mg/dl Pleural Fluid Amylase 8 U/L Red Blood Count 3.22 M/uL (4.2-5.4) Mean Corpuscular Volume 94.1 fL (80-100) Mean Corpuscular Hemoglobin 33.5 pg (25-34) Mean Corpuscular Hemoglobin Concent 35.6 g/dl (32-36) RDW Standard Deviation 47.7 fL (36.4-46.3) RDW Coefficient of Variation 14.4 % (11.5-14.5) Mean Platelet Volume 9.5 fL (7.4-10.4) Anion Gap 5.0 mmol/L (3-11) Est Creatinine Clear Calc Drug Dose 50.3 ml/min Estimated GFR () 100.0 Estimated GFR (Non- 86.3 BUN/Creatinine Ratio 17.3 (10-20) Calcium Level 8.5 mg/dl (8.5-10.1) Magnesium Level 1.8 mg/dl (1.8-2.4) Date/Time Source Procedure Growth Status 04/15/17 06:23 Blood Blood Culture - Final NO GROWTH Complete 04/15/17 15:15 Cerebral Spinal Fluid Acid Fast Stain - Final Resulted 04/15/17 15:15 Cerebral Spinal Fluid Mycobacterial Culture Pending Resulted 04/15/17 11:50 Nasal MRSA DNA Surveillance Screen - Final Specimen Negative for MRSA by DNA Probe Complete 04/19/17 12:49 Stool C.difficile Toxin B Gene (PCR) - Final No C. difficile toxin B gene detected Complete 04/15/17 08:05 Urine,Catheterized Urine Culture - Final NO GROWTH - LESS THAN 1,000 COLONIES/ML Complete 04/22/17 00:00 Pleural Fluid (Thoracentesis) Right Acid Fast Stain Pending Received 04/22/17 00:00 Pleural Fluid (Thoracentesis) Right Mycobacterial Culture Pending Received Last 24 Hours Test 04/23/17 04:19 04/23/17 19:26 White Blood Count 9.08 K/uL Red Blood Count 3.22 M/uL Hemoglobin 10.8 g/dL Hematocrit 30.3 % Mean Corpuscular Volume 94.1 fL Mean Corpuscular Hemoglobin 33.5 pg Mean Corpuscular Hemoglobin Concent 35.6 g/dl RDW Standard Deviation 47.7 fL RDW Coefficient of Variation 14.4 % Platelet Count 282 K/uL Mean Platelet Volume 9.5 fL Sodium Level 127 mmol/L Potassium Level 4.0 mmol/L Chloride Level 89 mmol/L Carbon Dioxide Level 33 mmol/L Anion Gap 5.0 mmol/L Blood Urea Nitrogen 12 mg/dl Creatinine 0.71 mg/dl Est Creatinine Clear Calc Drug Dose 50.3 ml/min Estimated GFR () 100.0 Estimated GFR (Non- 86.3 BUN/Creatinine Ratio 17.3 Random Glucose 90 mg/dl Calcium Level 8.5 mg/dl Magnesium Level 1.8 mg/dl Assessment & Plan 71 yo F presents with acute encephalopathy, Takotsobu's cardiomyopathy 1. Acute hyponatremia- multifactorial 2/2 poor PO intake, low EF and poss lung malignancy. Nephro consulted. Improvement to 127 on Lasix/NSS with goal 130. angelo [address] foro accurate I/Os. 2. Pulmonary nodules-high risk for malignancy in active smoker. Pulm consulted. Thoracentesis performed 04/22 and pleural fluid for cytology looking for malignancy is pending. The patient is doing well post-procedure. 3. AMS-improved and clear today. Original encephalopathy was thought 2/2 PRES syndrome with hypertension on initial presentation vs embolic stroke vs metabolic encephalopathy. Seizure was considered less likely and there have been no seizures since admission and not on AEDs. 4. Sepsis-resolved thought possible pulmonary source, however, clinical symptoms weren't consistent with imaging findings. She has been doing well off abx for several days now. 5. Takotsubo's cardiomyopathy-daughter brutally murdered two months ago. Still has panic attacks. Improved on medical management. EF improved to 35-40 % on repeat TTE. 6. Grief reaction-psych consulted, Zoloft started. 7. Hyperglycemia-initially with hyperglycemia but A1C 5.3. DVT PROPHYLAXIS Heparin SQ FULL CODE DISPOSITION On med/ surg Needs rehab-case management to discuss options for rehab with family today. ADDENDUM: I spoke with the patient's daughter for 30 minutes and answered all her questions to her satisfaction. She mentioned that her mom had several episodes of bloody stools. This was caught in the hat and confirmed by the nurse. H/H was ordered and returned at 7.8/22 from 07/14 just this morning. All antihypertensives, diuretics and blood thinners were held (ASA, Plavix and Heparin). Orthostatics pending. PPI drip started. Two units pRBCs ordered. [place] notified of consult. Night doc aware of situation. NPO x meds/ICE chips and sips ok for comfort. DO Emerson Consultants: Cardio Psych ID Neuro Current Inpatient Medications: Current Inpatient Medications Medications (Trade) Dose Ordered Sig/Saul Route Start Time Stop Time Status Last Admin Dose Admin Nitroglycerin (Nitrostat Tab) 0.4 mg UD PRN SL 04/15/17 09:15 05/15/17 09:14 Glucose (Glucose 40% Gel) 15-30 GRAMS 15 GRAMS... UD PRN PO 04/15/17 09:30 05/15/17 09:29 Glucose (Glucose Chew Tab) 4-8 Tablets 4 Tabl... UD PRN PO 04/15/17 09:30 05/15/17 09:29 Dextrose (Dextrose 50% 50ML Syringe) 25-50ML OF 50% DW IV FOR... UD PRN IV 04/15/17 09:30 05/15/17 09:29 Glucagon (Glucagon Inj) 1 mg UD PRN SQ 04/15/17 09:30 05/15/17 09:29 Lorazepam (Ativan Inj) 2 mg ONE PRN IV 04/15/17 09:45 05/15/17 09:44 Budesonide/ Formoterol Fumarate (Symbicort 160/ 4.5 Inh) 2 puffs BID INH 04/15/17 21:00 05/15/17 20:59 04/23/17 08:12 2 PUFFS Simvastatin (Zocor Tab) 20 mg PM PO 04/16/17 21:00 05/16/17 20:59 04/22/17 21:40 20 MG Aspirin (Ecotrin Tab) 81 mg QAM PO 04/17/17 09:00 05/17/17 08:59 Future Hold 04/23/17 08:46 81 MG Sertraline HCl (Zoloft Tab) 25 mg QAM PO 04/19/17 09:00 05/19/17 08:59 04/23/17 08:13 25 MG Metoprolol Succinate (Toprol Xl Tab) 100 mg BID PO 04/18/17 21:00 05/18/17 20:59 04/23/17 08:45 100 MG Potassium Chloride (Klor-Con Tab) 40 meq DAILY PO 04/20/17 09:00 05/20/17 08:59 04/23/17 08:13 40 MEQ Magnesium Chloride (Slow-Mag Tab) 64 mg BID PO 04/19/17 21:00 05/19/17 20:59 04/23/17 08:13 64 MG Enteral Nutritional Formula (Boost) 1 can BID PO 04/19/17 21:00 05/19/17 20:59 04/22/17 20:56 1 CAN Heparin Sodium (Porcine) (Heparin Sq 5000 Unit/0.5ml) 5,000 unit Q12 SQ 04/19/17 21:00 05/19/17 20:59 Future Hold 04/23/17 08:50 5,000 UNIT Gadobutrol (Gadavist) 5 mmol UD PRN IV 04/20/17 11:15 04/24/17 11:14 Clopidogrel Bisulfate (plAVix TAB) 75 mg QAM PO 04/21/17 09:00 05/21/17 08:59 Future Hold 04/23/17 08:45 75 MG Losartan Potassium (coZAAR TAB) 100 mg QAM PO 04/22/17 08:00 05/22/17 08:59 04/23/17 08:47 100 MG Sodium Chloride 1,000 ml @ 100 mls/hr Q10H IV 04/21/17 14:00 05/21/17 13:29 04/23/17 14:55 100 MLS/HR Acetaminophen (Tylenol Tab) 500 mg Q6 PO 04/21/17 18:30 05/21/17 18:29 04/22/17 21:02 500 MG Furosemide (Lasix Tab) 80 mg BID17 PO 04/22/17 17:00 05/21/17 16:59 04/23/17 08:46 80 MG Sodium Chloride 500 ml @ 250 mls/hr Q2H IV 04/23/17 19:00 04/23/17 20:59 Pantoprazole Sodium (Protonix IV Bolus/Drip) 1 ea NOW STAT IV 04/23/17 19:21 04/23/17 19:22 UNV
[2017-04-23] MEDS ORDERED: ACETAMINOPHEN 325 MG TAB ONE (21:57)
[2017-04-23] MEDS: PANTOprazole INJ 40 MG in DEXTROSE 5% 100ML IV SCH (21:58)
[2017-04-23] MEDS: SIMVASTATIN 20 MG TAB PO SCH (22:28)
[2017-04-23] MEDS ORDERED: FUROSEMIDE INJ 20 MG in SYRINGE 0 ML IV SCH (23:30)
[2017-04-24] VITALS (13 sets, daily range): BP systolic 97–164; BP diastolic 59–84; PULSE 50–92; TEMP 36.7–37.2; O2SAT 95–96
[2017-04-24] MEDS ORDERED: ACETAMINOPHEN 500 MG TAB PO PRN
[2017-04-24] MEDS: PANTOprazole INJ 40 MG in DEXTROSE 5% 100ML IV SCH ×5 (01:25→21:50)
[2017-04-24 06:40] LABS: PROTHROMBIN TIME (PATIENT) 11.1 SECONDS (9.0-12.0)
[2017-04-24 06:53] LABS: HEMATOCRIT 34.1 % (37-47); MEAN CELL VOLUME 88.8 fL (80-100); MEAN CORPUSCULAR HEMOGLOBIN 30.7 pg (25-34); MEAN CORPUSCULAR HGB CONC 34.6 g/dl (32-36); MEAN PLATELET VOLUME 9.5 fL (7.4-10.4); PLATELET COUNT 204 K/uL (130-400); RED BLOOD COUNT 3.84 M/uL (4.2-5.4); WHITE BLOOD COUNT 9.08 K/uL (4.8-10.8)
[2017-04-24 07:05] LABS: BUN/CREATININE RATIO 31.2 (10-20); CALCIUM 8.3 mg/dl (8.5-10.1); CREATININE 0.71 mg/dl (0.60-1.20); POTASSIUM 3.9 mmol/L (3.5-5.1)
[2017-04-24] MEDS: BUDESONIDE/FORMOTEROL FUMARATE 160/4.5 60 PUFFS/INHALER INH SCH ×2 (08:18→21:51)
[2017-04-24] MEDS: SERTRALINE HCL 50 MG TAB PO SCH (08:19)
--- NOTE | 2017-04-24 11:04 | Gastrointestinal Consultation ---
Gastrointestinal Consultation Date of Consultation: Apr 24, 2017 Attending Physician: Dr. Norman Consulting Physician: Dr. Schaefer Reason for Consultation: melena History of Present Illness Patient is a 71 year old female who has been in the hospital for 10 days after presenting with altered mental status as well as cardiomyopathy, ultimately thought to have had a stroke and Takotsobu's CM. She was started on ASA 81 mg as well as Plavix. yesterday, her caregivers and daughter noted that her stool was very black. She tells me it has been like this for only 1-2 days, though her daughter thinks it was like that prior to admission for a few days. She kennedy any nausea or vomiting. No abdominal pain. No prior history of ulcer disease. She denies taking any NSAIDs at home other than ASA 81 mg sporadically when she remembered. She was noted to have a drop in her hgb from 11 to 7.8. She received blood last evening and was started on a PPI gtt. She had 1 BM so far today and it was black water per patient. BUN is mildly elevated. Past Medical/Surgical History Medical Problems: (1) Episode of confusion Status: Acute (2) Hypoxemia Status: Acute (3) Pneumonia Status: Acute (4) Sepsis Status: Acute Past Medical History: as note din HPI HTN osteoporosis Past Surgical History: as noted in admission history Family History non-contributory Social History Smoking Status: Current Every Day Smoker Alcohol Use: none Drug Use: none Marital Status: Housing Status: lives with family Occupation Status: retired Allergies Coded Allergies: Lisinopril (Verified Adverse Reaction, Mild, cough, 04/21/17) Current Medications Home Meds and Scripts Medications Dose Route/Sig Max Daily Dose Days Date Category Dose Instructions Amlodipine Besylate 5 Mg Tab 5 Mg PO DAILY 30 04/15/17 Rx Fosamax (Alendronate Sodium) 70 Mg Tab 1 Tab PO WK 28 04/15/17 Reported Lisinopril 40 Mg Tab 1 Tab PO DAILY 04/15/17 Reported Oxygen Gas 2 Liters NA PRN 04/15/17 Reported Symbicort 160-4.5 Mcg/Act (Budesonide/Formoterol Fumarate) 60 Puffs/Inhaler Aero 2 Puffs INH BID 30 01/21/17 Rx Aspirin EC Low Dose (Aspirin) 81 Mg Ectab 81 Mg PO QAM 30 01/21/17 Rx with food Simvastatin 20 Mg Tab 20 Mg PO PM 30 01/21/17 Rx Ativan (Lorazepam) 0.5 Mg Tab 0.5 Mg PO Q6H PRN 10 01/21/17 Rx Claritin (Loratadine) 10 Mg Tab 10 Mg PO DAILY 01/19/17 Reported Lopressor (Metoprolol Tartrate) 100 Mg Tab 100 Mg PO BID 01/19/17 Reported Review of Systems 12 systems reviewed and negative except as noted Physical Exam Date Time Temp Pulse Resp B/P (MAP) Pulse Ox O2 Delivery O2 Flow Rate FiO2 04/24/17 07:18 36.8 89 16 145/65 (91) 96 Room Air 04/24/17 05:15 36.7 74 16 129/68 04/24/17 04:15 36.9 16 144/84 04/24/17 03:15 36.7 87 16 145/83 04/24/17 02:45 36.8 87 18 152/70 04/24/17 02:30 36.8 89 18 126/72 04/24/17 01:00 37.0 80 18 123/70 04/24/17 00:15 Room Air 04/24/17 00:00 36.8 77 16 133/60 04/23/17 23:30 36.9 73 16 129/70 04/23/17 22:29 36.8 84 18 113/60 04/23/17 19:42 119/67 (84) 94/58 (70) 117/72 (87) 04/23/17 16:00 96 Room Air 04/23/17 15:05 36.9 68 16 83/45 (58) 95 Room Air 91/57 (68) General Appearance: WD/WN, no apparent distress Eyes: normal inspection, PERRL ENT: normal ENT inspection, hearing grossly normal, pharynx normal Neck: supple, no adenopathy, no JVD Respiratory/Chest: chest non-tender, lungs clear, normal breath sounds, no accessory muscle use Cardiovascular: regular rate, rhythm, + systolic murmur Abdomen: normal bowel sounds, non tender, soft Extremities: normal range of motion, non-tender, no calf tenderness Neurologic/Psych: no motor/sensory deficits, alert, normal mood/affect, oriented x 3 Skin: no jaundice, warm/dry, no rash, + pertinent finding (multiple eccymoses on upper and lower extremities) Laboratory Results Last 24 Hours Test 04/23/17 19:26 04/24/17 06:05 Hemoglobin 7.8 g/dL 11.8 g/dL Hematocrit 22.2 % 34.1 % White Blood Count 9.08 K/uL Red Blood Count 3.84 M/uL Mean Corpuscular Volume 88.8 fL Mean Corpuscular Hemoglobin 30.7 pg Mean Corpuscular Hemoglobin Concent 34.6 g/dl RDW Standard Deviation 50.7 fL RDW Coefficient of Variation 16.3 % Platelet Count 204 K/uL Mean Platelet Volume 9.5 fL Prothrombin Time 11.1 SECONDS Prothromb Time International Ratio 1.0 Sodium Level 133 mmol/L Potassium Level 3.9 mmol/L Chloride Level 95 mmol/L Carbon Dioxide Level 30 mmol/L Anion Gap 8.0 mmol/L Blood Urea Nitrogen 22 mg/dl Creatinine 0.71 mg/dl Est Creatinine Clear Calc Drug Dose 50.3 ml/min Estimated GFR () 100.0 Estimated GFR (Non- 86.3 BUN/Creatinine Ratio 31.2 Random Glucose 97 mg/dl Calcium Level 8.3 mg/dl Impression Patient is a 71 year old female admitted with altered mental status who has had an extensive workup. Ultimately thought to have had a CVA as well as Takotsobu CM. Started on ASA and Plavix here and mow having melena with an associated drop in her hgb. Hemodynamically stable. Suspect ulcer disease. Plan - OK to allow her to eat today. NPO after midnight tonight for EGD tomorrow. - Continue the PPI gtt. - Holding ASA and Plavix. - EGD tomorrow. - Follow H/H. Discussed with patient and her family at the bedside at length. All questions answered.
--- NOTE | 2017-04-24 11:33 | Nephrology Progress Note ---
Nephrology Progress Note Date of Service: Apr 24, 2017. Subjective 71 yo female with siadh with sodium of 133 this morning. pt with daughter and granddaughter. pt is very alert. doing well. no complaints. hg levels dropped yesterday and underwent blood transfusion. for a scope tomorrow. Objective Date Time Temp Pulse Resp B/P (MAP) Pulse Ox O2 Delivery O2 Flow Rate FiO2 04/24/17 07:18 36.8 89 16 145/65 (91) 96 Room Air 04/24/17 05:15 36.7 74 16 129/68 04/24/17 04:15 36.9 16 144/84 04/24/17 03:15 36.7 87 16 145/83 04/24/17 02:45 36.8 87 18 152/70 04/24/17 02:30 36.8 89 18 126/72 04/24/17 01:00 37.0 80 18 123/70 04/24/17 00:15 Room Air 04/24/17 00:00 36.8 77 16 133/60 04/23/17 23:30 36.9 73 16 129/70 04/23/17 22:29 36.8 84 18 113/60 04/23/17 19:42 119/67 (84) 94/58 (70) 117/72 (87) 04/23/17 16:00 96 Room Air 04/23/17 15:05 36.9 68 16 83/45 (58) 95 Room Air 91/57 (68) Physical Exam: General-aaox3 Eyes-no scleral icterus ENT-mmm Neck-supple Lungs-clear Heart-regular Abdomen-bs+ s/nt/nd Extremities-no c/c/e Neuro-nonfocal Current Inpatient Medications Medications (Trade) Dose Ordered Sig/Saul Route Start Time Stop Time Status Last Admin Dose Admin Nitroglycerin (Nitrostat Tab) 0.4 mg UD PRN SL 04/15/17 09:15 05/15/17 09:14 Glucose (Glucose 40% Gel) 15-30 GRAMS 15 GRAMS... UD PRN PO 04/15/17 09:30 05/15/17 09:29 Glucose (Glucose Chew Tab) 4-8 Tablets 4 Tabl... UD PRN PO 04/15/17 09:30 05/15/17 09:29 Dextrose (Dextrose 50% 50ML Syringe) 25-50ML OF 50% DW IV FOR... UD PRN IV 04/15/17 09:30 05/15/17 09:29 Glucagon (Glucagon Inj) 1 mg UD PRN SQ 04/15/17 09:30 05/15/17 09:29 Lorazepam (Ativan Inj) 2 mg ONE PRN IV 04/15/17 09:45 05/15/17 09:44 Budesonide/ Formoterol Fumarate (Symbicort 160/ 4.5 Inh) 2 puffs BID INH 04/15/17 21:00 05/15/17 20:59 04/24/17 08:18 2 PUFFS Simvastatin (Zocor Tab) 20 mg PM PO 04/16/17 21:00 05/16/17 20:59 04/23/17 22:28 20 MG Aspirin (Ecotrin Tab) 81 mg QAM PO 04/17/17 09:00 05/17/17 08:59 Future Hold 04/23/17 08:46 81 MG Sertraline HCl (Zoloft Tab) 25 mg QAM PO 04/19/17 09:00 05/19/17 08:59 04/24/17 08:19 25 MG Metoprolol Succinate (Toprol Xl Tab) 100 mg BID PO 04/18/17 21:00 05/18/17 20:59 Future Hold 04/23/17 08:45 100 MG Heparin Sodium (Porcine) (Heparin Sq 5000 Unit/0.5ml) 5,000 unit Q12 SQ 04/19/17 21:00 05/19/17 20:59 Future Hold 04/23/17 08:50 5,000 UNIT Clopidogrel Bisulfate (plAVix TAB) 75 mg QAM PO 04/21/17 09:00 05/21/17 08:59 Future Hold 04/23/17 08:45 75 MG Furosemide (Lasix Tab) 80 mg BID17 PO 04/22/17 17:00 05/21/17 16:59 Future Hold 04/23/17 08:46 80 MG Pantoprazole Sodium 40 mg/ Dextrose 100 ml @ 20 mls/hr Q5H IV 04/23/17 20:00 05/23/17 19:59 04/24/17 11:13 20 MLS/HR Acetaminophen (Tylenol Tab) 500 mg Q6 PRN PO 04/24/17 00:00 05/24/17 00:00 Last 24 Hours Test 04/23/17 19:26 04/24/17 06:05 Hemoglobin 7.8 g/dL 11.8 g/dL Hematocrit 22.2 % 34.1 % White Blood Count 9.08 K/uL Red Blood Count 3.84 M/uL Mean Corpuscular Volume 88.8 fL Mean Corpuscular Hemoglobin 30.7 pg Mean Corpuscular Hemoglobin Concent 34.6 g/dl RDW Standard Deviation 50.7 fL RDW Coefficient of Variation 16.3 % Platelet Count 204 K/uL Mean Platelet Volume 9.5 fL Prothrombin Time 11.1 SECONDS Prothromb Time International Ratio 1.0 Sodium Level 133 mmol/L Potassium Level 3.9 mmol/L Chloride Level 95 mmol/L Carbon Dioxide Level 30 mmol/L Anion Gap 8.0 mmol/L Blood Urea Nitrogen 22 mg/dl Creatinine 0.71 mg/dl Est Creatinine Clear Calc Drug Dose 50.3 ml/min Estimated GFR () 100.0 Estimated GFR (Non- 86.3 BUN/Creatinine Ratio 31.2 Random Glucose 97 mg/dl Calcium Level 8.3 mg/dl Date/Time Source Procedure Growth Status 04/23/17 20:00 Stool C.difficile Toxin B Gene (PCR) - Final No C. difficile toxin B gene detected Complete 04/23/17 20:00 Stool Shiga Toxin Test Pending Received 04/23/17 20:00 Stool Stool Culture Pending Received Assessment & Plan SIADH-sodium levels improved to over 130 this morning. will remove the angelo catheter. currently off normal saline and lasix. likely will need fluid restriction and daily lasix but will see what the sodium levels are tomorrow. volume status is good.
[2017-04-24] MEDS: SIMVASTATIN 20 MG TAB PO SCH (21:50)
[2017-04-25] VITALS (7 sets, daily range): BP systolic 128–168; BP diastolic 63–74; PULSE 79–100; TEMP 36.4–36.9; O2SAT 94–98
--- NOTE | 2017-04-25 00:03 | Progress Note ---
Medicine Progress Note Date & Time of Visit: Apr 24, 2017 at 11:46. Subjective tolerating PO Pt is doing well afebrile and only slightly hypotensive with continued GI bleedi bowel movements. Daughter is at the bedside. Pt is otherwise denying abdominal pain, lightheadedness Objective Last 8 Hrs Date Time Temp Pulse Resp B/P (MAP) Pulse Ox O2 Delivery O2 Flow Rate FiO2 04/24/17 07:18 36.8 89 16 145/65 (91) 96 Room Air 04/24/17 05:15 36.7 74 16 129/68 04/24/17 04:15 36.9 16 144/84 Physical Exam: GEN: WNWD, in no acute distress, alert and appropriate, Hawkins in place HEENT: NC/AT,normal sclerae, MMM CARDIO: reg rate, S1/2 heard without m/g/r LUNGS: CTA bilaterally, no crackles, rales or wheezes, good diaphragmatic excursion ABD: soft, non-tender, non-distended, no rebound or guarding, +BS EXTREMITY: RP and DP palpable 2+ bilat, no LE swelling or edema, extremities are warm and well-perfused NEURO: CN 2-12 grossly intact, mentating appropriately, no delirium MUSC: 5/5 strength throughout, no focal deficits SKIN: warm and dry Laboratory Results: 04/24/17 06:05 04/24/17 06:05 Test 04/15/17 00:00 04/15/17 06:23 04/15/17 06:29 04/15/17 06:46 Urine Color COLORLESS Urine Appearance CLEAR (CLEAR) Urine pH 7.0 (4.5-7.5) Urine Specific [place] 1.010 (1.000-1.030) Urine Protein TRACE (NEG) Urine Glucose (UA) 1+ (NEG) Urine Ketones 1+ (NEG) Urine Occult Blood NEG (NEG) Urine Nitrite NEG (NEG) Urine Bilirubin NEG (NEG) Urine Urobilinogen NEG (NEG) Urine Leukocyte Esterase NEG (NEG) Urine RBC 0-4 /hpf (0-4) Urine WBC 1-5 /hpf (0-5) Urine Epithelial Cells 0-5 /lpf (0-5) Urine Renal Cells 0-5 /lpf (FEW) Urine Amorphous Sediment PRESENT (NONE PRSENT) Urine Bacteria 1+ (NEG) Hypersegmented Polys 1+ Toxic Vacuolation 1+ Echinocytes 1+ Total Bilirubin 0.8 mg/dl (0.2-1) Direct Bilirubin 0.2 mg/dl (0-0.2) Aspartate Amino Transf (AST/SGOT) 16 U/L (15-37) Alanine Aminotransferase (ALT/SGPT) 13 U/L (12-78) Alkaline Phosphatase 89 U/L (45-117) Total Protein 7.3 gm/dl (6.4-8.2) Thyroid Stimulating Hormone (TSH) 1.050 uIu/ml (0.300-4.500) Free Thyroxine 1.56 ng/dl (0.80-1.60) Salicylates Level 6.6 mg/dl (2.8-20) Acetaminophen Level < 2 ug/ml (10-30) Bedside Lactic Acid Venous 9.40 mmol/L (0.90-1.70) Arterial Blood pH 7.38 (7.35-7.45) Arterial Blood Partial Pressure CO2 34 mmHg (35-46) Arterial Blood Partial Pressure O2 80 mm/Hg (80-95) Arterial Blood HCO3 19 mmol/L (19-24) Arterial Blood Oxygen Saturation 94.8 % (90-95) Arterial Blood Base Excess -5.0 mEq/L (-9-1.8) Arterial Blood Gas Delivery RA Ken Test POS (POS) Test 04/15/17 08:05 04/15/17 09:10 04/15/17 11:50 04/15/17 12:03 Urine Legionella Antigen NOT DETECTED (NOT DETECTED) Lab Scanned Report Lab Referral [id number] Urine Opiates Screen POS (NEG) Urine Codeine Confirmation (GC/MS) NEGATIVE NG/ML (CUTOFF=50) Urine Morphine Confirm (GC/MS) NEGATIVE NG/ML (CUTOFF=50) Urine Hydrocodone Confirm (GC/MS) NEGATIVE NG/ML (CUTOFF=50) Urine Norhydrocodone NEGATIVE NG/ML (CUTOFF=50) Urine Noroxycodone NEGATIVE NG/ML (CUTOFF=50) Urine Oxycodone Confirm (GC/MS) NEGATIVE NG/ML (CUTOFF=50) Urine Oxymorphone Confirm (GC/MS) NEGATIVE NG/ML (CUTOFF=50) Urine Methadone, Qualitative NEG (NEG) Urine Hydromorphone Confirm (GC/MS) NEGATIVE NG/ML (CUTOFF=50) Urine Barbiturates NEG (NEG) Urine Phencyclidine (PCP) Level NEG (NEG) Ur Amphetamine/Methamphetamine NEG (NEG) MDMA (Ecstasy) Screen NEG (NEG) Urine Benzodiazepines Screen NEG (NEG) Urine Cocaine Metabolite NEG (NEG) Urine Marijuana (THC) NEG (NEG) Estimated Average Glucose 105 mg/dl Hemoglobin A1c 5.3 % (4.5-5.6) Test 04/15/17 14:43 04/15/17 15:15 04/15/17 17:51 04/15/17 23:14 Procalcitonin 0.86 ng/ml (0-0.5) Body Fluid Lyme Disease DNA (PCR) Not detected (Not Detected) CSF Color COLORLESS CSF Appearance CLEAR CSF WBC 2 /uL (0-5) CSF RBC 8 /uL (0) CSF Xanthrochromic NO XANTHOCHROMIA CSF Cell Count Tube # 3 CSF Chemistry Tube # 1 CSF Glucose 100 mg/dl (40-70) CSF Lactate Dehydrogenase 23 U/L (<=25) CSF Lactic Acid 4.8 mmol/L (0.6-2.2) CSF Total Protein 75.6 mg/dl (15.0-45.0) CSF VDRL Nonreactive (Nonreactive) Lyme Disease Specimen Source CSF Herpes Virus Source CSF Herpes Simplex Virus I DNA (PCR) Not Detected (Not Detected) Herpes Simplex Virus II DNA (PCR) Not Detected (Not Detected) Lactic Acid Level 1.6 mmol/L (0.4-2.0) Creatine Kinase MB 24.8 ng/ml (0.5-3.6) Creatine Kinase MB Ratio (0-3.0) Test 04/17/17 02:14 04/17/17 13:15 04/17/17 13:54 04/17/17 19:39 Total Creatine Kinase 133 U/L (26-192) Troponin I 1.110 ng/ml (0-0.045) Osmolality 259 mOsm/kg (280-300) Pro-B-Type Natriuretic Peptide 15569 pg/ml (0-900) Urine Random Creatinine < 13.0 mg/dl Test 04/19/17 02:24 04/19/17 09:34 04/19/17 10:50 04/21/17 22:15 Immature Granulocyte % (Auto) 0.2 % White Blood Count 9.37 K/uL (4.8-10.8) Red Blood Count 3.78 M/uL (4.2-5.4) Hemoglobin 11.8 g/dL (12.0-16.0) Hematocrit 33.8 % (37-47) Mean Corpuscular Volume 89.4 fL (80-100) Mean Corpuscular Hemoglobin 31.2 pg (25-34) Mean Corpuscular Hemoglobin Concent 34.9 g/dl (32-36) Platelet Count 312 K/uL (130-400) Mean Platelet Volume 9.3 fL (7.4-10.4) Neutrophils (%) (Auto) 72.9 % Lymphocytes (%) (Auto) 16.3 % Monocytes (%) (Auto) 10.2 % Eosinophils (%) (Auto) 0.3 % Basophils (%) (Auto) 0.1 % Neutrophils # (Auto) 6.82 K/uL (1.4-6.5) Lymphocytes # (Auto) 1.53 K/uL (1.2-3.4) Monocytes # (Auto) 0.96 K/uL (0.11-0.59) Eosinophils # (Auto) 0.03 K/uL (0-0.5) Basophils # (Auto) 0.01 K/uL (0-0.2) Immature Granulocyte # (Auto) 0.02 K/uL (0.00-0.02) Albumin 3.1 gm/dl (3.4-5.0) Activated Partial Thromboplast Time 55.3 SECONDS (21.0-31.0) Partial Thromboplastin Ratio 2.1 Vancomycin Level Trough 18.7 mcg/ml (SEE COMMENT) Urine Osmolality 285 mOms/kg (500-800) Urine Random Sodium 106 mEq/L Bedside Glucose 119 mg/dl (70-90) Test 04/22/17 00:00 04/23/17 04:19 04/24/17 06:05 Pleural Fluid Source RIGHT LUNG Pleural Fluid Color YELLOW Pleural Fluid Appearance HAZY Pleural Fluid WBC 198 /uL Pleural Fluid RBC < 3000 /uL Pleural Fluid pH 7.44 (7.3-7.4) Pleural Fluid Polynuclear WBCs % 15.1 % Pleural Fluid Mononuclear WBCs % 84.9 % Pleural Fluid Total Protein 1.2 g/dl Pleural Fluid LDH 67 IU Pleural Fluid Glucose 134 mg/dl Pleural Fluid Amylase 8 U/L Magnesium Level 1.8 mg/dl (1.8-2.4) Red Blood Count 3.84 M/uL (4.2-5.4) Mean Corpuscular Volume 88.8 fL (80-100) Mean Corpuscular Hemoglobin 30.7 pg (25-34) Mean Corpuscular Hemoglobin Concent 34.6 g/dl (32-36) RDW Standard Deviation 50.7 fL (36.4-46.3) RDW Coefficient of Variation 16.3 % (11.5-14.5) Mean Platelet Volume 9.5 fL (7.4-10.4) Prothrombin Time 11.1 SECONDS (9.0-12.0) Prothromb Time International Ratio 1.0 (0.9-1.1) Anion Gap 8.0 mmol/L (3-11) Est Creatinine Clear Calc Drug Dose 50.3 ml/min Estimated GFR () 100.0 Estimated GFR (Non- 86.3 BUN/Creatinine Ratio 31.2 (10-20) Calcium Level 8.3 mg/dl (8.5-10.1) Date/Time Source Procedure Growth Status 04/15/17 06:23 Blood Blood Culture - Final NO GROWTH Complete 04/15/17 15:15 Cerebral Spinal Fluid Acid Fast Stain - Final Resulted 04/15/17 15:15 Cerebral Spinal Fluid Mycobacterial Culture - Preliminary NO ACID-FAST BACILLI ISOLATED - REPOR... Resulted 04/15/17 11:50 Nasal MRSA DNA Surveillance Screen - Final Specimen Negative for MRSA by DNA Probe Complete 04/23/17 20:00 Stool C.difficile Toxin B Gene (PCR) - Final No C. difficile toxin B gene detected Complete 04/15/17 08:05 Urine,Catheterized Urine Culture - Final NO GROWTH - LESS THAN 1,000 COLONIES/ML Complete 04/22/17 00:00 Pleural Fluid (Thoracentesis) Right Acid Fast Stain - Final Resulted 04/22/17 00:00 Pleural Fluid (Thoracentesis) Right Mycobacterial Culture Pending Resulted Last 24 Hours Test 04/23/17 19:26 04/24/17 06:05 Hemoglobin 7.8 g/dL 11.8 g/dL Hematocrit 22.2 % 34.1 % White Blood Count 9.08 K/uL Red Blood Count 3.84 M/uL Mean Corpuscular Volume 88.8 fL Mean Corpuscular Hemoglobin 30.7 pg Mean Corpuscular Hemoglobin Concent 34.6 g/dl RDW Standard Deviation 50.7 fL RDW Coefficient of Variation 16.3 % Platelet Count 204 K/uL Mean Platelet Volume 9.5 fL Prothrombin Time 11.1 SECONDS Prothromb Time International Ratio 1.0 Sodium Level 133 mmol/L Potassium Level 3.9 mmol/L Chloride Level 95 mmol/L Carbon Dioxide Level 30 mmol/L Anion Gap 8.0 mmol/L Blood Urea Nitrogen 22 mg/dl Creatinine 0.71 mg/dl Est Creatinine Clear Calc Drug Dose 50.3 ml/min Estimated GFR () 100.0 Estimated GFR (Non- 86.3 BUN/Creatinine Ratio 31.2 Random Glucose 97 mg/dl Calcium Level 8.3 mg/dl Date/Time Source Procedure Growth Status 04/23/17 20:00 Stool C.difficile Toxin B Gene (PCR) - Final No C. difficile toxin B gene detected Complete 04/23/17 20:00 Stool Shiga Toxin Test Pending Received 04/23/17 20:00 Stool Stool Culture Pending Received Assessment & Plan 71 yo F presents with acute encephalopathy, Takotsobu's cardiomyopathy 1. Acute hyponatremia- multifactorial 2/2 poor PO intake, low EF and poss lung malignancy. Resolved to 133 since yesterday. Nephro consulted. Improvement from 127 to 133 after blood transfusion. Hawkins removed. Recs per Neprho 2. Pulmonary nodules-high risk for malignancy in active smoker. Pulm consulted. Thoracentesis performed 04/22 and pleural fluid for cytology looking for malignancy is pending. The patient is doing well post-procedure. 3. AMS-improved and clear today. Original encephalopathy was thought 2/2 PRES syndrome with hypertension on initial presentation vs embolic stroke vs metabolic encephalopathy. Seizure was considered less likely and there have been no seizures since admission and not on AEDs. ASA and Plavix have been held in setting of acute GI bleed. 4. Sepsis-resolved thought possible pulmonary source, however, clinical symptoms weren't consistent with imaging findings. She has been doing well off abx for several days now. 5. Takotsubo's cardiomyopathy-daughter brutally murdered two months ago. Still has panic attacks. Improved on medical management. EF improved to 35-40 % on repeat TTE. 6. Grief reaction-psych consulted, Zoloft started. 7. Hyperglycemia-initially with hyperglycemia but A1C 5.3. DVT PROPHYLAXIS: contraindicated in setting of active bleeding. FULL CODE DISPOSITION On med/ surg Needs rehab-case management to discuss options for rehab with family today. [facility] Consultants: Cardio Psych ID Neuro Current Inpatient Medications: Current Inpatient Medications Medications (Trade) Dose Ordered Sig/Saul Route Start Time Stop Time Status Last Admin Dose Admin Nitroglycerin (Nitrostat Tab) 0.4 mg UD PRN SL 04/15/17 09:15 05/15/17 09:14 Glucose (Glucose 40% Gel) 15-30 GRAMS 15 GRAMS... UD PRN PO 04/15/17 09:30 05/15/17 09:29 Glucose (Glucose Chew Tab) 4-8 Tablets 4 Tabl... UD PRN PO 04/15/17 09:30 05/15/17 09:29 Dextrose (Dextrose 50% 50ML Syringe) 25-50ML OF 50% DW IV FOR... UD PRN IV 04/15/17 09:30 05/15/17 09:29 Glucagon (Glucagon Inj) 1 mg UD PRN SQ 04/15/17 09:30 05/15/17 09:29 Lorazepam (Ativan Inj) 2 mg ONE PRN IV 04/15/17 09:45 05/15/17 09:44 Budesonide/ Formoterol Fumarate (Symbicort 160/ 4.5 Inh) 2 puffs BID INH 04/15/17 21:00 05/15/17 20:59 04/24/17 08:18 2 PUFFS Simvastatin (Zocor Tab) 20 mg PM PO 04/16/17 21:00 05/16/17 20:59 04/23/17 22:28 20 MG Aspirin (Ecotrin Tab) 81 mg QAM PO 04/17/17 09:00 05/17/17 08:59 Future Hold 04/23/17 08:46 81 MG Sertraline HCl (Zoloft Tab) 25 mg QAM PO 04/19/17 09:00 05/19/17 08:59 04/24/17 08:19 25 MG Metoprolol Succinate (Toprol Xl Tab) 100 mg BID PO 04/18/17 21:00 05/18/17 20:59 Future Hold 04/23/17 08:45 100 MG Heparin Sodium (Porcine) (Heparin Sq 5000 Unit/0.5ml) 5,000 unit Q12 SQ 04/19/17 21:00 05/19/17 20:59 Future Hold 04/23/17 08:50 5,000 UNIT Clopidogrel Bisulfate (plAVix TAB) 75 mg QAM PO 04/21/17 09:00 05/21/17 08:59 Future Hold 04/23/17 08:45 75 MG Furosemide (Lasix Tab) 80 mg BID17 PO 04/22/17 17:00 05/21/17 16:59 Future Hold 04/23/17 08:46 80 MG Pantoprazole Sodium 40 mg/ Dextrose 100 ml @ 20 mls/hr Q5H IV 04/23/17 20:00 05/23/17 19:59 04/24/17 11:13 20 MLS/HR Acetaminophen (Tylenol Tab) 500 mg Q6 PRN PO 04/24/17 00:00 05/24/17 00:00
[2017-04-25] MEDS: PANTOprazole INJ 40 MG in DEXTROSE 5% 100ML IV SCH ×3 (01:53→11:38)
[2017-04-25 06:09] LABS: HEMATOCRIT 30.5 % (37-47); MEAN CELL VOLUME 88.9 fL (80-100); MEAN CORPUSCULAR HEMOGLOBIN 32.1 pg (25-34); MEAN CORPUSCULAR HGB CONC 36.1 g/dl (32-36); PLATELET COUNT 228 K/uL (130-400); RED BLOOD COUNT 3.43 M/uL (4.2-5.4); WHITE BLOOD COUNT 9.61 K/uL (4.8-10.8)
[2017-04-25 06:41] LABS: BUN/CREATININE RATIO 31.8 (10-20); CALCIUM 8.6 mg/dl (8.5-10.1); CREATININE 0.71 mg/dl (0.60-1.20); POTASSIUM 3.9 mmol/L (3.5-5.1)
[2017-04-25] MEDS: SERTRALINE HCL 50 MG TAB PO SCH (08:00)
[2017-04-25] MEDS: BUDESONIDE/FORMOTEROL FUMARATE 160/4.5 60 PUFFS/INHALER INH SCH ×2 (08:21→20:07)
--- NOTE | 2017-04-25 09:58 | Psychiatric Progress Notes ---
Psychiatric Progress Note Date of Service Apr 25, 2017. Notes Patient reviewed with liaison nurse. Interim progress reviewed. Remains on 25 mg Zoloft by primary team for stress induced cardiomyopathy. Hyponatremia has been an issue throughout stay, worsened in last few days but not rebounding, would hold any titration of Zoloft as mood appears significantly improved in past week and SSRIs can contribute to hyponatremia. .
--- NOTE | 2017-04-25 10:08 | Endo History and Physical ---
History & Physical Date of Service: Apr 25, 2017. Chief Complaint: Referring Physician: Dr. Norman History of Present Illness Patient admitted with a CM and recent CVA with melena and a drop in hb/hct, for EGD today Past Surgical History Hx Cardiac Surgery: Yes (LEFT CAROTID ) Hx Abdominal Surgery: No Hx Post-Op Nausea and Vomiting: No Hx Cancer Surgery: No Hx Thoracic Surgery: Yes (LUMBAR FX) Hx Orthopedic: No Hx Urinary Tract Surgery: No Social History Smoking Status: Current Every Day Smoker Hx Substance Use: Yes Hx Alcohol Use: No Allergies Coded Allergies: Lisinopril (Verified Adverse Reaction, Mild, cough, 04/21/17) Current Medications Reported Home Medications Medications Dose Route/Sig Max Daily Dose Days Date Category Dose Instructions Amlodipine Besylate 5 Mg Tab 5 Mg PO DAILY 30 04/15/17 Rx Fosamax (Alendronate Sodium) 70 Mg Tab 1 Tab PO WK 28 04/15/17 Reported Lisinopril 40 Mg Tab 1 Tab PO DAILY 04/15/17 Reported Oxygen Gas 2 Liters NA PRN 04/15/17 Reported Symbicort 160-4.5 Mcg/Act (Budesonide/Formoterol Fumarate) 60 Puffs/Inhaler Aero 2 Puffs INH BID 30 01/21/17 Rx Aspirin EC Low Dose (Aspirin) 81 Mg Ectab 81 Mg PO QAM 30 01/21/17 Rx with food Simvastatin 20 Mg Tab 20 Mg PO PM 30 01/21/17 Rx Ativan (Lorazepam) 0.5 Mg Tab 0.5 Mg PO Q6H PRN 10 01/21/17 Rx Claritin (Loratadine) 10 Mg Tab 10 Mg PO DAILY 01/19/17 Reported Lopressor (Metoprolol Tartrate) 100 Mg Tab 100 Mg PO BID 01/19/17 Reported Vital Signs Weight (Kilograms): 47.400 Height (Feet): 4 Height (Inches): 11.00 Date Time Temp Pulse Resp B/P (MAP) Pulse Ox O2 Delivery O2 Flow Rate FiO2 04/25/17 09:58 37 85 18 130/50 (76) 97 Room Air 04/25/17 07:12 36.8 93 18 168/71 (103) 98 04/25/17 00:05 Room Air 04/24/17 23:28 37.0 50 16 122/59 (80) 95 Room Air 04/24/17 16:00 96 Room Air 04/24/17 15:15 96 04/24/17 14:58 37.2 92 16 97/60 (72) 95 Room Air Physical Exam General Appearance: no apparent distress Respiratory/Chest: Auscultation: deminished air movement Cardiovascular: Heart Auscultation: II/ SHAQUILLE Abdomen: Inspection & Palpation: soft Assessment and Plan EGD for evaluation of melena. We have discussed the risks to include bleeding, infection, perforation, cardiac / pulmonary and recurrent CVA.
[2017-04-25] MEDS ORDERED: LIDOCAINE HCL 2% 2 ML VIAL (20MG/ML) ONE (10:15)
[2017-04-25] MEDS ORDERED: MIDAZOLAM HCL 1 MG/ML 2ML VIAL ONE (10:15)
[2017-04-25] MEDS ORDERED: ONDANSETRON INJ 2 MG/ML 2 ML VIAL ONE (10:16)
[2017-04-25] MEDS ORDERED: PROPOFOL IV EMULSION 10 MG/ML 20 ML VIAL IV ONE (10:16)
[2017-04-25] MEDS ORDERED: ETOMIDATE 2 MG/ML 20 ML VIAL IV ONE (10:34)
--- NOTE | 2017-04-25 10:55 | GI REPORT ---
Procedure Date: 04/25/2017 10:07 AM Procedure: Upper GI endoscopy Indications: Melena Medicines: Monitored Anesthesia Care Complications: No immediate complications. Estimated blood loss: Minimal. Estimated Blood Loss: Estimated blood loss: none. Procedure: Pre-Anesthesia Assessment: - Prior to the procedure, a History and Physical was performed, and patient medications, allergies and sensitivities were reviewed. The patient's tolerance of previous anesthesia was reviewed. - The risks and benefits of the procedure and the sedation options and risks were discussed with the patient. All questions were answered and informed consent was obtained. - Patient identification and proposed procedure were verified prior to the procedure by the physician, the nurse and the ui software engineer. The procedure was verified in the pre-procedure area in the procedure room. - Pre-procedure physical examination revealed no contraindications to sedation. - ASA Grade Assessment: IV - A patient with severe systemic disease that is a constant threat to life. - After reviewing the risks and benefits, the patient was deemed in satisfactory condition to undergo the procedure. - The anesthesia plan was to use monitored anesthesia care (MAC). - Immediately prior to administration of medications, the patient was re-assessed for adequacy to receive sedatives. - The heart rate, respiratory rate, oxygen saturations, blood pressure, adequacy of pulmonary ventilation, and response to care were monitored throughout the procedure. - The physical status of the patient was re-assessed after the procedure. After obtaining informed consent, the endoscope was passed under direct vision. Throughout the procedure, the patient's blood pressure, pulse, and oxygen saturations were monitored continuously. The On-site loaner was introduced through the mouth, and advanced to the third part of duodenum. The upper GI endoscopy was accomplished without difficulty. The patient tolerated the procedure well. Findings: The examined esophagus was normal. The Z-line was regular and was found 37 cm from the incisors. Diffuse moderate inflammation characterized by congestion (edema), erythema and granularity was found in the entire examined stomach. Biopsies were taken with a cold forceps for histology. Estimated blood loss was minimal. Two non-obstructing non-bleeding cratered duodenal ulcers with no stigmata of bleeding were found in the duodenal bulb, some contact bleeding was noted around the ulcerations (endoscope trauma). The largest lesion was 15 mm in largest dimension. The 2nd part of the duodenum and 3rd part of the duodenum were normal. Impression: - Normal esophagus. - Z-line regular, 37 cm from the incisors. - Chronic gastritis. Biopsied. - Multiple non-obstructing non-bleeding duodenal ulcers with no stigmata of bleeding. - Normal 2nd part of the duodenum and 3rd part of the duodenum. Recommendation: - Return patient to [facility] for ongoing care. - Use Prilosec (omeprazole) 40 mg PO BID for 6 weeks. Then continue Omeprazole 40 mg per day indefinitly. - Would hold bisphonate for 8 weeks - May use baby aspirin, otherwise would hold any other NSAIDS. - Repeat the upper endoscopy in 3 months for surveillance. Mohini Coon D.O. Mohini Coon, DO 04/25/2017 10:55:00 AM This report has been signed electronically. Note Initiated On: 04/25/2017 10:07 AM I attest to the content of the Intraoperative Record and orders documented therein, exceptions below
--- NOTE | 2017-04-25 11:10 | Progress Note ---
Progress Note Date of Service Apr 25, 2017. Progress Note The patient underwent an upper endoscopy today for evaluation of melena and a drop in her hemoglobin and hematocrit. Findings Diffuse gastritis 2 duodenal ulcers both clean based Impression: Patient with melena related to 2 clean-based duodenal ulcers. Recommendations Omeprazole 40 mg twice daily for 6 weeks then 40 mg 1 time daily definitely Biopsies pending from the stomach Hold bisphosphonate for at least 8 weeks May continue baby aspirin but hold any other nonsteroidals Advance diet as tolerated today Please call with any questions or concerns
--- NOTE | 2017-04-25 11:16 | Anesthesiology Progress Note ---
Anesthesia Post Op Note Date & Time Apr 25, 2017 at 11:16 Vital Signs Pain Intensity: 0 Vital Signs Past 12 Hours Date Time Temp Pulse Resp B/P (MAP) Pulse Ox O2 Delivery O2 Flow Rate FiO2 04/25/17 11:00 94 16 133/50 (77) 100 Room Air 04/25/17 09:58 37 85 18 130/50 (76) 97 Room Air 04/25/17 07:12 36.8 93 18 168/71 (103) 98 04/25/17 00:05 Room Air 04/24/17 23:28 37.0 50 16 122/59 (80) 95 Room Air Notes Mental Status: alert / awake / arousable, participated in evaluation Pt Amnestic to Procedure: Yes Nausea / Vomiting: adequately controlled Pain: adequately controlled Airway Patency, RR, SpO2: stable & adequate BP & HR: stable & adequate Hydration State: stable & adequate Anesthetic Complications: no major complications apparent
--- NOTE | 2017-04-25 13:40 | Progress Note ---
Medicine Progress Note Date & Time of Visit: Apr 25, 2017 at 13:09. Subjective EGD this am-two nonbleeding duodenal ulcers were seen no further bloody BMs. she is asymptomatic. family states she has been up and moving around and questions the need for rehab discussed case with Nephro and per recs below Objective Last 8 Hrs Date Time Temp Pulse Resp B/P (MAP) Pulse Ox O2 Delivery O2 Flow Rate FiO2 04/25/17 12:00 36.8 94 20 130/74 (92) 04/25/17 11:40 36.4 100 22 147/74 (98) 94 Room Air 04/25/17 11:29 84 16 142/56 (84) 96 Room Air 04/25/17 11:15 94 16 129/53 (78) 94 Room Air 04/25/17 11:00 94 16 133/50 (77) 100 Room Air 04/25/17 09:58 37 85 18 130/50 (76) 97 Room Air 04/25/17 08:00 98 Room Air 04/25/17 07:12 36.8 93 18 168/71 (103) 98 Physical Exam: GEN: WNWD, in no acute distress, alert and appropriate HEENT: NC/AT,normal sclerae, MMM CARDIO: reg rate, S1/2 heard without m/g/r LUNGS: CTA bilaterally, no crackles, rales or wheezes, good diaphragmatic excursion ABD: soft, non-tender, non-distended, no rebound or guarding, +BS EXTREMITY: RP and DP palpable 2+ bilat, no LE swelling or edema, extremities are warm and well-perfused NEURO: CN 2-12 grossly intact, mentating appropriately, no delirium MUSC: 5/5 strength throughout, no focal deficits SKIN: warm and dry Laboratory Results: 04/25/17 05:37 04/25/17 05:37 Test 04/15/17 00:00 04/15/17 06:23 04/15/17 06:29 04/15/17 06:46 Urine Color COLORLESS Urine Appearance CLEAR (CLEAR) Urine pH 7.0 (4.5-7.5) Urine Specific [place] 1.010 (1.000-1.030) Urine Protein TRACE (NEG) Urine Glucose (UA) 1+ (NEG) Urine Ketones 1+ (NEG) Urine Occult Blood NEG (NEG) Urine Nitrite NEG (NEG) Urine Bilirubin NEG (NEG) Urine Urobilinogen NEG (NEG) Urine Leukocyte Esterase NEG (NEG) Urine RBC 0-4 /hpf (0-4) Urine WBC 1-5 /hpf (0-5) Urine Epithelial Cells 0-5 /lpf (0-5) Urine Renal Cells 0-5 /lpf (FEW) Urine Amorphous Sediment PRESENT (NONE PRSENT) Urine Bacteria 1+ (NEG) Hypersegmented Polys 1+ Toxic Vacuolation 1+ Echinocytes 1+ Total Bilirubin 0.8 mg/dl (0.2-1) Direct Bilirubin 0.2 mg/dl (0-0.2) Aspartate Amino Transf (AST/SGOT) 16 U/L (15-37) Alanine Aminotransferase (ALT/SGPT) 13 U/L (12-78) Alkaline Phosphatase 89 U/L (45-117) Total Protein 7.3 gm/dl (6.4-8.2) Thyroid Stimulating Hormone (TSH) 1.050 uIu/ml (0.300-4.500) Free Thyroxine 1.56 ng/dl (0.80-1.60) Salicylates Level 6.6 mg/dl (2.8-20) Acetaminophen Level < 2 ug/ml (10-30) Bedside Lactic Acid Venous 9.40 mmol/L (0.90-1.70) Arterial Blood pH 7.38 (7.35-7.45) Arterial Blood Partial Pressure CO2 34 mmHg (35-46) Arterial Blood Partial Pressure O2 80 mm/Hg (80-95) Arterial Blood HCO3 19 mmol/L (19-24) Arterial Blood Oxygen Saturation 94.8 % (90-95) Arterial Blood Base Excess -5.0 mEq/L (-9-1.8) Arterial Blood Gas Delivery RA Ken Test POS (POS) Test 04/15/17 08:05 04/15/17 09:10 04/15/17 11:50 04/15/17 12:03 Urine Legionella Antigen NOT DETECTED (NOT DETECTED) Lab Scanned Report Lab Referral [id number] Urine Opiates Screen POS (NEG) Urine Codeine Confirmation (GC/MS) NEGATIVE NG/ML (CUTOFF=50) Urine Morphine Confirm (GC/MS) NEGATIVE NG/ML (CUTOFF=50) Urine Hydrocodone Confirm (GC/MS) NEGATIVE NG/ML (CUTOFF=50) Urine Norhydrocodone NEGATIVE NG/ML (CUTOFF=50) Urine Noroxycodone NEGATIVE NG/ML (CUTOFF=50) Urine Oxycodone Confirm (GC/MS) NEGATIVE NG/ML (CUTOFF=50) Urine Oxymorphone Confirm (GC/MS) NEGATIVE NG/ML (CUTOFF=50) Urine Methadone, Qualitative NEG (NEG) Urine Hydromorphone Confirm (GC/MS) NEGATIVE NG/ML (CUTOFF=50) Urine Barbiturates NEG (NEG) Urine Phencyclidine (PCP) Level NEG (NEG) Ur Amphetamine/Methamphetamine NEG (NEG) MDMA (Ecstasy) Screen NEG (NEG) Urine Benzodiazepines Screen NEG (NEG) Urine Cocaine Metabolite NEG (NEG) Urine Marijuana (THC) NEG (NEG) Estimated Average Glucose 105 mg/dl Hemoglobin A1c 5.3 % (4.5-5.6) Test 04/15/17 14:43 04/15/17 15:15 04/15/17 17:51 04/15/17 23:14 Procalcitonin 0.86 ng/ml (0-0.5) Body Fluid Lyme Disease DNA (PCR) Not detected (Not Detected) CSF Color COLORLESS CSF Appearance CLEAR CSF WBC 2 /uL (0-5) CSF RBC 8 /uL (0) CSF Xanthrochromic NO XANTHOCHROMIA CSF Cell Count Tube # 3 CSF Chemistry Tube # 1 CSF Glucose 100 mg/dl (40-70) CSF Lactate Dehydrogenase 23 U/L (<=25) CSF Lactic Acid 4.8 mmol/L (0.6-2.2) CSF Total Protein 75.6 mg/dl (15.0-45.0) CSF VDRL Nonreactive (Nonreactive) Lyme Disease Specimen Source CSF Herpes Virus Source CSF Herpes Simplex Virus I DNA (PCR) Not Detected (Not Detected) Herpes Simplex Virus II DNA (PCR) Not Detected (Not Detected) Lactic Acid Level 1.6 mmol/L (0.4-2.0) Creatine Kinase MB 24.8 ng/ml (0.5-3.6) Creatine Kinase MB Ratio (0-3.0) Test 04/17/17 02:14 04/17/17 13:15 04/17/17 13:54 04/17/17 19:39 Total Creatine Kinase 133 U/L (26-192) Troponin I 1.110 ng/ml (0-0.045) Osmolality 259 mOsm/kg (280-300) Pro-B-Type Natriuretic Peptide 69801 pg/ml (0-900) Urine Random Creatinine < 13.0 mg/dl Test 04/19/17 02:24 04/19/17 09:34 04/19/17 10:50 04/21/17 22:15 Immature Granulocyte % (Auto) 0.2 % White Blood Count 9.37 K/uL (4.8-10.8) Red Blood Count 3.78 M/uL (4.2-5.4) Hemoglobin 11.8 g/dL (12.0-16.0) Hematocrit 33.8 % (37-47) Mean Corpuscular Volume 89.4 fL (80-100) Mean Corpuscular Hemoglobin 31.2 pg (25-34) Mean Corpuscular Hemoglobin Concent 34.9 g/dl (32-36) Platelet Count 312 K/uL (130-400) Mean Platelet Volume 9.3 fL (7.4-10.4) Neutrophils (%) (Auto) 72.9 % Lymphocytes (%) (Auto) 16.3 % Monocytes (%) (Auto) 10.2 % Eosinophils (%) (Auto) 0.3 % Basophils (%) (Auto) 0.1 % Neutrophils # (Auto) 6.82 K/uL (1.4-6.5) Lymphocytes # (Auto) 1.53 K/uL (1.2-3.4) Monocytes # (Auto) 0.96 K/uL (0.11-0.59) Eosinophils # (Auto) 0.03 K/uL (0-0.5) Basophils # (Auto) 0.01 K/uL (0-0.2) Immature Granulocyte # (Auto) 0.02 K/uL (0.00-0.02) Albumin 3.1 gm/dl (3.4-5.0) Activated Partial Thromboplast Time 55.3 SECONDS (21.0-31.0) Partial Thromboplastin Ratio 2.1 Vancomycin Level Trough 18.7 mcg/ml (SEE COMMENT) Urine Osmolality 285 mOms/kg (500-800) Urine Random Sodium 106 mEq/L Bedside Glucose 119 mg/dl (70-90) Test 04/22/17 00:00 04/23/17 04:19 04/24/17 06:05 04/25/17 05:37 Pleural Fluid Source RIGHT LUNG Pleural Fluid Color YELLOW Pleural Fluid Appearance HAZY Pleural Fluid WBC 198 /uL Pleural Fluid RBC < 3000 /uL Pleural Fluid pH 7.44 (7.3-7.4) Pleural Fluid Polynuclear WBCs % 15.1 % Pleural Fluid Mononuclear WBCs % 84.9 % Pleural Fluid Total Protein 1.2 g/dl Pleural Fluid LDH 67 IU Pleural Fluid Glucose 134 mg/dl Pleural Fluid Amylase 8 U/L Magnesium Level 1.8 mg/dl (1.8-2.4) Prothrombin Time 11.1 SECONDS (9.0-12.0) Prothromb Time International Ratio 1.0 (0.9-1.1) Red Blood Count 3.43 M/uL (4.2-5.4) Mean Corpuscular Volume 88.9 fL (80-100) Mean Corpuscular Hemoglobin 32.1 pg (25-34) Mean Corpuscular Hemoglobin Concent 36.1 g/dl (32-36) RDW Standard Deviation 54.5 fL (36.4-46.3) RDW Coefficient of Variation 17.6 % (11.5-14.5) Mean Platelet Volume 9.0 fL (7.4-10.4) Anion Gap 6.0 mmol/L (3-11) Est Creatinine Clear Calc Drug Dose 50.3 ml/min Estimated GFR () 100.0 Estimated GFR (Non- 86.3 BUN/Creatinine Ratio 31.8 (10-20) Calcium Level 8.6 mg/dl (8.5-10.1) Date/Time Source Procedure Growth Status 04/15/17 06:23 Blood Blood Culture - Final NO GROWTH Complete 04/15/17 15:15 Cerebral Spinal Fluid Acid Fast Stain - Final Resulted 04/15/17 15:15 Cerebral Spinal Fluid Mycobacterial Culture - Preliminary NO ACID-FAST BACILLI ISOLATED - REPOR... Resulted 04/15/17 11:50 Nasal MRSA DNA Surveillance Screen - Final Specimen Negative for MRSA by DNA Probe Complete 04/23/17 20:00 Stool C.difficile Toxin B Gene (PCR) - Final No C. difficile toxin B gene detected Complete 04/15/17 08:05 Urine,Catheterized Urine Culture - Final NO GROWTH - LESS THAN 1,000 COLONIES/ML Complete 04/22/17 00:00 Pleural Fluid (Thoracentesis) Right Acid Fast Stain - Final Resulted 04/22/17 00:00 Pleural Fluid (Thoracentesis) Right Mycobacterial Culture Pending Resulted Last 24 Hours Test 04/25/17 05:37 White Blood Count 9.61 K/uL Red Blood Count 3.43 M/uL Hemoglobin 11.0 g/dL Hematocrit 30.5 % Mean Corpuscular Volume 88.9 fL Mean Corpuscular Hemoglobin 32.1 pg Mean Corpuscular Hemoglobin Concent 36.1 g/dl RDW Standard Deviation 54.5 fL RDW Coefficient of Variation 17.6 % Platelet Count 228 K/uL Mean Platelet Volume 9.0 fL Sodium Level 133 mmol/L Potassium Level 3.9 mmol/L Chloride Level 94 mmol/L Carbon Dioxide Level 33 mmol/L Anion Gap 6.0 mmol/L Blood Urea Nitrogen 23 mg/dl Creatinine 0.71 mg/dl Est Creatinine Clear Calc Drug Dose 50.3 ml/min Estimated GFR () 100.0 Estimated GFR (Non- 86.3 BUN/Creatinine Ratio 31.8 Random Glucose 95 mg/dl Calcium Level 8.6 mg/dl Assessment & Plan 71 yo F presents with acute encephalopathy, Takotsobu's cardiomyopathy 1. UGIB 2/2 non bleeding duodenal ulcers found on EGD this morning. She is doing well without further rop in her H/H. Will move forward on Protonix BID x 6 weeks, then Omeprazole 40mg PO daily indefinitely per GI recs. Soft mechanical diet ordered to be advanced as tolerated. 2. Acute hyponatremia- multifactorial 2/2 poor PO intake, low EF and poss lung malignancy. Improved and off Lasix and IVf, but will need to remain on 1.5L fluid restriction. Per Nephro will start small dose daily Lasix. When she leaves, she will need a repeat PRP and urine osmolality within one week of discharge. She will also need to be seen by Nephrology in 4-6 weeks. 3. Pulmonary nodules-high risk for malignancy in active smoker. Pulm consulted. Thoracentesis performed 04/22 and pleural fluid for cytology looking for malignancy is pending. The patient is doing well post-procedure. 4. AMS-resolved and family agrees that she is doing well. Original encephalopathy was thought 2/2 PRES syndrome with hypertension on initial presentation vs embolic stroke vs metabolic encephalopathy. Seizure was considered less likely and there have been no seizures since admission and not on AEDs. ASA and Plavix have been held in setting of acute GI bleed. Moving forward we will use ASA 81mg because of the GI bleed on Plavix. Heparin for DVT prophylaxis was also held. 5. Sepsis-resolved thought possible pulmonary source, however, clinical symptoms weren't consistent with imaging findings. She has been doing well off abx for several days now. 6. Takotsubo's cardiomyopathy-daughter brutally murdered two months ago. Still has panic attacks. Improved on medical management. EF improved to 35-40 % on repeat TTE. Cont medical management. 7. Grief reaction-psych consulted, Zoloft started an she is doing well on this. Will need outpatient follow-up for titration in a few weeks. 8. Hyperglycemia-initially with hyperglycemia but A1C 5.3. Will need close monitoring as outpatient. DVT PROPHYLAXIS: contraindicated in setting of active bleeding and fresh duodenal ulcers. FULL CODE DISPOSITION On med/ surg Needs rehab-case management involved. She is medically stable for discharge when ready to leave. Of note, family is questioning the need for rehab with every passing day because of her improvement in activity level. This will require updated, evolving PT recs the longer she stays. aMna Norman DO [facility] Hospitalist Consultants: Cardio Psych ID Neuro Current Inpatient Medications: Current Inpatient Medications Medications (Trade) Dose Ordered Sig/Saul Route Start Time Stop Time Status Last Admin Dose Admin Nitroglycerin (Nitrostat Tab) 0.4 mg UD PRN SL 04/15/17 09:15 05/15/17 09:14 Glucose (Glucose 40% Gel) 15-30 GRAMS 15 GRAMS... UD PRN PO 04/15/17 09:30 05/15/17 09:29 Glucose (Glucose Chew Tab) 4-8 Tablets 4 Tabl... UD PRN PO 04/15/17 09:30 05/15/17 09:29 Dextrose (Dextrose 50% 50ML Syringe) 25-50ML OF 50% DW IV FOR... UD PRN IV 04/15/17 09:30 05/15/17 09:29 Glucagon (Glucagon Inj) 1 mg UD PRN SQ 04/15/17 09:30 05/15/17 09:29 Lorazepam (Ativan Inj) 2 mg ONE PRN IV 04/15/17 09:45 05/15/17 09:44 Budesonide/ Formoterol Fumarate (Symbicort 160/ 4.5 Inh) 2 puffs BID INH 04/15/17 21:00 05/15/17 20:59 04/25/17 08:21 2 PUFFS Simvastatin (Zocor Tab) 20 mg PM PO 04/16/17 21:00 05/16/17 20:59 04/24/17 21:50 20 MG Aspirin (Ecotrin Tab) 81 mg QAM PO 04/17/17 09:00 05/17/17 08:59 Future Hold 04/23/17 08:46 81 MG Sertraline HCl (Zoloft Tab) 25 mg QAM PO 04/19/17 09:00 05/19/17 08:59 04/24/17 08:19 25 MG Metoprolol Succinate (Toprol Xl Tab) 100 mg BID PO 04/18/17 21:00 05/18/17 20:59 Future Hold 04/23/17 08:45 100 MG Heparin Sodium (Porcine) (Heparin Sq 5000 Unit/0.5ml) 5,000 unit Q12 SQ 04/19/17 21:00 05/19/17 20:59 Future Hold 04/23/17 08:50 5,000 UNIT Clopidogrel Bisulfate (plAVix TAB) 75 mg QAM PO 04/21/17 09:00 05/21/17 08:59 Future Hold 04/23/17 08:45 75 MG Furosemide (Lasix Tab) 80 mg BID17 PO 04/22/17 17:00 05/21/17 16:59 Future Hold 04/23/17 08:46 80 MG Pantoprazole Sodium 40 mg/ Dextrose 100 ml @ 20 mls/hr Q5H IV 04/23/17 20:00 05/23/17 19:59 04/25/17 11:38 20 MLS/HR Acetaminophen (Tylenol Tab) 500 mg Q6 PRN PO 04/24/17 00:00 05/24/17 00:00
--- NOTE | 2017-04-25 15:59 | Pulmonology Progress Note ---
Pulmonary Progress Note Date of Service Apr 25, 2017. Attending Dr. Hawkins Subjective Patient seen and examined. She has no complaints at the time. She denies any cough, chest pain or shortness of breath. She had EGD this morning. Objective VS reviewed. Gen: AAOx3, NAD, speaking in full sentences, no use of accessory muscles of respiration CVS: S1, S2, RRR Lungs: decrease breath sounds bilaterally, barrel chest Abd: soft/NT/ND/BS+ Ext: trace edema bilateral lower extremities, no clubbing, no cyanosis. Labs reviewed, medications reviewed, and imaging viewed by me. CXR 04/22/2017- IMPRESSION: 1. Improving peripheral right lung airspace opacities 2. Small right pleural effusion 3. No definite pneumothorax CTA 04/21/2017 1. Unchanging right midlung mass with linear soft tissue extension from the right hilum laterally to the pleural based component. 2. Interval development of a right to lesser extent small left effusion. 3. Pleural-based density posteriorly on the right hemithorax is obscured in part due to the presence of the effusion on the current study. 4. A neoplastic process remains the diagnosis of exclusion. 5. Unchanging postoperative changes to the low thoracic spine. TSH: 1.050 T4: 1.56 BNP: 20,924 (04/17/17) Troponin I: 1.110--3.140--2.610---1.690---0.287 Urine: Osm: 273-->285 Na: 102-->106 Pleural fluid: PH: 7.44 LDH: 67 TPro: 1.2 GLU: 134 Amylase: 8 Cholesterol: Pending Microbiology Pleural fluid: No growth to date Stool: C diff PCR negative CSF: No growth to date Urine: No growth to date Blood: No growth to date Pathology: CSF: No malignant cells noted Pleural fluid: Results pending Echocardiogram: 04/19/2017 LV: EF= 35-40% Assessment & Plan 71-year-old female admitted with altered mental status, hyponatremia, stress- induced cardiomyopathy and pulmonary nodules/pleural effusion: Pulmonary nodules/pleural effusion: COPD: Hyponatremia Cardiomyopathy Altered mental status Patient is status post right sided thoracentesis. Upon review of CT images, patient has not just highly suggestive of lung cancer with underlying emphysematous changes. 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 Currently still waiting pathology and cytology of the fluid. If negative patient will require further evaluation with EBUS/ENB for more definitive diagnoses. We will discuss further discuss holding dual antiplatelet therapy at that time. Continue Symbicort and DuoNeb nebulizers. Her mental status appears to be improving. She is currently being followed by nephrology who is currently managing SIADH. Sodium today 133. CSF fluid was nondiagnostic for meningitis or encephalitis. Neurology is following for possible thrombotic event and she is currently on aspirin and Plavix. Patient also had elevated troponins and is currently being treated for a stress- induced cardiomyopathy myopathy with Cozaar and metoprolol. Data Medications: Current Inpatient Medications Medications (Trade) Dose Ordered Sig/Saul Route Start Time Stop Time Status Last Admin Dose Admin Nitroglycerin (Nitrostat Tab) 0.4 mg UD PRN SL 04/15/17 09:15 05/15/17 09:14 Glucose (Glucose 40% Gel) 15-30 GRAMS 15 GRAMS... UD PRN PO 04/15/17 09:30 05/15/17 09:29 Glucose (Glucose Chew Tab) 4-8 Tablets 4 Tabl... UD PRN PO 04/15/17 09:30 05/15/17 09:29 Dextrose (Dextrose 50% 50ML Syringe) 25-50ML OF 50% DW IV FOR... UD PRN IV 04/15/17 09:30 05/15/17 09:29 Glucagon (Glucagon Inj) 1 mg UD PRN SQ 04/15/17 09:30 05/15/17 09:29 Lorazepam (Ativan Inj) 2 mg ONE PRN IV 04/15/17 09:45 05/15/17 09:44 Budesonide/ Formoterol Fumarate (Symbicort 160/ 4.5 Inh) 2 puffs BID INH 04/15/17 21:00 05/15/17 20:59 04/25/17 08:21 2 PUFFS Simvastatin (Zocor Tab) 20 mg PM PO 04/16/17 21:00 05/16/17 20:59 04/24/17 21:50 20 MG Aspirin (Ecotrin Tab) 81 mg QAM PO 04/17/17 09:00 05/17/17 08:59 Future hold 04/23/17 08:46 81 MG Sertraline HCl (Zoloft Tab) 25 mg QAM PO 04/19/17 09:00 05/19/17 08:59 04/24/17 08:19 25 MG Metoprolol Succinate (Toprol Xl Tab) 100 mg BID PO 04/18/17 21:00 05/18/17 20:59 Future hold 04/23/17 08:45 100 MG Acetaminophen (Tylenol Tab) 500 mg Q6 PRN PO 04/24/17 00:00 05/24/17 00:00 Pantoprazole Sodium (Protonix Tab) 40 mg BID PO 04/25/17 20:00 05/25/17 19:59 Furosemide (Lasix Tab) 20 mg QAM PO 04/26/17 08:00 05/26/17 07:59 I & O: 24-Hour Column 04/26/17 08:00 Intake Total 123 ml Balance 123 ml Vital Signs: Date Time Temp Pulse Resp B/P (MAP) Pulse Ox O2 Delivery O2 Flow Rate FiO2 04/25/17 14:55 36.9 79 18 159/63 (95) 96 Room Air 04/25/17 12:00 36.8 94 20 130/74 (92) 04/25/17 11:40 36.4 100 22 147/74 (98) 94 Room Air 04/25/17 11:29 84 16 142/56 (84) 96 Room Air 04/25/17 11:15 94 16 129/53 (78) 94 Room Air 04/25/17 11:00 94 16 133/50 (77) 100 Room Air 04/25/17 09:58 37 85 18 130/50 (76) 97 Room Air 04/25/17 08:00 98 Room Air 04/25/17 07:12 36.8 93 18 168/71 (103) 98 04/25/17 00:05 Room Air 04/24/17 23:28 37.0 50 16 122/59 (80) 95 Room Air 04/24/17 16:00 96 Room Air Laboratory Results: Last 24 Hours Test 04/25/17 05:37 White Blood Count 9.61 K/uL Red Blood Count 3.43 M/uL Hemoglobin 11.0 g/dL Hematocrit 30.5 % Mean Corpuscular Volume 88.9 fL Mean Corpuscular Hemoglobin 32.1 pg Mean Corpuscular Hemoglobin Concent 36.1 g/dl RDW Standard Deviation 54.5 fL RDW Coefficient of Variation 17.6 % Platelet Count 228 K/uL Mean Platelet Volume 9.0 fL Sodium Level 133 mmol/L Potassium Level 3.9 mmol/L Chloride Level 94 mmol/L Carbon Dioxide Level 33 mmol/L Anion Gap 6.0 mmol/L Blood Urea Nitrogen 23 mg/dl Creatinine 0.71 mg/dl Est Creatinine Clear Calc Drug Dose 50.3 ml/min Estimated GFR () 100.0 Estimated GFR (Non- 86.3 BUN/Creatinine Ratio 31.8 Random Glucose 95 mg/dl Calcium Level 8.6 mg/dl
[2017-04-25] MEDS: METOPROLOL SUCC 50MG EXT REL TAB PO SCH (20:07)
[2017-04-25] MEDS: PANTOprazole SOD 40 MG TAB PO SCH (20:07)
[2017-04-25] MEDS: SIMVASTATIN 20 MG TAB PO SCH (20:07)
[2017-04-26 00:09] VITALS: BP 116/53; PULSE 83; TEMP 36.9; O2SAT 93
[2017-04-26 07:15] LABS: BUN/CREATININE RATIO 33.9 (10-20); CALCIUM 8.9 mg/dl (8.5-10.1); CREATININE 0.69 mg/dl (0.60-1.20); POTASSIUM 4.6 mmol/L (3.5-5.1)
[2017-04-26 07:25] VITALS: BP 144/71; PULSE 89; TEMP 37; O2SAT 96
[2017-04-26] MEDS: SERTRALINE HCL 50 MG TAB PO SCH ×2 (08:00→08:29)
[2017-04-26] MEDS ORDERED: FUROSEMIDE 20 MG TAB PO SCH (08:00)
[2017-04-26] MEDS: PANTOprazole SOD 40 MG TAB PO SCH (08:28)
[2017-04-26] MEDS: ASPIRIN 81 MG ECTAB PO SCH (08:28)
[2017-04-26] MEDS: METOPROLOL SUCC 50MG EXT REL TAB PO SCH (08:29)
[2017-04-26] MEDS: BUDESONIDE/FORMOTEROL FUMARATE 160/4.5 60 PUFFS/INHALER INH SCH (08:31)
--- NOTE | 2017-04-26 09:18 | Gastroenterology Progress Note ---
Progress Note Date of Service: Apr 26, 2017 Subjective Pt evaluation today including: conversation w/ patient, conversation w/ family , physical exam pt was seen and evaluated, chart reviewed. No acute events overnight. EGD yesterday with evidence of duodenal ulcers, non bleeding. It on PPI BID. Is tolerating diet without any abdominal pain, nausea or emesis. Has had a BM since EGD which was brown in color. No further evidence of melena and no BRBPR. EGD 04/25/17: Normal esophagus.Z-line regular, 37 cm from the incisors.Chronic gastritis. Biopsied.Multiple non-obstructing non-bleeding duodenal ulcers with no stigmata of bleeding. Normal 2nd part of the duodenum and 3rd part of the duodenum. Review of Systems Constitutional: No fever, No chills Respiratory: No cough, No shortness of breath Cardiac: No chest pain, No edema Abdomen: No pain, No nausea, No vomiting, No diarrhea, No constipation, No GI bleeding Medications Current Inpatient Medications Medications (Trade) Dose Ordered Sig/Saul Route Start Time Stop Time Status Last Admin Dose Admin Nitroglycerin (Nitrostat Tab) 0.4 mg UD PRN SL 04/15/17 09:15 05/15/17 09:14 Glucose (Glucose 40% Gel) 15-30 GRAMS 15 GRAMS... UD PRN PO 04/15/17 09:30 05/15/17 09:29 Glucose (Glucose Chew Tab) 4-8 Tablets 4 Tabl... UD PRN PO 04/15/17 09:30 05/15/17 09:29 Dextrose (Dextrose 50% 50ML Syringe) 25-50ML OF 50% DW IV FOR... UD PRN IV 04/15/17 09:30 05/15/17 09:29 Glucagon (Glucagon Inj) 1 mg UD PRN SQ 04/15/17 09:30 05/15/17 09:29 Lorazepam (Ativan Inj) 2 mg ONE PRN IV 04/15/17 09:45 05/15/17 09:44 Budesonide/ Formoterol Fumarate (Symbicort 160/ 4.5 Inh) 2 puffs BID INH 04/15/17 21:00 05/15/17 20:59 04/26/17 08:31 2 PUFFS Simvastatin (Zocor Tab) 20 mg PM PO 04/16/17 21:00 05/16/17 20:59 04/25/17 20:07 20 MG Aspirin (Ecotrin Tab) 81 mg QAM PO 04/17/17 09:00 05/17/17 08:59 Future hold 04/26/17 08:28 81 MG Sertraline HCl (Zoloft Tab) 25 mg QAM PO 04/19/17 09:00 05/19/17 08:59 04/26/17 08:00 25 MG Metoprolol Succinate (Toprol Xl Tab) 100 mg BID PO 04/18/17 21:00 05/18/17 20:59 Future hold 04/26/17 08:29 100 MG Acetaminophen (Tylenol Tab) 500 mg Q6 PRN PO 04/24/17 00:00 05/24/17 00:00 Pantoprazole Sodium (Protonix Tab) 40 mg BID PO 04/25/17 20:00 05/25/17 19:59 04/26/17 08:28 40 MG Furosemide (Lasix Tab) 20 mg QAM PO 04/26/17 08:00 05/26/17 07:59 04/26/17 08:29 20 MG Objective Vital Signs Date Time Temp Pulse Resp B/P (MAP) Pulse Ox O2 Delivery O2 Flow Rate FiO2 04/26/17 07:25 37.0 89 18 144/71 (95) 96 Room Air 04/26/17 00:09 36.9 83 16 116/53 (74) 93 Room Air 04/26/17 00:01 Room Air 04/25/17 20:08 100 128/63 (84) 04/25/17 20:00 Room Air 04/25/17 16:30 98 Room Air 04/25/17 14:55 36.9 79 18 159/63 (95) 96 Room Air 04/25/17 12:00 36.8 94 20 130/74 (92) 04/25/17 11:40 36.4 100 22 147/74 (98) 94 Room Air 04/25/17 11:29 84 16 142/56 (84) 96 Room Air 04/25/17 11:15 94 16 129/53 (78) 94 Room Air 04/25/17 11:00 94 16 133/50 (77) 100 Room Air 04/25/17 09:58 37 85 18 130/50 (76) 97 Room Air Physical Exam General Appearance: no apparent distress Eyes: PERRL ENT: hearing grossly normal Neck: supple Respiratory/Chest: lungs clear Cardiovascular: regular rate, rhythm Abdomen: normal bowel sounds, non tender, soft Neurologic/Psych: alert, normal mood/affect, oriented x 3 Skin: normal color, no jaundice Laboratory Results Last 24 Hours Test 04/26/17 06:21 Sodium Level 133 mmol/L Potassium Level 4.6 mmol/L Chloride Level 97 mmol/L Carbon Dioxide Level 33 mmol/L Anion Gap 3.0 mmol/L Blood Urea Nitrogen 23 mg/dl Creatinine 0.69 mg/dl Est Creatinine Clear Calc Drug Dose 51.7 ml/min Estimated GFR () 102.2 Estimated GFR (Non- 88.2 BUN/Creatinine Ratio 33.9 Random Glucose 88 mg/dl Calcium Level 8.9 mg/dl Assessment and Plan Ms. Mathur is a 71 YOF admitted with altered mental status who has had an extensive workup, ultimately thought to have had a CVA as well as Takotsobu CM and was started on ASA and Plavix here. Now having melena with an associated drop in her hgb. Hemodynamically stable. EGD with evidence of chronic gastritis and duodenal ulcers, biopsies pending, perhaps related to bisphosphonate use. - PPI 40mg BID x 6 weeks. - PPI 40 mg per day indefinitely. - Hold bisphosphonate for 8 weeks - May use baby aspirin, hold NSAIDS. - Repeat the upper endoscopy in 3 months for surveillance. No GI contraindication to discharge, GI to sign off. Please call with questions or concerns. I saw and evaluated the patient. She denies having any abdominal discomfort today. She was found to have a large gastric duodenal ulcer during yesterday's upper endoscopy. Recommendations Protonix 40 mg twice daily for 6 weeks then 1 time daily thereafter Repeat upper endoscopy in 3 months Please call with any questions or concerns
[2017-04-26 14:54] VITALS: BP 147/70; PULSE 75; TEMP 36.8; O2SAT 96
--- NOTE | 2017-04-26 15:20 | Pulmonology Progress Note ---
Pulmonary Progress Note Date of Service Apr 26, 2017. Attending Dr. Hawkins Subjective Patient seen and examined today. She states that she feels fine and is ready to be discharged. She denies any cough, chest pain or shortness of breath. I explained to her that results of thoracentesis are suggestive of malignancy, but she needed further work up for definitive diagnosis. She expressed full understanding. Objective VS reviewed. Gen: AAOx3, NAD, speaking in full sentences, no use of accessory muscles of respiration CVS: S1, S2, RRR Lungs: decrease breath sounds bilaterally, barrel chest Abd: soft/NT/ND/BS+ Ext: trace edema bilateral lower extremities, no clubbing, no cyanosis. Labs reviewed, medications reviewed, and imaging viewed by me. CXR 04/22/2017- IMPRESSION: 1. Improving peripheral right lung airspace opacities 2. Small right pleural effusion 3. No definite pneumothorax CTA 04/21/2017 1. Unchanging right midlung mass with linear soft tissue extension from the right hilum laterally to the pleural based component. 2. Interval development of a right to lesser extent small left effusion. 3. Pleural-based density posteriorly on the right hemithorax is obscured in part due to the presence of the effusion on the current study. 4. A neoplastic process remains the diagnosis of exclusion. 5. Unchanging postoperative changes to the low thoracic spine. TSH: 1.050 T4: 1.56 BNP: 20,924 (04/17/17) Troponin I: 1.110--3.140--2.610---1.690---0.287 Urine: Osm: 273-->285 Na: 102-->106 Pleural fluid: PH: 7.44 LDH: 67 TPro: 1.2 GLU: 134 Amylase: 8 Cholesterol: Pending Microbiology Pleural fluid: No growth to date Stool: C diff PCR negative CSF: No growth to date Urine: No growth to date Blood: No growth to date Pathology: CSF: No malignant cells noted Pleural fluid: atypical epithelial cells are suspicious for metastatic small cell carcinoma. Echocardiogram: 04/19/2017 LV: EF= 35-40% Assessment & Plan 71-year-old female admitted with altered mental status, hyponatremia, stress- induced cardiomyopathy and pulmonary nodules/pleural effusion: Pulmonary nodules/pleural effusion: COPD Pleural mass Hyponatremia Cardiomyopathy Altered mental status Patient is status post right sided thoracentesis. Upon review of CT images, patient has not just highly suggestive of lung cancer with underlying emphysematous changes. 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 Pathology of the fluid shows atypical epithelial cells are suspicious for metastatic small cell carcinoma. I spoke to pathologist, who said more tissue is needed for definitive diagnosis with EBUS/ENB. We will further discuss holding antiplatelet therapy at that time. Continue Symbicort and DuoNeb nebulizers. Please have her follow up with Dr. Caceres as an outpatient within the next 5 -10 days to schedule bronchoscopy. Data Medications: Current Inpatient Medications Medications (Trade) Dose Ordered Sig/Saul Route Start Time Stop Time Status Last Admin Dose Admin Nitroglycerin (Nitrostat Tab) 0.4 mg UD PRN SL 04/15/17 09:15 05/15/17 09:14 Glucose (Glucose 40% Gel) 15-30 GRAMS 15 GRAMS... UD PRN PO 04/15/17 09:30 05/15/17 09:29 Glucose (Glucose Chew Tab) 4-8 Tablets 4 Tabl... UD PRN PO 04/15/17 09:30 05/15/17 09:29 Dextrose (Dextrose 50% 50ML Syringe) 25-50ML OF 50% DW IV FOR... UD PRN IV 04/15/17 09:30 05/15/17 09:29 Glucagon (Glucagon Inj) 1 mg UD PRN SQ 04/15/17 09:30 05/15/17 09:29 Lorazepam (Ativan Inj) 2 mg ONE PRN IV 04/15/17 09:45 05/15/17 09:44 Budesonide/ Formoterol Fumarate (Symbicort 160/ 4.5 Inh) 2 puffs BID INH 04/15/17 21:00 05/15/17 20:59 04/26/17 08:31 2 PUFFS Simvastatin (Zocor Tab) 20 mg PM PO 04/16/17 21:00 05/16/17 20:59 04/25/17 20:07 20 MG Aspirin (Ecotrin Tab) 81 mg QAM PO 04/17/17 09:00 05/17/17 08:59 Future hold 04/26/17 08:28 81 MG Sertraline HCl (Zoloft Tab) 25 mg QAM PO 04/19/17 09:00 05/19/17 08:59 04/26/17 08:00 25 MG Metoprolol Succinate (Toprol Xl Tab) 100 mg BID PO 04/18/17 21:00 05/18/17 20:59 Future hold 04/26/17 08:29 100 MG Acetaminophen (Tylenol Tab) 500 mg Q6 PRN PO 04/24/17 00:00 05/24/17 00:00 Pantoprazole Sodium (Protonix Tab) 40 mg BID PO 04/25/17 20:00 05/25/17 19:59 04/26/17 08:28 40 MG Furosemide (Lasix Tab) 20 mg QAM PO 04/26/17 08:00 05/26/17 07:59 04/26/17 08:29 20 MG Vital Signs: Date Time Temp Pulse Resp B/P (MAP) Pulse Ox O2 Delivery O2 Flow Rate FiO2 04/26/17 14:54 36.8 75 18 147/70 (95) 96 Room Air 04/26/17 08:00 Room Air 04/26/17 07:25 37.0 89 18 144/71 (95) 96 Room Air 04/26/17 00:09 36.9 83 16 116/53 (74) 93 Room Air 04/26/17 00:01 Room Air 04/25/17 20:08 100 128/63 (84) 04/25/17 20:00 Room Air 04/25/17 16:30 98 Room Air Laboratory Results: Last 24 Hours Test 04/26/17 06:21 Sodium Level 133 mmol/L Potassium Level 4.6 mmol/L Chloride Level 97 mmol/L Carbon Dioxide Level 33 mmol/L Anion Gap 3.0 mmol/L Blood Urea Nitrogen 23 mg/dl Creatinine 0.69 mg/dl Est Creatinine Clear Calc Drug Dose 51.7 ml/min Estimated GFR () 102.2 Estimated GFR (Non- 88.2 BUN/Creatinine Ratio 33.9 Random Glucose 88 mg/dl Calcium Level 8.9 mg/dl
--- NOTE | 2017-04-26 15:52 | Progress Note ---
Internal Med Progress Note Date of Service: Apr 26, 2017. Provider Documentation: SUBJECTIVE: The patient was seen and examined Feels a lot better and wants to be discharged Denies any symptoms OBJECTIVE: Vital Signs-as noted below Exam: General-No distress at rest Eyes-normal ENT-normal Neck-supple Lungs-decreased breath sound at the bases Heart-Regular,no murmur appreciated Abdomen-Benign,no masses,bowel sound present Extremities-trace edema bilaterally Neuro-AAOx3 Lab data as noted below. ASSESSMENT & PLAN: 71 yo F presents with acute encephalopathy, Takotsubo's cardiomyopathy Acute Blood Loss Anemia Secondary to UGIB from non bleeding duodenal ulcers found on EGD . Received 2 units of PRBC and Hb is maintained Appreciate GI input Protonix BID x 6 weeks, then Omeprazole 40mg PO daily indefinitely per GI recs. Soft mechanical diet ordered to be advanced as tolerated. EGD in 3 months Acute hyponatremia- Likely secondary to SIADH and complicated by Poor PO intake, low EF and poss lung malignancy. Improved with Lasix and NS Will need 1500 mls of fluid restriction on discharge Appreciate nephrology input and follow up as an OP in 6 weeks Pulmonary nodules-high risk for malignancy in active smoker. Pulm consulted. Thoracentesis performed 04/22 Pathology of the fluid shows atypical epithelial cells are suspicious for metastatic small cell carcinoma Will need OP Follow up with Dr Caceres in 5-10 days with repeat Bronchoscopy AMS-resolved and family agrees that she is doing well. Original encephalopathy was thought 2/2 PRES syndrome with hypertension on initial presentation vs embolic stroke vs metabolic encephalopathy. Seizure was considered less likely and there have been no seizures since admission and not on AEDs. ASA and Plavix were on hold Sepsis-resolved thought possible pulmonary source, however, clinical symptoms weren't consistent with imaging findings. She has been doing well off abx for several days now. Takotsubo's cardiomyopathy-daughter brutally murdered two months ago. Still has panic attacks. Improved on medical management. EF improved to 35-40% on repeat TTE. Cont medical management. Continue with Lasix,BB,Statin and Aspirin Grief reaction-psych consulted, Zoloft started an she is doing well on this. Will need outpatient follow-up for titration in a few weeks. Hyperglycemia-initially with hyperglycemia but A1C 5.3. Will need close monitoring as outpatient. DVT PROPHYLAXIS: contraindicated in setting of active bleeding and fresh duodenal ulcers. FULL CODE DISPOSITION Discharged to [facility] Vital Signs: Date Time Temp Pulse Resp B/P (MAP) Pulse Ox O2 Delivery O2 Flow Rate FiO2 04/26/17 14:54 36.8 75 18 147/70 (95) 96 Room Air 04/26/17 08:00 Room Air 04/26/17 07:25 37.0 89 18 144/71 (95) 96 Room Air 04/26/17 00:09 36.9 83 16 116/53 (74) 93 Room Air 04/26/17 00:01 Room Air 04/25/17 20:08 100 128/63 (84) 04/25/17 20:00 Room Air 04/25/17 16:30 98 Room Air Lab Results: Results Past 24 Hours Test 04/26/17 06:21 Range/Units Sodium Level 133 136-145 mmol/L Potassium Level 4.6 3.5-5.1 mmol/L Chloride Level 97 98-107 mmol/L Carbon Dioxide Level 33 21-32 mmol/L Anion Gap 3.0 3-11 mmol/L Blood Urea Nitrogen 23 7-18 mg/dl Creatinine 0.69 0.60-1.20 mg/dl Est Creatinine Clear Calc Drug Dose 51.7 ml/min Estimated GFR () 102.2 Estimated GFR (Non- 88.2 BUN/Creatinine Ratio 33.9 10-20 Random Glucose 88 70-99 mg/dl Calcium Level 8.9 8.5-10.1 mg/dl
[2017-04-26] MEDS ORDERED: ZLF50 PO (16:05)
[2017-04-26] MEDS ORDERED: PRT40 PO (16:05)
[2017-04-26] MEDS ORDERED: NTRSLP4 SL (16:05)
[2017-04-26] MEDS ORDERED: LORA-741 PO (16:05)
[2017-04-26] MEDS ORDERED: LSX20 PO (16:05)
--- NOTE | 2017-04-26 16:12 | Discharge Instructions ---
Discharge Instructions Date of Service Apr 26, 2017. Admission Reason for Admission: Altered Mental Status/Neuro Symptoms Discharge Discharge Diagnosis / Problem: Acute UGI bleed,Altered Mental status-improved, Hyponatremia,Lung nodule Discharge Goals Goal(s): Prevent Disease Progression Activity Recommendations Activity Level: Assistance Required Therapies: Physical Therapy, Occupational Therapy . Additional Information Patient informed of condition: Yes Advance Directives: No DNR: No Level of Care: Skilled Communicable Disease: No Prognosis: Stable Oxygen at (LPM): 2 lites/min as directed [place] Catheter: No Instructions / Follow-Up Instructions / Follow-Up Will need Follow up with PCP in 1 week,Dr Caceres(Pulmonary ) in 5-10 days, Dr Villanueva (Nephrology) in 4-6 weeks,Cardiology in 3-4 weeks,Psychiatry in 6-8 weeks and GI for EGD in 3 months Current Hospital Diet Patient's current hospital diet: AHA Diet (Heart Healthy) Discharge Diet Recommended Diet: AHA Diet (Heart Healthy), Low Sodium Diet (2gm Na) Fluid Restriction: 1500 ml (6 cups) Procedures Procedures Performed: EGD with Bx Pending Studies Studies pending at discharge: no Laboratory Results Hemoglobin A1c Test 04/15/17 12:03 Range/Units Estimated Average Glucose 105 mg/dl Hemoglobin A1c 5.3 4.5-5.6 % Medical Emergencies . Who to Call and When: Medical Emergencies: If at any time you feel your situation is an emergency, please call 911 immediately. . Non-Emergent Contact Non-Emergency issues call your: Primary Care Provider . Past History Medical & Surgical History: (1) Lung nodule (2) Hyponatremia (3) UGI bleed (4) Altered mental status (5) Hypertension (6) Grieving (7) Osteoporosis . "Provider Documentation" section prepared by Suzie Greenberg. . Core Measure Problem Core Measures: None
[2017-04-26 16:56] VITALS: BP 147/70; PULSE 75; TEMP 36.8; O2SAT 96
--- NOTE | 2017-04-27 08:47 | Discharge Summary ---
Discharge Summary Date of Service Apr 27, 2017. Discharge Summary Admission Date: Apr 15, 2017 at 09:10 Discharge Date: Apr 26, 2017 Discharge Disposition: half-way facility Principal Diagnosis: Acute UGI bleed,Altered Mental status-improved,Hyponatremia,Lung nodule Secondary Diagnoses/Problems: Please see H&P and Hospital Progress note Consultations: Cardio, Psych, ID, Neuro, Nephrology, Pulmonary Medication Reconciliation New Medications: Furosemide (Furosemide) 20 Mg Tab 20 MG PO QAM for 30 Days, #30 TAB Nitroglycerin (Nitrostat) 0.4 Mg/1 Tab Subl 0.4 MG SL UD PRN for Chest Pain for 30 Days, #25 Pantoprazole (Pantoprazole Sodium) 40 Mg Tab 40 MG PO BID for 30 Days, #60 TAB BID for 6 weeks and then QD to continue Sertraline HCl (Sertraline HCl) 50 Mg Tab 25 MG PO QAM for 30 Days, #30 TAB Continued Medications: Alendronate Sodium (Fosamax) 70 Mg Tab 1 TAB PO WK for 28 Days, #4 TAB 11 Refills Amlodipine Besylate (Amlodipine Besylate) 5 Mg Tab 5 MG PO DAILY for 30 Days, #30 TAB 2 Refills Aspirin (Aspirin EC Low Dose) 81 Mg Ectab 81 MG PO QAM for 30 Days, #30 TABS 2 Refills with food Budesonide/Formoterol Fumarate (Symbicort 160-4.5 Mcg/Act) 60 Puffs/Inhaler Aero 2 PUFFS INH BID for 30 Days, #1 INHALER 2 Refills Home O2 Therapy (Oxygen) Gas 2 LITERS NA PRN Lisinopril (Lisinopril) 40 Mg Tab 1 TAB PO DAILY Loratadine (Claritin) 10 Mg Tab 10 MG PO DAILY, TAB Lorazepam (Ativan) 0.5 Mg Tab 0.5 MG PO Q6H PRN for anxiety for 10 Days, #20 (This prescription has been renewed) Metoprolol Tartrate (Lopressor) (Lopressor) 100 Mg Tab 100 MG PO BID, TAB Simvastatin (Simvastatin) 20 Mg Tab 20 MG PO PM for 30 Days, #30 TAB 2 Refills Admission Information HPI (per Admitting provider): 71 year old female with PMH of tobacco use disorder, HTN, HLD, osteoporosis, depression presents to the Emergency Room via ALS with a change in mental status that began around 1000 yesterday. Patient's youngest daughter was recently murdered back in January by the daughter . She was hospitalized at [facility] back in January for AMS, weight loss and poor appetite due to the grief for her daughter. History obtained from the and her daughter. As per them since after her daughter pt has been declined. she is very depressed, not eating, does not take her meds properly. said that about 10pm last night, pt became very confused and became unresponsive. said her pupils was dilated and she was drooling on his shirt. said that he was on the floor with her for about 45 minutes before EMS came. said that she urinated on herself. did not noticed any jerking movement. said that since after the episode last night she has been confused. said back in January she had the similar problem but after 1 hr she was back to her baseline. As per ER notes she came in the ER last week for change in mental status. Daughter said that in the last few weeks her mother has been experienced some confusion where in one occasion she tried to use the TV remote control to make a phone. Daughter said that yesterday, pt grand daughter said that pt said that she would kill herself. said that she does not know if pt is taking her medications, because pt goes to the bathroom and lock the bathroom door when taking her meds. Currently she is in the ER, and we cannot understand anything that she is saying and does not follow simple command. Past Medical/Surgical History Medical Problems: (1) HLD (hyperlipidemia) Status: Chronic (2) Hypertension Status: Chronic (3) Osteoporosis Status: Chronic Social History Smoking Status: Current Every Day Smoker Drug Use: none Marital Status: Occupational Status: retired Immunizations History of Influenza Vaccine: Yes Influenza Vaccine Date: May 24, 2011 History of Tetanus Vaccine?: Unknown History of Pneumococcal: Yes Pneumococcal Date: May 05, 2010 History of Hepatitis B Vaccine: Unknown Allergies Coded Allergies: No Known Allergies (Verified , `, 04/15/17) Home Medications Scheduled Alendronate Sodium (Fosamax), 1 TAB PO WK Amlodipine Besylate (Amlodipine Besylate), 5 MG PO DAILY Aspirin (Aspirin EC Low Dose), 81 MG PO QAM Budesonide/Formoterol Fumarate (Symbicort 160-4.5 Mcg/Act), 2 PUFFS INH BID Home O2 Therapy (Oxygen), 2 LITERS NA PRN Lisinopril (Lisinopril), 1 TAB PO DAILY Loratadine (Claritin), 10 MG PO DAILY Metoprolol Tartrate (Lopressor) (Lopressor), 100 MG PO BID Simvastatin (Simvastatin), 20 MG PO PM Scheduled PRN Lorazepam (Ativan), 0.5 MG PO Q6H PRN for anxiety Review of Systems unable to obtain complete review of system due to confusion Physical Exam Vital Signs Date Time Temp Pulse Resp B/P (MAP) Pulse Ox O2 Delivery O2 Flow Rate FiO2 04/15/17 08:23 Nasal Cannula 2.5 04/15/17 08:21 174/92 04/15/17 08:07 143 30 95 Nasal Cannula 2.5 04/15/17 07:43 96 Room Air 04/15/17 07:37 136 32 93 04/15/17 07:32 174/85 04/15/17 07:25 138 23 96 04/15/17 07:03 132 24 96 04/15/17 07:02 163/93 04/15/17 06:33 128 24 179/90 98 Room Air 04/15/17 06:13 134 04/15/17 06:04 36.4 134 24 198/97 94 Room Air General Appearance: + severe distress Head: normocephalic, atraumatic Eyes: PERRL ENT: normal ENT inspection Neck: no JVD Respiratory/Chest: normal breath sounds Cardiovascular: no JVD, + tachycardia Abdomen/GI: normal bowel sounds Back: normal inspection Extremities/Musculoskelatal: no pedal edema Neurologic/Psych: + pertinent finding (confusion, move all extremities) Skin: warm/dry, no rash Diagnostics Laboratory Results Results Past 24 Hours Test 04/15/17 00:00 04/15/17 06:15 04/15/17 06:23 04/15/17 06:29 Range/Units Urine Color COLORLESS Urine Appearance CLEAR CLEAR Urine pH 7.0 4.5-7.5 Urine Specific [place] 1.010 1.000-1.030 Urine Protein TRACE NEG Urine Glucose (UA) 1+ NEG Urine Ketones 1+ NEG Urine Occult Blood NEG NEG Urine Nitrite NEG NEG Urine Bilirubin NEG NEG Urine Urobilinogen NEG NEG Urine Leukocyte Esterase NEG NEG Urine RBC 0-4 0-4 /hpf Urine WBC 1-5 0-5 /hpf Urine Epithelial Cells 0-5 0-5 /lpf Urine Renal Cells 0-5 FEW /lpf Urine Amorphous Sediment PRESENT NONE PRSENT Urine Bacteria 1+ NEG Bedside Lactic Acid Venous 9.30 9.40 0.90-1.70 mmol/L White Blood Count 18.54 4.8-10.8 K/uL Red Blood Count 4.68 4.2-5.4 M/uL Hemoglobin 15.1 12.0-16.0 g/dL Hematocrit 42.8 37-47 % Mean Corpuscular Volume 91.5 80-100 fL Mean Corpuscular Hemoglobin 32.3 25-34 pg Mean Corpuscular Hemoglobin Concent 35.3 32-36 g/dl Platelet Count 410 130-400 K/uL Mean Platelet Volume 9.6 7.4-10.4 fL Neutrophils (%) (Auto) 85.2 % Lymphocytes (%) (Auto) 9.2 % Monocytes (%) (Auto) 5.1 % Eosinophils (%) (Auto) 0.1 % Basophils (%) (Auto) 0.1 % Neutrophils # (Auto) 15.79 1.4-6.5 K/uL Lymphocytes # (Auto) 1.70 1.2-3.4 K/uL Monocytes # (Auto) 0.95 0.11-0.59 K/uL Eosinophils # (Auto) 0.02 0-0.5 K/uL Basophils # (Auto) 0.02 0-0.2 K/uL RDW Standard Deviation 42.9 36.4-46.3 fL RDW Coefficient of Variation 12.9 11.5-14.5 % Immature Granulocyte % (Auto) 0.3 % Immature Granulocyte # (Auto) 0.06 0.00-0.02 K/uL Hypersegmented Polys 1+ Toxic Vacuolation 1+ Echinocytes 1+ Prothrombin Time 11.4 9.0-12.0 SECONDS Prothromb Time International Ratio 1.1 0.9-1.1 Activated Partial Thromboplast Time 23.1 21.0-31.0 SECONDS Partial Thromboplastin Ratio 0.9 Sodium Level 124 136-145 mmol/L Potassium Level 3.2 3.5-5.1 mmol/L Chloride Level 83 98-107 mmol/L Carbon Dioxide Level 24 21-32 mmol/L Anion Gap 17.0 3-11 mmol/L Blood Urea Nitrogen 15 7-18 mg/dl Creatinine 1.30 0.60-1.20 mg/dl Est Creatinine Clear Calc Drug Dose 27.5 ml/min Estimated GFR () 48.1 Estimated GFR (Non- 41.5 BUN/Creatinine Ratio 11.5 10-20 Random Glucose 290 70-99 mg/dl Calcium Level 9.6 8.5-10.1 mg/dl Total Bilirubin 0.8 0.2-1 mg/dl Direct Bilirubin 0.2 0-0.2 mg/dl Aspartate Amino Transf (AST/SGOT) 16 15-37 U/L Alanine Aminotransferase (ALT/SGPT) 13 12-78 U/L Alkaline Phosphatase 89 45-117 U/L Total Creatine Kinase 64 26-192 U/L Creatine Kinase MB 3.7 0.5-3.6 ng/ml Creatine Kinase MB Ratio 5.8 0-3.0 Troponin I 0.287 0-0.045 ng/ml Total Protein 7.3 6.4-8.2 gm/dl Albumin 3.7 3.4-5.0 gm/dl Thyroid Stimulating Hormone (TSH) 1.050 0.300-4.500 uIu/ml Free Thyroxine 1.56 0.80-1.60 ng/dl Salicylates Level 6.6 2.8-20 mg/dl Acetaminophen Level < 2 10-30 ug/ml Test 04/15/17 06:39 04/15/17 06:46 04/15/17 08:05 04/15/17 08:35 Range/Units Bedside Glucose 276 305 70-90 mg/dl Arterial Blood pH 7.38 7.35-7.45 Arterial Blood Partial Pressure CO2 34 35-46 mmHg Arterial Blood Partial Pressure O2 80 80-95 mm/Hg Arterial Blood HCO3 19 19-24 mmol/L Arterial Blood Oxygen Saturation 94.8 90-95 % Arterial Blood Base Excess -5.0 -9-1.8 mEq/L Arterial Blood Gas Delivery RA Ken Test POS POS Test 04/15/17 08:51 04/15/17 09:08 04/15/17 09:21 04/15/17 09:36 Range/Units Bedside Glucose 272 230 227 191 70-90 mg/dl Microbiology Results 04/15/17 Blood Culture, Received Pending 04/15/17 Blood Culture, Received Pending 04/15/17 Urine Culture, Received Pending 04/15/17 Urine Culture, Received Pending Diagnostic Radiology HEAD WITHOUT CONTRAST (CT) CLINICAL HISTORY: 71 years-old Female presenting with AMS. TECHNIQUE: Multidetector CT imaging of the head was performed without the use of intravenous contrast. IV contrast: None. A dose lowering technique was used consistent with the principles of ALARA (as low as reasonably achievable). COMPARISON: 01/19/2017. CT DOSE (mGy.cm): The estimated cumulative dose is 537.48 mGy.cm. FINDINGS: Kitchen Designer topogram: Unremarkable. Ventricles and sulci normal in size. Periventricular and subcortical white matter hypoattenuation, nonspecific but likely indicative of chronic small vessel ischemic change. Old lacunar infarct in the left caudate head again noted. No mass effect or midline shift. No hemorrhage or acute territorial infarct. No extra-axial fluid collection. Paranasal sinuses and mastoid air cells clear. Calvarium intact. Sclerotic lesion in the frontal calvarium is unchanged. IMPRESSION: 1. No acute intracranial pathology. 2. Sclerotic frontal calvarial lesion unchanged from prior, possibly bone island in the absence of known malignancy. Electronically signed by: Andrews Pardo M.D. 04/15/2017 7:01 AM Dictated Date/Time: 04/15/2017 6:58 AM ] CHEST ONE VIEW PORTABLE CLINICAL HISTORY: Acute change in mental status COMPARISON STUDY: 01/20/2017 FINDINGS: The cardiac and mediastinal contours remain stable. There are progressive peripheral right midlung zone opacities. There is mild right lung interstitial thickening. Underlying emphysema is suspected. There are no significant pleural effusions. Postsurgical changes are present within the spine.[ IMPRESSION: Progressive peripheral right midlung zone opacities. Mild right lung interstitial thickening. Electronically signed by: Missael Finch M.D. 04/15/2017 6:35 AM Dictated Date/Time: 04/15/2017 6:33 AM Impression Assessment and Plan Sepsis Meet sepsis criteria Present on admission with tachycardia, elevated WBC, Elevated lactate, tachypneic and altered mental status WBC on admission 18.5, POC Lactate 9.4 Received Levaquin, Zosyn and vanco in the ER Blood cx and urine cx collected in the ER Continue Vanco and Zosyn IV Continue IVF Follow lactic acid level Monitor CBC Altered Mental Status Possible related to post ictal due to Seizure vs sepsis Need to R/O CVA CT head showed No acute intracranial pathology Will get a start MRI Check EEG consult neurology Neuro check Fall and seizure precaution Elevated troponin possible related to sepsis Need to r/o ACS 1st troponin mildly elevated Repeat EKG in am will follow up 2 more set Cannot get any history of CP Will get a resting ECHO Will monitor to telemetry Elevated AG Possible related to dehydration Continue IVF monitor BMP Hyponatremia Secondary to dehydration and poor oral intake Continue IVF monitor BMP q6hr Pneumonia CXR showed Progressive peripheral right midlung zone opacities Elevated wbc and lactic acid Received IV Zosyn, Vanco and Levaquin in the ER Continue IV Zosyn and Vanco Depression Never follow with psych after discharging from the hospital back in January Suicidal thought as pper daughter Will consult psych 1 to 1 observation AGUSTIN Mostly related to dehydration Creatine 1.3 on admission Continue IVF Avoid nephrotoxic agents Monitor BMP Hypokalemia K replaced Continue monitor BMP Hyperglycemia Mostly related to sepsis Received 10 unit regular insulin Check Hba1c Started on Insulin coverage Monitor BS DVT px on heparin drip CODE STATUS FULL CODE Level of Care Telemetry Advanced Directives Existing Living Will: No Existing Power of Macroeconomics Professor: No Resuscitation Status FULL RESUSCITATION VTE Prophylaxis VTE Risk Assessment Done? Y/N: Yes Risk Level: Moderate Given or contraindicated: Unfractionated heparin SQ <Electronically signed by Belkis Jimenez M.D.> Physical Exam (per Admitting): General Appearance: + severe distress Head: normocephalic, atraumatic Eyes: PERRL ENT: normal ENT inspection Neck: no JVD Respiratory/Chest: normal breath sounds Cardiovascular: no JVD, + tachycardia Abdomen/GI: normal bowel sounds Back: normal inspection Extremities/Musculoskelatal: no pedal edema Neurologic/Psych: + pertinent finding (confusion, move all extremities) Skin: warm/dry, no rash Hospital Course 71 yo F presents with acute encephalopathy, Takotsubo's cardiomyopathy Acute Blood Loss Anemia Secondary to UGIB from non bleeding duodenal ulcers found on EGD . Received 2 units of PRBC and Hb is maintained Appreciate GI input Protonix BID x 6 weeks, then Omeprazole 40mg PO daily indefinitely per GI recs. Soft mechanical diet ordered to be advanced as tolerated. EGD in 3 months Acute hyponatremia- Likely secondary to SIADH and complicated by Poor PO intake, low EF and poss lung malignancy. Improved with Lasix and NS Will need 1500 mls of fluid restriction on discharge Appreciate nephrology input and follow up as an OP in 6 weeks Pulmonary nodules-high risk for malignancy in active smoker. Pulm consulted. Thoracentesis performed 04/22 Pathology of the fluid shows atypical epithelial cells are suspicious for metastatic small cell carcinoma Will need OP Follow up with Dr Caceres in 5-10 days with repeat Bronchoscopy AMS-resolved and family agrees that she is doing well. Original encephalopathy was thought 2/2 PRES syndrome with hypertension on initial presentation vs embolic stroke vs metabolic encephalopathy. Seizure was considered less likely and there have been no seizures since admission and not on AEDs. ASA and Plavix were on hold Sepsis-resolved thought possible pulmonary source, however, clinical symptoms weren't consistent with imaging findings. She has been doing well off abx for several days now. Takotsubo's cardiomyopathy-daughter brutally murdered two months ago. Still has panic attacks. Improved on medical management. EF improved to 35-40% on repeat TTE. Cont medical management. Continue with Lasix,BB,Statin and Aspirin Grief reaction-psych consulted, Zoloft started an she is doing well on this. Will need outpatient follow-up for titration in a few weeks. Hyperglycemia-initially with hyperglycemia but A1C 5.3. Will need close monitoring as outpatient. DVT PROPHYLAXIS: contraindicated in setting of active bleeding and fresh duodenal ulcers. FULL CODE DISPOSITION Discharged to [facility] Total time spent on discharge = 35 minutes This includes examination of the patient, discharge planning, medication reconciliation, and communication with other providers. Discharge Instructions Date of Service Apr 26, 2017. Admission Reason for Admission: Altered Mental Status/Neuro Symptoms Discharge Discharge Diagnosis / Problem: Acute UGI bleed,Altered Mental status-improved, Hyponatremia,Lung nodule Discharge Goals Goal(s): Prevent Disease Progression Activity Recommendations Activity Level: Assistance Required Therapies: Physical Therapy, Occupational Therapy . Additional Information Patient informed of condition: Yes Advance Directives: No DNR: No Level of Care: Skilled Communicable Disease: No Prognosis: Stable Oxygen at (LPM): 2 lites/min as directed Hawkins Catheter: No Instructions / Follow-Up Instructions / Follow-Up Will need Follow up with PCP in 1 week,Dr Caceres(Pulmonary ) in 5-10 days, Dr Villanueva (Nephrology) in 4-6 weeks,Cardiology in 3-4 weeks,Psychiatry in 6-8 weeks and GI for EGD in 3 months Current Hospital Diet Patient's current hospital diet: AHA Diet (Heart Healthy) Discharge Diet Recommended Diet: AHA Diet (Heart Healthy), Low Sodium Diet (2gm Na) Fluid Restriction: 1500 ml (6 cups) Procedures Procedures Performed: EGD with Bx Pending Studies Studies pending at discharge: no Laboratory Results Hemoglobin A1c Test 04/15/17 12:03 Range/Units Estimated Average Glucose 105 mg/dl Hemoglobin A1c 5.3 4.5-5.6 % Medical Emergencies . Who to Call and When: Medical Emergencies: If at any time you feel your situation is an emergency, please call 911 immediately. . Non-Emergent Contact Non-Emergency issues call your: Primary Care Provider . Past History Medical & Surgical History: (1) Lung nodule (2) Hyponatremia (3) UGI bleed (4) Altered mental status (5) Hypertension (6) Grieving (7) Osteoporosis . "Provider Documentation" section prepared by Suzie Greenberg. . Core Measure Problem Core Measures: None <Electronically signed by Suzie Greenberg M.D.> Additional Copies To Laura Pate M.D.
[2017-05-16] MEDS ORDERED: LORA-741 PO (13:06)
[2017-05-16] MEDS ORDERED: ASPI81TA28 PO (13:06)
[2017-05-16] MEDS ORDERED: TRAM-10 PO (13:06)
[2017-05-16] MEDS ORDERED: AMLO-110 PO (13:06)
[2017-05-16] MEDS ORDERED: SERT25TA PO (13:06)
[2017-05-16] MEDS ORDERED: SYMIN160 INH (13:06)
[2017-05-16] MEDS ORDERED: SIMV20TA2 PO (13:06)
[2017-05-16] MEDS ORDERED: FURO-85 PO (13:06)
[2017-05-16] MEDS ORDERED: PANT40TA PO (13:06)
[2017-05-16] MEDS ORDERED: NTRGSL/4 UT (13:06)
== END 2017-04-26 19:00 | DRG 871 ==
LOC: EDBD 05:58 → C.EDB 05:59 → C.MSICU 09:10 → ENRESERV 10:11 → C.2E 04-16 02:53 → ENRESERV 04-21 19:18 → C.4E 04-21 19:49
PROVIDERS: ADMIT Internal Medicine; ATTEND Hospitalist
PROC: 009U3ZX Drainage of Spinal Canal, Percutaneous Approach, Diagnostic (ICD-10-PCS; 2017-04-15)
PROC: 0W993ZX Drainage of Right Pleural Cavity, Percutaneous Approach, Diagnostic (ICD-10-PCS; 2017-04-22)
PROC: 0DB68ZX Excision of Stomach, Via Natural or Artificial Opening Endoscopic, Diagnostic (ICD-10-PCS; principal; 2017-04-25 09:48)
DX: A41.9 Sepsis, unspecified organism (principal); J18.9 Pneumonia, unspecified organism; E22.2 Syndrome of inappropriate secretion of antidiuretic hormone; C34.91 Malignant neoplasm of unspecified part of right bronchus or lung; N17.9 Acute kidney failure, unspecified; K26.4 Chronic or unspecified duodenal ulcer with hemorrhage; I51.81 Takotsubo syndrome; G93.6 Cerebral edema; G93.40 Encephalopathy, unspecified; E78.5 Hyperlipidemia, unspecified; M81.0 Age-related osteoporosis without current pathological fracture; F17.200 Nicotine dependence, unspecified, uncomplicated; K29.50 Unspecified chronic gastritis without bleeding; F32.9 Major depressive disorder, single episode, unspecified; E86.0 Dehydration; R65.20 Severe sepsis without septic shock; E87.6 Hypokalemia; F43.20 Adjustment disorder, unspecified; J43.9 Emphysema, unspecified; R73.9 Hyperglycemia, unspecified; E83.42 Hypomagnesemia

== ENCOUNTER 2017-05-09 07:33 | Day surgery (SDC) | payer OTHER ==
[~2017-05-09] VITALS: Ht 151.1 cm; Wt 50.4 kg
[~2017-05-09 07:33] MED LIST changes: +ALEN70TA2 PO; -AMOX1TAB43 PO; -Boost PO; +LSN40 PO; +LSX20 PO; +NTRSLP4 SL; +OXGN; +PRT40 PO; +ZLF50 PO
--- NOTE | 2017-05-09 07:47 | History and Physical ---
History & Physical Date May 09, 2017. Chief Complaint Possible SCLCa requires more tissue History of Present Illness The patient is a 71 year old female with cells suggestive of SCLCa based of a thoracentesis requires more tissue: 71-year-old female with newly diagnosed small cell lung carcinoma based off pleural fluid which has minimal cellularity requiring increased histologic analysis. Patient presents today for EBUS/ENB analysis. Active Problems 1. Allergic rhinitis due to pollen 2. Carotid artery stenosis 3. Dyslipidemia 4. Dyspnea 5. Hypertension 6. Hypoxia 7. Prediabetes 8. Senile osteoporosis 9. Weight loss Social History History of tobacco use Current Meds Megestrol Acetate 20 MG Oral Tablet; TAKE 1 TABLET DAILY; AmLODIPine Besylate 5 MG Oral Tablet; take 1 tablet by mouth once daily; Aspir-81 81 MG Oral Tablet Delayed Release; TAKE 1 TABLET DAILY; Lisinopril 40 MG Oral Tablet; Take 1 tablet daily; Lopressor 100 MG Oral Tablet; TAKE 1 TABLET TWICE DAILY; LORazepam 0.5 MG Oral Tablet; Metoprolol Tartrate 100 MG Oral Tablet; Norvasc 5 MG Oral Tablet; TAKE 1 TABLET DAILY DIRECTED; Oxygen; 2LPM Simvastatin 20 MG Oral Tablet; Symbicort 160-4.5 MCG/ACT Inhalation Aerosol; TraMADol HCl - 50 MG Oral Tablet; TAKE 1 OR 2 TABLETS EVERY 8 HOURS Zocor 20 MG Oral Tablet; TAKE 1 TABLET DAILY; Allergies 1. Dyazide CAPS 2. LORazepam TABS Past Medical/Surgical History Medical Problems: (1) Altered mental status (2) Grieving (3) HLD (hyperlipidemia) (4) Hypertension (5) Hyponatremia (6) Lung nodule (7) Osteoporosis (8) Pneumonia (9) UGI bleed Additional History Hepatic Disease: No Endocrine Disorder: Yes (Dyslipidemia ) Kidney Disease: No Hypertension: No Heart Disease: No Bleeding Tendencies: No Infectious Diseases: No Allergies Coded Allergies: Lisinopril (Verified Adverse Reaction, Mild, cough, 04/21/17) Home Medications Scheduled Alendronate Sodium (Fosamax), 1 TAB PO WK Amlodipine Besylate (Amlodipine Besylate), 5 MG PO DAILY Aspirin (Aspirin EC Low Dose), 81 MG PO QAM Budesonide/Formoterol Fumarate (Symbicort 160-4.5 Mcg/Act), 2 PUFFS INH BID Furosemide (Furosemide), 20 MG PO QAM Home O2 Therapy (Oxygen), 2 LITERS NA PRN Lisinopril (Lisinopril), 1 TAB PO DAILY Loratadine (Claritin), 10 MG PO DAILY Metoprolol Tartrate (Lopressor) (Lopressor), 100 MG PO BID Pantoprazole (Pantoprazole Sodium), 40 MG PO BID Sertraline HCl (Sertraline HCl), 25 MG PO QAM Simvastatin (Simvastatin), 20 MG PO PM Scheduled PRN Lorazepam (Ativan), 0.5 MG PO Q6H PRN for anxiety Nitroglycerin (Nitrostat), 0.4 MG SL UD PRN for Chest Pain Physical Examination Skin: warm/dry, no rash Eyes: normal inspection, EOMI, sclerae normal ENT: normal ENT inspection, pharynx normal Head: normocephalic, atraumatic Neck: supple, no adenopathy, trachea midline Respiratory/Chest: lungs clear, normal breath sounds, no respiratory distress Cardiovascular: regular rate, rhythm, no edema, no murmur Abdomen / GI: normal bowel sounds, non tender Back: normal inspection Extremities: normal inspection, normal range of motion Neurologic/Psych: no motor/sensory deficits, alert, normal reflexes, oriented x 3 Diagnosis Possible SCLCa ASA Classification: ASA Class IV Plan of Treatment Patient to under go EBUS/ENB for evaluation/histology for definitive diagnosis of lung ca based of pleural fluid suggesting SCLCa
[2017-05-09] MEDS ORDERED: EpHEDrine SULFATE INJ 50 MG/ML AMP IV PRN (08:15)
[2017-05-09] MEDS ORDERED: ATROPINE SULFATE 0.1 MG/ML 5ML SYR IV PRN (08:15)
[2017-05-09] MEDS ORDERED: ONDANSETRON INJ 2 MG/ML 2 ML VIAL IV PRN (08:15)
[2017-05-09] MEDS ORDERED: FENTANYL CITRATE INJ 50 MCG/1 ML 2 ML VIAL IV PRN (08:15)
[2017-05-09] MEDS ORDERED: FLUT1INH (08:29)
[2017-05-09 08:30] VITALS: BP 160/48; PULSE 59; TEMP 36.8; O2SAT 95; Ht 151.1 cm; Wt 50.4 kg
[2017-05-09] MEDS ORDERED: ROCURONIUM BROMIDE 10 MG/ML 5 ML VIAL IV ONE (08:37)
[2017-05-09] MEDS ORDERED: PROPOFOL IV EMULSION 10 MG/ML 20 ML VIAL IV ONE (08:37)
[2017-05-09] MEDS ORDERED: DEXAMETHASONE SOD INJ 4 MG/ML VIAL ONE (08:37)
[2017-05-09] MEDS ORDERED: FENTANYL CITRATE INJ 50 MCG/1 ML 2 ML VIAL ONE (08:37)
[2017-05-09] MEDS ORDERED: LIDOCAINE HCL 2% 2 ML VIAL (20MG/ML) ONE (08:37)
[2017-05-09] MEDS ORDERED: ONDANSETRON INJ 2 MG/ML 2 ML VIAL ONE (08:37)
--- NOTE | 2017-05-09 09:39 | History & Physical Bridge Note ---
H&P Re-Evaluation Bridge Note: I have examined the patient, reviewed the History & Physical and in the interval since the performance of the History & Physical I have noted the following changes of clinical significance: No changes noted
[2017-05-09] MEDS ORDERED: NEOSTIGMINE METHYLSULFATE 5 MG/5 ML SYR ONE (10:43)
[2017-05-09] MEDS ORDERED: GLYCOPYRROLATE INJ 0.2 MG/ML VIAL ONE (10:43)
--- NOTE | 2017-05-09 10:47 | Bronchoscopy Procedure Note ---
Bronchoscopy Procedure Note Procedure: Flexible-Bronchoscopy, EBUS, Tbbx, GETA Consent: Obtained through the patient placed into the chart Pre-Procedural Dx: Small cell lung carcinoma Post-Procedural Dx: Small cell lung carcinoma Analgesia: GETA Sedation: GETA Procedure: The Olympus video bronchoscope and EBUS scope were used for this procedure Initially the flexible bronchoscope was used for evaluation of the airways. The ET tube was notably cm above the level of the kevin. Trachea: Visualized portion of the trachea was anatomically within normal limits Kevin: Anatomically within normal limits Right bronchial tree: Right mainstem bronchus: Anatomically within normal limits Right upper lobe: Anatomically within normal limits Bronchus intermedius: Anatomically within normal limits Right middle lobe: 5 mm into the subsegment there was a notable bowl intrabronchial lesion on the inferior lateral aspect Right lower lobe: 5 mm into the subsegment and there was a notable intrabronchial lesion on the medial inferior aspect to the takeoff of the basal pyramids Findings: No significant findings noted Left bronchial tree: Left mainstem bronchus: Anatomically within normal limits Left upper lobe: Anatomically within normal limits Lingula: Anatomically within normal limits Left lower lobe: Anatomically within normal limits Findings: No significant findings noted EBUS/ANNEL: Right lower lobe intra-bronchial lesion EBL: None Complications: None Follow-up: [facility]
--- NOTE | 2017-05-09 10:50 | Discharge Instructions ---
Discharge Instructions Date of Service May 09, 2017. Admission Reason for Admission: Lung Nodule Discharge Discharge Diagnosis / Problem: possible small cell lung carcinoma final pathological report pending. Discharge Goals Goal(s): Diagnostic testing Activity Recommendations Activity Limitations: resume your previous activity . Instructions / Follow-Up Instructions / Follow-Up Follow-up in the [facility] pulmonary clinic Current Hospital Diet Patient's current hospital diet: Discharge Diet Recommended Diet: Regular Diet Procedures Procedures Performed: Flexible Bronchoscopy, Endobronchial Ultrasound, Transbronchial Fine Needle Aspiration Pending Studies Studies pending at discharge: no Laboratory Results Hemoglobin A1c Test 04/15/17 12:03 Range/Units Estimated Average Glucose 105 mg/dl Hemoglobin A1c 5.3 4.5-5.6 % Medical Emergencies . Who to Call and When: Medical Emergencies: If at any time you feel your situation is an emergency, please call 911 immediately. . Non-Emergent Contact Non-Emergency issues call your: Appointment Specialist . . "Provider Documentation" section prepared by Anselmo Caceres. . VTE Core Measure Inpt VTE Proph given/why not?: Treatment not indicated
--- NOTE | 2017-05-09 10:59 | Anesthesiology Progress Note ---
Anesthesia Post Op Note Date & Time May 09, 2017 at 10:59 Vital Signs Pain Intensity: 0 Vital Signs Past 12 Hours Date Time Temp Pulse Resp B/P (MAP) Pulse Ox O2 Delivery O2 Flow Rate FiO2 05/09/17 08:30 36.8 59 18 160/48 (85) 95 Room Air Notes Mental Status: alert / awake / arousable, participated in evaluation Pt Amnestic to Procedure: Yes Nausea / Vomiting: adequately controlled Pain: adequately controlled Airway Patency, RR, SpO2: stable & adequate BP & HR: stable & adequate Hydration State: stable & adequate Anesthetic Complications: no major complications apparent
[2017-05-09] MEDS ORDERED: METOPROLOL TARTRATE 1 MG/ML VIAL ONE (11:03)
[2017-05-09 11:40] VITALS: BP 143/54; PULSE 69; TEMP 37.1; O2SAT 94
[2017-05-09 12:10] VITALS: BP 148/57; PULSE 69; TEMP 36.7; O2SAT 94
[2017-05-16] MEDS ORDERED: SIMV20TA2 PO (13:06)
[2017-05-16] MEDS ORDERED: ASPI81TA28 PO (13:06)
[2017-05-16] MEDS ORDERED: AMLO-110 PO (13:06)
[2017-05-16] MEDS ORDERED: NTRGSL/4 UT (13:06)
[2017-05-16] MEDS ORDERED: LORA-741 PO (13:06)
[2017-05-16] MEDS ORDERED: PANT40TA PO (13:06)
[2017-05-16] MEDS ORDERED: SERT25TA PO (13:06)
[2017-05-16] MEDS ORDERED: TRAM-10 PO (13:06)
[2017-05-16] MEDS ORDERED: SYMIN160 INH (13:06)
[2017-05-16] MEDS ORDERED: FURO-85 PO (13:06)
== END 2017-05-09 12:35 | disposition home or self-care (01) ==
LOC: C.ACU 07:33
PROVIDERS: ATTEND Internal Medicine Critical Care Medicine
DX: C34.31 Malignant neoplasm of lower lobe, right bronchus or lung (principal); E78.5 Hyperlipidemia, unspecified; I10 Essential (primary) hypertension; M81.0 Age-related osteoporosis without current pathological fracture; Z79.82 Long term (current) use of aspirin; Z99.81 Dependence on supplemental oxygen; Z87.01 Personal history of pneumonia (recurrent)

== ENCOUNTER 2017-05-17 06:26 | Day surgery (SDC) | payer OTHER ==
[2017-05-16 13:07] VITALS: BMI 21.0
[~2017-05-17] VITALS: Ht 149.9 cm; Wt 48.6 kg
[~2017-05-17 06:26] MED LIST changes: -ALEN70TA2 PO; +AMLO-110 PO; -ASPEC81 PO; +ASPI81TA28 PO; +CLINDAMYCIN 600 MG/54 ML D5W IV SCH; -CLR10 PO; +FURO-85 PO; -LSX20 PO; -NRV5 PO; +NTRGSL/4 UT; -NTRSLP4 SL; +PANT40TA PO; -PRT40 PO; +SERT25TA PO; +SIMV20TA2 PO; +SODIUM CHLORIDE 0.9% 1000ML 1,000 ML IV SCH; -SYMIN INH; +SYMIN160 INH; +TRAM-10 PO; -ZCR20 PO; -ZLF50 PO
[2017-05-17 06:55] VITALS: BP 141/47; PULSE 67; TEMP 37.2; O2SAT 97; Ht 149.9 cm; Wt 48.6 kg
[2017-05-17] MEDS ORDERED: MIDAZOLAM HCL 1 MG/ML 2ML VIAL ONE (08:18)
[2017-05-17] MEDS ORDERED: FENTANYL CITRATE INJ 50 MCG/1 ML 2 ML VIAL ONE (08:19)
[2017-05-17] MEDS ORDERED: ONDANSETRON INJ 2 MG/ML 2 ML VIAL ONE (08:24)
[2017-05-17] MEDS ORDERED: PROPOFOL IV EMULSION 10 MG/ML 20 ML VIAL IV ONE (08:24)
[2017-05-17] MEDS ORDERED: PHENYLEPHRINE 100MCG/ML 5ML SYR IV PRN (08:30)
[2017-05-17] MEDS ORDERED: MEPERIDINE HCL 25 MG/ML CARP IV PRN (08:30)
[2017-05-17] MEDS ORDERED: HYDROmorphone INJ 2 MG/ML SYR/VIAL IV PRN (08:30)
[2017-05-17] MEDS ORDERED: ONDANSETRON INJ 2 MG/ML 2 ML VIAL IV PRN ×2 (08:30→10:15)
[2017-05-17] MEDS ORDERED: FLUMAZENIL 0.1 MG/1 ML 10 ML VIAL IV PRN (08:30)
[2017-05-17] MEDS ORDERED: ATROPINE SULFATE 0.1 MG/ML 5ML SYR IV PRN (08:30)
[2017-05-17] MEDS ORDERED: LABETALOL HCL IV 5 MG/ML 20ML IV PRN (08:30)
[2017-05-17] MEDS ORDERED: NALOXONE HCL 0.4 MG/1 ML VIAL/CARP IV PRN (08:30)
[2017-05-17] MEDS ORDERED: FENTANYL CITRATE INJ 50 MCG/1 ML 2 ML VIAL IV PRN (08:30)
[2017-05-17] MEDS ORDERED: EpHEDrine SULFATE INJ 50 MG/ML AMP IV PRN (08:30)
--- NOTE | 2017-05-17 08:50 | History & Physical Bridge Note ---
H&P Re-Evaluation Bridge Note: I have examined the patient, reviewed the History & Physical and in the interval since the performance of the History & Physical I have noted the following changes of clinical significance: the port is placed on right side chest wall.
[2017-05-17] MEDS ORDERED: LIDOCAINE HCL 1% 20 ML VIAL ONE (08:52)
[2017-05-17] MEDS ORDERED: BACITRACIN OINT 15 GM TUBE ONE (08:52)
[2017-05-17] MEDS ORDERED: BUPIVACAINE 0.5 % 5 MG/1 ML MPF 30ML VIAL ONE (08:52)
--- NOTE | 2017-05-17 09:36 | Anesthesiology Progress Note ---
Anesthesia Post Op Note Date & Time May 17, 2017 at 09:35 Vital Signs Pain Intensity: 0 Vital Signs Past 12 Hours Date Time Temp Pulse Resp B/P (MAP) Pulse Ox O2 Delivery O2 Flow Rate FiO2 05/17/17 06:55 37.2 67 18 141/47 (78) 97 Room Air Notes Mental Status: alert / awake / arousable, participated in evaluation Pt Amnestic to Procedure: Yes Nausea / Vomiting: adequately controlled Pain: adequately controlled Airway Patency, RR, SpO2: stable & adequate, see Notes BP & HR: stable & adequate Hydration State: stable & adequate Anesthetic Complications: no major complications apparent The patient was given a Duoneb in the PACU to treat her wheezing. She feels better now.
[2017-05-17] MEDS ORDERED: OXYC-57 PO (10:08)
--- NOTE | 2017-05-17 10:14 | Discharge Instructions ---
Discharge Instructions Date of Service May 17, 2017. Admission Reason for Admission: Lung Cancer Discharge Discharge Diagnosis / Problem: same Discharge Goals Goal(s): Decrease discomfort, Improve function Activity Recommendations Activity Limitations: as noted below No heavy lifting with right arm over 10 pounds for 1 week No repetitive movements or raising right arm above head for 1 week No submerging incisions underwater for 2 weeks (no bathing, swimming, or hot tubs) No driving while taking narcotic pain medication . Instructions / Follow-Up Instructions / Follow-Up You may shower in 3 days, sponge bath and wash hair in meantime. Try to keep dressings as dry as possible Remove dressings and leave steri strips on incision for 7 days or until they need to access your port. The steri strips may fall off on their own that is okay, you do not need to replace them Follow-up with Dr. Frank in 1 week, please call office at [phone] if you do not already have an appointment Current Hospital Diet Patient's current hospital diet: Discharge Diet Recommended Diet: Regular Diet Procedures Procedures Performed: Insertion of infusaport, right internal jugular. Pending Studies Studies pending at discharge: no Laboratory Results Hemoglobin A1c Test 04/15/17 12:03 Range/Units Estimated Average Glucose 105 mg/dl Hemoglobin A1c 5.3 4.5-5.6 % Medical Emergencies . Who to Call and When: Medical Emergencies: If at any time you feel your situation is an emergency, please call 911 immediately. . Non-Emergent Contact Non-Emergency issues call your: Surgeon Call Non-Emergent contact if: you have a fever, temperature is above 101.5, your pain is not controlled, your pain is worsening, wound has increased drainage, wound has increased redness, wound has increased pain . "Provider Documentation" section prepared by Alecia Moon. . VTE Core Measure Inpt VTE Proph given/why not?: SCD's [place] Drug Monitoring Program Search Results: patient reviewed within database, no issues identified
[2017-05-17] MEDS ORDERED: OXYCODONE/ACETAMINOPHEN 5-325 TAB PO PRN (10:15)
[2017-05-17] MEDS ORDERED: ACETAMINOPHEN 650 MG SUPP PR PRN (10:15)
--- NOTE | 2017-05-17 10:28 | [facility] Post Operative Brief Note ---
Immediate Operative Summary Operative Date May 17, 2017. Pre-Operative Diagnosis Need for port placement for chemotherapy. Post-Operative Diagnosis Same as preop. Procedure(s) Performed Insertion of infusaport, right internal jugular vein. Surgeon Dr. Frank High Pressure Operator Surgeon(s) Geovanny Moon, PAC Estimated Blood Loss 10 ml Findings patent right jugular vein Fluids (cc crystalloids) 600ml Specimens None. Drains none Anesthesia sedation + local Complication(s) None Disposition Recovery Room / PACU
--- NOTE | 2017-05-17 10:38 | Anesthesiology Progress Note ---
Anesthesia Post Op Note Date & Time May 17, 2017 at 10:38 Vital Signs Pain Intensity: 0 Vital Signs Past 12 Hours Date Time Temp Pulse Resp B/P (MAP) Pulse Ox O2 Delivery O2 Flow Rate FiO2 05/17/17 10:25 73 16 115/64 100 Room Air 05/17/17 10:17 36.5 73 16 144/58 100 Oxymask 10 05/17/17 06:55 37.2 67 18 141/47 (78) 97 Room Air Notes Mental Status: alert / awake / arousable, participated in evaluation Pt Amnestic to Procedure: Yes Nausea / Vomiting: adequately controlled Pain: adequately controlled Airway Patency, RR, SpO2: stable & adequate BP & HR: stable & adequate Hydration State: stable & adequate Anesthetic Complications: no major complications apparent
[2017-05-17 10:42] VITALS: BP 134/63; PULSE 70; TEMP 36.8; O2SAT 96
--- NOTE | 2017-05-17 10:49 | DIAGNOSTIC IMAGING REPORT ---
CHEST ONE VIEW PORTABLE HISTORY: s/p placement of Right IJ a-port catheter COMPARISON: Chest 04/22/2017. FINDINGS: Interval placement of right jugular Port-A-Cath which terminates at the brachiocephalic/SVC junction. No pneumothorax. The heart remains borderline enlarged. Diffuse interstitial thickening, right greater the left persists. Trace right pleural effusion, unchanged. Right midlung zone masslike density persists. IMPRESSION: 1. Right internal jugular Port-A-Cath terminates at the brachiocephalic/SVC junction. No pneumothorax. 2. No change in the diffuse interstitial thickening and right midlung zone masslike opacity. Electronically signed by: Tashi Olivares M.D. 05/17/2017 10:48 AM Dictated Date/Time: 05/17/2017 10:44 AM
[2017-05-17 11:43] VITALS: BP 144/64; O2SAT 95
--- NOTE | 2017-05-17 13:08 | OPERATIVE REPORT ---
DATE OF OPERATION: 05/17/2017 PREOPERATIVE DIAGNOSIS: Lung cancer. POSTOPERATIVE DIAGNOSIS: Same. PROCEDURE: Insertion [id number]-P-[id number] on the right internal jugular vein. SURGEON: Eva Frank MD. CUSTOMER RESPONSE REPRESENTATIVE: [place]. ANESTHESIA: Conscious sedation plus local. ESTIMATED BLOOD LOSS: About 10 mL. IV FLUIDS: 600 mL. FINDINGS: Patent right internal jugular vein. COMPLICATIONS: None. INDICATIONS FOR THE PROCEDURE: This is a 71-year-old female who required to do the [id number] for chemotherapy for her new diagnosis lung cancer. I did talk to the patient and patient's family member about benefit and risk, alternate procedure. I indicated the risks may include but not limited such as bleeding, infection, dysfunction catheter, blood clot, injury to the vessel, injury to the lung. They understand and the patient signed informed consent and I answered all questions. DETAILS OF PROCEDURE: We brought the patient to the OR, put the patient in the Trendelenburg position. The patient received SCD on bilateral legs to prevent DVT and also the patient received 600 mg of clindamycin IV for prophylactic antibiotic. The patient received conscious sedation by the anesthesiology. The patient's right side of the neck and upper chest was properly draped in routine sterile fashion. After a timeout, I injected local anesthesia on the right side of the neck and on the right upper chest wall by using 1% lidocaine mixed with 0.5% Marcaine. Then, I made about a 0.5 cm incision on the right side of the neck. Then, I used ultrasound guide for right internal trocar vein and we used needle to puncture the right inguinal jugular vein and easy blood return and I passed the wire through the needle, removed the needle. Then, I used fluoro to confirm the catheter located in SVC superior vena cava, then I made about 3 cm incision on the right upper chest wall, created a pouch for the port. Hemostasis obtained. Then, I passed the catheter through the chest wall incision to the neck and then we passed a sheet through the wire into the right internal jugular vein, removes the dilator with a wire and then we passed [id number] through the sheath. The sheath is removed. Then, I used again to confirm the tip of the catheter located junction between the SVC to right atrium. Then, we sized the catheter, connected the catheter to the port and then using 2-0 Prolene to fix the port on the right sided chest wall at 3 points. Hemostasis obtained. Using 2-0 Vicryl, closed subcutaneous layer continuous running used 4-0 Vicryl, closed the skin continuous running. Then, we put the dressing on and the patient tolerated the procedure well. All the instruments, needle and sponge count correct x2 at the end of case. The patient transferred to recovery room in stable condition. After the procedure, I did talk to the patient and family member about the OR finding and procedure we did, they understand. Also, I gave them the postop care instruction, they understand. I attest to the content of the Intraoperative Record and any orders documented therein. Any exception s are noted below.
[2017-05-18] MEDS ORDERED: CLINDAMYCIN 600 MG/54 ML D5W IV ONE (06:00)
== END 2017-05-17 11:55 | disposition home or self-care (01) ==
LOC: C.ACU 06:26
PROVIDERS: ATTEND Surgery
DX: C34.90 Malignant neoplasm of unspecified part of unspecified bronchus or lung (principal); I25.10 Atherosclerotic heart disease of native coronary artery without angina pectoris; I10 Essential (primary) hypertension; J44.9 Chronic obstructive pulmonary disease, unspecified; E11.9 Type 2 diabetes mellitus without complications; M19.90 Unspecified osteoarthritis, unspecified site; G47.33 Obstructive sleep apnea (adult) (pediatric); E78.5 Hyperlipidemia, unspecified; F17.200 Nicotine dependence, unspecified, uncomplicated; Z86.73 Personal history of transient ischemic attack (TIA), and cerebral infarction without residual deficits; Z98.890 Other specified postprocedural states; Z79.82 Long term (current) use of aspirin; Z83.3 Family history of diabetes mellitus; Z82.49 Family history of ischemic heart disease and other diseases of the circulatory system; Z83.49 Family history of other endocrine, nutritional and metabolic diseases

== ENCOUNTER → 2017-05-20 | Outpatient (CLI) | payer OTHER ==
[~2017-05-20] MED LIST changes: -CLINDAMYCIN 600 MG/54 ML D5W IV SCH; +OXYC-57 PO; -SODIUM CHLORIDE 0.9% 1000ML 1,000 ML IV SCH
[2017-05-20 15:32] LABS: BLOOD UREA NITROGEN 15 mg/dl (7-18); BUN/CREATININE RATIO 19.2 (10-20); CALCIUM 9.5 mg/dl (8.5-10.1); CARBON DIOXIDE 28 mmol/L (21-32); CHLORIDE 91 mmol/L (98-107); CREATININE 0.76 mg/dl (0.60-1.20); GLUCOSE 103 mg/dl (70-99); POTASSIUM 4.2 mmol/L (3.5-5.1); SODIUM 128 mmol/L (136-145)
== END | disposition home or self-care (01) ==
LOC: C.LAB 13:20
PROVIDERS: ATTEND Family Medicine
DX: E87.1 Hypo-osmolality and hyponatremia (principal)

== ENCOUNTER 2017-06-03 19:39 | Inpatient (IN) | payer OTHER ==
[~2017-06-03] VITALS: Ht 149.9 cm; Wt 47.6 kg
--- NOTE | 2017-06-03 21:00 | DIAGNOSTIC IMAGING REPORT ---
CHEST 2 VIEWS ROUTINE CLINICAL HISTORY: Fever. Patient on chemotherapy. COMPARISON STUDY: 05/17/2017 FINDINGS: The heart is at the upper limits of normal in size. The chest has an emphysematous configuration. There is a right-sided A-Port catheter present. There are postsurgical changes present within the upper lumbar spine. There are improving airspace opacities within the right mid to lower lung zone. There are developing left basilar airspace opacities. There is minor blunting of the posterior costophrenic angles. There is a lower thoracic compression deformity.[ IMPRESSION: 1. Improving right middle lower lung zone interstitial airspace opacities 2. Developing left lower lobe airspace opacities, pneumonia versus atelectasis. 3. Trace bilateral pleural effusions Electronically signed by: Missael Finch M.D. 06/03/2017 8:58 PM Dictated Date/Time: 06/03/2017 8:57 PM
[2017-06-03 21:01] LABS: INR 1.1 (0.9-1.1); PARTIAL THROMBOPLASTIN RATIO 1.3; PROTHROMBIN TIME (PATIENT) 11.4 SECONDS (9.0-12.0)
[2017-06-03 21:16] LABS: BUN/CREATININE RATIO 22.7 (10-20); CREATININE 1.11 mg/dl (0.60-1.20); POTASSIUM 3.6 mmol/L (3.5-5.1)
[2017-06-03] MEDS ORDERED: LEVAQUIN 750MG / 150ML D5W IV STA (21:16)
[2017-06-03 21:19] LABS: ALB/GLOB RATIO 0.6 (0.9-2)
[2017-06-03] MEDS ORDERED: OXYC-57 PO (21:28)
[2017-06-03 23:05] LABS: MAGNESIUM 1.4 mg/dl (1.8-2.4)
[2017-06-03 23:16] LABS: HEMATOCRIT 32.2 % (37-47); MEAN CORPUSCULAR HEMOGLOBIN 31.9 pg (25-34); MEAN CORPUSCULAR HGB CONC 35.1 g/dl (32-36); MEAN PLATELET VOLUME 9.4 fL (7.4-10.4); PLATELET COUNT 138 K/uL (130-400); RED BLOOD COUNT 3.54 M/uL (4.2-5.4); WHITE BLOOD COUNT 1.17 K/uL (4.8-10.8)
[2017-06-03 23:23] LABS: BASO % 1.7 %; BASO ABS # 0.02 K/uL (0-0.2); COMPLETE YES; EOS % 2.6 %; LYMPH % 78.6 %; LYMPH ABS # 0.92 K/uL (1.2-3.4); MONO % 14.5 %; NEUT % 2.6 %
[2017-06-04] VITALS (8 sets, daily range): BP systolic 79–131; BP diastolic 48–78; PULSE 64–120; TEMP 36.8–37.3; O2SAT 91–95; BMI 20.2
[2017-06-04] MEDS ORDERED: HYDROmorphone INJ 0.5 MG/0.5 ML SYR IV PRN (00:45)
[2017-06-04] MEDS ORDERED: LORAZEPAM 0.5 MG TAB PO PRN (00:45)
[2017-06-04] MEDS ORDERED: OXYCODONE/ACETAMINOPHEN 5-325 TAB PO PRN (00:45)
[2017-06-04] MEDS ORDERED: ALBUT/IPRATROP 3MG/0.5MG NEB 3 ML VIAL INH PRN (00:45)
[2017-06-04] MEDS ORDERED: ONDANSETRON INJ 2 MG/ML 2 ML VIAL IV PRN (00:45)
[2017-06-04] MEDS ORDERED: ACETAMINOPHEN 325 MG TAB PO PRN (00:45)
[2017-06-04] MEDS: MAGNESIUM SULFATE 1GM / D5W 1 GM in PREMIXED IN D5W 100 ML IV SCH ×2 (02:22→03:52)
[2017-06-04 06:43] LABS: HEMATOCRIT 29.6 % (37-47); MEAN CELL VOLUME 90.8 fL (80-100); MEAN CORPUSCULAR HEMOGLOBIN 32.5 pg (25-34); MEAN CORPUSCULAR HGB CONC 35.8 g/dl (32-36); MEAN PLATELET VOLUME 9.1 fL (7.4-10.4); PLATELET COUNT 131 K/uL (130-400); RED BLOOD COUNT 3.26 M/uL (4.2-5.4); WHITE BLOOD COUNT 1.18 K/uL (4.8-10.8)
[2017-06-04 06:53] LABS: BUN/CREATININE RATIO 21.8 (10-20); CALCIUM 8.4 mg/dl (8.5-10.1); CREATININE 0.83 mg/dl (0.60-1.20); MAGNESIUM 2.5 mg/dl (1.8-2.4); POTASSIUM 3.2 mmol/L (3.5-5.1)
--- NOTE | 2017-06-04 06:54 | HISTORY & PHYSICAL EXAMINATION ---
DATE OF ADMISSION: 06/03/2017 PRIMARY CARE PHYSICIAN: Dr. Ordonez. CHIEF COMPLAINT: Cough. HISTORY OF PRESENT ILLNESS: History obtained from the patient, daughter, records. Medical history significant for small cell lung cancer, currently on chemotherapy, past tobacco abuse, history of chronic systolic heart failure, nonischemic cardiomyopathy, EF of 25-30%, chronic anemia (baseline hemoglobin of 11), SIADH, history of peripheral vascular disease. Recent confinement last 04/2017 for UGIB. Patient found to have nonbleeding duodenal ulcers. Patient discharged on PPI. Patient noted to be hyponatremic - attributed to SIADH. Discharged on fluid restriction and diuretic therapy. Patient also found to have pulmonary nodules. 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 Upon discharge from the hospital, patient had outpatient bronchoscopy 2016 which showed endobronchial lesion in the right middle and lower lobes. Pathology consistent with small cell lung cancer. Patient referred to [facility] Oncology last week of April. Chemotherapy started last week. Last few days, the patient noted increase in usual cough symptoms, junky, chest pain with coughing. No unusual shortness of breath. Denies aspiration. Was started on azithromycin by PCP. No response. Low-grade fever at home, Tylenol given. Patient sent to the Emergency Room as per oncologist recommendation. Patient given Levaquin in the ER for pneumonia. MEDICAL HISTORY: As above. SURGERIES: She has had dental surgery, cholecystectomy, carotid endarterectomy, back surgery, gynecologic procedures. HOME MEDICATIONS: Include lisinopril, Lopressor, Nitrostat, Percocet, Protonix, Zoloft, Zocor, Ultram. ALLERGIES: LISINOPRIL, PENICILLIN. FAMILY HISTORY: Diabetes, heart disease, thyroid disease, hypertension. PERSONAL AND SOCIAL HISTORY: Past tobacco abuse. No chronic intake of alcohol abuse. Retired [employer]. REVIEW OF SYSTEMS: As per HPI, all other ROS negative. PHYSICAL EXAMINATION: VITAL SIGNS: Blood pressure noted to be 113/50, pulse rate 70, RR 18, temperature 37.5, sats 90 on room air. GENERAL: Noted to be comfortable, no respiratory distress. SKIN: Pallor, warm. HEENT: Pale palpebral conjuctivae. No ptosis. Dry buccal mucosa. Healed scar on the forehead. NECK: No JVD. Supple neck. No tenderness in the neck. CHEST: Decreased breath sounds. No tenderness. HEART: Regular rate and rhythm, diminished S1 and S2. ABDOMEN: Some distention, nontender. EXTREMITIES: No edema. No tenderness. No gross deformity. NEUROLOGIC: Coherent. No gross focality. LABORATORY DATA: Hemoglobin was noted to be 11.3, hematocrit 33.2, white cell count 1.17, platelets 138. Sodium 131, potassium 3.6, chloride 93, CO2 of 30, BUN 25, creatinine 1.1, glucose 130. Lactic acid 1.29. Chest x-ray showed trace bilateral pleural effusions, developing left lower lobe airspace opacity. ASSESSMENT: 1. Healthcare-associated pneumonia, no overt sepsis. History of small cell lung cancer, ongoing chemotherapy. 2. Past tobacco abuse. 3. Chronic systolic heart failure, nonischemic cardiomyopathy patient euvolemic. 4. Hyponatremia, syndrome of inappropriate antidiuretic hormone secretion. Stable 5. PVD sp surgery PLAN: F Levaquin Continue fluid restriction, continue diuretic therapy, Maintain sodium between 129-133 as per Nephrology recommendations. PT/OT eval. DVT prophylaxis, SCDs RE recent GI bleed. Full code. MTDD
[2017-06-04 07:46] LABS: BASO ABS # 0.02 K/uL (0-0.2); BASOPHIL % 1.8 %; COMPLETE YES; EOSINOPHIL % 1.8 %; LARGE GRANULAR LYMPH ABSOLUTE 0.38 K/uL; LARGE GRANULAR LYMPHOCYTE % 32.5 %; LYMPHOCYTE % 50.8 %; NEUTROPHILS % 2.6 %
[2017-06-04] MEDS ORDERED: LEVOFLOXACIN CONSULT ACTIVE PRN (08:00)
[2017-06-04] MEDS ORDERED: POTASSIUM CHLORIDE 10 MEQ TABCR PO SCH (08:00)
[2017-06-04] MEDS: BUDESONIDE/FORMOTEROL FUMARATE 160/4.5 60 PUFFS/INHALER INH SCH ×2 (08:34→19:41)
[2017-06-04] MEDS: PANTOprazole SOD 40 MG TAB PO SCH ×2 (08:38→19:43)
[2017-06-04] MEDS: SERTRALINE HCL 50 MG TAB PO SCH (08:38)
[2017-06-04] MEDS: LISINOPRIL 40 MG TAB PO SCH ×2 (08:38→10:28)
[2017-06-04] MEDS: FUROSEMIDE 20 MG TAB PO SCH ×2 (08:39→10:29)
[2017-06-04] MEDS: METOPROLOL TARTRATE 100 MG TAB PO SCH ×3 (08:39→19:43)
[2017-06-04] MEDS: AMLODIPINE BESYLATE 5 MG TAB PO SCH ×2 (08:39→10:29)
[2017-06-04] MEDS: ASPIRIN 81 MG ECTAB PO SCH (08:39)
[2017-06-04] MEDS ORDERED: POTASSIUM CHLORIDE 10 MEQ TABCR PO STA (09:02)
[2017-06-04] MEDS ORDERED: NURSING DECISION MEDICATION ORDER SCH (09:15)
[2017-06-04] MEDS: NSS + 20MEQ KCL 1000ML 1,000 ML IV SCH ×2 (10:30→19:33)
[2017-06-04] MEDS: POTASSIUM CHLORIDE PWD 20 MEQ PACK PO ONE ×2 (10:30→10:38)
[2017-06-04] MEDS ORDERED: NURSING VERBAL MED ORDER ONE (10:45)
--- NOTE | 2017-06-04 12:33 | Progress Note ---
Internal Med Progress Note Date of Service: Jun 04, 2017. Provider Documentation: SUBJECTIVE: The patient was seen and examined Admitted with cough,fever and weakness Noted to have Pneumonia Clinically better today OBJECTIVE: Vital Signs-as noted below Exam: General-Minimal distress at rest Eyes-normal ENT-normal Neck-supple Lungs-Decreased breath sound bilaterally with Crackles left LL Heart-Regular,no murmur appreciated Abdomen-Benign,no masses,bowel sound present Extremities-No edema Neuro-AAOx3 Lab data as noted below. ASSESSMENT & PLAN: Healthcare-associated pneumonia, no overt sepsis. Left Lower Lobe Started onm Levaquin Blood cultures taken Cautious amount of IVF Clinically better History of small cell lung cancer, ongoing chemotherapy. Has been getting Cisplatin and Etoposide every 21 days Received lat dose on 05/23/17 Past tobacco abuse. No acute issue Chronic systolic heart failure, nonischemic cardiomyopathy, the patient euvolemic. Will get minimal amount of IVF Hyponatremia, syndrome of inappropriate antidiuretic hormone secretion. Sodium 131 today Will continue Fluid restriction DVT prophylaxis, SCDs, regarding recent GI bleed. Full code. DISPOSITION PT/OT evaluation Likely discharge in a day or two Vital Signs: Date Time Temp Pulse Resp B/P (MAP) Pulse Ox O2 Delivery O2 Flow Rate FiO2 06/04/17 11:20 37.0 85 18 106/68 (81) 93 Room Air 06/04/17 10:27 64 120/78 (92) 06/04/17 08:36 100 104/64 (77) 06/04/17 08:35 120 79/48 (58) 06/04/17 08:35 Room Air 06/04/17 07:05 37.3 84 18 95/57 (70) 91 Room Air 06/04/17 01:24 36.8 79 18 115/69 95 Room Air 06/04/17 00:32 74 18 123/52 95 Room Air 06/03/17 21:50 73 18 113/53 93 Room Air 06/03/17 20:15 93 Room Air 06/03/17 20:14 79 06/03/17 19:42 37.5 95 20 121/59 88 Room Air Lab Results: Results Past 24 Hours Test 06/03/17 20:15 06/03/17 20:26 06/04/17 06:07 06/04/17 08:37 Range/Units White Blood Count 1.17 1.18 4.8-10.8 K/uL Red Blood Count 3.54 3.26 4.2-5.4 M/uL Hemoglobin 11.3 10.6 12.0-16.0 g/dL Hematocrit 32.2 29.6 37-47 % Mean Corpuscular Volume 91.0 90.8 80-100 fL Mean Corpuscular Hemoglobin 31.9 32.5 25-34 pg Mean Corpuscular Hemoglobin Concent 35.1 35.8 32-36 g/dl Platelet Count 138 131 130-400 K/uL Mean Platelet Volume 9.4 9.1 7.4-10.4 fL Neutrophils (%) (Auto) 2.6 % Lymphocytes (%) (Auto) 78.6 % Monocytes (%) (Auto) 14.5 % Eosinophils (%) (Auto) 2.6 % Basophils (%) (Auto) 1.7 % Neutrophils # (Auto) 0.03 1.4-6.5 K/uL Lymphocytes # (Auto) 0.92 1.2-3.4 K/uL Monocytes # (Auto) 0.17 0.11-0.59 K/uL Eosinophils # (Auto) 0.03 0-0.5 K/uL Basophils # (Auto) 0.02 0-0.2 K/uL RDW Standard Deviation 45.1 44.5 36.4-46.3 fL RDW Coefficient of Variation 13.5 13.4 11.5-14.5 % Immature Granulocyte % (Auto) 0.0 % Immature Granulocyte # (Auto) 0.00 0.00-0.02 K/uL Prothrombin Time 11.4 9.0-12.0 SECONDS Prothromb Time International Ratio 1.1 0.9-1.1 Activated Partial Thromboplast Time 33.0 21.0-31.0 SECONDS Partial Thromboplastin Ratio 1.3 Sodium Level 131 131 136-145 mmol/L Potassium Level 3.6 3.2 3.5-5.1 mmol/L Chloride Level 93 92 98-107 mmol/L Carbon Dioxide Level 30 31 21-32 mmol/L Anion Gap 8.0 8.0 3-11 mmol/L Blood Urea Nitrogen 25 18 7-18 mg/dl Creatinine 1.11 0.83 0.60-1.20 mg/dl Est Creatinine Clear Calc Drug Dose 32.2 43.0 ml/min Estimated GFR () 58.3 82.8 Estimated GFR (Non- 50.3 71.4 BUN/Creatinine Ratio 22.7 21.8 10-20 Random Glucose 130 110 70-99 mg/dl Calcium Level 9.0 8.4 8.5-10.1 mg/dl Magnesium Level 1.4 2.5 1.8-2.4 mg/dl Total Bilirubin 0.5 0.2-1 mg/dl Aspartate Amino Transf (AST/SGOT) 18 15-37 U/L Alanine Aminotransferase (ALT/SGPT) 26 12-78 U/L Alkaline Phosphatase 91 45-117 U/L Troponin I < 0.015 0-0.045 ng/ml Total Protein 6.7 6.4-8.2 gm/dl Albumin 2.6 3.4-5.0 gm/dl Globulin 4.1 2.5-4.0 gm/dl Albumin/Globulin Ratio 0.6 0.9-2 Bedside Lactic Acid Venous 1.29 0.90-1.70 mmol/L Neutrophils % (Manual) 2.6 % Lymphocytes % (Manual) 50.8 % Monocytes % (Manual) 10.5 % Eosinophils % (Manual) 1.8 % Basophils % (Manual) 1.8 % Neutrophils # (Manual) 0.03 1.4-6.5 K/uL Total Absolute Neutrophils 0.03 1.4-6.5 K/uL Lymphocytes # (Manual) 0.60 1.2-3.4 K/uL Total Absolute Lymphocytes 0.98 1.2-3.4 K/uL Monocytes # (Manual) 0.12 0.11-0.59 K/uL Eosinophils # (Manual) 0.02 0-0.5 K/uL Basophils # (Manual) 0.02 0-0.2 K/uL Percent Large Granular Lymphocytes 32.5 % Absolute Large Granular Lymphocytes 0.38 K/uL Red Blood Cell Morphology Unremarkable Bedside Glucose 110 70-90 mg/dl Microbiology Results 06/03/17 Blood Culture, Received Pending 06/03/17 Blood Culture, Received Pending
[2017-06-04] MEDS: POTASSIUM CHLORIDE 10 MEQ TABCR PO SCH (14:06)
--- NOTE | 2017-06-04 14:20 | EMERGENCY ROOM VISIT NOTE ---
History Report prepared by Jyoti: Sandra Terry Under the Supervision of: Dr. Anselmo Pike M.D. First contact with patient: 20:18 Chief Complaint: FEVER Stated Complaint: CHILLS/SHAKES, SWEATS, FEVER 101.4, COUGH, CHEST History of Present Illness The patient is a 71 year old female who presents to the Emergency Room with complaints of a fever that started this morning. The temperature was 101. The patient has also has a productive cough that the sputum was yellow/green sputum and is now more white in appearance. The patient has lung cancer and had undergone 3 days of chemotherapy. The patient is on 21 day cycles of chemotherapy and had 5 more cycles remaining. She denies any vomiting, nausea or shortness of breath. She notes some chest discomfort when coughing. The patient was previously on a Zithromax 5 day pack which she finished on the . Source of History: patient Onset: this morning Position: other (generalized) Symptom Intensity: 10 1F Quality: other (fever) Modifying Factors (Relieving): other (none) Associated Symptoms: + cough, + chest pain (only with cough), No SOB, No nausea, No vomiting Review of Systems See HPI for pertinent positives & negatives. A total of 10 systems reviewed and were otherwise negative. Past Medical & Surgical Medical Problems: (1) Altered mental status (2) Grieving (3) HCAP (healthcare-associated pneumonia) (4) HLD (hyperlipidemia) (5) Hypertension (6) Hyponatremia (7) Lung nodule (8) Osteoporosis (9) Pneumonia (10) UGI bleed Family History no pertinent family history stated. Social History Smoking Status: Former Smoker Alcohol Use: none Drug Use: none Marital Status: Housing Status: lives with family Occupation Status: retired Current/Historical Medications Scheduled Amlodipine (Norvasc), 5 MG PO QAM Aspirin (Aspirin Ec), 81 MG PO QAM Budesonide/Formoterol Fumarate (Symbicort 160/4.5 Inhaler ), 2 PUFFS INH BID Furosemide (Lasix), 20 MG PO QAM Home O2 Therapy (Oxygen), 2 LITERS NA PRN Lisinopril (Lisinopril), 1 TAB PO QAM Metoprolol Tartrate (Lopressor) (Lopressor), 100 MG PO BID Nitroglycerin (Nitrostat), 0.4 MG UT PRN Pantoprazole (Protonix), 40 MG PO BID Sertraline (Zoloft), 25 MG PO QAM Simvastatin (Zocor), 20 MG PO QPM Scheduled PRN Lorazepam (Ativan), 0.5 MG PO Q6H PRN for Anxiety Oxycodone/Acetaminophen 5MG/325MG (Percocet 5MG/325MG), 1 TABLET PO Q6H PRN for Pain Tramadol (Ultram), 50 MG PO Q8H PRN for Pain Allergies Coded Allergies: Penicillins (Verified Allergy, Mild, UNSURE, 06/03/17) Lisinopril (Verified Adverse Reaction, Mild, cough, 06/03/17) Physical Exam Vital Signs Date Time Temp Pulse Resp B/P (MAP) Pulse Ox O2 Delivery O2 Flow Rate FiO2 06/03/17 21:50 73 18 113/53 93 Room Air 06/03/17 20:15 93 Room Air 06/03/17 20:14 79 06/03/17 19:42 37.5 95 20 121/59 88 Room Air Physical Exam Constitutional: Vital signs reviewed. Eyes: Pupils are equal round reactive to light. Conjunctiva are noninjected. ENT: Pharynx is clear without erythema or exudate. Mucous membranes are moist. Neck supple without meningeal signs. Respiratory: Clear to auscultation bilaterally. Breath sounds are equal bilaterally. Cardiovascular: Regular rate and rhythm. No rubs or gallops. GI: Soft, nondistended and nontender. Bowel sounds are present. Musculoskeletal: Port in right anterior chest without signs of infection. No peripheral edema. No lower extremity tenderness. Integumentary: No cyanosis. Neurological: The patient is awake and alert. No focal deficits. Psychiatric: Normal affect. Medical Decision & Procedures ER Provider Diagnostic Interpretation: Radiology results as stated below per my review and the radiologist's interpretation: CHEST 2 VIEWS ROUTINE FINDINGS: The heart is at the upper limits of normal in size. The chest has an emphysematous configuration. There is a right-sided A-Port catheter present. There are postsurgical changes present within the upper lumbar spine. There are improving airspace opacities within the right mid to lower lung zone. There are developing left basilar airspace opacities. There is minor blunting of the posterior costophrenic angles. There is a lower thoracic compression deformity.[ IMPRESSION: 1. Improving right middle lower lung zone interstitial airspace opacities 2. Developing left lower lobe airspace opacities, pneumonia versus atelectasis. 3. Trace bilateral pleural effusions Electronically signed by: Missael Finch M.D. Laboratory Results Test 06/03/17 20:15 06/03/17 20:26 Immature Granulocyte % (Auto) 0.0 % White Blood Count 1.17 K/uL (4.8-10.8) Red Blood Count 3.54 M/uL (4.2-5.4) Hemoglobin 11.3 g/dL (12.0-16.0) Hematocrit 32.2 % (37-47) Mean Corpuscular Volume 91.0 fL (80-100) Mean Corpuscular Hemoglobin 31.9 pg (25-34) Mean Corpuscular Hemoglobin Concent 35.1 g/dl (32-36) Platelet Count 138 K/uL (130-400) Mean Platelet Volume 9.4 fL (7.4-10.4) Neutrophils (%) (Auto) 2.6 % Lymphocytes (%) (Auto) 78.6 % Monocytes (%) (Auto) 14.5 % Eosinophils (%) (Auto) 2.6 % Basophils (%) (Auto) 1.7 % Neutrophils # (Auto) 0.03 K/uL (1.4-6.5) Lymphocytes # (Auto) 0.92 K/uL (1.2-3.4) Monocytes # (Auto) 0.17 K/uL (0.11-0.59) Eosinophils # (Auto) 0.03 K/uL (0-0.5) Basophils # (Auto) 0.02 K/uL (0-0.2) Immature Granulocyte # (Auto) 0.00 K/uL (0.00-0.02) Prothrombin Time 11.4 SECONDS (9.0-12.0) Prothromb Time International Ratio 1.1 (0.9-1.1) Activated Partial Thromboplast Time 33.0 SECONDS (21.0-31.0) Partial Thromboplastin Ratio 1.3 Total Bilirubin 0.5 mg/dl (0.2-1) Aspartate Amino Transf (AST/SGOT) 18 U/L (15-37) Alanine Aminotransferase (ALT/SGPT) 26 U/L (12-78) Alkaline Phosphatase 91 U/L (45-117) Troponin I < 0.015 ng/ml (0-0.045) Total Protein 6.7 gm/dl (6.4-8.2) Albumin 2.6 gm/dl (3.4-5.0) Globulin 4.1 gm/dl (2.5-4.0) Albumin/Globulin Ratio 0.6 (0.9-2) Bedside Lactic Acid Venous 1.29 mmol/L (0.90-1.70) Laboratory results as reviewed by me. Medications Administered Medications (Trade) Dose Ordered Sig/Saul Route Start Time Stop Time Status Last Admin Dose Admin Levofloxacin (Levaquin / D5W) 750 mg NOW STAT IV 06/03/17 21:16 06/03/17 21:17 DC 06/03/17 21:44 750 MG ECG Indication: chest pain Rate (beats per minute): 74 Rhythm: normal sinus Findings: T-wave inversion (1 AVL and V2-V6), no ectopy Comparison ECG Date: 04/19/17 Change: no significant change ED Course 2021: The patient was evaluated in room C7. A complete history and physical exam was performed. 2118: I did discuss the chest x-ray results with the patient and her daughter. She was ordered IV Levaquin. 2157: I spoke with Dr. Xiong of [facility]. We discussed the patient and her results. The patient will be further evaluated by him. Medical Decision This is a 71-year-old female presents with a fever. Differential diagnosis includes neutropenia, SIRS, sepsis, pneumonia, UTI, bacteremia. I did perform a limited focused review of portions of the patient's old chart on the electronic medical record. The patient had a bronchoscopy in April which showed a right lower lobe intrabronchial lesion which was positive for malignant cells. I did evaluate the patient as noted above. IV access was established. The patient was placed on a continuous surveillance monitor. Her initial O2 saturation was 88% on room air but in the room her O2 saturation is 93%. She is not short of breath currently. I did order and personally review the patient's 12-lead EKG and chest x-ray as described above. Her chest x-ray does demonstrate a left -sided pneumonia. I did order and review the patient's blood work as noted in the electronic medical record. I did treat the patient with Levaquin IV. I did discuss the test results with the patient. I did discuss case with the hospitalist and catalytic case operator. Medication Reconcilliation Current Medication List: was personally reviewed by me Blood Pressure Screening Patient's blood pressure: Normal blood pressure Consults Time Called: 2149 Consulting Physician: Dr. Tyrese Mclean Returned Call: [phone] Xiong of [facility]. We discussed the patient and her results. The patient will be further evaluated by him. Impression Primary Impression: Left lower lobe pneumonia Additional Impression: Neutropenia Scribe Attestation The scribe's documentation has been prepared under my direct and personally reviewed by me in its entirety. I confirm that the note above accurately reflects all work, treatment, procedures, and medical decision making performed by me. Departure Information Dispostion Being Evaluated By Hospitalist Referrals Manohar Ordonez D.OAntonio (PCP) Patient Instructions My [facility] Problem Qualifiers Primary Impression: Left lower lobe pneumonia Pneumonia type: due to unspecified organism Qualified Codes: J18.1 - Lobar pneumonia, unspecified organism Additional Impression: Neutropenia Neutropenia type: secondary to cancer chemotherapy Qualified Codes: D70.1 - Agranulocytosis secondary to cancer chemotherapy; T45.1X5A - Adverse effect of antineoplastic and immunosuppressive drugs, initial encounter
[2017-06-04] MEDS: BOOST VANILLA PUDDING CUP PO SCH (19:37)
[2017-06-04] MEDS: SIMVASTATIN 20 MG TAB PO SCH (19:43)
[2017-06-05] VITALS (9 sets, daily range): BP systolic 97–147; BP diastolic 59–80; PULSE 65–91; TEMP 36.7–37.5; O2SAT 92–98; BMI 20.7
[2017-06-05] MEDS: TRAMADOL HCL 50 MG TAB PO PRN ×2 (04:28→20:57)
[2017-06-05] MEDS: NSS + 20MEQ KCL 1000ML 1,000 ML IV SCH (05:15)
[2017-06-05 06:28] LABS: BUN/CREATININE RATIO 21.9 (10-20); CALCIUM 8.3 mg/dl (8.5-10.1); CREATININE 0.65 mg/dl (0.60-1.20); POTASSIUM 4.5 mmol/L (3.5-5.1)
[2017-06-05 06:37] LABS: HEMATOCRIT 30.1 % (37-47); MEAN CELL VOLUME 91.2 fL (80-100); MEAN CORPUSCULAR HEMOGLOBIN 30.9 pg (25-34); MEAN CORPUSCULAR HGB CONC 33.9 g/dl (32-36); MEAN PLATELET VOLUME 9.2 fL (7.4-10.4); PLATELET COUNT 181 K/uL (130-400); WHITE BLOOD COUNT 1.63 K/uL (4.8-10.8)
[2017-06-05 06:42] LABS: BASO % 1.2 %; BASO ABS # 0.02 K/uL (0-0.2); COMPLETE YES; DOHLE BODIES 1+; EOS % 4.9 %; LYMPH % 63.2 %; LYMPH ABS # 1.03 K/uL (1.2-3.4); NEUT % 11.7 %
[2017-06-05] MEDS ORDERED: POTASSIUM CHLORIDE PWD 20 MEQ PACK PO SCH (08:00)
[2017-06-05] MEDS: POTASSIUM CHLORIDE 10 MEQ TABCR PO SCH (09:00)
[2017-06-05] MEDS: PANTOprazole SOD 40 MG TAB PO SCH ×2 (09:01→20:55)
[2017-06-05] MEDS: METOPROLOL TARTRATE 100 MG TAB PO SCH ×2 (09:01→20:55)
[2017-06-05] MEDS: SERTRALINE HCL 50 MG TAB PO SCH (09:02)
[2017-06-05] MEDS: ASPIRIN 81 MG ECTAB PO SCH (09:02)
[2017-06-05] MEDS: LISINOPRIL 40 MG TAB PO SCH (09:03)
[2017-06-05] MEDS: BUDESONIDE/FORMOTEROL FUMARATE 160/4.5 60 PUFFS/INHALER INH SCH ×2 (09:03→20:54)
[2017-06-05] MEDS: AMLODIPINE BESYLATE 5 MG TAB PO SCH (09:03)
[2017-06-05] MEDS: FUROSEMIDE 20 MG TAB PO SCH (09:03)
[2017-06-05] MEDS: BOOST VANILLA PUDDING CUP PO SCH ×2 (09:04→20:00)
--- NOTE | 2017-06-05 11:30 | Progress Note ---
Internal Med Progress Note Date of Service: Jun 05, 2017. Provider Documentation: SUBJECTIVE: The patient was seen and examined Admitted with cough,fever and weakness Noted to have Pneumonia Clinically a lot better today Cough and anxiety are better OBJECTIVE: Vital Signs-as noted below Exam: General-Minimal distress at rest Eyes-normal ENT-normal Neck-supple Lungs-Decreased breath sound bilaterally with Crackles left LL Heart-Regular,no murmur appreciated Abdomen-Benign,no masses,bowel sound present Extremities-No edema Neuro-AAOx3 Lab data as noted below. ASSESSMENT & PLAN: Healthcare-associated pneumonia, no overt sepsis. Left Lower Lobe Started on Levaquin Blood cultures -negative Cautious amount of IVF Clinically better No more cough and SOB is better History of small cell lung cancer, ongoing chemotherapy. Has been getting Cisplatin and Etoposide every 21 days Received lat dose on 05/23/17 Pancytopenia S/P Chemo Counts are improving Past tobacco abuse. No acute issue Chronic systolic heart failure, nonischemic cardiomyopathy, the patient euvolemic. Will get minimal amount of IVF No signs of Failure Hyponatremia, syndrome of inappropriate antidiuretic hormone secretion. Sodium 131 today Will continue Fluid restriction Normalized DVT prophylaxis, SCDs, regarding recent GI bleed. Full code. DISPOSITION PT/OT evaluation Likely discharge in a day or two Vital Signs: Date Time Temp Pulse Resp B/P (MAP) Pulse Ox O2 Delivery O2 Flow Rate FiO2 06/05/17 11:15 36.7 65 16 114/67 (83) 92 06/05/17 09:00 Room Air 06/05/17 07:06 36.8 79 16 100/60 (73) 95 Room Air 06/05/17 04:14 36.9 70 18 127/65 (85) 94 Room Air 06/05/17 00:20 36.9 66 18 119/59 (79) 98 Room Air 06/05/17 00:00 95 Room Air 06/04/17 19:40 37.2 90 131/69 (89) Room Air 06/04/17 16:00 Room Air 06/04/17 15:39 37.3 76 16 115/67 (83) 94 Lab Results: Results Past 24 Hours Test 06/05/17 05:27 Range/Units White Blood Count 1.63 4.8-10.8 K/uL Red Blood Count 3.30 4.2-5.4 M/uL Hemoglobin 10.2 12.0-16.0 g/dL Hematocrit 30.1 37-47 % Mean Corpuscular Volume 91.2 80-100 fL Mean Corpuscular Hemoglobin 30.9 25-34 pg Mean Corpuscular Hemoglobin Concent 33.9 32-36 g/dl Platelet Count 181 130-400 K/uL Mean Platelet Volume 9.2 7.4-10.4 fL Neutrophils (%) (Auto) 11.7 % Lymphocytes (%) (Auto) 63.2 % Monocytes (%) (Auto) 19.0 % Eosinophils (%) (Auto) 4.9 % Basophils (%) (Auto) 1.2 % Neutrophils # (Auto) 0.19 1.4-6.5 K/uL Lymphocytes # (Auto) 1.03 1.2-3.4 K/uL Monocytes # (Auto) 0.31 0.11-0.59 K/uL Eosinophils # (Auto) 0.08 0-0.5 K/uL Basophils # (Auto) 0.02 0-0.2 K/uL RDW Standard Deviation 45.2 36.4-46.3 fL RDW Coefficient of Variation 13.6 11.5-14.5 % Immature Granulocyte % (Auto) 0.0 % Immature Granulocyte # (Auto) 0.00 0.00-0.02 K/uL Dohle Bodies 1+ Sodium Level 135 136-145 mmol/L Potassium Level 4.5 3.5-5.1 mmol/L Chloride Level 101 98-107 mmol/L Carbon Dioxide Level 26 21-32 mmol/L Anion Gap 8.0 3-11 mmol/L Blood Urea Nitrogen 14 7-18 mg/dl Creatinine 0.65 0.60-1.20 mg/dl Est Creatinine Clear Calc Drug Dose 55.0 ml/min Estimated GFR () 104.3 Estimated GFR (Non- 90.0 BUN/Creatinine Ratio 21.9 10-20 Random Glucose 95 70-99 mg/dl Calcium Level 8.3 8.5-10.1 mg/dl
[2017-06-05] MEDS: SIMVASTATIN 20 MG TAB PO SCH (20:55)
[2017-06-05] MEDS ORDERED: LEVOFLOXACIN 750 MG TAB PO SCH (21:00)
[2017-06-06] VITALS: O2SAT 95
[2017-06-06 03:46] VITALS: BP 114/69; PULSE 78; TEMP 37.1; O2SAT 91
[2017-06-06 06:03] LABS: MEAN CELL VOLUME 91.7 fL (80-100); MEAN CORPUSCULAR HEMOGLOBIN 32.5 pg (25-34); MEAN CORPUSCULAR HGB CONC 35.5 g/dl (32-36); PLATELET COUNT 250 K/uL (130-400); RED BLOOD COUNT 3.38 M/uL (4.2-5.4); WHITE BLOOD COUNT 2.75 K/uL (4.8-10.8)
[2017-06-06 06:24] LABS: CALCIUM 8.7 mg/dl (8.5-10.1); CREATININE 0.87 mg/dl (0.60-1.20); POTASSIUM 4.5 mmol/L (3.5-5.1)
[2017-06-06 06:50] LABS: BASO % 0.4 %; BASO ABS # 0.01 K/uL (0-0.2); COMPLETE YES; DOHLE BODIES 1+; EOS % 2.9 %; IG% 0.7 %; LARGE PLATELETS 1+; LYMPH % 54.2 %; LYMPH ABS # 1.49 K/uL (1.2-3.4); MONO % 21.5 %; NEUT % 20.3 %
[2017-06-06 06:55] VITALS: BP 113/67; PULSE 110; TEMP 36.7; O2SAT 92; Ht 149.9 cm; Wt 47.6 kg
--- NOTE | 2017-06-06 07:26 | Clinical Documentation Query ---
CLINICAL DOCUMENTATION QUERY 71-y/o female who presents with hx of lung CA s/p chemo with fever 2/2 pneumonia. She has had a recent 15% loss in BW in last 4 months. In your clinical opinion is this patient being managed for: ( ) Severe Malnutrition (+) Moderate Malnutrition ( ) Not Agree ( ) Other explanation of clinical findings (Please Explain) ( ) Unable to determine (Please Define) ( ) Need to Discuss Secondary to Malignancy and Chemotherapy The medical record reflects the following clinical findings, treatment, and risk factors. Clinical Indicators: As above. RD consult: "Pt lost 8.2 kg since 01/2017 (15% wt loss in 4 mos = significant) BMI 20.2 (low for older adult)." RBC 3.54, Hgb 11.3, Hct 32.2, Albumin 2.6, K+ 3.2 Treatment: RD consult, PM snacks, boost pudding TID, Risk Factors: Age, underlying cancer and recent acute illnesses of sepsis 04/15 and current pneumonia. Please clarify and document your clinical opinion in the progress notes and discharge summary. Terms such as "probable", "suspected", "likely", "questionable", "possible", or "still to be ruled out" are acceptable. IF IN AGREEMENT, YOU MUST DOCUMENT ABOVE DIAGNOSTIC STATEMENT IN DAILY PROGRESS NOTES AND DISCHARGE SUMMARY. This document is not part of the patient's record. Malnutrition Characteristics (2 of 6) in Acute Illness/Injury CHARACTERISTICS MODERATE MALNUTRITION SEVERE MALNUTRITION ENERGY INTAKE <75% of estimated energyrequirement for >7 days <50% of estimated energyrequirement for >5 days WEIGHT LOSS 1-2%/1 week 5%/1 month 7.5%/3 months >1-2%/1 week >5%/1 month >7.5%/3 months BODY FAT*loss of SQ fat from the orbits,triceps, or fat overlying the ribs MILD MODERATE MUSCLE MASS*muscle wasting at the temples,clavicles, shoulders, interosseousspaces,scapula, thigh, calf MILD MODERATE FLUID ACCUMULATION*localized or generalized edemaof the extremities, vulva, scrotumweight loss may be masked byedema MILD MODERATE-SEVERE ASSISTANT ADMINISTRATOR STRENGTH N/A measurably decreased perthe device's standards Malnutrition Characteristics (2 of 6) in Chronic Illness CHARACTERISTICS MODERATE MALNUTRITION SEVERE MALNUTRITION ENERGY INTAKE <75% of estimated energyrequirement for >1 month <75% of estimated energyrequirement for >1 month WEIGHT LOSS 5%/1 month 7.5%/3 months 10%/6 months 20%/1 year > 5%/1 month >7.5%/3 months >10%/6 months >20%/1 year BODY FAT*loss of SQ fat from the orbits,triceps, or fat overlying the ribs MILD SEVERE MUSCLE MASS*muscle wasting at the temples,clavicles, shoulders, interosseousspaces,scapula, thigh, calf MILD SEVERE FLUID ACCUMULATION*localized or generalized edemaof the extremities, vulva, scrotumweight loss may be masked byedema MILD SEVERE ASSISTANT ADMINISTRATOR STRENGTH N/A measurably decreased perthe device's standards Thank You, Александр Bee RN [phone]
[2017-06-06] MEDS: BOOST VANILLA PUDDING CUP PO SCH (08:00)
[2017-06-06] MEDS: ASPIRIN 81 MG ECTAB PO SCH (08:15)
[2017-06-06] MEDS: BUDESONIDE/FORMOTEROL FUMARATE 160/4.5 60 PUFFS/INHALER INH SCH (08:15)
[2017-06-06] MEDS: POTASSIUM CHLORIDE 10 MEQ TABCR PO SCH (08:16)
[2017-06-06] MEDS: FUROSEMIDE 20 MG TAB PO SCH (08:17)
[2017-06-06] MEDS: METOPROLOL TARTRATE 100 MG TAB PO SCH (08:17)
[2017-06-06] MEDS: AMLODIPINE BESYLATE 5 MG TAB PO SCH (08:18)
[2017-06-06] MEDS: LISINOPRIL 40 MG TAB PO SCH (08:19)
[2017-06-06] MEDS: TRAMADOL HCL 50 MG TAB PO PRN (08:20)
[2017-06-06] MEDS: PANTOprazole SOD 40 MG TAB PO SCH (09:15)
[2017-06-06] MEDS: SERTRALINE HCL 50 MG TAB PO SCH (09:16)
--- NOTE | 2017-06-06 10:27 | DIAGNOSTIC IMAGING REPORT ---
CHEST 2 VIEWS ROUTINE CLINICAL HISTORY: pneumonia pneumonitis COMPARISON STUDY: 06/03/2017 FINDINGS: Slightly progressive left hilar infiltrate. Trace bilateral pleural effusions. Central catheter remains in superior vena cava. Postoperative changes thoracolumbar spine considered stable. IMPRESSION: Mildly progressive left basilar parenchymal infiltrate. Small bilateral pleural effusions. Mild prominence pulmonary vasculature. The above report was generated using voice recognition software. It may contain grammatical, syntax or spelling errors. Electronically signed by: Chandra Dorsey M.D. 06/06/2017 10:26 AM Dictated Date/Time: 06/06/2017 10:24 AM
[2017-06-06 11:46] VITALS: BP 122/66; PULSE 95; O2SAT 91
--- NOTE | 2017-06-06 13:18 | Progress Note ---
Internal Med Progress Note Date of Service: Jun 06, 2017. Provider Documentation: SUBJECTIVE: The patient was seen and examined Admitted with cough,fever and weakness Noted to have Pneumonia Clinically a lot better Denies any symptoms Wants to go home OBJECTIVE: Vital Signs-as noted below Exam: General-Minimal distress at rest Eyes-normal ENT-normal Neck-supple Lungs-Decreased breath sound bilaterally with Crackles left LL Heart-Regular,no murmur appreciated Abdomen-Benign,no masses,bowel sound present Extremities-No edema Neuro-AAOx3 Lab data as noted below. ASSESSMENT & PLAN: Healthcare-associated pneumonia, no overt sepsis. Left Lower Lobe Started on Levaquin Blood cultures -negative Cautious amount of IVF Clinically better No more cough and SOB is better CXR in not any worse Clinically improved Discharge home on oral antibiotic History of small cell lung cancer, ongoing chemotherapy. Has been getting Cisplatin and Etoposide every 21 days Received lat dose on 05/23/17 Keep OP Oncology appointment Pancytopenia S/P Chemo Counts are improving Past tobacco abuse. No acute issue Chronic systolic heart failure, nonischemic cardiomyopathy, the patient euvolemic. Will get minimal amount of IVF No signs of Failure Hyponatremia, syndrome of inappropriate antidiuretic hormone secretion. Sodium 131 today Will continue Fluid restriction Normalized Advised fluid restriction DVT prophylaxis, SCDs, regarding recent GI bleed. Full code. DISPOSITION PT/OT evaluation Discharged today Vital Signs: Date Time Temp Pulse Resp B/P (MAP) Pulse Ox O2 Delivery O2 Flow Rate FiO2 06/06/17 11:46 95 18 122/66 (84) 91 Room Air 06/06/17 08:00 Room Air 06/06/17 06:55 36.7 110 16 113/67 (82) 92 Room Air 06/06/17 03:46 37.1 78 18 114/69 (84) 91 Room Air 06/06/17 00:00 95 Room Air 06/05/17 23:53 37.5 80 16 114/67 (83) 95 Room Air 06/05/17 20:00 95 Room Air 06/05/17 19:23 36.9 91 18 147/80 (102) 92 Room Air 06/05/17 16:00 Room Air 06/05/17 15:50 36.9 76 18 97/62 (74) 92 Room Air Lab Results: Results Past 24 Hours Test 06/06/17 05:33 Range/Units White Blood Count 2.75 4.8-10.8 K/uL Red Blood Count 3.38 4.2-5.4 M/uL Hemoglobin 11.0 12.0-16.0 g/dL Hematocrit 31.0 37-47 % Mean Corpuscular Volume 91.7 80-100 fL Mean Corpuscular Hemoglobin 32.5 25-34 pg Mean Corpuscular Hemoglobin Concent 35.5 32-36 g/dl Platelet Count 250 130-400 K/uL Mean Platelet Volume 9.0 7.4-10.4 fL Neutrophils (%) (Auto) 20.3 % Lymphocytes (%) (Auto) 54.2 % Monocytes (%) (Auto) 21.5 % Eosinophils (%) (Auto) 2.9 % Basophils (%) (Auto) 0.4 % Neutrophils # (Auto) 0.56 1.4-6.5 K/uL Lymphocytes # (Auto) 1.49 1.2-3.4 K/uL Monocytes # (Auto) 0.59 0.11-0.59 K/uL Eosinophils # (Auto) 0.08 0-0.5 K/uL Basophils # (Auto) 0.01 0-0.2 K/uL RDW Standard Deviation 46.0 36.4-46.3 fL RDW Coefficient of Variation 13.9 11.5-14.5 % Immature Granulocyte % (Auto) 0.7 % Immature Granulocyte # (Auto) 0.02 0.00-0.02 K/uL Dohle Bodies 1+ Large Platelets 1+ Sodium Level 131 136-145 mmol/L Potassium Level 4.5 3.5-5.1 mmol/L Chloride Level 97 98-107 mmol/L Carbon Dioxide Level 27 21-32 mmol/L Anion Gap 7.0 3-11 mmol/L Blood Urea Nitrogen 17 7-18 mg/dl Creatinine 0.87 0.60-1.20 mg/dl Est Creatinine Clear Calc Drug Dose 41.1 ml/min Estimated GFR () 78.2 Estimated GFR (Non- 67.5 BUN/Creatinine Ratio 19.0 10-20 Random Glucose 99 70-99 mg/dl Calcium Level 8.7 8.5-10.1 mg/dl
[2017-06-06] MEDS ORDERED: LVQ750 PO (13:22)
[2017-06-06] MEDS ORDERED: LCTX PO (13:22)
--- NOTE | 2017-06-06 13:24 | Discharge Instructions ---
Discharge Instructions Date of Service Jun 06, 2017. Admission Reason for Admission: HCAP Discharge Discharge Diagnosis / Problem: Pneumonia,Pancytopenia-improved Discharge Goals Goal(s): Prevent Disease Progression Activity Recommendations Activity Limitations: resume your previous activity . Instructions / Follow-Up Instructions / Follow-Up Dr Ahumada on 06/08/17 at 3:45PM.Pl keep appointment with your Oncologist Current Hospital Diet Patient's current hospital diet: Low Sodium Diet (2gm Na) Discharge Diet Recommended Diet: AHA Diet (Heart Healthy), Low Sodium Diet (2gm Na) Fluid Restriction: 1500 ml (6 cups) Pending Studies Studies pending at discharge: no Laboratory Results Hemoglobin A1c Test 04/15/17 12:03 Range/Units Estimated Average Glucose 105 mg/dl Hemoglobin A1c 5.3 4.5-5.6 % Medical Emergencies . Who to Call and When: Medical Emergencies: If at any time you feel your situation is an emergency, please call 911 immediately. . Non-Emergent Contact Non-Emergency issues call your: Primary Care Provider . Past History Medical & Surgical History: (1) Pneumonia (2) Altered mental status (3) Hyponatremia (4) Lung nodule (5) Neutropenia (6) Left lower lobe pneumonia (7) Osteoporosis . "Provider Documentation" section prepared by Suzie Greenberg. . VTE Core Measure Inpt VTE Proph given/why not?: SCD's
--- NOTE | 2017-06-06 15:14 | Discharge Summary ---
Discharge Summary Date of Service Jun 06, 2017. Discharge Summary Admission Date: Jun 03, 2017 at 23:51 Discharge Date: Jun 06, 2017 Discharge Disposition: Home with services Principal Diagnosis: Pneumonia,Pancytopenia-improved Secondary Diagnoses/Problems: Please see H&P and Hospital progress note Medication Reconciliation New Medications: Lactobacillus Acidophilus (Lactinex) Tab 2 TAB PO BID, #30 TAB Levofloxacin (Levofloxacin) 750 Mg Tab 750 MG PO Q2D@2100 for 8 Days, #4 TAB Continued Medications: Amlodipine (Norvasc) 5 Mg Tab 5 MG PO QAM, TAB Aspirin (Aspirin Ec) 81 Mg Tab 81 MG PO QAM Budesonide/Formoterol Fumarate (Symbicort 160/4.5 Inhaler ) Aero 2 PUFFS INH BID, INHALER Furosemide (Lasix) 20 Mg Tab 20 MG PO QAM, TAB Home O2 Therapy (Oxygen) Gas 2 LITERS NA PRN Lisinopril (Lisinopril) 40 Mg Tab 1 TAB PO QAM HAS A COUGH WITH MED Lorazepam (Ativan) 0.5 Mg Tab 0.5 MG PO Q6H PRN for Anxiety, TAB Metoprolol Tartrate (Lopressor) (Lopressor) 100 Mg Tab 100 MG PO BID, TAB Nitroglycerin (Nitrostat) 0.4 Mg Tab 0.4 MG UT PRN, BTL Oxycodone/Acetaminophen 5MG/325MG (Percocet 5MG/325MG) Tab 1 TABLET PO Q6H PRN for Pain, TAB PAIN Pantoprazole (Protonix) 40 Mg Tab 40 MG PO BID, TAB Sertraline (Zoloft) 25 Mg Tab 25 MG PO QAM, TAB Simvastatin (Zocor) 20 Mg Tab 20 MG PO QPM, TAB Tramadol (Ultram) 50 Mg Tab 50 MG PO Q8H PRN for Pain, TAB Admission Information HPI (per Admitting provider): DATE OF ADMISSION: 06/03/2017 PRIMARY CARE PHYSICIAN: Dr. Ordonez. CHIEF COMPLAINT: Cough. HISTORY OF PRESENT ILLNESS: History obtained from the patient, daughter, records. Medical history significant for small cell lung cancer, currently on chemotherapy, past tobacco abuse, history of chronic systolic heart failure, nonischemic cardiomyopathy, EF of 25-30%, chronic anemia (baseline hemoglobin of 11), SIADH, history of peripheral vascular disease. Recent confinement last 04/2017 for UGIB. Patient found to have nonbleeding duodenal ulcers. Patient discharged on PPI. Patient noted to be hyponatremic - attributed to SIADH. Discharged on fluid restriction and diuretic therapy. Patient also found to have pulmonary nodules. 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 Upon discharge from the hospital, patient had outpatient bronchoscopy 2016 which showed endobronchial lesion in the right middle and lower lobes. Pathology consistent with small cell lung cancer. Patient referred to [facility] [place] Oncology last week of April. Chemotherapy started last week. Last few days, the patient noted increase in usual cough symptoms, junky, chest pain with coughing. No unusual shortness of breath. Denies aspiration. Was started on azithromycin by PCP. No response. Low-grade fever at home, Tylenol given. Patient sent to the Emergency Room as per oncologist recommendation. Patient given Levaquin in the ER for pneumonia. MEDICAL HISTORY: As above. SURGERIES: She has had dental surgery, cholecystectomy, carotid endarterectomy, back surgery, gynecologic procedures. HOME MEDICATIONS: Include lisinopril, Lopressor, Nitrostat, Percocet, Protonix, Zoloft, Zocor, Ultram. ALLERGIES: LISINOPRIL, PENICILLIN. FAMILY HISTORY: Diabetes, heart disease, thyroid disease, hypertension. PERSONAL AND SOCIAL HISTORY: Past tobacco abuse. No chronic intake of alcohol abuse. Retired [employer]. REVIEW OF SYSTEMS: As per HPI, all other ROS negative. PHYSICAL EXAMINATION: VITAL SIGNS: Blood pressure noted to be 113/50, pulse rate 70, RR 18, temperature 37.5, sats 90 on room air. GENERAL: Noted to be comfortable, no respiratory distress. SKIN: Pallor, warm. HEENT: Pale palpebral conjuctivae. No ptosis. Dry buccal mucosa. Healed scar on the forehead. NECK: No JVD. Supple neck. No tenderness in the neck. CHEST: Decreased breath sounds. No tenderness. HEART: Regular rate and rhythm, diminished S1 and S2. ABDOMEN: Some distention, nontender. EXTREMITIES: No edema. No tenderness. No gross deformity. NEUROLOGIC: Coherent. No gross focality. LABORATORY DATA: Hemoglobin was noted to be 11.3, hematocrit 33.2, white cell count 1.17, platelets 138. Sodium 131, potassium 3.6, chloride 93, CO2 of 30, BUN 25, creatinine 1.1, glucose 130. Lactic acid 1.29. Chest x-ray showed trace bilateral pleural effusions, developing left lower lobe airspace opacity. ASSESSMENT: 1. Healthcare-associated pneumonia, no overt sepsis. History of small cell lung cancer, ongoing chemotherapy. 2. Past tobacco abuse. 3. Chronic systolic heart failure, nonischemic cardiomyopathy patient euvolemic. 4. Hyponatremia, syndrome of inappropriate antidiuretic hormone secretion. Stable 5. PVD sp surgery PLAN: GMF Levaquin Continue fluid restriction, continue diuretic therapy, Maintain sodium between 129-133 as per Nephrology recommendations. PT/OT eval. DVT prophylaxis, SCDs RE recent GI bleed. Full code. Hospital Course Healthcare-associated pneumonia, no overt sepsis. Left Lower Lobe Started on Levaquin Blood cultures -negative Cautious amount of IVF Clinically better No more cough and SOB is better CXR in not any worse Clinically improved Discharge home on oral antibiotic History of small cell lung cancer, ongoing chemotherapy. Has been getting Cisplatin and Etoposide every 21 days Received lat dose on 05/23/17 Keep OP Oncology appointment Pancytopenia S/P Chemo Counts are improving Past tobacco abuse. No acute issue Chronic systolic heart failure, nonischemic cardiomyopathy, the patient euvolemic. Will get minimal amount of IVF No signs of Failure Hyponatremia, syndrome of inappropriate antidiuretic hormone secretion. Sodium 131 today Will continue Fluid restriction Normalized Advised fluid restriction DVT prophylaxis, SCDs, regarding recent GI bleed. Full code. DISPOSITION PT/OT evaluation Discharged today Total time spent on discharge = 35 minutes This includes examination of the patient, discharge planning, medication reconciliation, and communication with other providers. Discharge Instructions Date of Service Jun 06, 2017. Admission Reason for Admission: HCAP Discharge Discharge Diagnosis / Problem: Pneumonia,Pancytopenia-improved Discharge Goals Goal(s): Prevent Disease Progression Activity Recommendations Activity Limitations: resume your previous activity . Instructions / Follow-Up Instructions / Follow-Up Dr Ahumada on 06/08/17 at 3:45PM.Pl keep appointment with your Oncologist Current Hospital Diet Patient's current hospital diet: Low Sodium Diet (2gm Na) Discharge Diet Recommended Diet: AHA Diet (Heart Healthy), Low Sodium Diet (2gm Na) Fluid Restriction: 1500 ml (6 cups) Pending Studies Studies pending at discharge: no Laboratory Results Hemoglobin A1c Test 04/15/17 12:03 Range/Units Estimated Average Glucose 105 mg/dl Hemoglobin A1c 5.3 4.5-5.6 % Medical Emergencies . Who to Call and When: Medical Emergencies: If at any time you feel your situation is an emergency, please call 911 immediately. . Non-Emergent Contact Non-Emergency issues call your: Primary Care Provider . Past History Medical & Surgical History: (1) Pneumonia (2) Altered mental status (3) Hyponatremia (4) Lung nodule (5) Neutropenia (6) Left lower lobe pneumonia (7) Osteoporosis . "Provider Documentation" section prepared by Suzie Greenberg. . VTE Core Measure Inpt VTE Proph given/why not?: SCD's <Electronically signed by Suzie Greenberg M.D.> Signed: 06/06/17 [id number] Additional Copies To Manohar Ordonez D.O.
[2017-06-06 17:08] VITALS: BP 122/66; PULSE 95; TEMP 36.7; O2SAT 91
== END 2017-06-06 19:16 | disposition home health service (06) | DRG 193 ==
LOC: C.EDB 19:41 → C.4E 23:51 → CANRESERV 06-04 00:06 → ENRESERV 06-04 00:06
PROVIDERS: ADMIT Internal Medicine; ATTEND Internal Medicine
DX: J18.9 Pneumonia, unspecified organism (principal); D61.810 Antineoplastic chemotherapy induced pancytopenia; I50.22 Chronic systolic (congestive) heart failure; E22.2 Syndrome of inappropriate secretion of antidiuretic hormone; C34.90 Malignant neoplasm of unspecified part of unspecified bronchus or lung; I42.9 Cardiomyopathy, unspecified; Z99.81 Dependence on supplemental oxygen; Z87.891 Personal history of nicotine dependence; Z79.82 Long term (current) use of aspirin

== ENCOUNTER → 2017-07-21 | Day surgery (SDC) | payer OTHER ==
[2017-07-15 14:40] VITALS: BMI 19.0
[~2017-07-21] VITALS: Ht 149.9 cm; Wt 42.3 kg
[~2017-07-21] MED LIST changes: +LIDOCAINE HCL 2% 2 ML VIAL (20MG/ML) ONE; -LSN40 PO; +MAGN400T6 PO; +MIRT15TA2 PO; +ONDA8TAB6 PO; +ONDANSETRON INJ 2 MG/ML 2 ML VIAL IV PRN; -OXYC-57 PO; +POTA10CA28 PO; +PROM25TA9 PO; +PROPOFOL IV EMULSION 10 MG/ML 20 ML VIAL IV ONE; -SERT25TA PO; +[UNRECOGNIZED DRUG - CODE]
[2017-07-21 08:30] VITALS: Ht 149.9 cm; Wt 42.3 kg
[2017-07-21 08:46] VITALS: TEMP 36.7
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
--- NOTE | 2017-07-21 09:25 | Discharge Instructions ---
Endoscopy Patient Instructions Date / Procedure(s) Performed Jul 21, 2017. EGD Allergy Information Coded Allergies: Penicillins (Verified Allergy, Mild, PT DOES NOT REMEMBER REACTION, ) Discharge Date / Findings Jul 21, 2017. Small hiatal hernia Possible Schwartz's esophagus Mild gastritis Medication Instructions S Reported Home Medications Medications Dose Route/Sig Max Daily Dose Days Date Category Dose Instructions Micro-K Ext Rel (Potassium Chloride) 10 Meq Capcr 10 Meq PO DAILY 07/21/17 Reported Mag-Ox (Magnesium Oxide) 400 Mg Tab 400 Mg PO QD 07/21/17 Reported Remeron Soltab (Mirtazapine) 15 Mg Soltab 15 Mg PO HS 07/21/17 Reported Zofran (Ondansetron HCl) 8 Mg Tab 8 Mg PO Q8H PRN 07/15/17 Reported Phenergan (Promethazine HCl) 25 Mg Tab 25 Mg PO Q6H PRN 07/15/17 Reported Aspirin Ec (Aspirin) 81 Mg Tab 81 Mg PO QAM 05/16/17 Reported ON HOLD FOR NOSE BLEEDS Zocor (Simvastatin) 20 Mg Tab 20 Mg PO QPM 05/16/17 Reported Symbicort 160/4.5 Inhaler (Budesonide/Formoterol Fumarate) Aero 2 Puffs INH BID 05/16/17 Reported Ativan (Lorazepam) 0.5 Mg Tab 0.5 Mg PO Q6H PRN 05/16/17 Reported Nitrostat (Nitroglycerin) 0.4 Mg Tab 0.4 Mg UT PRN 05/16/17 Reported Ultram (Tramadol HCl) 50 Mg Tab 50 Mg PO Q8H PRN 05/16/17 Reported Lasix (Furosemide) 20 Mg Tab 20 Mg PO MWF 05/16/17 Reported Norvasc (Amlodipine Besylate) 5 Mg Tab 5 Mg PO QAM 05/16/17 Reported Oxygen Gas 2 Liters NA UD PRN 04/15/17 Reported Lopressor (Metoprolol Tartrate) 100 Mg Tab 100 Mg PO BID 01/19/17 Reported Provider Instructions Activity Restrictions - No exercising or heavy lifting for 24 hours. - Do not drink alcohol the day of the procedure. - Do not drive a car or operate machinery until the day after the procedure. - Do not make any important decisions or sign important papers in 24 hours after the procedure. Following Day: - Return to full activity which may include returning to work/school. Diet Start your diet with liquids and light foods (jello, soup, juice, toast). Then eat your usual diet if not nauseated. Treatment For Common After Affects For mild abdominal pain, bloating, or excessive gas: - Rest - Eat lightly - Lie on right side Follow-Up Information Follow-up with DR. NEWELL as scheduled Change Protonix 20 mg per day Anesthesia Information What You Should Know You have had a procedure that required some medicine to reduce anxiety and discomfort. This treatment is called moderate sedation. After receiving the treatment, you may be sleepy, but you will be able to breathe on your own. The effects of the treatment may last for several hours. Follow these instructions along with Activity/Diet recommendations noted above: * Do NOT do anything where dizziness or clumsiness would be dangerous. * Rest quietly at home today, then you can be up and about tomorrow. * Have a responsible person stay with you the rest of today. * You may have had an I.V. today. If so, you may take the dressing off later today. Recommendations Call your doctor if: * Trouble breathing * Continuous vomiting for more than 24 hours * Temperature above 101 degrees * Severe abdominal pain or bloating * Pain not relieved by pain medicine ordered * There is increased drainage or redness from any incision * A large amount of rectal bleeding greater than 2-3 tablespoons. (If you had a polyp/s removed or have hemorrhoids, a small amount of blood - from the rectum is to be expected.) * You have any unanswered questions or concerns. IN THE EVENT OF A SERIOUS EMERGENCY, GO TO THE NEAREST EMERGENCY ROOM Your discharge instructions were prepared by provider Mohini Coon. Patient Instructions Signature Page Radha aMthur Patient (or Guardian) Signature/Date: I have read and understand the instructions given to me by my caregivers. Caregiver/RN/Doctor Signature/Date: The above-named patient and/or guardian has received patient instructions on this date. + Original Patient Signature Page (only) stays with chart. Please make copy for patient.
[2017-07-21 09:54] VITALS: BP 124/50; PULSE 67; O2SAT 97
--- NOTE | 2017-07-21 10:36 | Anesthesiology Progress Note ---
Anesthesia Post Op Note Date & Time Jul 21, 2017 at 10:36 Vital Signs Pain Intensity: 0 Vital Signs Past 12 Hours Date Time Temp Pulse Resp B/P (MAP) Pulse Ox O2 Delivery O2 Flow Rate FiO2 07/21/17 09:54 67 18 124/50 (74) 97 Room Air 07/21/17 09:39 69 16 118/49 (72) 97 Room Air 07/21/17 09:24 71 12 103/57 (72) 99 Room Air 07/21/17 08:46 36.7 79 22 102/68 (79) 98 Room Air Notes Mental Status: alert / awake / arousable, participated in evaluation Pt Amnestic to Procedure: Yes Nausea / Vomiting: adequately controlled Pain: adequately controlled Airway Patency, RR, SpO2: stable & adequate BP & HR: stable & adequate Hydration State: stable & adequate Anesthetic Complications: no major complications apparent
--- NOTE | 2017-07-21 11:01 | GI REPORT ---
Procedure Date: 07/21/2017 9:07 AM Procedure: Upper GI endoscopy Indications: Follow-up of acute peptic ulcer with hemorrhage Medicines: Monitored Anesthesia Care Complications: No immediate complications. Estimated blood loss: Minimal. Estimated Blood Loss: Estimated blood loss was minimal. Procedure: Pre-Anesthesia Assessment: - Prior to the procedure, a History and Physical was performed, and patient medications, allergies and sensitivities were reviewed. The patient's tolerance of previous anesthesia was reviewed. - The risks and benefits of the procedure and the sedation options and risks were discussed with the patient. All questions were answered and informed consent was obtained. - Patient identification and proposed procedure were verified prior to the procedure by the physician, the nurse and the commercial estimator. The procedure was verified in the procedure room. - Pre-procedure physical examination revealed no contraindications to sedation. - ASA Grade Assessment: IV - A patient with severe systemic disease that is a constant threat to life. - After reviewing the risks and benefits, the patient was deemed in satisfactory condition to undergo the procedure. - The anesthesia plan was to use monitored anesthesia care (MAC). - Immediately prior to administration of medications, the patient was re-assessed for adequacy to receive sedatives. - The heart rate, respiratory rate, oxygen saturations, blood pressure, adequacy of pulmonary ventilation, and response to care were monitored throughout the procedure. - The physical status of the patient was re-assessed after the procedure. After obtaining informed consent, the endoscope was passed under direct vision. Throughout the procedure, the patient's blood pressure, pulse, and oxygen saturations were monitored continuously. The scope was introduced through the mouth, and advanced to the third part of duodenum. The upper GI endoscopy was accomplished without difficulty. The patient tolerated the procedure well. Findings: The upper third of the esophagus and middle third of the esophagus were normal. The Z-line was irregular and was found 36 cm from the incisors. Biopsies were taken with a cold forceps for histology. Estimated blood loss was minimal. A small hiatus hernia was found. The proximal extent of the gastric folds (end of tubular esophagus) was 36 cm from the incisors. The hiatal narrowing was 38 cm from the incisors. The Z-line was 36 cm from the incisors. Diffuse mild inflammation characterized by congestion (edema) and granularity was found in the entire examined stomach. Biopsies were taken with a cold forceps for histology. Estimated blood loss was minimal. The examined duodenum was normal. Impression: - Normal upper third of esophagus and middle third of esophagus. - Z-line irregular, 36 cm from the incisors. Biopsied. - Small hiatus hernia. - Gastritis. Biopsied. - Normal examined duodenum. Recommendation: - Discharge patient to home (ambulatory). - Advance diet as tolerated today. - Use Protonix (pantoprazole) 20 mg PO daily indefinitely. - Return to my office PRN. Mohini Coon D.O. Mohini Coon, 07/21/2017 9:32:12 AM This report has been signed electronically. Note Initiated On: 07/21/2017 9:07 AM I attest to the content of the Intraoperative Record and orders documented therein, exceptions below
== END | disposition home or self-care (01) ==
LOC: C.GI 08:17
PROVIDERS: ATTEND Internal Medicine Gastroenterology
DX: Z09 Encounter for follow-up examination after completed treatment for conditions other than malignant neoplasm (principal); K22.8 Other specified diseases of esophagus; K44.9 Diaphragmatic hernia without obstruction or gangrene; K29.70 Gastritis, unspecified, without bleeding; J44.9 Chronic obstructive pulmonary disease, unspecified; Z85.118 Personal history of other malignant neoplasm of bronchus and lung; I10 Essential (primary) hypertension; Z86.73 Personal history of transient ischemic attack (TIA), and cerebral infarction without residual deficits; Z88.0 Allergy status to penicillin; Z87.891 Personal history of nicotine dependence; Z79.82 Long term (current) use of aspirin; Z79.899 Other long term (current) drug therapy; Z98.890 Other specified postprocedural states

== ENCOUNTER → 2017-09-02 | Outpatient (CLI) | payer OTHER ==
[~2017-09-02] MED LIST changes: -ASPI81TA28 PO; +GADAVIST IV PRN; -LIDOCAINE HCL 2% 2 ML VIAL (20MG/ML) ONE; -ONDANSETRON INJ 2 MG/ML 2 ML VIAL IV PRN; -PROPOFOL IV EMULSION 10 MG/ML 20 ML VIAL IV ONE; -[UNRECOGNIZED DRUG - CODE]
--- NOTE | 2017-09-02 11:49 | DIAGNOSTIC IMAGING REPORT ---
MRI OF THE BRAIN WITHOUT AND WITH IV CONTRAST CLINICAL HISTORY: C34.91 SMALL CELL LUNG CARCINOMA COMPARISON STUDY: April 2017 TECHNIQUE: MRI of the brain was performed from the vertex to the skull base utilizing various T1 and T2 weighted sequences. Following the IV administration of 4.5 mL of Gadavist contrast, additional enhanced images were obtained. FINDINGS: Sagittal T1, axial diffusion, proton density and T2 weighted axial, coronal FLAIR, and pre and post axial T1-weighted images were acquired. These were supplemented with post gadolinium coronal T1 weighted images. No intra or extra-axial mass lesions are visualized. Axial diffusion-weighted images reveal no evidence of acute or subacute infarction. There is no evidence of ventricular dilatation. Proton density T2-weighted and FLAIR images reveal scattered foci of increased T2 signal within the white matter, likely on a small vessel basis. There are no abnormal flow voids. There is no evidence of pathologic enhancement. r there is a stable 17 mm lesion within the left frontal calvarium. This is of decreased signal on T1 and T2 weighted sequences and demonstrates no evidence of enhancement. This correlates with the sclerotic lesion described on a prior CT scan. IMPRESSION: 1. No acute intracranial findings 2. No evidence of acute or subacute infarction 3. No evidence of intracranial metastasis. Electronically signed by: Missael Finch M.D. 09/02/2017 11:47 AM Dictated Date/Time: 09/02/2017 11:43 AM
== END | disposition home or self-care (01) ==
LOC: C.MRI 10:28
PROVIDERS: ATTEND Internal Medicine Hematology
DX: C34.91 Malignant neoplasm of unspecified part of right bronchus or lung (principal)

== ENCOUNTER 2017-10-27 01:13 | Emergency (ER) | payer OTHER ==
[~2017-10-27] VITALS: Ht 149.9 cm; Wt 42.9 kg
[~2017-10-27 01:13] MED LIST changes: -AMLO-110 PO; -GADAVIST IV PRN; +LISI-729 PO; -MIRT15TA2 PO; +MIRT30TA2 PO; +ONDA-170 PO; -ONDA8TAB6 PO; -OXGN; -PANT40TA PO; -POTA10CA28 PO; +PRED20TA PO; +PRT/20 PO; -SYMIN160 INH
[2017-10-27 01:22] VITALS: Ht 149.9 cm; Wt 42.9 kg
[2017-10-27] MEDS ORDERED: SODIUM CHLORIDE 0.9% 1000ML 1,000 ML IV STA (02:40)
--- NOTE | 2017-10-27 03:21 | EMERGENCY ROOM VISIT NOTE ---
History Report prepared by Eufemiaibkaren: Perla Wilson Under the Supervision of: Dr. Debby Torres M.D. First contact with patient: 02:19 Chief Complaint: ABNORMAL LABS Stated Complaint: VIOLETLLANI 29-REF BY ABNORMAL LABS History of Present Illness The patient is a 72 year old female who presents to the Emergency Room with complaints of abnormal lab results. The patient has a history of stage 4 small cell carcinoma and recently received 10 days of radiation and her 7th round of chemotherapy by Dr. Phillips at [facility]. Her PCP ordered blood work that was drawn today and found her platelets to be 29 and her WBC to be 1.89. They were called around 0100 this morning and told to come to the ED. The patient has had an intermittent low grade temperature at home, as well as diarrhea and weight loss. Her stool has been "orange" in color and her last BM was yesterday. Her highest temperature was 100.9 degrees, checked at home around 1400 today. She last had Tylenol since 1400. 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 A total of 10 systems reviewed and were otherwise negative. Past Medical & Surgical Medical Problems: (1) Altered mental status (2) Grieving (3) HCAP (healthcare-associated pneumonia) (4) HLD (hyperlipidemia) (5) Hypertension (6) Hyponatremia (7) Lung nodule (8) Osteoporosis (9) Pneumonia (10) Primary small cell malignant neoplasm of lung, stage 4 (11) Small cell lung cancer (12) UGI bleed Social History Smoking Status: Never Smoker Alcohol Use: none Drug Use: none Marital Status: Housing Status: lives with family Occupation Status: retired Current/Historical Medications Scheduled Lisinopril (Zestril), 5 MG PO DAILY Magnesium Oxide (Mag-Ox), 400 MG PO QD Metoprolol Tartrate (Lopressor) (Lopressor), 100 MG PO BID Mirtazapine Soltab (Remeron Soltab), 30 MG PO HS Pantoprazole (Protonix), 20 MG PO DAILY Prednisone (Prednisone), 1 TAB PO DAILY Simvastatin (Zocor), 20 MG PO QPM Scheduled PRN Furosemide (Lasix), 20 MG PO 2XWK PRN for Documentation Lorazepam (Ativan), 0.5 MG PO Q6H PRN for Anxiety/Agitation Nitroglycerin (Nitrostat), 0.4 MG UT UD PRN for Chest Pain Ondansetron Hcl (Zofran), 8 MG PO Q8H PRN for Nausea Promethazine Hcl (Phenergan), 25 MG PO Q6H PRN for Nausea Tramadol (Ultram), 50 MG PO Q8H PRN for Pain Allergies Coded Allergies: Penicillins (Verified Allergy, Mild, PT DOES NOT REMEMBER REACTION, ) Physical Exam Vital Signs Date Time Temp Pulse Resp B/P (MAP) Pulse Ox O2 Delivery O2 Flow Rate FiO2 10/27/17 06:18 36.7 81 20 114/71 98 Room Air 10/27/17 05:11 80 10/27/17 04:19 82 20 125/72 98 Room Air 10/27/17 02:34 83 22 126/76 98 Room Air 10/27/17 01:42 88 10/27/17 01:22 36.5 103 22 165/77 98 Room Air Physical Exam Vital signs reviewed. General: Chronically ill-appearing 72 year old female, in no significant distress. HEENT: No scleral icterus, pale conjunctiva, PERRLA, neck supple. Atraumatic. Cardiovascular: Regular rate and rhythm, no extra sounds. Pulmonary: Port in the right subclavian region. Clear to auscultation bilaterally, normal work of breathing. Abdomen: Soft, nontender, nondistended, positive bowel sounds. Musculoskeletal: Atraumatic, no peripheral edema. Neurologic: Patient awake alert and oriented x 3. Skin: Warm, dry, no rash Medical Decision & Procedures ER Provider Diagnostic Interpretation: Radiology results as stated below per my review and radiologist interpretation: CHEST X-RAY Chronic changes noted in the right lower lung field. Implanted hardware noted along the lower thoracic spine. Indwelling port visualized, no acute bony fracture, no focal lung consolidation to suggest pneumonia, normal mediastinal silhouette. Laboratory Results 10/27/17 01:58 Red Blood Count 2.67, Mean Corpuscular Volume 101.5, Mean Corpuscular Hemoglobin 34.5, Mean Corpuscular Hemoglobin Concent 33.9, Mean Platelet Volume 12.2, Neutrophils (%) (Auto) 77.3, Lymphocytes (%) (Auto) 6.5, Monocytes (%) ( Auto) 11.0, Eosinophils (%) (Auto) 2.0, Basophils (%) (Auto) 0.8, Neutrophils # (Auto) 1.89, Lymphocytes # (Auto) 0.16, Monocytes # (Auto) 0.27, Eosinophils # ( Auto) 0.05, Basophils # (Auto) 0.02 10/27/17 01:58 Test 10/27/17 01:58 10/27/17 03:00 10/27/17 04:14 White Blood Count 2.45 K/uL (4.8-10.8) Red Blood Count 2.67 M/uL (4.2-5.4) Hemoglobin 9.2 g/dL (12.0-16.0) Hematocrit 27.1 % (37-47) Mean Corpuscular Volume 101.5 fL (80-100) Mean Corpuscular Hemoglobin 34.5 pg (25-34) Mean Corpuscular Hemoglobin Concent 33.9 g/dl (32-36) Platelet Count 31 K/uL (130-400) Mean Platelet Volume 12.2 fL (7.4-10.4) Neutrophils (%) (Auto) 77.3 % Lymphocytes (%) (Auto) 6.5 % Monocytes (%) (Auto) 11.0 % Eosinophils (%) (Auto) 2.0 % Basophils (%) (Auto) 0.8 % Neutrophils # (Auto) 1.89 K/uL (1.4-6.5) Lymphocytes # (Auto) 0.16 K/uL (1.2-3.4) Monocytes # (Auto) 0.27 K/uL (0.11-0.59) Eosinophils # (Auto) 0.05 K/uL (0-0.5) Basophils # (Auto) 0.02 K/uL (0-0.2) RDW Standard Deviation 58.7 fL (36.4-46.3) RDW Coefficient of Variation 15.8 % (11.5-14.5) Immature Granulocyte % (Auto) 2.4 % Immature Granulocyte # (Auto) 0.06 K/uL (0.00-0.02) Toxic Granulation 2+ Dohle Bodies 1+ Platelet Estimate SIGNIFIC DECREASED Large Platelets 1+ Anion Gap 8.0 mmol/L (3-11) Est Creatinine Clear Calc Drug Dose 40.6 ml/min Estimated GFR () 78.8 Estimated GFR (Non- 68.0 BUN/Creatinine Ratio 32.9 (10-20) Calcium Level 8.5 mg/dl (8.5-10.1) Magnesium Level 1.8 mg/dl (1.8-2.4) Total Bilirubin 0.3 mg/dl (0.2-1) Direct Bilirubin 0.1 mg/dl (0-0.2) Aspartate Amino Transf (AST/SGOT) 6 U/L (15-37) Alanine Aminotransferase (ALT/SGPT) 13 U/L (12-78) Alkaline Phosphatase 122 U/L (45-117) Total Protein 5.9 gm/dl (6.4-8.2) Albumin 2.9 gm/dl (3.4-5.0) Bedside Lactic Acid Venous 1.06 mmol/L (0.90-1.70) Urine Color YELLOW Urine Appearance CLEAR (CLEAR) Urine pH 8.0 (4.5-7.5) Urine Specific [place] 1.020 (1.000-1.030) Urine Protein NEG (NEG) Urine Glucose (UA) NEG (NEG) Urine Ketones NEG (NEG) Urine Occult Blood NEG (NEG) Urine Nitrite NEG (NEG) Urine Bilirubin NEG (NEG) Urine Urobilinogen NEG (NEG) Urine Leukocyte Esterase NEG (NEG) Influenza Type A (RT-PCR) Neg for Influ A (NEG) Influenza Type B (RT-PCR) Neg for Influ B (NEG) Laboratory results per my review. Medications Administered Medications (Trade) Dose Ordered Sig/Saul Route Start Time Stop Time Status Last Admin Dose Admin Sodium Chloride 1,000 ml @ 125 mls/hr Q8H STAT IV 10/27/17 02:40 10/27/17 07:25 DC 10/27/17 03:06 125 MLS/HR ED Course 0240: NSS 1000 ml @ 125 mls/hr IV. 0315: Past medical records reviewed. The patient was evaluated in room B10. A complete history and physical examination was performed. 0455: I reevaluated the patient. She is resting comfortably. 0611: I discussed the patients case with Dr. Solomon, [facility]. He is agreeable that she be discharged home. 0630: I reevaluated the patient. She is resting comfortably. I discussed her results and discharge instructions and she verbalized complete understanding and agreement. Medical Decision Differential Diagnoses: Medication effect, sepsis, pneumonia, UTI, viral syndrome and influenza. This pt was evaluated and appeared to be in no distress. IV access was obtained and lab work was drawn. Pt was placed on the potato chip maker. IVF were initiated. Pt is afebrile at triage. Outpt lab work was reviewed and today's repeat labs seems to be improving. Pt is pancytopenic, which is a change from recent past, but this is likely a chemotherapeutic effect. CXR is negative for acute process to my interpretation. She has remained afebrile without antipyretics. Blood cultures are pending. I did discuss my findings with Dr Solomon, who referred the patient to the ED. He will be sure pt has close f/u this week. She was d/c to daughter's care and will return to the ED for worsening of symptoms or any medical concerns. Medication Reconcilliation Current Medication List: was personally reviewed by me Blood Pressure Screening Patient's blood pressure: Elevated blood pressure Blood pressure disposition: Elevated BP felt to be situational Consults Time Called: 06 Consulting Physician: Dr. Solomon, [facility] Returned Call: 0611 I discussed the patients case with [facility]. He is agreeable that she be discharged home. Impression Primary Impression: Pancytopenia Additional Impressions: Small cell lung cancer chemotherapeutic effect Scribe Attestation The scribe's documentation has been prepared under my direction and personally reviewed by me in its entirety. I confirm that the note above accurately reflects all work, treatment, procedures, and medical decision making performed by me. Departure Information Dispostion Home / Self-Care Referrals Manohar Ordonez, D.O. (PCP) Patient Instructions My [facility] Additional Instructions Diagnosis: Small cell lung cancer, pancytopenia, chemotherapeutic effect Please monitor your temperatures. Contact your physician if your temperature rises above 101. Monitor for signs of bleeding. Return to the emergency department for evaluation if this occurs. Follow-up with Dr. Ordonez tomorrow as scheduled. Please contact Dr. Phillips of oncology for evaluation within the next several days. Drink plenty of clear fluids. Return to the emergency department for worsening of symptoms or any medical concerns. Problem Qualifiers
[2017-10-27 04:49] LABS: ALBUMIN 2.9 gm/dl (3.4-5.0); CALCIUM 8.5 mg/dl (8.5-10.1); CREATININE 0.86 mg/dl (0.60-1.20); POTASSIUM 4.1 mmol/L (3.5-5.1)
[2017-10-27 04:52] LABS: TOTAL PROTEIN 5.9 gm/dl (6.4-8.2)
[2017-10-27 05:14] LABS: INFLUENZA A PCR Neg for Influ A (NEG); INFLUENZA B PCR Neg for Influ B (NEG)
[2017-10-27 05:47] LABS: BASO % 0.8 %; BASO ABS # 0.02 K/uL (0-0.2); EOS ABS # 0.05 K/uL (0-0.5); HEMATOCRIT 27.1 % (37-47); HEMOGLOBIN 9.2 g/dL (12.0-16.0); IG# 0.06 K/uL (0.00-0.02); LYMPH % 6.5 %; LYMPH ABS # 0.16 K/uL (1.2-3.4); MEAN CELL VOLUME 101.5 fL (80-100); MEAN CORPUSCULAR HEMOGLOBIN 34.5 pg (25-34); MEAN CORPUSCULAR HGB CONC 33.9 g/dl (32-36); MEAN PLATELET VOLUME 12.2 fL (7.4-10.4); MONO ABS # 0.27 K/uL (0.11-0.59); NEUT % 77.3 %; NEUT ABS # 1.89 K/uL (1.4-6.5); PLATELET COUNT 31 K/uL (130-400); RED CELL DISTRIBUTION WIDTH CV 15.8 % (11.5-14.5); RED CELL DISTRIBUTION WIDTH SD 58.7 fL (36.4-46.3); WHITE BLOOD COUNT 2.45 K/uL (4.8-10.8)
[2017-10-27 06:18] VITALS: BP 114/71; PULSE 81; TEMP 36.7; O2SAT 98
--- NOTE | 2017-10-27 07:12 | DIAGNOSTIC IMAGING REPORT ---
CHEST ONE VIEW PORTABLE CLINICAL HISTORY: neurtopenia, fever, lung CA fever COMPARISON STUDY: 06/06/2017 FINDINGS: Mild chronic interstitial change right apex and right base. No focal infiltrate. Stable postoperative changes thoracolumbar spine. Central catheter in superior vena cava. IMPRESSION: Chronic and postoperative change. No acute process. The above report was generated using voice recognition software. It may contain grammatical, syntax or spelling errors. Electronically signed by: Chandra Dorsey M.D. 10/27/2017 7:10 AM Dictated Date/Time: 10/27/2017 7:10 AM
== END 2017-10-27 06:46 | disposition home or self-care (01) ==
LOC: C.EDB 01:15
DX: D61.810 Antineoplastic chemotherapy induced pancytopenia (principal); C34.90 Malignant neoplasm of unspecified part of unspecified bronchus or lung; T45.1X5A Adverse effect of antineoplastic and immunosuppressive drugs, initial encounter; R19.7 Diarrhea, unspecified; I10 Essential (primary) hypertension; E78.5 Hyperlipidemia, unspecified; M81.0 Age-related osteoporosis without current pathological fracture; Z87.01 Personal history of pneumonia (recurrent); Z79.899 Other long term (current) drug therapy

== ENCOUNTER → 2017-11-25 | Outpatient (CLI) | payer OTHER ==
[2017-11-25 10:12] VITALS: BP 101/62; PULSE 78; TEMP 36.3; O2SAT 94
--- NOTE | 2017-11-25 13:34 | Radiation Oncology Follow-Up ---
Radiation Oncology Follow-Up Date of Visit Nov 25, 2017. Reason For Visit 3 month follow-up Radiation Completion Date finished 10-17-2017 Diagnosis (1) Small cell carcinoma of right lung Status: Acute Onset Date: 04/22/2017 Stage: IV Permanent Comment: Admission with mental status changes and finding of right lower lobe lesion and pleural effusion Status post thoracocentesis suspicious for small cell carcinoma 04/22/2017 Status post bronchoscopy with EBUS 05/09/2017 - dx of small cell carcinoma PET/CT showing probable bone metastasis 05/18/2017 Systemic chemotherapy with cisplatin and Etoposide beginning 06/02/2017 Recheck PET/CT showing excellent treatment response 08/17/2017 Status post completion of consolidation radiation therapy to the chest October 17, 2017. She received 3000 cGy. Status post completion of prophylactic cranial radiation October 17, 2017. She received 2500 cGy. Last Edited By: Coco Huang on Nov 25, 2017 13:32 History of Present Illness Ms. Mathur was diagnosed with extensive stage small cell lung carcinoma. 04/20/2017 - MRI of Brain - IMPRESSION: Interval improvement in the scattered patchy areas of T2 signal abnormality/ edema within the left frontal, temporal, and parietal lobes compared the prior study. A few punctate foci of restricted diffusion within the left precentral gyrus have also improved. This could represent resolving subacute infarcts or encephalitis. 04/21/2017 - CT of chest - IMPRESSION: 1. Unchanging right midlung mass with linear soft tissue extension from the right hilum laterally to the pleural based component. 2. Interval development of a right to lesser extent small left effusion. 3. Pleural-based density posteriorly on the right hemithorax is obscured in part due to the presence of the effusion on the current study. 4. A neoplastic process remains the diagnosis of exclusion. 5. Unchanging postoperative changes to the low thoracic spine 05/09/2017 - bronchoscopy with EBUS and FNA biopsy by Dr. Caceres - LUNG, RIGHT LOWER LOBE, TRANSBRONCHIAL ASPIRATE: POSITIVE FOR MALIGNANT CELLS, SMALL CELL NEUROENDOCRINE CARCINOMA. COMMENT: The aspirates show atypical epithelial cells with large nuclei, scant cytoplasm, and no visible nucleoli. There is abundant tumor present in the cell block. Again the cells have very scant cytoplasm and no nucleoli. Extensive crush artifact is noted. Immunohistochemical stain demonstrate that the tumor cells are positive for chromogranin, synaptophysin, CD56 and TTF-1. 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 05/18/2017 - PET/CT - IMPRESSION: Metabolically active right hilar lung mass/ right lower lobe consolidation with associated metabolically active subcarinal and right upper and lower paratracheal lymphadenopathy. Additional metabolically active pleural-based lesions identified in the posterior right lower lobe. These findings are consistent with small cell lung cancer. Small right pleural effusion. Metabolically active foci in the T7 vertebral body and left anterolateral 7th rib without corresponding CT abnormality - indeterminate, osseous metastasis not excluded. Consider further evaluation with bone scan. 05/2017 - 08/2017 - 6 cycles of carboplatin/etoposide chemotherapy underneath the supervision of Dr. Pancho Phillips. 08/17/2017 - IMPRESSION: 1. Interval complete resolution of hypermetabolic right hilar lung mass, right lower lobe consolidation, paratracheal and subcarinal lymphadenopathy. This represents a complete metabolic response to therapy at these sites. However, there has been interval development of a new portacaval lymph node with mild metabolic activity which is suspicious. Recommend follow-up PET/CT scan in 3-4 months which might yield higher specificity. 2. New mildly metabolically active, mildly prominent lymph node adjacent to the aortic arch, indeterminate. Attention on follow-up. 3. New left lower lobe pleural-based opacity without significant metabolic activity, possibly round atelectasis. Attention on follow-up. 4. Moderate pulmonary emphysema. 09/02/2017 - IMPRESSION: 1. No acute intracranial findings 2. No evidence of acute or subacute infarction 3. No evidence of intracranial metastasis. We are now seeing the patient in consultation to discuss the role of prophylactic cranial radiation therapy and potential consolidative thoracic radiotherapy. In general, the patient is doing okay overall. She has no significant complaints at this point. The decision was to give consolidative radiation therapy the chest and prophylactic cranial radiation to the brain. Interim History She has been doing well over the past 3 months. She denies any ill effects from the radiation other than fatigue. She did not have any issues with headaches or dizziness. She had no change in vision. When she completed the treatment she began chemotherapy the next day. That following week she had pronounced fatigue. This has steadily improved. She did have some skin irritation on her forehead. She had some irritation of the anterior chest. This resolved. There was no dryness or peeling of the skin. She did not experience any difficulty with swallowing. She has had issues over the past month with loose bowel movements. These occur 2-3 times per day. She is concerned as to the cause of the ongoing diarrhea. Allergies Coded Allergies: Penicillins (Verified Allergy, Mild, PT DOES NOT REMEMBER REACTION, ) Home Medications Scheduled Lisinopril (Zestril), 5 MG PO DAILY Magnesium Oxide (Mag-Ox), 400 MG PO TID Metoprolol Tartrate (Lopressor) (Lopressor), 100 MG PO BID Mirtazapine Soltab (Remeron Soltab), 30 MG PO HS Pantoprazole (Protonix), 20 MG PO DAILY Simvastatin (Zocor), 20 MG PO QPM Scheduled PRN Furosemide (Lasix), 20 MG PO 2XWK PRN for Documentation Nitroglycerin (Nitrostat), 0.4 MG UT UD PRN for Chest Pain Ondansetron Hcl (Zofran), 8 MG PO Q8H PRN for Nausea Promethazine Hcl (Phenergan), 25 MG PO Q6H PRN for Nausea Tramadol (Ultram), 50 MG PO Q8H PRN for Pain Review of Systems Gastrointestinal: Symptoms: Diarrhea GI Comments: has had for 4 weeks, 2-3 times a day , "has blow outs " taking immodium Oral: Symptoms: No Problems Respiratory: Symptoms: Moist Cough Other Respiratory: denies any SOB Urinary: Symptoms: WNL Skin: Symptoms: No Problems Additional Notes: She completed a distress management report and answered "no" to all questions. 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 Laboratory Laboratory Results: not applicable Pathology Pathology Results: were reviewed, and pertinent findings noted in HPI Imaging Imaging Studies: were reviewed, and pertinent findings noted below Imaging Comments She had a PET CT November 02, 2017. This showed 2 new solid spiculated pulmonary nodules in the right lower lobe with minimal uptake. These could be infectious or inflammatory. Malignancy is difficult to exclude, consider short-term follow -up CT. Interval resolution of metabolic activity within the periaortic and portacaval lymph nodes. Interval resolution of posterior left lower lobe airspace opacity. Assessment & Plan Plan: We discussed the issue of ongoing diarrhea. She is seeing her primary care physician today. We discussed that an evaluation for C. difficile could be performed to ensure that she is not having Clostridium difficile. Her daughter will call if this order is not placed. We will be happy to check the stool for Clostridium difficile. If this is negative then she can use Imodium to treat the diarrhea. She continues on her current regimen of chemotherapy. I reviewed with her that recheck scanning will be per Dr. Phillips in medical oncology. A follow-up appointment with our office was not given. She may return should she have any questions or if directed by Dr. Phillips. She may call if she has any questions or concerns. Total Time In Follow-Up I spent 20 minutes speaking to the patient in performing examination. I spent 15 minutes reviewing information and completing this note. [place] Copy To Manohar Ordonez D.O.; Pancho Phillips M.D.; Anselmo Caceres MD
== END | disposition home or self-care (01) ==
LOC: C.ONC 09:40
PROVIDERS: ATTEND Physician Assistant Medical
DX: Z08 Encounter for follow-up examination after completed treatment for malignant neoplasm (principal); Z92.3 Personal history of irradiation; Z85.118 Personal history of other malignant neoplasm of bronchus and lung